=== PATIENT | male | born 1950 | race Caucasian/White ===

== ENCOUNTER 2016-11-01 15:24 | Inpatient (IN) | payer MEDICARE ==
[2016-11-01] MEDS ORDERED: ETOMIDATE 2 MG/ML 10 ML VIAL ONE (16:10)
[2016-11-01] MEDS ORDERED: LIDOCAINE 2% INJ 20 MG/ML (20 ML MDV) ONE (16:12)
[2016-11-01] MEDS ORDERED: LIDOCAINE 2% INJ 20 MG/ML SQ ONE (16:26)
[2016-11-01] MEDS ORDERED: SODIUM CHLORIDE 0.9% 1,000 ML IV ONE ×2 (16:26→16:33)
[2016-11-01] MEDS ORDERED: DOPamine DRIP 800 MG in DEXTROSE/WATER 1 500ML.BAG IV ONE (16:31)
[2016-11-01] MEDS ORDERED: NOREPINEPHRIN 16 MG-0.9%NS PMX 16 MG/250 ML ML IV ONE (16:41)
[2016-11-01] MEDS ORDERED: EPINEPHrine 1 MG/ML 1 ML AMP IV ONE (16:47)
[2016-11-01] MEDS ORDERED: EPINEPHrine 2 MG in DEXTROSE 5% IN WATER 250 ML IV SCH ×4 (17:00)
[2016-11-01] MEDS ORDERED: RX INFO: IV CONTRAST WAS GIVEN 1 EACH MISC MISCELLANE PRN (17:07)
[2016-11-01] MEDS ORDERED: MIDAZOLAM 2 MG/2 ML VIAL ONE ×2 (17:10→17:35)
[2016-11-01] MEDS: MIDAZOLAM 2 MG/2 ML VIAL IVP ONE ×3 (17:12→17:20)
[2016-11-01] MEDS ORDERED: SODIUM CHLORIDE 0.9% 1,000 ML IV SCH ×2 (17:15→19:00)
[2016-11-01] MEDS ORDERED: fentaNYL (PF) 50 MCG/ML 2 ML AMP ONE (17:20)
[2016-11-01] MEDS: fentaNYL (PF) 50 MCG/ML 2 ML AMP IV ONE ×2 (17:21→17:33)
[2016-11-01] MEDS ORDERED: MIDAZOLAM 2 MG/2 ML VIAL IVP ONE ×2 (17:36→17:38)
[2016-11-01 17:57] LABS: Glucose,Whole Blood 88 mg/dL (75-99)
[2016-11-01] MEDS ORDERED: IODIXANOL 320 MG/ML 100 ML INTRAARTER ONE (17:57)
[2016-11-01] MEDS ORDERED: DOPamine DRIP 800 MG in DEXTROSE/WATER 1 500ML.BAG IV SCH (18:00)
[2016-11-01] MEDS: NOREPINEPHRIN 16 MG-0.9%NS PMX 16 MG/250 ML ML IV SCH (18:00)
[2016-11-01] MEDS: PROPOFOL 500 MG in EMPTY BAG 1 BAG IV SCH (18:00)
--- NOTE | 2016-11-01 18:40 | XR ---
EXAMINATION TYPE: XR chest 1V portable DATE OF EXAM: 11/01/2016 COMPARISON: 01/04/2016 HISTORY: Balloon pump placement TECHNIQUE: Single frontal view of the chest is obtained. FINDINGS: There is pulmonary edema. Heart is enlarged. Endotracheal tube is in good position. There are chest leads. There are calcified subcarinal lymph nodes. IMPRESSION: Pulmonary edema consistent with congestive heart failure or RDS. Endotracheal tube is in good position. Pulmonary edema is new compared to old exam.
[2016-11-01] MEDS ORDERED: HEPARIN SODIUM,PORCINE 5,000 UNIT/ML 1 ML VIAL IV PRN (18:59)
[2016-11-01] MEDS ORDERED: HEPARIN SODIUM,PORCINE 10,000 UNIT/ML 1 ML VIAL IV ONE (18:59)
[2016-11-01] MEDS: PANTOPRAZOLE 40 MG/10 ML VIAL IVP SCH (19:07)
[2016-11-01 19:14] LABS: Amorphous Sediment,Urine Moderate /hpf; Appearance,Urine Cloudy (Clear); Bacteria,Urine Few /hpf; Bilirubin,Urine Negative (Negative); Glucose,Urine (UA) Negative (Negative); Ketones,Urine Negative (Negative); Leukocyte Esterase,Urine Large (Negative); Nitrite,Urine Negative (Negative); Particle Count 20042; Protein,Urine 3+ (Negative); Specific Gravity,Urine 1.011 (1.001-1.035); Squamous Epithelial Cell,Urine 2 /hpf (0-4); UA Billing (MACRO vs. MICRO) MICRO; Urobilinogen,Urine <2.0 mg/dL (<2.0); WBC,Urine >182 /hpf (0-5)
[2016-11-01 19:16] LABS: ABG Base Excess -3.4 mmol/L; ABG HCO3 21 mmol/L (21-25); ABG PCO2 41 mmHg (35-45); ABG PH 7.34 (7.35-7.45); ABG PO2 177 mmHg (83-108); ABG TCO2 23 mmol/L (19-24)
[2016-11-01 19:33] LABS: Anisocytosis Moderate; CH 29.4; CHCM 27.8; HCT 34.2 % (39.0-53.0); HDW 3.48; HGB 10.2 gm/dL (13.0-17.5); Hypochromasia Marked; MCH 31.5 pg (25.0-35.0); MCHC 29.8 g/dL (31.0-37.0); MCV 105.8 fL (80.0-100.0); Macrocytosis Marked; Mean Platelet Volume 9.2; Poikilocytosis Slight; RBC 3.24 m/uL (4.30-5.90); RDW 21.1 % (11.5-15.5); WBC 10.7 k/uL (3.8-10.6); WBC (Perox) 11.81
[2016-11-01 19:35] LABS: Calcium 8.8 mg/dL (8.4-10.2); Potassium 5.7 mmol/L (3.5-5.1); Total Bilirubin 1.4 mg/dL (0.2-1.3); Total Protein 6.2 g/dL (6.3-8.2)
[2016-11-01 19:37] LABS: INR 1.4 (<1.1); Prothrombin Time 13.9 sec (9.0-12.0)
[2016-11-01 19:53] LABS: Partial Thromboplastin Time 30.6 sec (22.0-30.0)
[2016-11-01 20:00] LABS: Glucose,Whole Blood 120 mg/dL (75-99)
[2016-11-01 20:07] LABS: Add Differential Manual Differential
[2016-11-01 20:10] LABS: Manual Review Performed; Nucleated Red Blood Cells 0 /100 WBC (0-0); Ovalocytes Present; Polychromasia Present; Total Cells Counted 100
[2016-11-01] MEDS ORDERED: INSULIN REGULAR 100 UNIT/ML VIAL IV ONE (20:22)
[2016-11-01] MEDS ORDERED: DEXTROSE 50%-WATER 50 ML SYRINGE IVP STA (20:23)
[2016-11-01] MEDS ORDERED: DEXTROSE 10 % IN WATER 250 ML IV STA (20:24)
[2016-11-01] MEDS: HEPARIN SODIUM,PORCINE/D5W PMX 25,000 UNIT in DEXTROSE/WATER 1 500ML.BAG IV SCH (20:32)
--- NOTE | 2016-11-01 21:08 | US ---
EXAMINATION TYPE: US venous doppler duplex LE BI DATE OF EXAM: 11/01/2016 8:55 PM COMPARISON: NONE CLINICAL HISTORY: Swelling. Extremely limited and difficult exam. Exam was done portable in the ICU. Patient is intubated with a balloon pump in the right groin with multiple bandages. Unable to move th e right leg per nurse. There is also a jordan catheter taped to the left leg. SIDE PERFORMED: Bilateral TECHNIQUE: The lower extremity deep venous system is examined utilizing real time linear array sonog lawson with graded compression, doppler sonography and color-flow sonography. VESSELS IMAGED: External Iliac Vein (EIV) Common Femoral Vein Deep Femoral Vein Greater Saphenous Vein * Femoral Vein Popliteal Vein Small Saphenous Vein * Proximal Calf Veins (* superficial vessels) Right Leg: Negative for DVT as visualized Left Leg: Negative for DVT as visualized IMPRESSION: Normal exam. No evidence of deep venous thrombosis.
[2016-11-01] MEDS: ATORVASTATIN 40 MG TAB PO SCH (21:35)
[2016-11-01] MEDS: CHLORHEXIDINE GLUCONATE 15 ML CUP MUCOUS MEM SCH (21:35)
[2016-11-01 22:30] LABS: Anisocytosis Moderate; Basophils % (A) 0 %; CH 30.1; CHCM 29.4; Eosinophils % (A) 0 %; HCT 31.9 % (39.0-53.0); HDW 3.48; HGB 9.8 gm/dL (13.0-17.5); Hypochromasia Marked; Luc # (Auto) 0.12; Luc % (Auto) 1; Lymphocytes # (A) 0.3 k/uL (1.0-4.8); Lymphocytes % (A) 3 %; MCH 31.7 pg (25.0-35.0); MCHC 30.9 g/dL (31.0-37.0); MCV 102.4 fL (80.0-100.0); Macrocytosis Marked; Mean Platelet Volume 9.7; Monocytes # (A) 0.4 k/uL (0-1.0); Monocytes % (A) 4 %; Neutrophils # (A) 9.2 k/uL (1.3-7.7); Neutrophils % (A) 91 %; Poikilocytosis Slight; RBC 3.11 m/uL (4.30-5.90); WBC 10.1 k/uL (3.8-10.6); WBC (Perox) 10.52
--- NOTE | 2016-11-01 22:39 | XR ---
EXAM: XR Abdomen 1 view CLINICAL HISTORY: Reason: Firm spot in Abdomen in IABP TECHNIQUE: Frontal view of the abdomen/pelvis-one view supine COMPARISON: No relevant prior studies available. FINDINGS: Intraperitoneal space: No free air. Gastrointestinal tract: Bowel gas pattern is nonspecific with mild distention of small bowel loops in the mid and lower abdomen. Bones/joints: Regional bony structures are unremarkable. Tubes, lines and devices: Nasogastric tube extends into the stomach with its tip in region of distal gastric antrum. Right femoral arterial and venous catheters extend to right mid pelvis in region of iliac vessels. Additional lead projecting midline lower pelvis suggests rectal bleed and is coiled upon itself with tip in the lower pelvis. IMPRESSION: Nonspecific bowel gas pattern. Multiple lines and tubes as described in body of report.
[2016-11-01 22:41] LABS: Calcium 7.5 mg/dL (8.4-10.2); Total Bilirubin 0.8 mg/dL (0.2-1.3); Total Protein 5.8 g/dL (6.3-8.2)
[2016-11-01 22:56] LABS: Potassium 5.6 mmol/L (3.5-5.1)
[2016-11-01 22:57] LABS: Magnesium 1.9 mg/dL (1.6-2.3)
[2016-11-01] MEDS ORDERED: DEXTROSE 5% IN WATER 1,000 ML with SODIUM BICARB (1 MEQ/ML) 150 ML IV ONE (22:57)
[2016-11-01] MEDS ORDERED: WATER FOR INJECTION, STERILE 1,000 ML with SODIUM ACETATE 150 MEQ IV SCH ×2 (23:15)
[2016-11-01] MEDS: SODIUM CHLORIDE 0.9% 99 ML with VASOPRESSIN 20 UNIT IV SCH ×2 (23:45)
[2016-11-01 23:54] LABS: ABG Base Excess -0.6 mmol/L; ABG HCO3 23 mmol/L (21-25); ABG PCO2 35 mmHg (35-45); ABG PH 7.43 (7.35-7.45); ABG PO2 277 mmHg (83-108); ABG TCO2 24 mmol/L (19-24)
[2016-11-01 23:55] LABS: INR 1.5 (<1.1)
[2016-11-01 23:56] LABS: Prothrombin Time 14.3 sec (9.0-12.0)
[2016-11-02 00:05] LABS: Partial Thromboplastin Time 31.7 sec (22.0-30.0)
[2016-11-02 01:30] LABS: Glucose,Whole Blood 192 mg/dL (75-99)
[2016-11-02] MEDS: PROPOFOL 500 MG in EMPTY BAG 1 BAG IV SCH ×4 (03:04→17:25)
[2016-11-02] MEDS: NOREPINEPHRIN 16 MG-0.9%NS PMX 16 MG/250 ML ML IV SCH ×3 (03:21→12:36)
[2016-11-02 03:24] LABS: INR 1.6 (<1.1); Partial Thromboplastin Time 60.3 sec (22.0-30.0); Prothrombin Time 15.5 sec (9.0-12.0)
[2016-11-02 03:27] LABS: Anisocytosis Moderate; Basophils # (A) 0.1 k/uL (0-0.2); Basophils % (A) 1 %; CH 29.5; CHCM 28.6; Eosinophils % (A) 0 %; HCT 34.8 % (39.0-53.0); HDW 3.46; HGB 10.4 gm/dL (13.0-17.5); Hypochromasia Marked; Luc # (Auto) 0.18; Luc % (Auto) 2; Lymphocytes # (A) 0.4 k/uL (1.0-4.8); Lymphocytes % (A) 3 %; MCV 103.3 fL (80.0-100.0); Macrocytosis Marked; Mean Platelet Volume 9.4; Monocytes # (A) 0.5 k/uL (0-1.0); Monocytes % (A) 4 %; Neutrophils # (A) 10.7 k/uL (1.3-7.7); Neutrophils % (A) 90 %; Poikilocytosis Slight; RBC 3.37 m/uL (4.30-5.90); WBC 11.8 k/uL (3.8-10.6); WBC (Perox) 12.34
[2016-11-02] MEDS ORDERED: DEXTROSE 50%-WATER 50 ML SYRINGE IVP STA (03:49)
[2016-11-02] MEDS ORDERED: CALCIUM GLUCONATE 1,000 MG in SODIUM CHLORIDE 0.9% 100 ML IVPB ONE (03:50)
[2016-11-02] MEDS ORDERED: INSULIN REGULAR 100 UNIT/ML VIAL IV ONE (03:50)
[2016-11-02 05:01] LABS: Anisocytosis Moderate; Basophils % (A) 0 %; CH 29.4; CHCM 28.5; Eosinophils % (A) 0 %; HCT 34.6 % (39.0-53.0); HDW 3.43; HGB 10.4 gm/dL (13.0-17.5); Hypochromasia Marked; Luc # (Auto) 0.25; Luc % (Auto) 2; Lymphocytes # (A) 0.4 k/uL (1.0-4.8); Lymphocytes % (A) 4 %; MCHC 30.1 g/dL (31.0-37.0); MCV 103.1 fL (80.0-100.0); Macrocytosis Marked; Mean Platelet Volume 9.5; Monocytes # (A) 0.6 k/uL (0-1.0); Monocytes % (A) 5 %; Neutrophils % (A) 89 %; Poikilocytosis Slight; RBC 3.36 m/uL (4.30-5.90); RDW 20.8 % (11.5-15.5); WBC 11.3 k/uL (3.8-10.6); WBC (Perox) 11.52
[2016-11-02 05:07] LABS: ABG Base Excess -1.9 mmol/L; ABG HCO3 23 mmol/L (21-25); ABG PCO2 40 mmHg (35-45); ABG PH 7.38 (7.35-7.45); ABG PO2 200 mmHg (83-108); ABG TCO2 24 mmol/L (19-24)
[2016-11-02 05:55] LABS: Calcium 8.7 mg/dL (8.4-10.2); Magnesium 2.3 mg/dL (1.6-2.3)
[2016-11-02 06:01] LABS: Phosphorous 9.5 mg/dL (2.5-4.5)
[2016-11-02 06:02] LABS: Potassium 6.6 mmol/L (3.5-5.1)
[2016-11-02 06:09] LABS: Glucose,Whole Blood 171 mg/dL (75-99)
[2016-11-02] MEDS: BUDESONIDE 0.5 MG/2 ML NEBU INHALATION SCH ×2 (07:17→19:00)
[2016-11-02] MEDS: IPRATROPIUM-ALBUTEROL 3 ML NEB INHALATION PRN ×4 (07:17→19:00)
--- NOTE | 2016-11-02 07:47 | XR ---
EXAMINATION TYPE: XR chest 1V DATE OF EXAM: 11/02/2016 COMPARISON: 11/01/2016 INDICATION: Balloon pump placement TECHNIQUE: Single frontal view of the chest is obtained. FINDINGS: The heart size is normal. The pulmonary vasculature is normal. There is mild infiltrate within the periphery of the left mid to lower lung field bilateral lower martine g field mild infiltrate is present. Small left pleural effusion is present. Minimal right pleural eff usion is present. An endotracheal tube remains in position with the tip above the kimberly. Nasogastric tube transverses the thorax tip in the left upper quadrant of the abdomen. Radiopaque marker is within the aortic arch level, stable from prior study compatible with the patient's balloon placement. Calcified mediastina l adenopathy is stable. IMPRESSION: 1. Small left and minimal right pleural effusion. 2. Mild bibasilar atelectasis. 3. Peripheral left midlung infiltrate or pleural fluid. 4. Lines and catheters discussed above.
[2016-11-02] MEDS: ASPIRIN 325 MG TAB PO SCH (08:34)
[2016-11-02] MEDS: PANTOPRAZOLE 40 MG/10 ML VIAL IVP SCH (08:35)
[2016-11-02] MEDS: CHLORHEXIDINE GLUCONATE 15 ML CUP MUCOUS MEM SCH ×2 (08:35→21:30)
[2016-11-02] MEDS: DOBUTamine DRIP 500 MG in DEXTROSE/WATER 1 250ML.BAG IV SCH ×2 (08:40→17:44)
--- NOTE | 2016-11-02 10:09 | P.NPCON ---
History of Present Illness - Reason for Consult end stage renal disease - History of Present Illness Reason for consultation: End-stage renal disease History of present illness: Patient is a 65-year-old male seen in renal consultation for end-stage renal disease. He is maintained on hemodialysis on a Sunday schedule. Patient presented with chest pain and underwent a cardiac catheterization on November 01. No interventions were done however he had a cardiac arrest. Patient received 1 dose of epinephrine and atropine and was revived. He is currently intubated and sedated in the intensive care unit. He is requiring levofed as well as vasopressin. He is also maintained on IV heparin and dobutamine drip. His potassium level has been elevated which was medically treated initially. However last night it was up to 6.7 and urgent hemodialysis was arranged. He completed dialysis this morning. Vital signs are stable but requiring multiple vasopressors. General: The patient appeared well nourished and normally developed. HEENT: Head exam is unremarkable. Neck is without jugular venous distension. LUNGS: Scattered rhonchi. Breath sounds decreased. HEART: Rate and Rhythm are regular. First and second heart sounds normal. No murmurs, rubs or gallops. ABDOMEN: Abdominal exam reveals normal bowel sounds. Non-tender and non- distended. EXTREMITITES: No clubbing, cyanosis, or edema. Past Medical History Past Medical History: Asthma, Cancer, Chest Pain / Angina, Heart Failure, Dialysis, Eye Disorder, Pneumonia, Renal Disease Additional Past Medical History / Comment(s): Renal failure with hemodialysis on //Sun, kidney transplant that failed, nephrolithiasis, renal hematoma, chronic anemia, nonhealing L patellar fracture, skin cancer chest and legs with removals, gout yrs ago, night vision problems. Heart Murmur. Heart Cath and HF diagnosis at [place] 1 month ago. Sepsis. Kidney Stones. History of Any Multi-Drug Resistant Organisms: None Reported Past Surgical History: Heart Catheterization, Orthopedic Surgery Additional Past Surgical History / Comment(s): KIDNEY TRANSPLANT. fistula/ shunt. basal cell carcinoma removed from chest and legs. cyst removed from left ear. tendon removed from BL wrist and placed in BL thumb-metal coils still present. lasik eye surgery, colonoscopy with benign polypectomy, bilateral cataract removal. L breast Biopsy. Past Anesthesia/Blood Transfusion Reactions: No Reported Reaction Additional Past Anesthesia/Blood Transfusion Reaction / Comment(s): Pt has received blood in past without reaction. Past Psychological History: Depression Additional Psychological History / Comment(s): Pt states he is staying at [facility] for rehab and was to be discharged today, now at discharge he states he will have to go back to [facility] to complete his discharge. Smoking Status: Never smoker Past Alcohol Use History: None Reported Past Drug Use History: None Reported - Past Family History Father Family Medical History: No Reported History Mother Family Medical History: No Reported History Medications and Allergies Home Medications Medication Instructions Recorded Confirmed Type Albuterol Inhaler [Ventolin Hfa 1 - 2 puff INHALATION RT-Q6H PRN 12/04/13 History Inhaler] Bumetanide [BUMEX] 1 mg PO DAILY 12/04/13 11/01/16 History Montelukast Sodium [Singulair] 10 mg PO DAILY 12/04/13 11/01/16 History Tamsulosin [Flomax] 0.4 mg PO DAILY 12/04/13 11/01/16 History Tranylcypromine Sulfate [Parnate] 100 mg PO DAILY 12/04/13 11/01/16 History chlordiazePOXIDE HCL 10 mg PO TID 12/04/13 11/01/16 History Allopurinol [Zyloprim] 100 mg PO DAILY 01/26/14 11/01/16 History Theophylline 12 Hour [Juan Manuel-Dur] 300 mg PO BID 01/04/16 11/01/16 History Acetaminophen Tab [Tylenol] 650 mg PO Q6H PRN 03/27/16 11/01/16 History Calcium Acetate [PhosLo] 667 mg PO AC-TID 03/27/16 11/01/16 History Cholecalciferol [Vitamin D3] 1,000 unit PO DAILY 03/27/16 11/01/16 History Cinacalcet [Sensipar] 30 mg PO DAILY 03/27/16 11/01/16 History Lactulose 20 gm PO DAILY PRN 03/27/16 11/01/16 History Magnesium Hydroxide [Milk of 2,400 mg PO DAILY PRN 03/27/16 11/01/16 History Magnesia] Polyethylene Glycol 3350 [Miralax] 17 gm PO DAILY PRN 03/27/16 11/01/16 History Sennosides [Senna] 8.6 mg PO DAILY 03/27/16 11/01/16 History Albuterol Nebulized [Ventolin 2.5 mg INHALATION RT-QID 11/01/16 11/01/16 History Nebulized] Famotidine 20 mg PO DAILY 11/01/16 11/01/16 History Midodrine [ProAmatine] 5 mg PO DIRECTED 11/01/16 11/01/16 History predniSONE 30 mg PO DAILY 11/01/16 11/01/16 History Allergies Allergy/AdvReac Type Severity Reaction Status Date / Time diphenhydramine HCl Allergy Rash/Hives Verified 11/01/16 19:14 [From Benadryl] meperidine HCl [From Demerol] Allergy Unknown Verified 11/01/16 19:14 vancomycin Allergy Itching Verified 11/01/16 19:14 Physical Exam Vitals: Vital Signs Temp Pulse Resp BP Pulse Ox 11/02/16 09:00 79 12 105/60 100 11/02/16 08:45 80 14 115/62 100 11/02/16 08:30 77 13 118/60 100 11/02/16 08:15 98.7 F 79 12 113/57 100 11/02/16 08:00 77 22 106/64 100 11/02/16 07:45 78 18 125/63 100 11/02/16 07:40 83 11/02/16 07:30 77 14 124/59 100 11/02/16 07:23 79 11/02/16 07:15 80 11 L 106/60 100 11/02/16 07:00 80 14 106/65 100 11/02/16 06:45 79 14 111/55 100 11/02/16 06:30 80 14 114/68 100 11/02/16 06:15 79 14 136/63 100 11/02/16 06:00 76 14 121/68 100 11/02/16 05:45 97.6 F 75 14 117/65 100 11/02/16 05:30 73 14 129/66 100 11/02/16 05:15 72 14 125/67 100 11/02/16 05:00 73 17 118/70 100 11/02/16 04:45 73 12 111/59 100 11/02/16 04:30 72 15 131/57 100 11/02/16 04:15 72 13 124/59 100 11/02/16 04:00 97.6 F 73 12 116/59 100 11/02/16 03:45 77 11 L 95/45 100 11/02/16 03:30 74 11 L 109/52 100 11/02/16 03:15 75 13 118/56 100 11/02/16 03:00 76 12 112/57 100 11/02/16 02:45 76 14 114/61 100 11/02/16 02:30 76 13 119/52 100 11/02/16 02:15 77 12 109/53 100 11/02/16 02:00 76 14 109/57 100 11/02/16 01:45 77 14 109/57 100 11/02/16 01:30 78 14 116/58 100 11/02/16 01:15 79 14 118/58 100 11/02/16 01:00 80 14 109/58 100 11/02/16 00:45 82 14 126/63 100 11/02/16 00:30 81 14 132/69 100 11/02/16 00:15 81 14 136/60 100 11/02/16 00:00 98.4 F 82 14 133/69 100 11/01/16 23:45 85 14 137/66 100 11/01/16 23:38 86 14 127/64 100 11/01/16 23:30 86 13 127/64 100 11/01/16 23:15 86 13 117/66 100 11/01/16 23:00 98.4 F 85 14 134/67 100 11/01/16 22:45 86 14 125/81 99 11/01/16 22:30 85 14 122/58 100 11/01/16 22:15 85 14 81/49 100 11/01/16 22:00 98.4 F 84 14 74/42 100 11/01/16 21:45 89 14 102/50 100 11/01/16 21:30 99 12 107/51 100 11/01/16 21:15 96 14 122/59 100 11/01/16 21:00 99 14 118/63 100 11/01/16 20:45 97 14 119/53 100 11/01/16 20:30 97 11 L 112/64 99 11/01/16 20:15 95 14 120/50 100 11/01/16 20:00 93.4 F L 96 14 120/50 100 11/01/16 19:45 92 14 120/49 100 11/01/16 19:30 91 14 100 11/01/16 19:15 90 14 100 11/01/16 19:00 94.0 F L 84 14 124/75 100 11/01/16 18:45 85 14 100 11/01/16 18:39 92.2 F L 86 14 139/74 100 Intake and Output 11/01/16 11/02/16 11/02/16 22:59 06:59 14:59 Intake Total 1729.375 670.626 682.149 Output Total 35 520 5 Balance 1694.375 150.626 677.149 Intake: IV 1623.53 460 130 Calcium Gluconate 1,000 100 mg In Sodium Chloride 0.9 % 100 ml @ 100 mls/hr IVPB ONCE ONE Rx#: [id number] D50 50 Sodium Chloride 0.9% 1, 120 270 80 000 ml @ 40 mls/hr IV . Q24H BRANDT Rx#:[id number] cefTRIAXone 1,000 mg In 90 Sodium Chloride 0.9% 50 ml @ 100 mls/hr IVPB HS BRANDT Rx#:[id number] Intake, IV Titration 105.845 210.626 552.149 Amount DOPamine DRIP 800 mg In 7.484 Dextrose/Water 1 500ml. bag @ 20 MCG/KG/MIN 56.13 mls/hr IV .Q8H55M BRANDT Rx #:[id number] Heparin Sodium,Porcine/ 321.484 D5w Pmx 25,000 unit In Dextrose/Water 1 500ml. bag @ 18 UNITS/KG/HR 26. 94 mls/hr IV .[id number] BRANDT Rx#:[id number] Norepinephrin 16 mg-0.9% 58.361 160.626 163.125 Ns Pmx 16 mg In 250 ml @ Titrate IV .Q0M BRANDT Rx#: [id number] Propofol 500 mg In Empty 50 49.54 Bag 1 bag @ Titrate IV . Q0M BRANDT Rx#:[id number] Sodium Chloride 0.9% 1, 40 000 ml @ 40 mls/hr IV . Q24H BRANDT Rx#:[id number] Sodium Chloride 0.9% 99 18 ml @ 0.03 UNITS/MIN 9 mls /hr IV .Q11H7M BRANDT with Vasopressin 20 unit Rx#: [id number] Output: Gastric Drainage 450 Urine 35 70 5 Other: Voiding Method Indwelling Catheter Indwelling Catheter Indwelling Catheter Weight 74.843 kg 77.5 kg 77.5 kg Patient Weight 11/03/16 06:59 Weight 77.5 kg Results - Lab Results Most recent lab results ABG pH 7.38 (7.35-7.45) 11/02/16 05:00 ABG pCO2 40 mmHg (35-45) 11/02/16 05:00 ABG pO2 200 mmHg (83-108) H 11/02/16 05:00 ABG HCO3 23 mmol/L (21-25) 11/02/16 05:00 ABG O2 Saturation 99.0 % (94-97) H 11/02/16 05:00 Calcium 8.7 mg/dL (8.4-10.2) 11/02/16 04:24 Phosphorus 9.5 mg/dL (2.5-4.5) H* 11/02/16 04:24 Magnesium 2.3 mg/dL (1.6-2.3) 11/02/16 04:24 11/02/16 04:24 11/02/16 04:24 Assessment and Plan Plan: Assessment: #1. End-stage renal disease maintained on hemodialysis on a Sunday schedule via left upper extremity AV fistula. #2. Hyperkalemia secondary to chronic kidney disease. #3. Status post cardiac arrest. #4. Chest pain status post cardiac catheterization in November 01. No interventions done. #5. Anemia of chronic kidney disease. Hemoglobin stable. #6. Hyperphosphatemia secondary to chronic kidney disease. Plan: Patient completed hemodialysis this morning. Recheck electrolytes at noon today. Wean vasopressors and FiO2 as tolerated. Expect further improvement with metabolic acidosis and hyperphosphatemia post dialysis. Cardiology following. Thank you for the consultation. I will continue to follow the patient with you during his hospital stay.
--- NOTE | 2016-11-02 10:28 | ECHOF ---
Referral Reason:LV function MEASUREMENTS -------- HEIGHT: 185.4 cm WEIGHT: 74.8 kg BP: 92/45 RVIDd: 5.3 cm (< 3.3) RAP: 5.00 mmHg RVSP: 37.94 mmHg FINDINGS -------- Undetermined rhythm. This was a technically adequate study. Limited Study Cardiac Arrest. Overall left ventricular systolic function is severely impaired with, an EF < 20%. The right ventricle is severely enlarged. The left atrium is moderately dilated. RA appears enlarged. There is a small, generalized pericardial effusion present. Large Pleural Effusion. CONCLUSIONS -------- 1. Undetermined rhythm. 2. Large Pleural Effusion. 3. This was a technically adequate study. 4. Limited Study 5. Cardiac Arrest. 6. Overall left ventricular systolic function is severely impaired with, an EF < 20%. 7. The right ventricle is severely enlarged. 8. The left atrium is moderately dilated. 9. RA appears enlarged. 10. There is a small, generalized pericardial effusion present. SUPERVISOR MATRIX: Gil Chavez RDCS
[2016-11-02] MEDS: SODIUM CHLORIDE 0.9% 99 ML with VASOPRESSIN 20 UNIT IV SCH ×4 (10:58→21:30)
--- NOTE | 2016-11-02 12:00 | P.PN ---
Subjective this patient's medical records reviewed and the hemodynamics over the last 24 hours reviewed. 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 The catheterization did not show any significant coronary artery disease. Go cardiogram done this morning revealed severely impaired left ventricular systolic function. Minimal pericardial effusion. Currently is on an norepinephrine as well as a vasopressin drip and on intra-aortic balloon pump support. 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 He do abdominal ultrasound. Objective - Vital Signs Vital signs: Vital Signs Temp 98.7 F 11/02/16 08:15 Pulse 75 11/02/16 11:17 Resp 12 11/02/16 11:00 BP 103/55 11/02/16 11:00 Pulse Ox 100 11/02/16 11:00 Intake & Output 11/01/16 11/02/16 11/02/16 18:59 06:59 18:59 Intake Total 1530.546 869.455 854.738 Output Total 20 535 5 Balance 1510.546 334.455 849.738 Weight 74.843 kg 77.5 kg 77.5 kg Intake: IV 1503.53 580 210 Calcium Gluconate 1,000 100 mg In Sodium Chloride 0.9 % 100 ml @ 100 mls/hr IVPB ONCE ONE Rx#: [id number] D50 50 Sodium Chloride 0.9% 1, 390 160 000 ml @ 40 mls/hr IV . Q24H [facility] Rx#:[id number] cefTRIAXone 1,000 mg In 90 Sodium Chloride 0.9% 50 ml @ 100 mls/hr IVPB HS [facility] Rx#:[id number] Intake, IV Titration 27.016 289.455 644.738 Amount DOBUTamine DRIP 500 mg In 22.4 Dextrose/Water 1 250ml. bag @ Titrate IV .Q0M [facility] Rx#:[id number] DOPamine DRIP 800 mg In 7.484 Dextrose/Water 1 500ml. bag @ 20 MCG/KG/MIN 56.13 mls/hr IV .Q8H55M [facility] Rx #:[id number] Heparin Sodium,Porcine/ 321.484 D5w Pmx 25,000 unit In Dextrose/Water 1 500ml. bag @ 18 UNITS/KG/HR 26. 94 mls/hr IV .A10B00P [facility] Rx#:[id number] Norepinephrin 16 mg-0.9% 19.532 199.455 215.314 Ns Pmx 16 mg In 250 ml @ Titrate IV .Q0M [facility] Rx#: [id number] Propofol 500 mg In Empty 50 49.54 Bag 1 bag @ Titrate IV . Q0M [facility] Rx#:[id number] Sodium Chloride 0.9% 1, 40 000 ml @ 40 mls/hr IV . Q24H [facility] Rx#:[id number] Sodium Chloride 0.9% 99 36 ml @ 0.03 UNITS/MIN 9 mls /hr IV .Q11H7M [facility] with Vasopressin 20 unit Rx#: [id number] Output: Gastric Drainage 450 Urine 20 85 5 Other: Voiding Method Indwelling Catheter Indwelling Catheter Indwelling Catheter - Exam vital signs reviewed. First and second heart sounds are normal. Short ejection systolic murmur noted. Lungs reveal scattered wheezes. Abdomen is soft a transplanted kidney is palpable. Both feet are warm and Doppler pulses are felt. - Labs CBC & Chem 7: 11/02/16 04:24 11/02/16 04:24 Labs: Abnormal Lab Results - Last 24 Hours (Table) 11/01/16 11/01/16 11/01/16 Range/Units 11:30 11:35 18:30 WBC (3.8-10.6) k/uL RBC (4.30-5.90) m/uL Hgb (13.0-17.5) gm/dL Hct (39.0-53.0) % MCV (80.0-100.0) fL MCHC (31.0-37.0) g/dL RDW (11.5-15.5) % Neutrophils # (1.3-7.7) k/uL Neutrophils # (Manual) (1.3-7.7) k/uL Lymphocytes # (1.0-4.8) k/uL Lymphocytes # (Manual) (1.0-4.8) k/uL PT 14.3 H (9.0-12.0) sec APTT 31.7 H (22.0-30.0) sec ABG pH (7.35-7.45) ABG pO2 (83-108) mmHg ABG O2 Saturation (94-97) % ABG Lactic Acid 1.8 H (0.5-1.6) mmol/L Sodium (137-145) mmol/L Potassium (3.5-5.1) mmol/L Chloride (98-107) mmol/L Carbon Dioxide (22-30) mmol/L BUN (9-20) mg/dL Creatinine (0.66-1.25) mg/dL Glucose (74-99) mg/dL POC Glucose (mg/dL) (75-99) mg/dL Calcium (8.4-10.2) mg/dL Phosphorus (2.5-4.5) mg/dL Total Bilirubin (0.2-1.3) mg/dL AST (17-59) U/L Alkaline Phosphatase (38-126) U/L Total Protein (6.3-8.2) g/dL Albumin (3.5-5.0) g/dL Urine Protein 3+ H (Negative) Urine Blood Trace H (Negative) Ur Leukocyte Esterase Large H (Negative) Urine WBC >182 H (0-5) /hpf Urine WBC Clumps Moderate H (None) /hpf Amorphous Sediment Moderate H (None) /hpf Urine Bacteria Few H (None) /hpf Hyaline Casts 9 H (0-2) /lpf 11/01/16 11/01/16 11/01/16 Range/Units 18:56 18:57 19:04 WBC 10.7 H (3.8-10.6) k/uL RBC 3.24 L (4.30-5.90) m/uL Hgb 10.2 L (13.0-17.5) gm/dL Hct 34.2 L (39.0-53.0) % MCV 105.8 H (80.0-100.0) fL MCHC 29.8 L (31.0-37.0) g/dL RDW 21.1 H (11.5-15.5) % Neutrophils # (1.3-7.7) k/uL Neutrophils # (Manual) 9.7 H (1.3-7.7) k/uL Lymphocytes # (1.0-4.8) k/uL Lymphocytes # (Manual) 0.4 L (1.0-4.8) k/uL PT 13.9 H (9.0-12.0) sec APTT 30.6 H (22.0-30.0) sec ABG pH 7.34 L (7.35-7.45) ABG pO2 177 H (83-108) mmHg ABG O2 Saturation 99.0 H (94-97) % ABG Lactic Acid (0.5-1.6) mmol/L Sodium (137-145) mmol/L Potassium (3.5-5.1) mmol/L Chloride (98-107) mmol/L Carbon Dioxide (22-30) mmol/L BUN (9-20) mg/dL Creatinine (0.66-1.25) mg/dL Glucose (74-99) mg/dL POC Glucose (mg/dL) (75-99) mg/dL Calcium (8.4-10.2) mg/dL Phosphorus (2.5-4.5) mg/dL Total Bilirubin (0.2-1.3) mg/dL AST (17-59) U/L Alkaline Phosphatase (38-126) U/L Total Protein (6.3-8.2) g/dL Albumin (3.5-5.0) g/dL Urine Protein (Negative) Urine Blood (Negative) Ur Leukocyte Esterase (Negative) Urine WBC (0-5) /hpf Urine WBC Clumps (None) /hpf Amorphous Sediment (None) /hpf Urine Bacteria (None) /hpf Hyaline Casts (0-2) /lpf 11/01/16 11/01/16 11/01/16 Range/Units 19:04 19:58 22:20 WBC (3.8-10.6) k/uL RBC 3.11 L (4.30-5.90) m/uL Hgb 9.8 L (13.0-17.5) gm/dL Hct 31.9 L (39.0-53.0) % MCV 102.4 H (80.0-100.0) fL MCHC 30.9 L (31.0-37.0) g/dL RDW 21.0 H (11.5-15.5) % Neutrophils # 9.2 H (1.3-7.7) k/uL Neutrophils # (Manual) (1.3-7.7) k/uL Lymphocytes # 0.3 L (1.0-4.8) k/uL Lymphocytes # (Manual) (1.0-4.8) k/uL PT (9.0-12.0) sec APTT (22.0-30.0) sec ABG pH (7.35-7.45) ABG pO2 (83-108) mmHg ABG O2 Saturation (94-97) % ABG Lactic Acid (0.5-1.6) mmol/L Sodium 135 L (137-145) mmol/L Potassium 5.7 H (3.5-5.1) mmol/L Chloride 97 L (98-107) mmol/L Carbon Dioxide 16 L (22-30) mmol/L BUN 62 H (9-20) mg/dL Creatinine 8.19 H* (0.66-1.25) mg/dL Glucose 125 H (74-99) mg/dL POC Glucose (mg/dL) 120 H (75-99) mg/dL Calcium (8.4-10.2) mg/dL Phosphorus (2.5-4.5) mg/dL Total Bilirubin 1.4 H (0.2-1.3) mg/dL AST 143 H (17-59) U/L Alkaline Phosphatase 181 H (38-126) U/L Total Protein 6.2 L (6.3-8.2) g/dL Albumin 3.1 L (3.5-5.0) g/dL Urine Protein (Negative) Urine Blood (Negative) Ur Leukocyte Esterase (Negative) Urine WBC (0-5) /hpf Urine WBC Clumps (None) /hpf Amorphous Sediment (None) /hpf Urine Bacteria (None) /hpf Hyaline Casts (0-2) /lpf 11/01/16 11/01/16 11/02/16 Range/Units 22:20 23:34 01:28 WBC (3.8-10.6) k/uL RBC (4.30-5.90) m/uL Hgb (13.0-17.5) gm/dL Hct (39.0-53.0) % MCV (80.0-100.0) fL MCHC (31.0-37.0) g/dL RDW (11.5-15.5) % Neutrophils # (1.3-7.7) k/uL Neutrophils # (Manual) (1.3-7.7) k/uL Lymphocytes # (1.0-4.8) k/uL Lymphocytes # (Manual) (1.0-4.8) k/uL PT (9.0-12.0) sec APTT (22.0-30.0) sec ABG pH (7.35-7.45) ABG pO2 277 H (83-108) mmHg ABG O2 Saturation 100.0 H (94-97) % ABG Lactic Acid (0.5-1.6) mmol/L Sodium 126 L (137-145) mmol/L Potassium 5.6 H (3.5-5.1) mmol/L Chloride 87 L (98-107) mmol/L Carbon Dioxide 19 L (22-30) mmol/L BUN 57 H (9-20) mg/dL Creatinine 7.30 H* (0.66-1.25) mg/dL Glucose 483 H* (74-99) mg/dL POC Glucose (mg/dL) 192 H (75-99) mg/dL Calcium 7.5 L (8.4-10.2) mg/dL Phosphorus 12.0 H* (2.5-4.5) mg/dL Total Bilirubin (0.2-1.3) mg/dL AST 133 H (17-59) U/L Alkaline Phosphatase 133 H (38-126) U/L Total Protein 5.8 L (6.3-8.2) g/dL Albumin 2.8 L (3.5-5.0) g/dL Urine Protein (Negative) Urine Blood (Negative) Ur Leukocyte Esterase (Negative) Urine WBC (0-5) /hpf Urine WBC Clumps (None) /hpf Amorphous Sediment (None) /hpf Urine Bacteria (None) /hpf Hyaline Casts (0-2) /lpf 11/02/16 11/02/16 11/02/16 Range/Units 02:28 02:28 02:28 WBC 11.8 H (3.8-10.6) k/uL RBC 3.37 L (4.30-5.90) m/uL Hgb 10.4 L (13.0-17.5) gm/dL Hct 34.8 L (39.0-53.0) % MCV 103.3 H (80.0-100.0) fL MCHC 30.0 L (31.0-37.0) g/dL RDW 21.0 H (11.5-15.5) % Neutrophils # 10.7 H (1.3-7.7) k/uL Neutrophils # (Manual) (1.3-7.7) k/uL Lymphocytes # 0.4 L (1.0-4.8) k/uL Lymphocytes # (Manual) (1.0-4.8) k/uL PT 15.5 H (9.0-12.0) sec APTT 60.3 H (22.0-30.0) sec ABG pH (7.35-7.45) ABG pO2 (83-108) mmHg ABG O2 Saturation (94-97) % ABG Lactic Acid (0.5-1.6) mmol/L Sodium (137-145) mmol/L Potassium 6.7 H* (3.5-5.1) mmol/L Chloride (98-107) mmol/L Carbon Dioxide (22-30) mmol/L BUN (9-20) mg/dL Creatinine (0.66-1.25) mg/dL Glucose (74-99) mg/dL POC Glucose (mg/dL) (75-99) mg/dL Calcium (8.4-10.2) mg/dL Phosphorus (2.5-4.5) mg/dL Total Bilirubin (0.2-1.3) mg/dL AST (17-59) U/L Alkaline Phosphatase (38-126) U/L Total Protein (6.3-8.2) g/dL Albumin (3.5-5.0) g/dL Urine Protein (Negative) Urine Blood (Negative) Ur Leukocyte Esterase (Negative) Urine WBC (0-5) /hpf Urine WBC Clumps (None) /hpf Amorphous Sediment (None) /hpf Urine Bacteria (None) /hpf Hyaline Casts (0-2) /lpf 11/02/16 11/02/16 11/02/16 Range/Units 04:24 04:24 04:24 WBC 11.3 H (3.8-10.6) k/uL RBC 3.36 L (4.30-5.90) m/uL Hgb 10.4 L (13.0-17.5) gm/dL Hct 34.6 L (39.0-53.0) % MCV 103.1 H (80.0-100.0) fL MCHC 30.1 L (31.0-37.0) g/dL RDW 20.8 H (11.5-15.5) % Neutrophils # 10.0 H (1.3-7.7) k/uL Neutrophils # (Manual) (1.3-7.7) k/uL Lymphocytes # 0.4 L (1.0-4.8) k/uL Lymphocytes # (Manual) (1.0-4.8) k/uL PT (9.0-12.0) sec APTT 60.5 H (22.0-30.0) sec ABG pH (7.35-7.45) ABG pO2 (83-108) mmHg ABG O2 Saturation (94-97) % ABG Lactic Acid (0.5-1.6) mmol/L Sodium 134 L (137-145) mmol/L Potassium 6.6 H* (3.5-5.1) mmol/L Chloride 96 L (98-107) mmol/L Carbon Dioxide 19 L (22-30) mmol/L BUN 67 H (9-20) mg/dL Creatinine 8.40 H* (0.66-1.25) mg/dL Glucose 143 H (74-99) mg/dL POC Glucose (mg/dL) (75-99) mg/dL Calcium (8.4-10.2) mg/dL Phosphorus 9.5 H* (2.5-4.5) mg/dL Total Bilirubin (0.2-1.3) mg/dL AST (17-59) U/L Alkaline Phosphatase (38-126) U/L Total Protein (6.3-8.2) g/dL Albumin (3.5-5.0) g/dL Urine Protein (Negative) Urine Blood (Negative) Ur Leukocyte Esterase (Negative) Urine WBC (0-5) /hpf Urine WBC Clumps (None) /hpf Amorphous Sediment (None) /hpf Urine Bacteria (None) /hpf Hyaline Casts (0-2) /lpf 11/02/16 11/02/16 Range/Units 05:00 06:07 WBC (3.8-10.6) k/uL RBC (4.30-5.90) m/uL Hgb (13.0-17.5) gm/dL Hct (39.0-53.0) % MCV (80.0-100.0) fL MCHC (31.0-37.0) g/dL RDW (11.5-15.5) % Neutrophils # (1.3-7.7) k/uL Neutrophils # (Manual) (1.3-7.7) k/uL Lymphocytes # (1.0-4.8) k/uL Lymphocytes # (Manual) (1.0-4.8) k/uL PT (9.0-12.0) sec APTT (22.0-30.0) sec ABG pH (7.35-7.45) ABG pO2 200 H (83-108) mmHg ABG O2 Saturation 99.0 H (94-97) % ABG Lactic Acid (0.5-1.6) mmol/L Sodium (137-145) mmol/L Potassium (3.5-5.1) mmol/L Chloride (98-107) mmol/L Carbon Dioxide (22-30) mmol/L BUN (9-20) mg/dL Creatinine (0.66-1.25) mg/dL Glucose (74-99) mg/dL POC Glucose (mg/dL) 171 H (75-99) mg/dL Calcium (8.4-10.2) mg/dL Phosphorus (2.5-4.5) mg/dL Total Bilirubin (0.2-1.3) mg/dL AST (17-59) U/L Alkaline Phosphatase (38-126) U/L Total Protein (6.3-8.2) g/dL Albumin (3.5-5.0) g/dL Urine Protein (Negative) Urine Blood (Negative) Ur Leukocyte Esterase (Negative) Urine WBC (0-5) /hpf Urine WBC Clumps (None) /hpf Amorphous Sediment (None) /hpf Urine Bacteria (None) /hpf Hyaline Casts (0-2) /lpf Microbiology - Last 24 Hours (Table) 11/01/16 18:30 Urine Culture - Preliminary Urine,Catheterized Assessment and Plan Plan: this patient has a severe nonischemic cardiomyopathy with a severely impaired left ventricular systolic function. We'll continue the supportive treatment. Since overall prognosis is poor.
[2016-11-02 12:10] LABS: Glucose,Whole Blood 107 mg/dL (75-99)
--- NOTE | 2016-11-02 12:49 | P.PN ---
Subjective Principal diagnosis: Cardiogenic shock Patient seen and examined in the ICU with nursing staff at bedside. The patient was transferred from [facility] to [facility] for heart catheterization. The patient was hypotensive and balloon pump as well as pressors were utilized during the heart catheterization. The patient was transferred to the intensive care unit. He is intubated. Overnight the patient was on 40 g of Levophed, dopamine, dobutamine. Vasopressin was also started. At this time the patient is on 22 g of Levophed, 5 of dobutamine, vasopressin. The patient did have emergency hemodialysis overnight and again this morning. He is on heparin drip for possible pulmonary embolism. His chest x-ray shows bilateral pleural effusions and pulmonary vascular congestion. The patient's daughter is at bedside and is updated to the plan of care and the patient's overall condition. She states in the past he has had multiple issues with sepsis and had to have a DENIZ to rule out septic emboli. The patient does have a history of renal transplantation and was immunosuppressed. Objective - Vital Signs Vital signs: Vital Signs Temp 98.7 F 11/02/16 08:15 Pulse 79 11/02/16 11:35 Resp 12 11/02/16 11:00 BP 103/55 11/02/16 11:00 Pulse Ox 100 11/02/16 11:00 Intake & Output 11/01/16 11/02/16 11/02/16 18:59 06:59 18:59 Intake Total 1530.546 869.455 854.738 Output Total 20 535 5 Balance 1510.546 334.455 849.738 Weight 74.843 kg 77.5 kg 77.5 kg Intake: IV 1503.53 580 210 Calcium Gluconate 1,000 100 mg In Sodium Chloride 0.9 % 100 ml @ 100 mls/hr IVPB ONCE ONE Rx#: [id number] D50 50 Sodium Chloride 0.9% 1, 390 160 000 ml @ 40 mls/hr IV . Q24H [facility] Rx#:[id number] cefTRIAXone 1,000 mg In 90 Sodium Chloride 0.9% 50 ml @ 100 mls/hr IVPB HS [facility]T Rx#:[id number] Intake, IV Titration 27.016 289.455 644.738 Amount DOBUTamine DRIP 500 mg In 22.4 Dextrose/Water 1 250ml. bag @ Titrate IV .Q0M [facility] Rx#:[id number] DOPamine DRIP 800 mg In 7.484 Dextrose/Water 1 500ml. bag @ 20 MCG/KG/MIN 56.13 mls/hr IV .Q8H55M [facility] Rx #:[id number] Heparin Sodium,Porcine/ 321.484 D5w Pmx 25,000 unit In Dextrose/Water 1 500ml. bag @ 18 UNITS/KG/HR 26. 94 mls/hr IV .[id number] [facility] Rx#:[id number] Norepinephrin 16 mg-0.9% 19.532 199.455 215.314 Ns Pmx 16 mg In 250 ml @ Titrate IV .Q0M [facility] Rx#: [id number] Propofol 500 mg In Empty 50 49.54 Bag 1 bag @ Titrate IV . Q0M [facility] Rx#:[id number] Sodium Chloride 0.9% 1, 40 000 ml @ 40 mls/hr IV . Q24H [facility] Rx#:[id number] Sodium Chloride 0.9% 99 36 ml @ 0.03 UNITS/MIN 9 mls /hr IV .Q11H7M [facility] with Vasopressin 20 unit Rx#: [id number] Output: Gastric Drainage 450 Urine 20 85 5 Other: Voiding Method Indwelling Catheter Indwelling Catheter Indwelling Catheter - Exam Gen.: Patient is sedated on mechanical ventilation, he is acutely ill Cardiovascular: Regular rate and rhythm, S1/S2, balloon pump in place Lungs: Coarse breath sounds bilaterally Abdomen: Soft nontender nondistended positive bowel sounds, right lower quadrant palpable mass possible hematoma versus postsurgical changes Extremities: 2+ edema - Labs CBC & Chem 7: 11/02/16 04:24 11/02/16 04:24 Labs: Abnormal Lab Results - Last 24 Hours (Table) 11/01/16 11/01/16 11/01/16 Range/Units 11:30 11:35 18:30 WBC (3.8-10.6) k/uL RBC (4.30-5.90) m/uL Hgb (13.0-17.5) gm/dL Hct (39.0-53.0) % MCV (80.0-100.0) fL MCHC (31.0-37.0) g/dL RDW (11.5-15.5) % Neutrophils # (1.3-7.7) k/uL Neutrophils # (Manual) (1.3-7.7) k/uL Lymphocytes # (1.0-4.8) k/uL Lymphocytes # (Manual) (1.0-4.8) k/uL PT 14.3 H (9.0-12.0) sec APTT 31.7 H (22.0-30.0) sec ABG pH (7.35-7.45) ABG pO2 (83-108) mmHg ABG O2 Saturation (94-97) % ABG Lactic Acid 1.8 H (0.5-1.6) mmol/L Sodium (137-145) mmol/L Potassium (3.5-5.1) mmol/L Chloride (98-107) mmol/L Carbon Dioxide (22-30) mmol/L BUN (9-20) mg/dL Creatinine (0.66-1.25) mg/dL Glucose (74-99) mg/dL POC Glucose (mg/dL) (75-99) mg/dL Calcium (8.4-10.2) mg/dL Phosphorus (2.5-4.5) mg/dL Total Bilirubin (0.2-1.3) mg/dL AST (17-59) U/L Alkaline Phosphatase (38-126) U/L Total Protein (6.3-8.2) g/dL Albumin (3.5-5.0) g/dL Urine Protein 3+ H (Negative) Urine Blood Trace H (Negative) Ur Leukocyte Esterase Large H (Negative) Urine WBC >182 H (0-5) /hpf Urine WBC Clumps Moderate H (None) /hpf Amorphous Sediment Moderate H (None) /hpf Urine Bacteria Few H (None) /hpf Hyaline Casts 9 H (0-2) /lpf 11/01/16 11/01/16 11/01/16 Range/Units 18:56 18:57 19:04 WBC 10.7 H (3.8-10.6) k/uL RBC 3.24 L (4.30-5.90) m/uL Hgb 10.2 L (13.0-17.5) gm/dL Hct 34.2 L (39.0-53.0) % MCV 105.8 H (80.0-100.0) fL MCHC 29.8 L (31.0-37.0) g/dL RDW 21.1 H (11.5-15.5) % Neutrophils # (1.3-7.7) k/uL Neutrophils # (Manual) 9.7 H (1.3-7.7) k/uL Lymphocytes # (1.0-4.8) k/uL Lymphocytes # (Manual) 0.4 L (1.0-4.8) k/uL PT 13.9 H (9.0-12.0) sec APTT 30.6 H (22.0-30.0) sec ABG pH 7.34 L (7.35-7.45) ABG pO2 177 H (83-108) mmHg ABG O2 Saturation 99.0 H (94-97) % ABG Lactic Acid (0.5-1.6) mmol/L Sodium (137-145) mmol/L Potassium (3.5-5.1) mmol/L Chloride (98-107) mmol/L Carbon Dioxide (22-30) mmol/L BUN (9-20) mg/dL Creatinine (0.66-1.25) mg/dL Glucose (74-99) mg/dL POC Glucose (mg/dL) (75-99) mg/dL Calcium (8.4-10.2) mg/dL Phosphorus (2.5-4.5) mg/dL Total Bilirubin (0.2-1.3) mg/dL AST (17-59) U/L Alkaline Phosphatase (38-126) U/L Total Protein (6.3-8.2) g/dL Albumin (3.5-5.0) g/dL Urine Protein (Negative) Urine Blood (Negative) Ur Leukocyte Esterase (Negative) Urine WBC (0-5) /hpf Urine WBC Clumps (None) /hpf Amorphous Sediment (None) /hpf Urine Bacteria (None) /hpf Hyaline Casts (0-2) /lpf 11/01/16 11/01/16 11/01/16 Range/Units 19:04 19:58 22:20 WBC (3.8-10.6) k/uL RBC 3.11 L (4.30-5.90) m/uL Hgb 9.8 L (13.0-17.5) gm/dL Hct 31.9 L (39.0-53.0) % MCV 102.4 H (80.0-100.0) fL MCHC 30.9 L (31.0-37.0) g/dL RDW 21.0 H (11.5-15.5) % Neutrophils # 9.2 H (1.3-7.7) k/uL Neutrophils # (Manual) (1.3-7.7) k/uL Lymphocytes # 0.3 L (1.0-4.8) k/uL Lymphocytes # (Manual) (1.0-4.8) k/uL PT (9.0-12.0) sec APTT (22.0-30.0) sec ABG pH (7.35-7.45) ABG pO2 (83-108) mmHg ABG O2 Saturation (94-97) % ABG Lactic Acid (0.5-1.6) mmol/L Sodium 135 L (137-145) mmol/L Potassium 5.7 H (3.5-5.1) mmol/L Chloride 97 L (98-107) mmol/L Carbon Dioxide 16 L (22-30) mmol/L BUN 62 H (9-20) mg/dL Creatinine 8.19 H* (0.66-1.25) mg/dL Glucose 125 H (74-99) mg/dL POC Glucose (mg/dL) 120 H (75-99) mg/dL Calcium (8.4-10.2) mg/dL Phosphorus (2.5-4.5) mg/dL Total Bilirubin 1.4 H (0.2-1.3) mg/dL AST 143 H (17-59) U/L Alkaline Phosphatase 181 H (38-126) U/L Total Protein 6.2 L (6.3-8.2) g/dL Albumin 3.1 L (3.5-5.0) g/dL Urine Protein (Negative) Urine Blood (Negative) Ur Leukocyte Esterase (Negative) Urine WBC (0-5) /hpf Urine WBC Clumps (None) /hpf Amorphous Sediment (None) /hpf Urine Bacteria (None) /hpf Hyaline Casts (0-2) /lpf 11/01/16 11/01/16 11/02/16 Range/Units 22:20 23:34 01:28 WBC (3.8-10.6) k/uL RBC (4.30-5.90) m/uL Hgb (13.0-17.5) gm/dL Hct (39.0-53.0) % MCV (80.0-100.0) fL MCHC (31.0-37.0) g/dL RDW (11.5-15.5) % Neutrophils # (1.3-7.7) k/uL Neutrophils # (Manual) (1.3-7.7) k/uL Lymphocytes # (1.0-4.8) k/uL Lymphocytes # (Manual) (1.0-4.8) k/uL PT (9.0-12.0) sec APTT (22.0-30.0) sec ABG pH (7.35-7.45) ABG pO2 277 H (83-108) mmHg ABG O2 Saturation 100.0 H (94-97) % ABG Lactic Acid (0.5-1.6) mmol/L Sodium 126 L (137-145) mmol/L Potassium 5.6 H (3.5-5.1) mmol/L Chloride 87 L (98-107) mmol/L Carbon Dioxide 19 L (22-30) mmol/L BUN 57 H (9-20) mg/dL Creatinine 7.30 H* (0.66-1.25) mg/dL Glucose 483 H* (74-99) mg/dL POC Glucose (mg/dL) 192 H (75-99) mg/dL Calcium 7.5 L (8.4-10.2) mg/dL Phosphorus 12.0 H* (2.5-4.5) mg/dL Total Bilirubin (0.2-1.3) mg/dL AST 133 H (17-59) U/L Alkaline Phosphatase 133 H (38-126) U/L Total Protein 5.8 L (6.3-8.2) g/dL Albumin 2.8 L (3.5-5.0) g/dL Urine Protein (Negative) Urine Blood (Negative) Ur Leukocyte Esterase (Negative) Urine WBC (0-5) /hpf Urine WBC Clumps (None) /hpf Amorphous Sediment (None) /hpf Urine Bacteria (None) /hpf Hyaline Casts (0-2) /lpf 11/02/16 11/02/16 11/02/16 Range/Units 02:28 02:28 02:28 WBC 11.8 H (3.8-10.6) k/uL RBC 3.37 L (4.30-5.90) m/uL Hgb 10.4 L (13.0-17.5) gm/dL Hct 34.8 L (39.0-53.0) % MCV 103.3 H (80.0-100.0) fL MCHC 30.0 L (31.0-37.0) g/dL RDW 21.0 H (11.5-15.5) % Neutrophils # 10.7 H (1.3-7.7) k/uL Neutrophils # (Manual) (1.3-7.7) k/uL Lymphocytes # 0.4 L (1.0-4.8) k/uL Lymphocytes # (Manual) (1.0-4.8) k/uL PT 15.5 H (9.0-12.0) sec APTT 60.3 H (22.0-30.0) sec ABG pH (7.35-7.45) ABG pO2 (83-108) mmHg ABG O2 Saturation (94-97) % ABG Lactic Acid (0.5-1.6) mmol/L Sodium (137-145) mmol/L Potassium 6.7 H* (3.5-5.1) mmol/L Chloride (98-107) mmol/L Carbon Dioxide (22-30) mmol/L BUN (9-20) mg/dL Creatinine (0.66-1.25) mg/dL Glucose (74-99) mg/dL POC Glucose (mg/dL) (75-99) mg/dL Calcium (8.4-10.2) mg/dL Phosphorus (2.5-4.5) mg/dL Total Bilirubin (0.2-1.3) mg/dL AST (17-59) U/L Alkaline Phosphatase (38-126) U/L Total Protein (6.3-8.2) g/dL Albumin (3.5-5.0) g/dL Urine Protein (Negative) Urine Blood (Negative) Ur Leukocyte Esterase (Negative) Urine WBC (0-5) /hpf Urine WBC Clumps (None) /hpf Amorphous Sediment (None) /hpf Urine Bacteria (None) /hpf Hyaline Casts (0-2) /lpf 11/02/16 11/02/16 11/02/16 Range/Units 04:24 04:24 04:24 WBC 11.3 H (3.8-10.6) k/uL RBC 3.36 L (4.30-5.90) m/uL Hgb 10.4 L (13.0-17.5) gm/dL Hct 34.6 L (39.0-53.0) % MCV 103.1 H (80.0-100.0) fL MCHC 30.1 L (31.0-37.0) g/dL RDW 20.8 H (11.5-15.5) % Neutrophils # 10.0 H (1.3-7.7) k/uL Neutrophils # (Manual) (1.3-7.7) k/uL Lymphocytes # 0.4 L (1.0-4.8) k/uL Lymphocytes # (Manual) (1.0-4.8) k/uL PT (9.0-12.0) sec APTT 60.5 H (22.0-30.0) sec ABG pH (7.35-7.45) ABG pO2 (83-108) mmHg ABG O2 Saturation (94-97) % ABG Lactic Acid (0.5-1.6) mmol/L Sodium 134 L (137-145) mmol/L Potassium 6.6 H* (3.5-5.1) mmol/L Chloride 96 L (98-107) mmol/L Carbon Dioxide 19 L (22-30) mmol/L BUN 67 H (9-20) mg/dL Creatinine 8.40 H* (0.66-1.25) mg/dL Glucose 143 H (74-99) mg/dL POC Glucose (mg/dL) (75-99) mg/dL Calcium (8.4-10.2) mg/dL Phosphorus 9.5 H* (2.5-4.5) mg/dL Total Bilirubin (0.2-1.3) mg/dL AST (17-59) U/L Alkaline Phosphatase (38-126) U/L Total Protein (6.3-8.2) g/dL Albumin (3.5-5.0) g/dL Urine Protein (Negative) Urine Blood (Negative) Ur Leukocyte Esterase (Negative) Urine WBC (0-5) /hpf Urine WBC Clumps (None) /hpf Amorphous Sediment (None) /hpf Urine Bacteria (None) /hpf Hyaline Casts (0-2) /lpf 11/02/16 11/02/16 11/02/16 Range/Units 05:00 06:07 12:08 WBC (3.8-10.6) k/uL RBC (4.30-5.90) m/uL Hgb (13.0-17.5) gm/dL Hct (39.0-53.0) % MCV (80.0-100.0) fL MCHC (31.0-37.0) g/dL RDW (11.5-15.5) % Neutrophils # (1.3-7.7) k/uL Neutrophils # (Manual) (1.3-7.7) k/uL Lymphocytes # (1.0-4.8) k/uL Lymphocytes # (Manual) (1.0-4.8) k/uL PT (9.0-12.0) sec APTT (22.0-30.0) sec ABG pH (7.35-7.45) ABG pO2 200 H (83-108) mmHg ABG O2 Saturation 99.0 H (94-97) % ABG Lactic Acid (0.5-1.6) mmol/L Sodium (137-145) mmol/L Potassium (3.5-5.1) mmol/L Chloride (98-107) mmol/L Carbon Dioxide (22-30) mmol/L BUN (9-20) mg/dL Creatinine (0.66-1.25) mg/dL Glucose (74-99) mg/dL POC Glucose (mg/dL) 171 H 107 H (75-99) mg/dL Calcium (8.4-10.2) mg/dL Phosphorus (2.5-4.5) mg/dL Total Bilirubin (0.2-1.3) mg/dL AST (17-59) U/L Alkaline Phosphatase (38-126) U/L Total Protein (6.3-8.2) g/dL Albumin (3.5-5.0) g/dL Urine Protein (Negative) Urine Blood (Negative) Ur Leukocyte Esterase (Negative) Urine WBC (0-5) /hpf Urine WBC Clumps (None) /hpf Amorphous Sediment (None) /hpf Urine Bacteria (None) /hpf Hyaline Casts (0-2) /lpf Microbiology - Last 24 Hours (Table) 11/01/16 18:30 Urine Culture - Preliminary Urine,Catheterized Assessment and Plan Plan: Acute hypoxic respiratory failure Cardiogenic shock Possible pulmonary embolism Bilateral pleural effusions and pulmonary vascular congestion Nonischemic cardiomyopathy with severely impaired LVEF, less than 20% End-stage renal disease on hemodialysis History of renal transplantation and immunosuppression Hyperkalemia and hyperphosphatemia Anemia of chronic disease, hemoglobin stable Hyponatremia Mild anion gap metabolic acidosis Continue full vent support, decrease PEEP to 8 Initiate tube feedings Attempt made to place arterial line unsuccessful Hemodialysis per nephrology - fluid removal if possible Wean pressors as able, if able wean Levophed off first Cultures pending Consult infectious disease Continue heparin drip for presumed PE Check ultrasound of the right lower quadrant for possible hematoma Monitor hemoglobin Repeat electrolytes GI and DVT prophylaxis Cardiology recommendations Pulmicort and duo nebs Propofol for sedation Blood sugar control DNR code status Daughter is at bedside and is updated to the plan of care and the overall condition of the patient. She is aware of his poor prognosis.
[2016-11-02] MEDS: INSULIN LISPRO (humaLOG) 300 UNIT/3 ML VIAL SQ SCH ×2 (13:04→17:25)
[2016-11-02] MEDS: HEPARIN SODIUM,PORCINE/D5W PMX 25,000 UNIT in DEXTROSE/WATER 1 500ML.BAG IV SCH ×3 (13:05→17:32)
[2016-11-02 13:47] LABS: Calcium 8.6 mg/dL (8.4-10.2)
[2016-11-02 14:02] LABS: Potassium 6.1 mmol/L (3.5-5.1)
--- NOTE | 2016-11-02 15:36 | US ---
EXAMINATION TYPE: US pelvic limited DATE OF EXAM: 11/02/2016 COMPARISON: NONE CLINICAL HISTORY: right lower pelvic mass. 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 Technologist scanned area outlined in pen that felt palpable at RLQ. There is a very small amount of free fluid adjacent to failed renal transplant. Posterior to renal transplant is another area of possible free fluid. Color flow sonography is performed. No hydronephrosis is evident. Medullary region may be somewhat ec hogenic. IMPRESSION: 1. Renal transplant kidney is at the level of the palpable abnormality. Small amount of free fluid is adjacent to the palpable abnormality.
--- NOTE | 2016-11-02 15:50 | US ---
EXAMINATION TYPE: US venous doppler duplex LE BI DATE OF EXAM: 11/02/2016 3:08 PM COMPARISON: NONE CLINICAL HISTORY: small clots in left fem vein. SIDE PERFORMED: TECHNIQUE: The lower extremity deep venous system is examined utilizing real time linear array sonog lawson with graded compression, doppler sonography and color-flow sonography. VESSELS IMAGED: External Iliac Vein (EIV) Common Femoral Vein Deep Femoral Vein Greater Saphenous Vein * Femoral Vein Popliteal Vein Small Saphenous Vein * Proximal Calf Veins (* superficial vessels) Right Leg: only able to to scan popliteal area due to intra aortic balloon pump bandaging that could not be removed per RN. Left Leg: Negative for DVT IMPRESSION: 1. Visualized lower extremities negative for deep venous thrombosis. 2. Right leg is very limited due to aortic balloon pump insertion and portions of the right lower ext remity venous system are not visualized.
[2016-11-02 17:24] LABS: Glucose,Whole Blood 103 mg/dL (75-99)
[2016-11-02 18:27] LABS: Calcium 8.8 mg/dL (8.4-10.2); Potassium 5.7 mmol/L (3.5-5.1)
[2016-11-02 19:11] LABS: Hemoglobin A1C 4.7 % (4.2-6.1)
[2016-11-02] MEDS: ATORVASTATIN 40 MG TAB PO SCH (21:30)
[2016-11-02 23:00] LABS: ABG Base Excess -0.5 mmol/L; ABG HCO3 22 mmol/L (21-25); ABG PCO2 30 mmHg (35-45); ABG PH 7.49 (7.35-7.45); ABG PO2 131 mmHg (83-108); ABG TCO2 23 mmol/L (19-24)
[2016-11-02 23:30] LABS: Calcium 8.9 mg/dL (8.4-10.2); Potassium 5.4 mmol/L (3.5-5.1)
[2016-11-03] MEDS: INSULIN LISPRO (humaLOG) 300 UNIT/3 ML VIAL SQ SCH ×4 (00:56→17:34)
[2016-11-03] MEDS: NOREPINEPHRIN 16 MG-0.9%NS PMX 16 MG/250 ML ML IV SCH (02:04)
[2016-11-03] MEDS: MORPHINE SULFATE 2 MG/ML SYRINGE IVP PRN ×3 (02:52→17:18)
[2016-11-03 05:13] LABS: Anisocytosis Moderate; Basophils % (A) 0 %; CH 29.6; CHCM 29.7; Eosinophils # (A) 0.2 k/uL (0-0.7); Eosinophils % (A) 2 %; HCT 29.5 % (39.0-53.0); HDW 3.47; HGB 9.1 gm/dL (13.0-17.5); Hypochromasia Marked; Luc % (Auto) 3; Lymphocytes # (A) 1.1 k/uL (1.0-4.8); Lymphocytes % (A) 11 %; MCH 30.6 pg (25.0-35.0); MCHC 30.7 g/dL (31.0-37.0); MCV 99.7 fL (80.0-100.0); Macrocytosis Moderate; Mean Platelet Volume 9.4; Monocytes # (A) 0.5 k/uL (0-1.0); Monocytes % (A) 5 %; Neutrophils # (A) 7.3 k/uL (1.3-7.7); Neutrophils % (A) 78 %; Poikilocytosis Slight; RBC 2.96 m/uL (4.30-5.90); RDW 20.9 % (11.5-15.5); WBC 9.3 k/uL (3.8-10.6); WBC (Perox) 9.51
[2016-11-03 05:18] LABS: INR 1.4 (<1.1); Partial Thromboplastin Time 45.1 sec (22.0-30.0); Prothrombin Time 13.4 sec (9.0-12.0)
[2016-11-03 06:09] LABS: Calcium 9.1 mg/dL (8.4-10.2); Magnesium 2.2 mg/dL (1.6-2.3); Potassium 4.9 mmol/L (3.5-5.1)
[2016-11-03] MEDS: SODIUM CHLORIDE 0.9% 99 ML with VASOPRESSIN 20 UNIT IV SCH ×2 (06:27)
--- NOTE | 2016-11-03 07:18 | XR ---
EXAMINATION TYPE: XR chest 1V DATE OF EXAM: 11/03/2016 COMPARISON: 11/02/2016 HISTORY: Shortness of breath FINDINGS: Noted is pulmonary venous congestion with scattered infiltrates. There is also cardiomegaly and small effusions. IABP is noted to overlie the region of the aortic knob. Endotracheal and NG tube have been removed. C alcified mediastinal lymph nodes identified. IMPRESSION: Findings compatible with congestive failure. Infiltrates of other etiology are not excluded. Clinical correlation and progress studies are recommended.
[2016-11-03] MEDS: IPRATROPIUM-ALBUTEROL 3 ML NEB INHALATION PRN (07:19)
[2016-11-03] MEDS: BUDESONIDE 0.5 MG/2 ML NEBU INHALATION SCH ×2 (07:19→20:05)
[2016-11-03] MEDS: CHLORHEXIDINE GLUCONATE 15 ML CUP MUCOUS MEM SCH (08:19)
[2016-11-03] MEDS: PANTOPRAZOLE 40 MG/10 ML VIAL IVP SCH (08:19)
--- NOTE | 2016-11-03 08:19 | P.PN ---
Subjective Patient is seen in follow-up for end-stage renal disease. He is maintained on hemodialysis on a Sunday schedule. Patient underwent a cardiac catheterization on November 01 which was benign however he did have a cardiopulmonary arrest. He was extubated last night. He is still maintained on levofed, vasopressin as well as dobutamine. He is quite confused at this time but awake. He still has a balloon pump in place. Vital signs are stable. General: The patient appeared well nourished and normally developed. HEENT: Head exam is unremarkable. Neck is without jugular venous distension. LUNGS: Scattered rhonchi. Breath sounds decreased. HEART: Rate and Rhythm are regular. First and second heart sounds normal. No murmurs, rubs or gallops. ABDOMEN: Abdominal exam reveals normal bowel sounds. Non-tender and non- distended. No evidence of peritonitis. EXTREMITITES: 2+ edema. Objective - Vital Signs Vital signs: Vital Signs Temp 97.8 F 11/03/16 08:00 Pulse 96 11/03/16 08:00 Resp 17 11/03/16 08:00 BP 113/59 11/02/16 14:45 Pulse Ox 89 L 11/03/16 08:00 Intake & Output 11/02/16 11/03/16 11/03/16 18:59 06:59 18:59 Intake Total 1811.354 886.076 60 Output Total 5 20 2 Balance 1806.354 866.076 58 Weight 77.5 kg 77.5 kg Intake: IV 530 270 60 D50 50 KVO 220 60 Sodium Chloride 0.9% 1, 480 000 ml @ 40 mls/hr IV . Q24H [facility] Rx#:[id number] cefTRIAXone 1,000 mg In 50 Sodium Chloride 0.9% 50 ml @ 100 mls/hr IVPB HS [facility]T Rx#:[id number] Intake, IV Titration 1281.354 536.076 Amount DOBUTamine DRIP 500 mg In 134.933 Dextrose/Water 1 250ml. bag @ Titrate IV .Q0M [facility] Rx#:[id number] Heparin Sodium,Porcine/ 565.740 323.28 D5w Pmx 25,000 unit In Dextrose/Water 1 500ml. bag @ 18 UNITS/KG/HR 26. 94 mls/hr IV .[id number] [facility] Rx#:[id number] Norepinephrin 16 mg-0.9% 343.817 171.638 Ns Pmx 16 mg In 250 ml @ Titrate IV .Q0M [facility] Rx#: [id number] Propofol 500 mg In Empty 128.864 41.158 Bag 1 bag @ Titrate IV . Q0M [facility] Rx#:[id number] Sodium Chloride 0.9% 99 108 ml @ 0.03 UNITS/MIN 9 mls /hr IV .Q11H7M [facility] with Vasopressin 20 unit Rx#: [id number] Tube Feeding 80 Output: Urine 5 20 2 Other: Voiding Method Indwelling Catheter Indwelling Catheter ABP, PAP, CO, CI - Last Documented Arterial Blood Pressure 108/49 - Labs CBC & Chem 7: 11/03/16 04:50 11/03/16 04:50 Labs: Abnormal Lab Results - Last 24 Hours (Table) 11/02/16 11/02/16 11/02/16 Range/Units 12:08 13:20 17:23 RBC (4.30-5.90) m/uL Hgb (13.0-17.5) gm/dL Hct (39.0-53.0) % MCHC (31.0-37.0) g/dL RDW (11.5-15.5) % PT (9.0-12.0) sec APTT (22.0-30.0) sec ABG pH (7.35-7.45) ABG pCO2 (35-45) mmHg ABG pO2 (83-108) mmHg ABG O2 Saturation (94-97) % Sodium 133 L (137-145) mmol/L Potassium 6.1 H (3.5-5.1) mmol/L Carbon Dioxide 20 L (22-30) mmol/L BUN 43 H (9-20) mg/dL Creatinine 5.83 H* (0.66-1.25) mg/dL Glucose 105 H (74-99) mg/dL POC Glucose (mg/dL) 107 H 103 H (75-99) mg/dL Phosphorus (2.5-4.5) mg/dL 11/02/16 11/02/16 11/02/16 Range/Units 17:28 22:40 22:57 RBC (4.30-5.90) m/uL Hgb (13.0-17.5) gm/dL Hct (39.0-53.0) % MCHC (31.0-37.0) g/dL RDW (11.5-15.5) % PT (9.0-12.0) sec APTT (22.0-30.0) sec ABG pH 7.49 H (7.35-7.45) ABG pCO2 30 L (35-45) mmHg ABG pO2 131 H (83-108) mmHg ABG O2 Saturation 99.0 H (94-97) % Sodium 132 L 134 L (137-145) mmol/L Potassium 5.7 H 5.4 H (3.5-5.1) mmol/L Carbon Dioxide (22-30) mmol/L BUN 45 H 38 H (9-20) mg/dL Creatinine 6.05 H* 5.10 H* (0.66-1.25) mg/dL Glucose 107 H 114 H (74-99) mg/dL POC Glucose (mg/dL) (75-99) mg/dL Phosphorus (2.5-4.5) mg/dL 11/03/16 11/03/16 11/03/16 Range/Units 04:50 04:50 04:50 RBC 2.96 L (4.30-5.90) m/uL Hgb 9.1 L (13.0-17.5) gm/dL Hct 29.5 L (39.0-53.0) % MCHC 30.7 L (31.0-37.0) g/dL RDW 20.9 H (11.5-15.5) % PT 13.4 H (9.0-12.0) sec APTT 45.1 H (22.0-30.0) sec ABG pH (7.35-7.45) ABG pCO2 (35-45) mmHg ABG pO2 (83-108) mmHg ABG O2 Saturation (94-97) % Sodium 135 L (137-145) mmol/L Potassium (3.5-5.1) mmol/L Carbon Dioxide (22-30) mmol/L BUN 40 H (9-20) mg/dL Creatinine 5.47 H* (0.66-1.25) mg/dL Glucose (74-99) mg/dL POC Glucose (mg/dL) (75-99) mg/dL Phosphorus 7.0 H (2.5-4.5) mg/dL Microbiology - Last 24 Hours (Table) 11/01/16 18:30 Urine Culture - Final Urine,Catheterized 11/02/16 15:34 Gram Stain - Preliminary Sputum Sputum Culture - Preliminary Assessment and Plan Plan: Assessment: #1. End-stage renal disease maintained on hemodialysis on a Sunday schedule via left upper extremity AV fistula. #2. Hyperkalemia secondary to chronic kidney disease. Improved. #3. Status post cardiac arrest. #4. Chest pain status post cardiac catheterization in November 01. No interventions done. #5. Anemia of chronic kidney disease. #6. Hyperphosphatemia secondary to chronic kidney disease. Plan: Patient underwent hemodialysis for a total of 6 hours yesterday. 1 L of ultrafiltration was done. Hemodialysis again today over 4 hours. Will try for 1-1/2 L ultrafiltration. Wean vasopressors as tolerated. Cardiology following.
[2016-11-03] MEDS: ASPIRIN 325 MG TAB PO SCH (08:26)
[2016-11-03 11:38] LABS: Glucose,Whole Blood 85 mg/dL (75-99)
--- NOTE | 2016-11-03 14:12 | P.PN ---
Subjective Principal diagnosis: Cardiogenic shock Patient seen and examined in the ICU with nursing staff and family at bedside. The patient was successfully extubated overnight. The patient is continued on Levophed 10 g, 5 of dobutamine, vasopressin. Plan for cardiology to remove balloon pump today. The family is at bedside and updated to the plan of care in the patient's overall poor prognosis. He is currently undergoing hemodialysis. Objective - Vital Signs Vital signs: Vital Signs Temp 97.8 F 11/03/16 08:00 Pulse 88 11/03/16 13:00 Resp 20 11/03/16 13:00 BP 113/59 11/02/16 14:45 Pulse Ox 96 11/03/16 13:00 Intake & Output 11/02/16 11/03/16 11/03/16 18:59 06:59 18:59 Intake Total 1811.354 886.076 611.929 Output Total 5 20 2 Balance 1806.354 866.076 609.929 Weight 77.5 kg 77.5 kg 77.5 kg Intake: IV 530 270 260 D50 50 KVO 220 260 Sodium Chloride 0.9% 1, 480 000 ml @ 40 mls/hr IV . Q24H [facility] Rx#:[id number] cefTRIAXone 1,000 mg In 50 Sodium Chloride 0.9% 50 ml @ 100 mls/hr IVPB HS [facility] Rx#:[id number] Intake, IV Titration 1281.354 536.076 251.929 Amount DOBUTamine DRIP 500 mg In 134.933 Dextrose/Water 1 250ml. bag @ Titrate IV .Q0M [facility] Rx#:[id number] Heparin Sodium,Porcine/ 565.740 323.28 118.722 D5w Pmx 25,000 unit In Dextrose/Water 1 500ml. bag @ 18 UNITS/KG/HR 26. 94 mls/hr IV .[id number] [facility] Rx#:[id number] Norepinephrin 16 mg-0.9% 343.817 171.638 133.207 Ns Pmx 16 mg In 250 ml @ Titrate IV .Q0M [facility] Rx#: [id number] Propofol 500 mg In Empty 128.864 41.158 Bag 1 bag @ Titrate IV . Q0M [facility] Rx#:[id number] Sodium Chloride 0.9% 99 108 ml @ 0.03 UNITS/MIN 9 mls /hr IV .Q11H7M [facility] with Vasopressin 20 unit Rx#: [id number] Oral 100 Tube Feeding 80 Output: Urine 5 20 2 Other: Voiding Method Indwelling Catheter Indwelling Catheter Indwelling Catheter ABP, PAP, CO, CI - Last Documented Arterial Blood Pressure 110/42 - Exam Gen.: Patient is alert but intermittently confused Cardiovascular: Regular rate and rhythm, S1/S2, balloon pump in place Lungs: Coarse breath sounds bilaterally Abdomen: Soft nontender nondistended positive bowel sounds, right lower quadrant palpable mass possible hematoma versus postsurgical changes Extremities: 2+ edema - Labs CBC & Chem 7: 11/03/16 04:50 11/03/16 04:50 Labs: Abnormal Lab Results - Last 24 Hours (Table) 11/02/16 11/02/16 11/02/16 Range/Units 17:23 17:28 22:40 RBC (4.30-5.90) m/uL Hgb (13.0-17.5) gm/dL Hct (39.0-53.0) % MCHC (31.0-37.0) g/dL RDW (11.5-15.5) % PT (9.0-12.0) sec APTT (22.0-30.0) sec ABG pH 7.49 H (7.35-7.45) ABG pCO2 30 L (35-45) mmHg ABG pO2 131 H (83-108) mmHg ABG O2 Saturation 99.0 H (94-97) % Sodium 132 L (137-145) mmol/L Potassium 5.7 H (3.5-5.1) mmol/L BUN 45 H (9-20) mg/dL Creatinine 6.05 H* (0.66-1.25) mg/dL Glucose 107 H (74-99) mg/dL POC Glucose (mg/dL) 103 H (75-99) mg/dL Phosphorus (2.5-4.5) mg/dL 11/02/16 11/03/16 11/03/16 Range/Units 22:57 04:50 04:50 RBC 2.96 L (4.30-5.90) m/uL Hgb 9.1 L (13.0-17.5) gm/dL Hct 29.5 L (39.0-53.0) % MCHC 30.7 L (31.0-37.0) g/dL RDW 20.9 H (11.5-15.5) % PT (9.0-12.0) sec APTT (22.0-30.0) sec ABG pH (7.35-7.45) ABG pCO2 (35-45) mmHg ABG pO2 (83-108) mmHg ABG O2 Saturation (94-97) % Sodium 134 L 135 L (137-145) mmol/L Potassium 5.4 H (3.5-5.1) mmol/L BUN 38 H 40 H (9-20) mg/dL Creatinine 5.10 H* 5.47 H* (0.66-1.25) mg/dL Glucose 114 H (74-99) mg/dL POC Glucose (mg/dL) (75-99) mg/dL Phosphorus 7.0 H (2.5-4.5) mg/dL 11/03/16 Range/Units 04:50 RBC (4.30-5.90) m/uL Hgb (13.0-17.5) gm/dL Hct (39.0-53.0) % MCHC (31.0-37.0) g/dL RDW (11.5-15.5) % PT 13.4 H (9.0-12.0) sec APTT 45.1 H (22.0-30.0) sec ABG pH (7.35-7.45) ABG pCO2 (35-45) mmHg ABG pO2 (83-108) mmHg ABG O2 Saturation (94-97) % Sodium (137-145) mmol/L Potassium (3.5-5.1) mmol/L BUN (9-20) mg/dL Creatinine (0.66-1.25) mg/dL Glucose (74-99) mg/dL POC Glucose (mg/dL) (75-99) mg/dL Phosphorus (2.5-4.5) mg/dL Microbiology - Last 24 Hours (Table) 11/01/16 18:30 Urine Culture - Final Urine,Catheterized 11/02/16 15:34 Gram Stain - Preliminary Sputum Sputum Culture - Preliminary Assessment and Plan Plan: Acute hypoxic respiratory failure, s/p mechanical ventilation Cardiogenic shock Possible pulmonary embolism Bilateral pleural effusions and pulmonary vascular congestion Nonischemic cardiomyopathy with severely impaired LVEF, less than 20% End-stage renal disease on hemodialysis History of renal transplantation and immunosuppression Hyperkalemia and hyperphosphatemia Anemia of chronic disease, hemoglobin stable Hyponatremia Mild anion gap metabolic acidosis Continue full vent support, decrease PEEP to 8 Hemodialysis per nephrology - ultafiltration if possible Wean pressors as able, if able wean Levophed off first Cultures pending ABX per infectious disease Continue heparin drip for presumed PE Check ultrasound of the right lower quadrant for possible hematoma Monitor hemoglobin Repeat electrolytes GI and DVT prophylaxis Cardiology recommendations Blood sugar control DNR code status Daughter is at bedside and is updated to the plan of care and the overall condition of the patient. She is aware of his poor prognosis.
--- NOTE | 2016-11-03 15:36 | P.CONS ---
History of Present Illness - Reason for Consult Consult date: 11/03/16 sepsis Requesting physician: Catherine Da Silva - Chief Complaint cough and episode of cardiac arrest - History of Present Illness Patient is a 65-year-old male initially presented to [facility] with chest pain the patient was transferred to [facility] for a cardiac cath the patient did underwent cardiac catheterization on November 01 however the patient did have a cardia arrest no intervention was done and the patient did receive a dose of epinephrine and atropine and the patient was required he did end up getting intubated subsequently admitted to the ICU and has been treated with Levophed and vasopressin in addition to heparin and dobutamine drip the patient did run a low-grade fever 100.2 yesterday and he has elevated white count of 11.8 chest x- ray showing features mostly of a fluid overload the patient was started on Rocephin he did have blood and sputum cultures obtained and ID was consulted for further recommendation regarding by therapy. The patient is afebrile this morning the patient denies significant chest pain he did have some cough but not bringing up any sputum no nausea no vomiting no significant abdominal pain and no diarrhea Review of Systems Review of system Constitutional: The patient with low grade fever no rigors or chills, the patient does complain of weakness. Eyes: No complaint ENT: No complaint Respiratory: Cough Cardiovascular: No complaint Gastrointestinal: No complaint Genitourinary: No complaint Musculoskeletal: No complaint Integumentary: No complaint Endocrine : No complaint Psycologial : No complaint Neurological: No complaint. Past Medical History Past Medical History: Asthma, Cancer, Chest Pain / Angina, Heart Failure, Dialysis, Eye Disorder, Pneumonia, Renal Disease Additional Past Medical History / Comment(s): Renal failure with hemodialysis on //Sun, kidney transplant that failed, nephrolithiasis, renal hematoma, chronic anemia, nonhealing L patellar fracture, skin cancer chest and legs with removals, gout yrs ago, night vision problems. Heart Murmur. Heart Cath and HF diagnosis at [place] 1 month ago. Sepsis. Kidney Stones. History of Any Multi-Drug Resistant Organisms: None Reported Past Surgical History: Heart Catheterization, Orthopedic Surgery Additional Past Surgical History / Comment(s): KIDNEY TRANSPLANT. fistula/ shunt. basal cell carcinoma removed from chest and legs. cyst removed from left ear. tendon removed from BL wrist and placed in BL thumb-metal coils still present. lasik eye surgery, colonoscopy with benign polypectomy, bilateral cataract removal. L breast Biopsy. Past Anesthesia/Blood Transfusion Reactions: No Reported Reaction Additional Past Anesthesia/Blood Transfusion Reaction / Comm: Pt has received blood in past without reaction. Past Psychological History: Depression Additional Psychological History / Comment(s): Pt states he is staying at [facility] for rehab and was to be discharged today, now at discharge he states he will have to go back to [facility] to complete his discharge. Smoking Status: Never smoker Past Alcohol Use History: None Reported Past Drug Use History: None Reported - Past Family History Father Family Medical History: No Reported History Mother Family Medical History: No Reported History Medications and Allergies Home Medications Medication Instructions Recorded Confirmed Type Albuterol Inhaler [Ventolin Hfa 1 - 2 puff INHALATION RT-Q6H PRN 12/04/13 History Inhaler] Bumetanide [BUMEX] 1 mg PO DAILY 12/04/13 11/01/16 History Montelukast Sodium [Singulair] 10 mg PO DAILY 12/04/13 11/01/16 History Tamsulosin [Flomax] 0.4 mg PO DAILY 12/04/13 11/01/16 History Tranylcypromine Sulfate [Parnate] 100 mg PO DAILY 12/04/13 11/01/16 History chlordiazePOXIDE HCL 10 mg PO TID 12/04/13 11/01/16 History Allopurinol [Zyloprim] 100 mg PO DAILY 01/26/14 11/01/16 History Theophylline 12 Hour [Juan Manuel-Dur] 300 mg PO BID 01/04/16 11/01/16 History Acetaminophen Tab [Tylenol] 650 mg PO Q6H PRN 03/27/16 11/01/16 History Calcium Acetate [PhosLo] 667 mg PO AC-TID 03/27/16 11/01/16 History Cholecalciferol [Vitamin D3] 1,000 unit PO DAILY 03/27/16 11/01/16 History Cinacalcet [Sensipar] 30 mg PO DAILY 03/27/16 11/01/16 History Lactulose 20 gm PO DAILY PRN 03/27/16 11/01/16 History Magnesium Hydroxide [Milk of 2,400 mg PO DAILY PRN 03/27/16 11/01/16 History Magnesia] Polyethylene Glycol 3350 [Miralax] 17 gm PO DAILY PRN 03/27/16 11/01/16 History Sennosides [Senna] 8.6 mg PO DAILY 03/27/16 11/01/16 History Albuterol Nebulized [Ventolin 2.5 mg INHALATION RT-QID 11/01/16 11/01/16 History Nebulized] Famotidine 20 mg PO DAILY 11/01/16 11/01/16 History Midodrine [ProAmatine] 5 mg PO DIRECTED 11/01/16 11/01/16 History predniSONE 30 mg PO DAILY 11/01/16 11/01/16 History Allergies Allergy/AdvReac Type Severity Reaction Status Date / Time diphenhydramine HCl Allergy Rash/Hives Verified 11/01/16 19:14 [From Benadryl] meperidine HCl [From Demerol] Allergy Unknown Verified 11/01/16 19:14 vancomycin Allergy Itching Verified 11/01/16 19:14 Physical Exam Vitals: Vital Signs Temp Pulse Resp Pulse Ox 11/03/16 15:00 90 15 94 L 11/03/16 14:00 85 19 96 11/03/16 13:00 88 20 96 11/03/16 12:00 97.1 F L 99 13 96 11/03/16 11:00 91 24 100 11/03/16 10:00 92 35 H 98 11/03/16 09:00 93 25 H 96 11/03/16 08:00 97.8 F 96 17 89 L 11/03/16 07:41 90 11/03/16 07:19 94 18 11/03/16 07:00 94 18 99 11/03/16 06:00 94 18 96 11/03/16 05:00 96 18 97 11/03/16 04:00 99.1 F 102 H 18 97 11/03/16 03:05 23 11/03/16 03:00 95 18 99 11/03/16 02:00 92 23 100 11/03/16 01:00 101 H 21 100 11/03/16 00:00 100.2 F H 94 17 97 11/02/16 23:00 88 19 100 11/02/16 22:00 85 17 100 11/02/16 21:00 82 18 100 11/02/16 20:00 99 F 86 23 100 11/02/16 19:20 79 11/02/16 19:03 94 11/02/16 19:01 81 12 11/02/16 19:00 79 12 100 11/02/16 18:45 82 13 11/02/16 18:30 79 13 11/02/16 18:15 98.1 F 80 13 11/02/16 18:00 79 15 11/02/16 17:45 79 14 11/02/16 17:30 80 15 11/02/16 17:15 80 13 11/02/16 17:00 77 27 H 11/02/16 16:45 78 25 H 11/02/16 16:30 98.1 F 79 11 L 11/02/16 16:15 78 16 100 11/02/16 16:00 79 30 H 11/02/16 15:45 79 12 11/02/16 15:30 78 17 11/02/16 15:29 77 Intake and Output 11/03/16 11/03/16 11/03/16 06:59 14:59 22:59 Intake Total 590.932 651.929 40 Output Total 10 2007 0 Balance 580.932 -1355.071 40 Intake: IV 160 300 40 KVO 160 300 40 Intake, IV Titration 410.932 251.929 Amount Heparin Sodium,Porcine/ 323.28 118.722 D5w Pmx 25,000 unit In Dextrose/Water 1 500ml. bag @ 18 UNITS/KG/HR 26. 94 mls/hr IV .[id number] [facility]T Rx#:[id number] Norepinephrin 16 mg-0.9% 87.652 133.207 Ns Pmx 16 mg In 250 ml @ Titrate IV .Q0M BRANDT Rx#: [id number] Oral 100 Tube Feeding 20 Output: Urine 10 7 0 Other 2000 Other: Voiding Method Indwelling Catheter Indwelling Catheter Weight 77.5 kg 77.5 kg Patient Weight 11/04/16 06:59 Weight 77.5 kg ABP, PAP, CO, CI - Last 8 Hours Arterial Blood Pressure 84/39 Arterial Blood Pressure 102/46 Arterial Blood Pressure 110/42 Arterial Blood Pressure 99/37 Arterial Blood Pressure 90/49 Arterial Blood Pressure 105/47 Arterial Blood Pressure 99/42 Arterial Blood Pressure 108/49 General: The patient is awake and alert, in no distress. Skin: no rashes or lesions are noted no masses palpable. Eye: Pupils are equal, round and reactive to light, there is normal conjunctiva bilaterally. Ears, nose, mouth and throat: There are moist mucous membranes and no oral lesions. Neck: The neck is supple, there is no thyromegaly. Cardiovascular: S1-S2 regular rate and rhythm. No murmur. Respiratory: Unlabored breathing clear to auscultation bilaterally Gastrointestinal: Soft, non-distended, non-tender abdomen without masses or organomegaly noted. Neurological: There are no obvious motor or sensory deficits. Coordination appears grossly intact. Speech is normal. Psychiatric: Patient is awake and alert and oriented 3, appropriate mood & affect Results CBC & Chem 7: 11/03/16 04:50 11/03/16 04:50 Labs: Abnormal Lab Results - Last 24 Hours (Table) 11/02/16 11/02/16 11/02/16 Range/Units 17:23 17:28 22:40 RBC (4.30-5.90) m/uL Hgb (13.0-17.5) gm/dL Hct (39.0-53.0) % MCHC (31.0-37.0) g/dL RDW (11.5-15.5) % PT (9.0-12.0) sec APTT (22.0-30.0) sec ABG pH 7.49 H (7.35-7.45) ABG pCO2 30 L (35-45) mmHg ABG pO2 131 H (83-108) mmHg ABG O2 Saturation 99.0 H (94-97) % Sodium 132 L (137-145) mmol/L Potassium 5.7 H (3.5-5.1) mmol/L BUN 45 H (9-20) mg/dL Creatinine 6.05 H* (0.66-1.25) mg/dL Glucose 107 H (74-99) mg/dL POC Glucose (mg/dL) 103 H (75-99) mg/dL Phosphorus (2.5-4.5) mg/dL 11/02/16 11/03/16 11/03/16 Range/Units 22:57 04:50 04:50 RBC 2.96 L (4.30-5.90) m/uL Hgb 9.1 L (13.0-17.5) gm/dL Hct 29.5 L (39.0-53.0) % MCHC 30.7 L (31.0-37.0) g/dL RDW 20.9 H (11.5-15.5) % PT (9.0-12.0) sec APTT (22.0-30.0) sec ABG pH (7.35-7.45) ABG pCO2 (35-45) mmHg ABG pO2 (83-108) mmHg ABG O2 Saturation (94-97) % Sodium 134 L 135 L (137-145) mmol/L Potassium 5.4 H (3.5-5.1) mmol/L BUN 38 H 40 H (9-20) mg/dL Creatinine 5.10 H* 5.47 H* (0.66-1.25) mg/dL Glucose 114 H (74-99) mg/dL POC Glucose (mg/dL) (75-99) mg/dL Phosphorus 7.0 H (2.5-4.5) mg/dL 11/03/16 Range/Units 04:50 RBC (4.30-5.90) m/uL Hgb (13.0-17.5) gm/dL Hct (39.0-53.0) % MCHC (31.0-37.0) g/dL RDW (11.5-15.5) % PT 13.4 H (9.0-12.0) sec APTT 45.1 H (22.0-30.0) sec ABG pH (7.35-7.45) ABG pCO2 (35-45) mmHg ABG pO2 (83-108) mmHg ABG O2 Saturation (94-97) % Sodium (137-145) mmol/L Potassium (3.5-5.1) mmol/L BUN (9-20) mg/dL Creatinine (0.66-1.25) mg/dL Glucose (74-99) mg/dL POC Glucose (mg/dL) (75-99) mg/dL Phosphorus (2.5-4.5) mg/dL Microbiology - Last 24 Hours (Table) 11/01/16 18:30 Urine Culture - Final Urine,Catheterized 11/02/16 15:34 Gram Stain - Preliminary Sputum Sputum Culture - Preliminary Assessment and Plan (1) SIRS (systemic inflammatory response syndrome) Status: Acute Plan: 1- patient with low-grade fever and elevated white count in a patient who did have a cardiac arrest status post resuscitation and intubation with a question of possible aspiration pneumonitis not entirely excluded, patient currently with no symptoms and no findings on clinical examination to suggest infection at any other part of the body 2-antibiotic will be adjusted to Zosyn while waiting for the cultures to finalize and discontinue Rocephin 3-we will follow-up in his clinical condition and cultures to further adjust medication if needed. thank you for this consultation will follow patient along with you
--- NOTE | 2016-11-03 15:49 | P.PN ---
Subjective Patient was comfortable this morning patient remained hemodynamically stable. Sent tolerated balloon pump at 1-2. They're planning to remove the intra- aortic balloon pump this afternoon however patient became very confused and he was trying to get out of the bed. His and needs to be sedated and after he is stable we will probably remove the intra-aortic balloon pump tomorrow Objective - Vital Signs Vital signs: Vital Signs Temp 97.1 F L 11/03/16 12:00 Pulse 90 11/03/16 15:00 Resp 15 11/03/16 15:00 BP 113/59 11/02/16 14:45 Pulse Ox 94 L 11/03/16 15:00 Intake & Output 11/02/16 11/03/16 11/03/16 18:59 06:59 18:59 Intake Total 1811.354 886.076 691.929 Output Total 09 23 2006 Balance 1806.354 866.076 -1315.071 Weight 77.5 kg 77.5 kg 77.5 kg Intake: IV 530 270 340 D50 50 KVO 220 340 Sodium Chloride 0.9% 1, 480 000 ml @ 40 mls/hr IV . Q24H [facility] Rx#:[id number] cefTRIAXone 1,000 mg In 50 Sodium Chloride 0.9% 50 ml @ 100 mls/hr IVPB HS [facility] Rx#:[id number] Intake, IV Titration 1281.354 536.076 251.929 Amount DOBUTamine DRIP 500 mg In 134.933 Dextrose/Water 1 250ml. bag @ Titrate IV .Q0M [facility] Rx#:[id number] Heparin Sodium,Porcine/ 565.740 323.28 118.722 D5w Pmx 25,000 unit In Dextrose/Water 1 500ml. bag @ 18 UNITS/KG/HR 26. 94 mls/hr IV .[id number] [facility] Rx#:[id number] Norepinephrin 16 mg-0.9% 343.817 171.638 133.207 Ns Pmx 16 mg In 250 ml @ Titrate IV .Q0M [facility] Rx#: [id number] Propofol 500 mg In Empty 128.864 41.158 Bag 1 bag @ Titrate IV . Q0M [facility] Rx#:[id number] Sodium Chloride 0.9% 99 108 ml @ 0.03 UNITS/MIN 9 mls /hr IV .[id number] [facility] with Vasopressin 20 unit Rx#: [id number] Oral 100 Tube Feeding 80 Output: Urine 5 20 7 Other 1999 Other: Voiding Method Indwelling Catheter Indwelling Catheter Indwelling Catheter ABP, PAP, CO, CI - Last Documented Arterial Blood Pressure 84/39 - Exam Vital signs reviewed. His and is not in any acute respiratory distress. Heart. First and second heart sounds are normal. Lungs reveal bilateral scattered wheezes Patient currently still on Levophed drip. - Labs CBC & Chem 7: 11/03/16 04:50 11/03/16 04:50 Labs: Abnormal Lab Results - Last 24 Hours (Table) 11/02/16 11/02/16 11/02/16 Range/Units 17:23 17:28 22:40 RBC (4.30-5.90) m/uL Hgb (13.0-17.5) gm/dL Hct (39.0-53.0) % MCHC (31.0-37.0) g/dL RDW (11.5-15.5) % PT (9.0-12.0) sec APTT (22.0-30.0) sec ABG pH 7.49 H (7.35-7.45) ABG pCO2 30 L (35-45) mmHg ABG pO2 131 H (83-108) mmHg ABG O2 Saturation 99.0 H (94-97) % Sodium 132 L (137-145) mmol/L Potassium 5.7 H (3.5-5.1) mmol/L BUN 45 H (9-20) mg/dL Creatinine 6.05 H* (0.66-1.25) mg/dL Glucose 107 H (74-99) mg/dL POC Glucose (mg/dL) 103 H (75-99) mg/dL Phosphorus (2.5-4.5) mg/dL 11/02/16 11/03/16 11/03/16 Range/Units 22:57 04:50 04:50 RBC 2.96 L (4.30-5.90) m/uL Hgb 9.1 L (13.0-17.5) gm/dL Hct 29.5 L (39.0-53.0) % MCHC 30.7 L (31.0-37.0) g/dL RDW 20.9 H (11.5-15.5) % PT (9.0-12.0) sec APTT (22.0-30.0) sec ABG pH (7.35-7.45) ABG pCO2 (35-45) mmHg ABG pO2 (83-108) mmHg ABG O2 Saturation (94-97) % Sodium 134 L 135 L (137-145) mmol/L Potassium 5.4 H (3.5-5.1) mmol/L BUN 38 H 40 H (9-20) mg/dL Creatinine 5.10 H* 5.47 H* (0.66-1.25) mg/dL Glucose 114 H (74-99) mg/dL POC Glucose (mg/dL) (75-99) mg/dL Phosphorus 7.0 H (2.5-4.5) mg/dL 11/03/16 Range/Units 04:50 RBC (4.30-5.90) m/uL Hgb (13.0-17.5) gm/dL Hct (39.0-53.0) % MCHC (31.0-37.0) g/dL RDW (11.5-15.5) % PT 13.4 H (9.0-12.0) sec APTT 45.1 H (22.0-30.0) sec ABG pH (7.35-7.45) ABG pCO2 (35-45) mmHg ABG pO2 (83-108) mmHg ABG O2 Saturation (94-97) % Sodium (137-145) mmol/L Potassium (3.5-5.1) mmol/L BUN (9-20) mg/dL Creatinine (0.66-1.25) mg/dL Glucose (74-99) mg/dL POC Glucose (mg/dL) (75-99) mg/dL Phosphorus (2.5-4.5) mg/dL Microbiology - Last 24 Hours (Table) 11/02/16 13:08 Blood Culture - Preliminary Blood No Growth after 24 hours 11/01/16 18:30 Urine Culture - Final Urine,Catheterized 11/02/16 15:34 Gram Stain - Preliminary Sputum Sputum Culture - Preliminary Assessment and Plan Plan: We will continue the Levophed drip at present. Probably remove intraoperative aortic balloon pump tomorrow. If he is a well sedated.
[2016-11-03] MEDS ORDERED: HALOPERIDOL LACTATE 5 MG/ML 1 ML VIAL IVP PRN (16:09)
[2016-11-03] MEDS: HALOPERIDOL LACTATE 5 MG/ML 1 ML VIAL IVP SCH (16:50)
[2016-11-03 17:34] LABS: Glucose,Whole Blood 105 mg/dL (75-99)
[2016-11-03] MEDS ORDERED: SODIUM CHLORIDE 0.9% 99 ML with VASOPRESSIN 20 UNIT IV SCH ×2 (19:00)
[2016-11-03] MEDS: PIPERACILLIN-TAZOBACTAM 3.375 GM in DEXTROSE/WATER 1 50ML.BAG IVPB SCH (21:23)
[2016-11-03] MEDS: ATORVASTATIN 40 MG TAB PO SCH (21:24)
[2016-11-04 00:09] LABS: Glucose,Whole Blood 92 mg/dL (75-99)
[2016-11-04] MEDS: INSULIN LISPRO (humaLOG) 300 UNIT/3 ML VIAL SQ SCH ×3 (00:19→12:52)
[2016-11-04] MEDS: HALOPERIDOL LACTATE 5 MG/ML 1 ML VIAL IVP SCH ×4 (00:21→23:47)
[2016-11-04 06:13] LABS: Glucose,Whole Blood 87 mg/dL (75-99)
[2016-11-04 06:34] LABS: Anisocytosis Moderate; Basophils % (A) 0 %; CH 30.3; CHCM 30.5; Eosinophils # (A) 0.2 k/uL (0-0.7); Eosinophils % (A) 4 %; HDW 3.52; HGB 9.1 gm/dL (13.0-17.5); Hypochromasia Marked; Luc # (Auto) 0.11; Luc % (Auto) 2; Lymphocytes # (A) 0.5 k/uL (1.0-4.8); Lymphocytes % (A) 8 %; MCH 31.2 pg (25.0-35.0); MCHC 31.3 g/dL (31.0-37.0); MCV 99.7 fL (80.0-100.0); Macrocytosis Moderate; Mean Platelet Volume 9.6; Monocytes # (A) 0.4 k/uL (0-1.0); Monocytes % (A) 6 %; Neutrophils # (A) 4.9 k/uL (1.3-7.7); Neutrophils % (A) 81 %; Poikilocytosis Slight; RDW 21.3 % (11.5-15.5); WBC 6.1 k/uL (3.8-10.6); WBC (Perox) 5.97
[2016-11-04 07:40] LABS: Calcium 8.9 mg/dL (8.4-10.2); Phosphorous 4.3 mg/dL (2.5-4.5); Potassium 3.9 mmol/L (3.5-5.1)
--- NOTE | 2016-11-04 08:02 | XR ---
EXAMINATION TYPE: XR chest 1V DATE OF EXAM: 11/04/2016 COMPARISON: 11/03/2016 INDICATION: Difficulty breathing, lines and catheters. TECHNIQUE: Single frontal view of the chest is obtained. FINDINGS: The heart size is enlarged. The pulmonary vasculature is slightly prominent. There is diffuse increased opacity over the lung goldman. There is silhouetting the bilateral diaphrag ms. Marker for a aortic balloon pump is in the aortic arch level. Calcified lymphadenopathies in the medi astinum. IMPRESSION: 1. Cardiomegaly. 2. Bilateral pleural effusions. 3. Balloon pump catheter remains in position.
--- NOTE | 2016-11-04 08:31 | P.PN ---
Subjective Patient is seen for follow-up for end-stage renal disease. He is status post cardiac arrest and cardiac catheterization where he was noted to have severe cardiomyopathy but clean coronaries. Patient is currently with an intra-aortic balloon pump. He had been on large doses of pressors which are all now discontinued. Plan is for removal of the intra-aortic balloon pump today. Patient was dialyzed early this morning and he has already had 3 L of ultrafiltration which he tolerated fairly well and has been able to come off of the levo fed. He is awake, eating his breakfast. He is able to converse fairly normally Josh at Objective - Vital Signs Vital signs: Vital Signs Temp 97.7 F 11/04/16 04:00 Pulse 81 11/04/16 07:00 Resp 19 11/04/16 07:00 BP 113/59 11/02/16 14:45 Pulse Ox 96 11/04/16 06:00 Intake & Output 11/03/16 11/04/16 11/04/16 18:59 06:59 18:59 Intake Total 1118.335 302.998 Output Total 20115 Balance -893.665 -2722.002 Weight 77.5 kg 77 kg Intake: IV 450 245.0 KVO 450 195 Piperacillin-Tazobactam 3 50.0 .375 gm In Dextrose/Water 1 50ml.bag @ 12.5 mls/hr IVPB Q12HR [facility] Rx#: [id number] Intake, IV Titration 318.335 57.998 Amount Heparin Sodium,Porcine/ 118.722 57.998 D5w Pmx 25,000 unit In Dextrose/Water 1 500ml. bag @ 18 UNITS/KG/HR 26. 94 mls/hr IV .[id number] [facility] Rx#:[id number] Norepinephrin 16 mg-0.9% 199.613 Ns Pmx 16 mg In 250 ml @ Titrate IV .Q0M [facility] Rx#: [id number] Oral 350 Output: Urine 12 25 Other 2000 3000 Other: Voiding Method Indwelling Catheter Indwelling Catheter ABP, PAP, CO, CI - Last Documented Arterial Blood Pressure 89/43 - Exam On examination patient is comfortable sitting up in bed he is not in any acute distress. He is awake alert and oriented 3. Blood pressure is 89/43 heart rate 81/m patient is afebrile Examination of the heart S1 and S2 Exertion lungs decreased breath sounds bases no crackles are heard Abdomen is soft nontender obese. The renal allograft is nontender Examination lower extremities shows edema 1+ bilaterally with chronic skin changes. BRIM MOLDER exam is grossly intact patient is moving all 4 extremities. - Labs CBC & Chem 7: 11/04/16 06:18 11/04/16 06:18 Labs: Abnormal Lab Results - Last 24 Hours (Table) 11/03/16 11/03/16 11/04/16 Range/Units 17:33 22:07 04:10 RBC (4.30-5.90) m/uL Hgb (13.0-17.5) gm/dL Hct (39.0-53.0) % RDW (11.5-15.5) % Lymphocytes # (1.0-4.8) k/uL APTT 44.5 H 69.9 H (22.0-30.0) sec Sodium (137-145) mmol/L BUN (9-20) mg/dL Creatinine (0.66-1.25) mg/dL POC Glucose (mg/dL) 105 H (75-99) mg/dL 11/04/16 11/04/16 Range/Units 06:18 06:18 RBC 2.90 L (4.30-5.90) m/uL Hgb 9.1 L (13.0-17.5) gm/dL Hct 29.0 L (39.0-53.0) % RDW 21.3 H (11.5-15.5) % Lymphocytes # 0.5 L (1.0-4.8) k/uL APTT (22.0-30.0) sec Sodium 136 L (137-145) mmol/L BUN 21 H (9-20) mg/dL Creatinine 3.20 H (0.66-1.25) mg/dL POC Glucose (mg/dL) (75-99) mg/dL Microbiology - Last 24 Hours (Table) 11/02/16 13:40 Blood Culture - Preliminary Blood No Growth after 24 hours 11/02/16 13:08 Blood Culture - Preliminary Blood No Growth after 24 hours Assessment and Plan Plan: Assessment 1. End-stage renal disease on hemodialysis on a Sunday schedule. He had his dialysis today with 3 L of ultrafiltration which patient tolerated fairly well 2. Status post cardiac arrest, status post extubation currently doing fairly well 3. Severe cardiomyopathy with EF of 10-15% with clean coronaries. 4. History of adrenal insufficiency and patient had been on prednisone as outpatient. I will resume steroids we will give him a dose of hydrocortisone today. 5. 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 6. History of multiple skin cancer status post surgery. 7. Volume overload slowly improving. Plan IV hydrocortisone 1 then start by mouth prednisone. We will reevaluate tomorrow for hemodialysis and ultrafiltration depending upon his volume status. The intra-aortic balloon pump will be discontinued today.
[2016-11-04] MEDS ORDERED: HYDROCORTISONE SUCCINATE 100 MG/2 ML VIAL IV STA (08:35)
[2016-11-04] MEDS: ASPIRIN 325 MG TAB PO SCH (08:36)
[2016-11-04] MEDS: PANTOPRAZOLE 40 MG TABLET PO SCH (08:36)
[2016-11-04] MEDS: PIPERACILLIN-TAZOBACTAM 3.375 GM in DEXTROSE/WATER 1 50ML.BAG IVPB SCH ×2 (08:37→21:06)
[2016-11-04] MEDS: [UNRECOGNIZED DRUG - OTHER] PO SCH (08:47)
[2016-11-04] MEDS: BUDESONIDE 0.5 MG/2 ML NEBU INHALATION SCH ×2 (09:05→19:59)
--- NOTE | 2016-11-04 09:14 | HP ---
CHIEF COMPLAINT: Chest pain and cardiac arrest. HISTORY OF PRESENT ILLNESS: This 65 year old gentleman with past medical history of chronic renal failure, history of hemodialysis, asthma, history of kidney transplant that failed on the right side, history of nephrolithiasis, history of renal hematoma, history of depression being followed by Dr. Lopez in the outpatient setting apparently had chest pain while undergoing hemodialysis. The patient was taken to [facility] and subsequently troponins were found to be elevated. The patient was transferred to [facility] for cardiac catheterization. The patient had a cardiac arrest, possible electrical activity even before the cardiac catheterization. The patient mechanically ventilated. Cardiac catheterization did not show any significant lesions as per the staff nurse report, the official report is pending at this time. The patient currently in the ICU. The patient being monitored. The patient on pressor support by Dopamantine and Dobutamine as well as aortic counter pulsation. The patient mechanically ventilated. Vent settings are noted. The patient unable to give coherent history. Most of the history taken from my discussion with staff and review of the chart at this time. The patient is being followed by Dr. Lopez in the outpatient setting. PAST MEDICAL HISTORY: History of asthma, chronic renal failure on hemodialysis , history of kidney transplant and fistula, history of depression. MEDICATIONS: Prior to admission: 2. Parnate 20 mg po five times daily. 4. Flomax 0.4 daily. 5. Bactrim DS one po b.i.d. 6. Senna 8.6 daily. 8. Fleet daily prn. 9. Singular 10 mg daily. 10. Milk of Magnesia 2.4 daily prn. 11. Lactulose 20 gm po b.i.d. 12. [place] 7.5 q4h prn 14. Sensipar 30 mg po daily. 15. Vitamin D3 1000 daily. 16. PhosLo 667 po t.i.d. 17. Bumex 1 mg po daily. 18. Dulcolax 10 mg daily prn. 19. Zyloprim 100 mg po daily. 20. Ventolin HFA one to two puffs q6h prn 21. Tylenol 650 q6h prn ALLERGIES: BENADRYL, DEMEROL, VANCOMYCIN. Family history, social history and review of systems could not be taken. The patient is mechanically ventilated and sedated. No history of smoking. No history of alcohol. PHYSICAL EXAMINATION: Pulse 90, blood pressure 100/80. Respirations 20, mechanical ventilation settings are noted. HEENT: Conjunctivae normal .Oral mucosa moist. NECK: Jugular venous distention at the root of the neck. CARDIOVASCULAR: S1, S2 muffled. Ejection systolic murmur. No S3, no S4. RESPIRATORY: Breath sounds diminished at the bases. A few scattered rhonchi and crackles. ABDOMEN: Mild diffuse distention present. Right kidney transplant felt rather firm in consistency. No other mass palpable. No guarding. No rigidity. LEGS: No edema. No swelling. NERVOUS SYSTEM: The patient is mechanically sedated. LYMPHATICS: No lymph nodes palpable in the neck, axillae or groin. SKIN: No ulcer, rash or bleeding. LABS: At this time, currently glucose 88. ASSESSMENT: 1. Coronary artery disease with chest pain and acute non-ST segment myocardial infarction with cardiac arrest and pulseless electrical activity. 2. Acute respiratory failure, hypoxic respiratory failure on mechanical ventilation. 3. Hypotension with cardiogenic shock. 4. Chronic renal failure, Stage IV on hemodialysis. 5. History of pneumonia. 6. History of kidney transplant on the right with failed kidney transplant. 7. History of nephrolithiasis. 8. History of renal hematoma. 9. History of nonhealing left patellar fracture. 10. History of fistula. 11. History of basal cell carcinoma. 12. History of depression, not otherwise specified. 13. History of thrombocytopenia, chronic. 14. Secondary hyperparathyroidism history. RECOMMENDATIONS: In this 65 year old gentleman who presented with multiple complex medical issues, we will monitor the patient closely, continue the current medications, continue symptomatic treatment. We will closely monitor the patient in the ICU. otherwise, nephrology consultation. Pressor support. Mechanical ventilation. Resume the home medications. DVT prophylaxis. Guarded prognosis because of multiple complex medical issues. Further recommendations to follow. Follow closely with cardiology. See orders for details. MTDD
[2016-11-04] MEDS: predniSONE 20 MG TAB PO SCH (09:19)
--- NOTE | 2016-11-04 10:16 | P.PN ---
Subjective Principal diagnosis: Cardiomyopathy, end-stage renal disease and history of cardiac arrest This patient was admitted with cardiac arrest. Had a cardiac catheterization and was found to have normal coronary arteries. Patient had intact balloon pump and was found to have severe cardiomyopathy. Patient has been on 2-1 to3- 1 balloon support until today. Balloon pump is taken out today. He is maintaining blood pressures of 90s. He is also on renal dialysis. He looks very frail and weak. Denies any chest pain. Complains of chronic shortness of breath but better since admission here. Patient appears to be slightly disoriented Objective - Vital Signs Vital signs: Vital Signs Temp 97.7 F 11/04/16 04:00 Pulse 81 11/04/16 07:00 Resp 19 11/04/16 07:00 BP 113/59 11/02/16 14:45 Pulse Ox 96 11/04/16 06:00 Intake & Output 11/03/16 11/04/16 11/04/16 18:59 06:59 18:59 Intake Total 1118.335 302.998 Output Total 20115 Balance -893.665 -2722.002 Weight 77.5 kg 77 kg Intake: IV 450 245.0 KVO 450 195 Piperacillin-Tazobactam 3 50.0 .375 gm In Dextrose/Water 1 50ml.bag @ 12.5 mls/hr IVPB Q12HR [facility] Rx#: [id number] Intake, IV Titration 318.335 57.998 Amount Heparin Sodium,Porcine/ 118.722 57.998 D5w Pmx 25,000 unit In Dextrose/Water 1 500ml. bag @ 18 UNITS/KG/HR 26. 94 mls/hr IV .[id number] [facility] Rx#:[id number] Norepinephrin 16 mg-0.9% 199.613 Ns Pmx 16 mg In 250 ml @ Titrate IV .Q0M [facility] Rx#: [id number] Oral 350 Output: Urine 12 25 Other 2000 3000 Other: Voiding Method Indwelling Catheter Indwelling Catheter ABP, PAP, CO, CI - Last Documented Arterial Blood Pressure 89/43 - Exam GENERAL EXAM: Patient is alert and mild confused. N CHEST: No chest wall deformity. LUNGS: Equal air entry with no crackles or wheeze. HEART: S1 and S2 normal with no audible mumurs or gallops. Regular rhythm, femorals equal on both sides.. ABDOMEN: No hepatosplenomegaly, normal bowel sounds, no guarding or rigidity. SKIN: No rashes CENTRAL NERVOUS SYSTEM: No focal deficits. EXTREMITIES: No cyanosis, clubbing or edema. - Labs CBC & Chem 7: 11/04/16 06:18 11/04/16 06:18 Labs: Abnormal Lab Results - Last 24 Hours (Table) 11/03/16 11/03/16 11/04/16 Range/Units 17:33 22:07 04:10 RBC (4.30-5.90) m/uL Hgb (13.0-17.5) gm/dL Hct (39.0-53.0) % RDW (11.5-15.5) % Lymphocytes # (1.0-4.8) k/uL APTT 44.5 H 69.9 H (22.0-30.0) sec Sodium (137-145) mmol/L BUN (9-20) mg/dL Creatinine (0.66-1.25) mg/dL POC Glucose (mg/dL) 105 H (75-99) mg/dL 11/04/16 11/04/16 Range/Units 06:18 06:18 RBC 2.90 L (4.30-5.90) m/uL Hgb 9.1 L (13.0-17.5) gm/dL Hct 29.0 L (39.0-53.0) % RDW 21.3 H (11.5-15.5) % Lymphocytes # 0.5 L (1.0-4.8) k/uL APTT (22.0-30.0) sec Sodium 136 L (137-145) mmol/L BUN 21 H (9-20) mg/dL Creatinine 3.20 H (0.66-1.25) mg/dL POC Glucose (mg/dL) (75-99) mg/dL Microbiology - Last 24 Hours (Table) 11/02/16 15:34 Gram Stain - Final Sputum Sputum Culture - Final 11/02/16 13:40 Blood Culture - Preliminary Blood No Growth after 24 hours 11/02/16 13:08 Blood Culture - Preliminary Blood No Growth after 24 hours Assessment and Plan (1) Cardiomyopathy Status: Acute (2) SIRS (systemic inflammatory response syndrome) Status: Acute (3) Chronic renal failure syndrome Status: Acute Plan: Continue the dobutamine support. He is also being followed by nephrology. He is off Levophed. Further recommendations depend upon clinical course. Prognosis is guarded
--- NOTE | 2016-11-04 10:35 | P.PN ---
Progress Note - Text Removal of intra-aortic balloon pump: Procedure in detail: The right groin was examined. There is no evidence of hematoma. The intra-aortic balloon pump was turned off. The pre-existing sheath and balloon were removed en pushpa and the artery was allowed to bleed both antegrade and retrograde for several beats. Direct manual pressure was held over the site for 30 minutes. There is no residual bleeding or hematoma noted. The right groin itself is soft. The right lower extremities are warm to touch and well perfused. There is no immediate complications. He remained hemodynamically stable and has a palpable dorsalis pedis and posterior tibial pulses.
[2016-11-04 12:51] LABS: Glucose,Whole Blood 98 mg/dL (75-99)
--- NOTE | 2016-11-04 13:02 | CC ---
DATE OF SERVICE: 11/01/2016 PERFORMING PHYSICIAN: Neal Kendrick M.D., kohinoor operator. PROCEDURE PERFORMED: 1. Selective right and left coronary angiogram. 2. Successful placement of intra-aortic balloon pump. INDICATION: This is a pleasant 65-year-old gentleman who was transferred from the dialysis center to [facility] Emergency Room because he was having chest discomfort during dialysis. The workup was consistent with acute non-ST elevation myocardial infarction. The EKG showed sinus rhythm with nonspecific changes throughout the chest leads. The cardiac enzymes came in to be abnormal and consistent with acute MO. In view of that a heart catheterization was recommended to be performed. The patient developed acute respiratory failure later on during the day and he was transferred to undergo an emergent heart catheterization at [facility]. APPROACH: Right common femoral artery. COMPLICATION: None. LEVEL OF SEDATION: Moderate. PROCEDURE DESCRIPTION: After obtaining an informed consent the patient was brought to the cardiac cytology laboratory manager. The right common femoral artery was cannulated using micropuncture technique. The micropuncture wire passed easily. Then I placed 6 Chinese sheath in the right common femoral artery. After that I did selective right and left coronary angiogram using GR4 and GR4.5 catheters. During the procedure the patient went into cardiac arrest and I did stat CPR on him and the patient came back to after the CPR. After that I did the deploy. I did place an intra-aortic balloon pump. The procedure was completed without any complication. RESULTS OF THE CORONARY ANGIOGRAM: 1. The right coronary artery is a large caliber vessel and it is a dominant vessel. The RCA is angiographically normal, bifurcates into the ( ) and LV branches. Both are angiographically normal. 2. The left main is angiographically normal. Bifurcates into the left circumflex and left anterior descending artery. 3. The left circumflex is a large caliber vessel, it is a nondominant vessel. The proximal left circumflex appears to have mild disease only. The mid left circumflex and distal left circumflex are angiographically diandra. 4. The left anterior descending artery. The proximal LAD is angiographically normal. It gives rise into the first diagonal branch which seems to be angiographically normal. The mid LAD and distal LAD are angiographically normal. Placement of the aortic balloon pump. I did exchange my 6 Chinese sheath into the balloon pump sheath over the balloon pump wire. After that I did place the balloon pump under fluoroscopic guidance. The balloon pump was turned to be 1 to 1. Heparin for anticoagulation was initiated after that. CONCLUSION: 1. Acute non-ST elevation myocardial infarction complicated by cardiogenic shock. 2. Mild nonobstructive coronary artery disease. 3. Successful placement of intra-aortic balloon pump. MTDD
[2016-11-04] MEDS: ATORVASTATIN 40 MG TAB PO SCH (21:06)
[2016-11-05 07:19] LABS: Anisocytosis Moderate; Basophils % (A) 0 %; CH 29.8; CHCM 30.1; Eosinophils % (A) 0 %; HCT 32.9 % (39.0-53.0); HDW 3.62; HGB 10.1 gm/dL (13.0-17.5); Hypochromasia Marked; Luc # (Auto) 0.14; Luc % (Auto) 2; Lymphocytes # (A) 0.5 k/uL (1.0-4.8); Lymphocytes % (A) 6 %; MCH 30.4 pg (25.0-35.0); MCHC 30.7 g/dL (31.0-37.0); MCV 99.1 fL (80.0-100.0); Macrocytosis Moderate; Mean Platelet Volume 9.5; Monocytes # (A) 0.4 k/uL (0-1.0); Monocytes % (A) 5 %; Neutrophils # (A) 7.1 k/uL (1.3-7.7); Neutrophils % (A) 87 %; Poikilocytosis Slight; RBC 3.33 m/uL (4.30-5.90); RDW 21.1 % (11.5-15.5); WBC 8.2 k/uL (3.8-10.6); WBC (Perox) 8.24
[2016-11-05 07:22] LABS: Calcium 9.2 mg/dL (8.4-10.2); Magnesium 2.1 mg/dL (1.6-2.3); Phosphorous 6.4 mg/dL (2.5-4.5); Potassium 4.6 mmol/L (3.5-5.1)
--- NOTE | 2016-11-05 07:57 | XR ---
EXAMINATION TYPE: XR chest 1V DATE OF EXAM: 11/05/2016 COMPARISON: 11/04/2016 INDICATION: Previous abnormal chest TECHNIQUE: Single frontal view of the chest is obtained. FINDINGS: The heart size is enlarged. The pulmonary vasculature is slightly prominent. Mild subsegmental atelectasis at the right base. There is a left lower lobe infiltrate with silhouett ing the left diaphragm. Correlate for pulmonary edema atelectasis and pneumonia. Follow-up is recommended IMPRESSION: 1. Left lower lobe infiltrate and minimal right lower lobe infiltrate. Findings are improving. Contin ued follow-up is recommended.
[2016-11-05] MEDS: IPRATROPIUM-ALBUTEROL 3 ML NEB INHALATION PRN ×4 (08:13→23:30)
[2016-11-05] MEDS: BUDESONIDE 0.5 MG/2 ML NEBU INHALATION SCH ×2 (08:13→20:26)
[2016-11-05] MEDS: predniSONE 20 MG TAB PO SCH (08:17)
[2016-11-05] MEDS: ASPIRIN 325 MG TAB PO SCH (08:17)
[2016-11-05] MEDS: PANTOPRAZOLE 40 MG TABLET PO SCH (08:17)
[2016-11-05] MEDS: HALOPERIDOL LACTATE 5 MG/ML 1 ML VIAL IVP SCH ×3 (08:17→23:16)
--- NOTE | 2016-11-05 08:17 | PN ---
DATE OF SERVICE: 11/02/2016 This 65-year-old gentleman admitted after cardiorespiratory arrest being closely monitored at this time. The patient did have a cardiac catheterization after the cardiopulmonary arrest and did not show acute abnormality. The patient is still on pressor support. ( ) The patient is on mechanical ventilation. Vent setting are noted. The ejection fraction was found to be 20%. PAST MEDICAL HISTORY: Reviewed. REVIEW OF SYSTEMS: Could not be obtained. The patient is mechanically ventilated and sedation. The current medications include: 1. DuoNeb q.i.d. and p.r.n. 2. Aspirin 325 mg. 3. Lipitor 40 mg q.h.s. 4. Pulmicort 0.5 b.i.d. 5. Rocephin 1 gram daily. 6. Peridex. 7. Dobutamine drip. 8. Levophed drip, norepi. 9. Protonix. 10. Propofol. PHYSICAL EXAM: The pulse is 79, blood pressure ntd, respirations 15, temperature 98.1, pulse ox 100% on mechanical ventilation. Vent settings are noted. PEEP of 10. HEENT: Conjunctivae normal. Oral mucosa moist. CARDIOVASCULAR: S1 and S2, muffled. RESPIRATORY: Breath sounds diminished at the bases. A few scattered rhonchi and crackles. Respiratory wheezing also present. ABDOMEN: Soft, nontender. No mass palpable. LEGS: No edema, no swelling. NERVOUS SYSTEM: Patient is mechanically ventilated and sedated. The labs are at this time shows ABGs noted. Sodium 133, potassium 6.1. Creatinine is ntd. ASSESSMENT: 1. Cardiorespiratory arrest, possibly coronary artery disease, status post acute hypoxic respiratory failure on mechanical ventilation. 2. Cardiogenic shock, possibly secondary to cardiomyopathy. Ejection fraction 20 % with chronic systolic dysfunction, congestive heart failure on intraaortic balloon pump. 3. Chronic renal failure, stage V on hemodialysis. 4. Hyponatremia. 5. Hyperkalemia. 6. Multiple complex medical issues as mentioned earlier. RECOMMENDATIONS: This 65-year-old gentleman presented with multiple complex medical issues. Will monitor the patient closely. Monitor in the ICU. Continue the pressor support. Discussed with Pulmonary. Prognosis guarded. Cardiology input appreciated and further recommendations to follow. Discussed with staff. See orders for further details. MTDD
[2016-11-05] MEDS: [UNRECOGNIZED DRUG - OTHER] PO SCH (08:18)
[2016-11-05] MEDS: PIPERACILLIN-TAZOBACTAM 3.375 GM in DEXTROSE/WATER 1 50ML.BAG IVPB SCH ×2 (08:19→20:15)
--- NOTE | 2016-11-05 08:25 | P.PN ---
Subjective Patient is seen for follow-up for end-stage renal disease. He is status post cardiac arrest and cardiac catheterization where he was noted to have severe cardiomyopathy but clean coronaries. Patient is currently with an intra-aortic balloon pump. He had been on large doses of pressors which are all now discontinued. Intra-aortic balloon pump was discontinued yesterday Patient was dialyzed yesterday and had 3 L of ultrafiltration which he tolerated fairly well and has been able to come off of the levo fed. He is awake, eating his breakfast. He is able to converse fairly normally. The a line will be discontinued today. Objective - Vital Signs Vital signs: Vital Signs Temp 97.1 F L 11/05/16 04:00 Pulse 74 11/05/16 08:14 Resp 14 11/05/16 07:00 BP 135/60 11/05/16 07:00 Pulse Ox 97 11/05/16 07:00 Intake & Output 11/04/16 11/05/16 11/05/16 18:59 06:59 18:59 Intake Total 150 50 Output Total 10 5 Balance 140 45 Weight 77.8 kg Intake: IV 150 50 KVO 150 0 Piperacillin-Tazobactam 3 50 .375 gm In Dextrose/Water 1 50ml.bag @ 12.5 mls/hr IVPB Q12HR [facility] Rx#: [id number] Output: Urine 10 5 Other: Voiding Method Indwelling Catheter Indwelling Catheter ABP, PAP, CO, CI - Last Documented Arterial Blood Pressure 89/46 - Exam On examination patient is comfortable sitting up in bed he is not in any acute distress. He is awake alert and oriented 3. Blood pressure is 135/60 heart rate 74/m patient is afebrile. Examination of the heart S1 and S2 Exertion lungs decreased breath sounds bases no crackles are heard Abdomen is soft nontender obese. The renal allograft is nontender Examination lower extremities shows edema 1+ bilaterally with chronic skin changes. 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 - Labs CBC & Chem 7: 11/05/16 06:40 11/05/16 06:40 Labs: Abnormal Lab Results - Last 24 Hours (Table) 11/05/16 11/05/16 Range/Units 06:40 06:40 RBC 3.33 L (4.30-5.90) m/uL Hgb 10.1 L (13.0-17.5) gm/dL Hct 32.9 L (39.0-53.0) % MCHC 30.7 L (31.0-37.0) g/dL RDW 21.1 H (11.5-15.5) % Lymphocytes # 0.5 L (1.0-4.8) k/uL Sodium 135 L (137-145) mmol/L Carbon Dioxide 21 L (22-30) mmol/L BUN 30 H (9-20) mg/dL Creatinine 4.64 H (0.66-1.25) mg/dL Glucose 110 H (74-99) mg/dL Phosphorus 6.4 H (2.5-4.5) mg/dL Microbiology - Last 24 Hours (Table) 11/02/16 13:40 Blood Culture - Preliminary Blood No Growth after 48 hours 11/02/16 13:08 Blood Culture - Preliminary Blood No Growth after 48 hours 11/02/16 15:34 Gram Stain - Final Sputum Sputum Culture - Final Assessment and Plan Plan: Assessment 1. End-stage renal disease on hemodialysis on a Sunday schedule. He had his dialysis yesterday with 3 L of ultrafiltration which patient tolerated fairly well 2. Status post cardiac arrest, status post extubation currently doing fairly well 3. Severe cardiomyopathy with EF of 10-15% with clean coronaries. 4. History of adrenal insufficiency and patient had been on prednisone as outpatient. I will resume steroids we will give him a dose of hydrocortisone today. 5. 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 6. History of multiple skin cancer status post surgery. 7. Volume overload slowly improving. 8. Bilateral pleural effusions. Plan Hemodialysis in a.m. with ultrafiltration of about 3 L as tolerated. However, is his the volume status worsens today we will plan on a short treatment today.
[2016-11-05] MEDS: CALCIUM ACETATE 667 MG CAP PO SCH ×2 (12:27→17:42)
--- NOTE | 2016-11-05 17:06 | P.PN ---
Subjective Principal diagnosis: Cardiomyopathy, end-stage renal disease and history of cardiac arrest This patient was admitted with cardiac arrest. Had a cardiac catheterization and was found to have normal coronary arteries. Patient had intact balloon pump and was found to have severe cardiomyopathy. Patient has been on 2-1 to3- 1 balloon support until today. Balloon pump is taken out today. He is maintaining blood pressures of 90s. He is also on renal dialysis. He looks very frail and weak. Denies any chest pain. Complains of chronic shortness of breath but better since admission here. Patient appears to be slightly disoriented. This patient is reevaluated on November 05. Patient seemed to be more alert and able to walk with assistance. He seemed to be less short of breath and more oriented. Lungs show diminished breath sounds. Overall his clinical status showed improvement symptomatically encouraging. Patient may be moved to telemetry unit Objective - Vital Signs Vital signs: Vital Signs Temp 96.8 F L 11/05/16 15:59 Pulse 76 11/05/16 15:59 Resp 20 11/05/16 15:59 BP 102/55 11/05/16 15:59 Pulse Ox 99 11/05/16 15:59 Intake & Output 11/04/16 11/05/16 11/05/16 18:59 06:59 18:59 Intake Total 150 50 Output Total 10 5 Balance 140 45 Weight 77.8 kg Intake: IV 150 50 KVO 150 0 Piperacillin-Tazobactam 3 50 .375 gm In Dextrose/Water 1 50ml.bag @ 12.5 mls/hr IVPB Q12HR [facility] Rx#: [id number] Output: Urine 10 5 Other: Voiding Method Indwelling Catheter Indwelling Catheter Urinal # Bowel Movements 0 ABP, PAP, CO, CI - Last Documented Arterial Blood Pressure 89/46 - Exam GENERAL EXAM: Patient is alert and seemed to be more oriented CHEST: No chest wall deformity. LUNGS: Equal air entry with no crackles or wheeze. HEART: S1 and S2 normal with no audible mumurs or gallops. Regular rhythm, femorals equal on both sides.. ABDOMEN: No hepatosplenomegaly, normal bowel sounds, no guarding or rigidity. SKIN: No rashes CENTRAL NERVOUS SYSTEM: No focal deficits. EXTREMITIES: No cyanosis, clubbing or edema. - Labs CBC & Chem 7: 11/05/16 06:40 11/05/16 06:40 Labs: Abnormal Lab Results - Last 24 Hours (Table) 11/05/16 11/05/16 Range/Units 06:40 06:40 RBC 3.33 L (4.30-5.90) m/uL Hgb 10.1 L (13.0-17.5) gm/dL Hct 32.9 L (39.0-53.0) % MCHC 30.7 L (31.0-37.0) g/dL RDW 21.1 H (11.5-15.5) % Lymphocytes # 0.5 L (1.0-4.8) k/uL Sodium 135 L (137-145) mmol/L Carbon Dioxide 21 L (22-30) mmol/L BUN 30 H (9-20) mg/dL Creatinine 4.64 H (0.66-1.25) mg/dL Glucose 110 H (74-99) mg/dL Phosphorus 6.4 H (2.5-4.5) mg/dL Microbiology - Last 24 Hours (Table) 11/02/16 13:40 Blood Culture - Preliminary Blood No Growth after 72 hours 11/02/16 13:08 Blood Culture - Preliminary Blood No Growth after 72 hours Assessment and Plan (1) Cardiomyopathy Status: Acute (2) SIRS (systemic inflammatory response syndrome) Status: Acute (3) Chronic renal failure syndrome Status: Acute Plan: Patient has shown some progress compared to yesterday. He is able to ambulate with assistance. His blood pressure is maintained. He may get an additional dialysis today. Probably transferred to telemetry unit
--- NOTE | 2016-11-05 18:16 | P.PN ---
Subjective Principal diagnosis: cardiomyopathy , chest pain pt has been extubated and ws dialysed today and has dyspnea.Balloon pump removed O?e vitals sta ble afebrile Alert and oriented Chest decreased bs with crackles cvs s1,s2 no s3 no s4 and no murmur abd soft edema labs and meds reviewed IMP cardiomyopathy CRF on dilaysi Possible PE Metabolic encephalopathy Continue current meds which were reviewed and will follow closely Objective - Vital Signs Vital signs: Vital Signs Temp 97.4 F L 11/04/16 12:00 Pulse 82 11/04/16 17:00 Resp 22 11/04/16 17:00 BP 118/71 11/04/16 14:00 Pulse Ox 98 11/04/16 16:00 Intake & Output 11/03/16 11/04/16 11/04/16 18:59 06:59 18:59 Intake Total 1118.335 302.998 150 Output Total 2011 3025 10 Balance -893.665 -2722.002 140 Weight 77.5 kg 77 kg Intake: IV 450 245.0 150 KVO 450 195 150 Piperacillin-Tazobactam 3 50.0 .375 gm In Dextrose/Water 1 50ml.bag @ 12.5 mls/hr IVPB Q12HR [facility] Rx#: [id number] Intake, IV Titration 318.335 57.998 Amount Heparin Sodium,Porcine/ 118.722 57.998 D5w Pmx 25,000 unit In Dextrose/Water 1 500ml. bag @ 18 UNITS/KG/HR 26. 94 mls/hr IV .[id number] [facility] Rx#:[id number] Norepinephrin 16 mg-0.9% 199.613 Ns Pmx 16 mg In 250 ml @ Titrate IV .Q0M [facility] Rx#: [id number] Oral 350 Output: Urine 12 25 10 Other 2000 3000 Other: Voiding Method Indwelling Catheter Indwelling Catheter Indwelling Catheter ABP, PAP, CO, CI - Last Documented Arterial Blood Pressure 99/55 - Labs CBC & Chem 7: 11/04/16 06:18 11/04/16 06:18 Labs: Abnormal Lab Results - Last 24 Hours (Table) 11/03/16 11/03/16 11/04/16 Range/Units 17:33 22:07 04:10 RBC (4.30-5.90) m/uL Hgb (13.0-17.5) gm/dL Hct (39.0-53.0) % RDW (11.5-15.5) % Lymphocytes # (1.0-4.8) k/uL APTT 44.5 H 69.9 H (22.0-30.0) sec Sodium (137-145) mmol/L BUN (9-20) mg/dL Creatinine (0.66-1.25) mg/dL POC Glucose (mg/dL) 105 H (75-99) mg/dL 11/04/16 11/04/16 Range/Units 06:18 06:18 RBC 2.90 L (4.30-5.90) m/uL Hgb 9.1 L (13.0-17.5) gm/dL Hct 29.0 L (39.0-53.0) % RDW 21.3 H (11.5-15.5) % Lymphocytes # 0.5 L (1.0-4.8) k/uL APTT (22.0-30.0) sec Sodium 136 L (137-145) mmol/L BUN 21 H (9-20) mg/dL Creatinine 3.20 H (0.66-1.25) mg/dL POC Glucose (mg/dL) (75-99) mg/dL Microbiology - Last 24 Hours (Table) 11/02/16 13:40 Blood Culture - Preliminary Blood No Growth after 48 hours 11/02/16 13:08 Blood Culture - Preliminary Blood No Growth after 48 hours 11/02/16 15:34 Gram Stain - Final Sputum Sputum Culture - Final
--- NOTE | 2016-11-05 18:18 | P.PN ---
Subjective Principal diagnosis: cardiomyopathy , chest pain pt has been tranferred out of icu and Balloon pump removed O?e vitals sta ble afebrile Alert and oriented Chest decreased bs with crackles cvs s1,s2 no s3 no s4 and no murmur abd soft edema labs and meds reviewed IMP cardiomyopathy CRF on dilaysi Possible PE Metabolic encephalopathy Continue current meds which were reviewed and will follow closely Have pt eval by pm and r and decide on placement Objective - Vital Signs Vital signs: Vital Signs Temp 96.8 F L 11/05/16 15:59 Pulse 78 11/05/16 17:38 Resp 20 11/05/16 15:59 BP 102/55 11/05/16 15:59 Pulse Ox 99 11/05/16 15:59 Intake & Output 11/04/16 11/05/16 11/05/16 18:59 06:59 18:59 Intake Total 150 50 200 Output Total 10 5 Balance 140 45 200 Weight 77.8 kg Intake: IV 150 50 KVO 150 0 Piperacillin-Tazobactam 3 50 .375 gm In Dextrose/Water 1 50ml.bag @ 12.5 mls/hr IVPB Q12HR [facility] Rx#: [id number] Oral 200 Output: Urine 10 5 Other: Voiding Method Indwelling Catheter Indwelling Catheter Urinal # Bowel Movements 0 ABP, PAP, CO, CI - Last Documented Arterial Blood Pressure 89/46 - Labs CBC & Chem 7: 11/05/16 06:40 11/05/16 06:40 Labs: Abnormal Lab Results - Last 24 Hours (Table) 11/05/16 11/05/16 Range/Units 06:40 06:40 RBC 3.33 L (4.30-5.90) m/uL Hgb 10.1 L (13.0-17.5) gm/dL Hct 32.9 L (39.0-53.0) % MCHC 30.7 L (31.0-37.0) g/dL RDW 21.1 H (11.5-15.5) % Lymphocytes # 0.5 L (1.0-4.8) k/uL Sodium 135 L (137-145) mmol/L Carbon Dioxide 21 L (22-30) mmol/L BUN 30 H (9-20) mg/dL Creatinine 4.64 H (0.66-1.25) mg/dL Glucose 110 H (74-99) mg/dL Phosphorus 6.4 H (2.5-4.5) mg/dL Microbiology - Last 24 Hours (Table) 11/02/16 13:40 Blood Culture - Preliminary Blood No Growth after 72 hours 11/02/16 13:08 Blood Culture - Preliminary Blood No Growth after 72 hours
[2016-11-05] MEDS: ATORVASTATIN 40 MG TAB PO SCH (20:15)
[2016-11-06] MEDS: IPRATROPIUM-ALBUTEROL 3 ML NEB INHALATION PRN ×4 (05:58→19:59)
[2016-11-06 06:24] LABS: Calcium 9.6 mg/dL (8.4-10.2); Magnesium 2.3 mg/dL (1.6-2.3); Phosphorous 7.4 mg/dL (2.5-4.5); Potassium 5.4 mmol/L (3.5-5.1)
[2016-11-06 06:27] LABS: Anisocytosis Moderate; CH 29.7; HCT 34.1 % (39.0-53.0); HDW 3.47; HGB 10.2 gm/dL (13.0-17.5); Hypochromasia Marked; MCH 30.6 pg (25.0-35.0); MCHC 29.9 g/dL (31.0-37.0); MCV 102.5 fL (80.0-100.0); Macrocytosis Marked; Mean Platelet Volume 9.2; Poikilocytosis Slight; RBC 3.33 m/uL (4.30-5.90); RDW 21.6 % (11.5-15.5); WBC (Perox) 11.08
[2016-11-06] MEDS: CALCIUM ACETATE 667 MG CAP PO SCH ×3 (06:44→17:19)
[2016-11-06 07:01] LABS: Add Differential Manual Differential
[2016-11-06 07:04] LABS: Nucleated Red Blood Cells 3 /100 WBC (0-0); Total Cells Counted 200
[2016-11-06 07:05] LABS: Manual Review Performed; WBC 10.3 k/uL (3.8-10.6)
[2016-11-06 07:06] LABS: Ovalocytes Present; Polychromasia Present
[2016-11-06] MEDS: BUDESONIDE 0.5 MG/2 ML NEBU INHALATION SCH ×2 (08:12→19:59)
[2016-11-06] MEDS: HALOPERIDOL LACTATE 5 MG/ML 1 ML VIAL IVP SCH (08:20)
[2016-11-06] MEDS: [UNRECOGNIZED DRUG - OTHER] PO SCH (08:21)
[2016-11-06] MEDS: ASPIRIN 325 MG TAB PO SCH (08:22)
[2016-11-06] MEDS: PANTOPRAZOLE 40 MG TABLET PO SCH (08:23)
[2016-11-06] MEDS: predniSONE 20 MG TAB PO SCH (08:23)
[2016-11-06] MEDS: PIPERACILLIN-TAZOBACTAM 3.375 GM in DEXTROSE/WATER 1 50ML.BAG IVPB SCH ×2 (08:24→20:39)
--- NOTE | 2016-11-06 08:39 | P.PN ---
Subjective Patient is seen in follow-up for end-stage renal disease. He is maintained on hemodialysis on a Sunday schedule. Patient underwent a cardiac catheterization on November 01 which was benign however he did have a cardiopulmonary arrest. He required multiple vasopressors which are now all discontinued. He is quite confused at this time but awake. He is noted to have severe systolic CHF with ejection fraction of less than 20%. He is also maintained on steroids for adrenal insufficiency. Vital signs are stable. General: The patient appeared well nourished and normally developed. HEENT: Head exam is unremarkable. Neck is without jugular venous distension. LUNGS: Scattered rhonchi. Breath sounds decreased. HEART: Rate and Rhythm are regular. First and second heart sounds normal. No murmurs, rubs or gallops. ABDOMEN: Abdominal exam reveals normal bowel sounds. Non-tender and non- distended. No evidence of peritonitis. EXTREMITITES: 1+ edema. Objective - Vital Signs Vital signs: Vital Signs Temp 96.6 F L 11/06/16 08:00 Pulse 80 11/06/16 08:27 Resp 16 11/06/16 08:00 BP 91/55 11/06/16 08:00 Pulse Ox 96 11/06/16 08:00 Intake & Output 11/05/16 11/06/16 11/06/16 18:59 06:59 18:59 Intake Total 200 420 330 Balance 200 420 330 Weight 72 kg Intake: IV 210 50 KVO 160 Piperacillin-Tazobactam 3 50 50 .375 gm In Dextrose/Water 1 50ml.bag @ 12.5 mls/hr IVPB Q12HR [facility] Rx#: [id number] Oral 200 210 280 Other: Voiding Method Urinal Urinal Urinal # Bowel Movements 0 ABP, PAP, CO, CI - Last Documented Arterial Blood Pressure 89/46 - Labs CBC & Chem 7: 11/06/16 05:45 11/06/16 05:45 Labs: Abnormal Lab Results - Last 24 Hours (Table) 11/06/16 11/06/16 Range/Units 05:45 05:45 RBC 3.33 L (4.30-5.90) m/uL Hgb 10.2 L (13.0-17.5) gm/dL Hct 34.1 L (39.0-53.0) % MCV 102.5 H (80.0-100.0) fL MCHC 29.9 L (31.0-37.0) g/dL RDW 21.6 H (11.5-15.5) % Neutrophils # (Manual) 8.7 H (1.3-7.7) k/uL Lymphocytes # (Manual) 0.7 L (1.0-4.8) k/uL Nucleated RBCs 3 H (0-0) /100 WBC Sodium 136 L (137-145) mmol/L Potassium 5.4 H (3.5-5.1) mmol/L Carbon Dioxide 18 L (22-30) mmol/L BUN 42 H (9-20) mg/dL Creatinine 5.48 H* (0.66-1.25) mg/dL Glucose 111 H (74-99) mg/dL Phosphorus 7.4 H (2.5-4.5) mg/dL Microbiology - Last 24 Hours (Table) 11/02/16 13:40 Blood Culture - Preliminary Blood No Growth after 72 hours 11/02/16 13:08 Blood Culture - Preliminary Blood No Growth after 72 hours Assessment and Plan Plan: Assessment: #1. End-stage renal disease maintained on hemodialysis on a Sunday schedule via left upper extremity AV fistula. #2. Hyperkalemia secondary to chronic kidney disease. #3. Status post cardiac arrest. #4. Chest pain status post cardiac catheterization in November 01. No interventions done. #5. Anemia of chronic kidney disease. Hemoglobin at goal. #6. Hyperphosphatemia secondary to chronic kidney disease. Plan: Hemodialysis today with goal 3 L ultrafiltration. Another treatment tomorrow per his outpatient schedule. Maintain PhosLo with meals. Maintain prednisone 20 mg daily for now. Will taper dose once blood pressure more stable.
--- NOTE | 2016-11-06 11:44 | P.PN ---
Subjective Principal diagnosis: cardiomyopathy , chest pain pt has been tranferred out of icu and Balloon pump removed.Increased dyspnea with wheezing and is undergoing dialysis O?e vitals sta ble afebrile Alert and oriented Chest decreased bs with crackles cvs s1,s2 no s3 no s4 and no murmur abd soft edema labs and meds reviewed IMP cardiomyopathy CRF on dilaysi Possible PE Metabolic encephalopathy Continue current meds which were reviewed and will follow closely Have pt eval by pm and r and decide on placement Add 3 doses of solumedrol and leukotirene receptor antagonist to optimise airway inflammation Objective - Vital Signs Vital signs: Vital Signs Temp 96.6 F L 11/06/16 08:00 Pulse 83 11/06/16 11:16 Resp 16 11/06/16 11:16 BP 99/46 11/06/16 11:16 Pulse Ox 96 11/06/16 08:00 Intake & Output 11/05/16 11/06/16 11/06/16 18:59 06:59 18:59 Intake Total 200 420 330 Balance 200 420 330 Weight 72 kg 72 kg Intake: IV 210 50 KVO 160 Piperacillin-Tazobactam 3 50 50 .375 gm In Dextrose/Water 1 50ml.bag @ 12.5 mls/hr IVPB Q12HR [facility] Rx#: [id number] Oral 200 210 280 Other: Voiding Method Urinal Urinal Urinal # Bowel Movements 0 ABP, PAP, CO, CI - Last Documented Arterial Blood Pressure 89/46 - Labs CBC & Chem 7: 11/06/16 05:45 11/06/16 05:45 Labs: Abnormal Lab Results - Last 24 Hours (Table) 11/06/16 11/06/16 Range/Units 05:45 05:45 RBC 3.33 L (4.30-5.90) m/uL Hgb 10.2 L (13.0-17.5) gm/dL Hct 34.1 L (39.0-53.0) % MCV 102.5 H (80.0-100.0) fL MCHC 29.9 L (31.0-37.0) g/dL RDW 21.6 H (11.5-15.5) % Neutrophils # (Manual) 8.7 H (1.3-7.7) k/uL Lymphocytes # (Manual) 0.7 L (1.0-4.8) k/uL Nucleated RBCs 3 H (0-0) /100 WBC Sodium 136 L (137-145) mmol/L Potassium 5.4 H (3.5-5.1) mmol/L Carbon Dioxide 18 L (22-30) mmol/L BUN 42 H (9-20) mg/dL Creatinine 5.48 H* (0.66-1.25) mg/dL Glucose 111 H (74-99) mg/dL Phosphorus 7.4 H (2.5-4.5) mg/dL Microbiology - Last 24 Hours (Table) 11/02/16 13:40 Blood Culture - Preliminary Blood No Growth after 72 hours 11/02/16 13:08 Blood Culture - Preliminary Blood No Growth after 72 hours
--- NOTE | 2016-11-06 11:46 | P.CONS ---
History of Present Illness - Chief Complaint Percy debility - History of Present Illness I had the op to see patient for inpatient rehab consultation with regard to medical debility. He was admitted [facility] November 01 with cardiac arrest. Seen by Dr. Pearce for end-stage renal failure. Seen by Dr. Beckman for SIRS. Seen by Dr. Da Silva for cardiogenic shock and ICU care. Symmetric cardiology performed balloon pump in. Chest x-rays followed for left lower lobe and right middle lobe infiltrates. PT and OT prescribed. Previous functional history as elicited from patient: 65-year-old right-handed white male who is lives and 2 floor home with daughter. Retired. Describes independent with own cooking, laundry, driving, standing shower. Uses walker for gait with patellar fracture last February. Denies tobacco or alcohol. Regular doctors Dr. Lopez. Family history father of [place]. Review of Systems Review of systems: ENT: Denies sneezes or discharge. Eyes: Denies discharge or photophobia. Cardiac: Denies chest pain or palpitation. Pulmonary: At least moderate shortness of breath. Gastrointestinal: Denies nausea, emesis, constipation, diarrhea. Genitourinary: Denies discharge or frequency. Musculoskeletal: Denies muscle or bone aches. Neurologic: Generalized weakness. Endocrine: Denies shakes or sweats. Oncology: Denies cancers. Dermatologic: Denies rash, itching, pruritus. ALLERGY/immunology: Denies sneezes, rashes. Past Medical History Past Medical History: Asthma, Cancer, Chest Pain / Angina, Heart Failure, Dialysis, Eye Disorder, Pneumonia, Renal Disease Additional Past Medical History / Comment(s): Renal failure with hemodialysis on //Sun, kidney transplant that failed, nephrolithiasis, renal hematoma, chronic anemia, nonhealing L patellar fracture, skin cancer chest and legs with removals, gout yrs ago, night vision problems. Heart Murmur. Heart Cath and HF diagnosis at [place] 1 month ago. Sepsis. Kidney Stones. History of Any Multi-Drug Resistant Organisms: None Reported Past Surgical History: Heart Catheterization, Orthopedic Surgery Additional Past Surgical History / Comment(s): KIDNEY TRANSPLANT. fistula/ shunt. basal cell carcinoma removed from chest and legs. cyst removed from left ear. tendon removed from wrist and placed in BL thumb-metal coils still present. lasik eye surgery, colonoscopy with benign polypectomy, bilateral cataract removal. L breast Biopsy. Past Anesthesia/Blood Transfusion Reactions: No Reported Reaction Additional Past Anesthesia/Blood Transfusion Reaction / Comm: Pt has received blood in past without reaction. Past Psychological History: Depression Additional Psychological History / Comment(s): Pt states he is staying at [facility] for rehab and was to be discharged today, now at discharge he states he will have to go back to [facility] to complete his discharge. Smoking Status: Never smoker Past Alcohol Use History: None Reported Past Drug Use History: None Reported - Past Family History Father Family Medical History: No Reported History Mother Family Medical History: No Reported History Medications and Allergies Home Medications Medication Instructions Recorded Confirmed Type Albuterol Inhaler [Ventolin Hfa 1 - 2 puff INHALATION RT-Q6H PRN 12/04/13 History Inhaler] Bumetanide [BUMEX] 1 mg PO DAILY 12/04/13 11/01/16 History Montelukast Sodium [Singulair] 10 mg PO DAILY 12/04/13 11/01/16 History Tamsulosin [Flomax] 0.4 mg PO DAILY 12/04/13 11/01/16 History Tranylcypromine Sulfate [Parnate] 100 mg PO DAILY 12/04/13 11/01/16 History chlordiazePOXIDE HCL 10 mg PO TID 12/04/13 11/01/16 History Allopurinol [Zyloprim] 100 mg PO DAILY 01/26/14 11/01/16 History Theophylline 12 Hour [Juan Manuel-Dur] 300 mg PO BID 01/04/16 11/01/16 History Acetaminophen Tab [Tylenol] 650 mg PO Q6H PRN 03/27/16 11/01/16 History Calcium Acetate [PhosLo] 667 mg PO AC-TID 03/27/16 11/01/16 History Cholecalciferol [Vitamin D3] 1,000 unit PO DAILY 03/27/16 11/01/16 History Cinacalcet [Sensipar] 30 mg PO DAILY 03/27/16 11/01/16 History Lactulose 20 gm PO DAILY PRN 03/27/16 11/01/16 History Magnesium Hydroxide [Milk of 2,400 mg PO DAILY PRN 03/27/16 11/01/16 History Magnesia] Polyethylene Glycol 3350 [Miralax] 17 gm PO DAILY PRN 03/27/16 11/01/16 History Sennosides [Senna] 8.6 mg PO DAILY 03/27/16 11/01/16 History Albuterol Nebulized [Ventolin 2.5 mg INHALATION RT-QID 11/01/16 11/01/16 History Nebulized] Famotidine 20 mg PO DAILY 11/01/16 11/01/16 History Midodrine [ProAmatine] 5 mg PO DIRECTED 11/01/16 11/01/16 History predniSONE 30 mg PO DAILY 11/01/16 11/01/16 History Tranylcypromine Sulfate [Parnate] 10 tab PO DAILY 11/04/16 11/04/16 History Allergies Allergy/AdvReac Type Severity Reaction Status Date / Time diphenhydramine HCl Allergy Rash/Hives Verified 11/01/16 19:14 [From Benadryl] meperidine HCl [From Demerol] Allergy Unknown Verified 11/01/16 19:14 vancomycin Allergy Itching Verified 11/01/16 19:14 Physical Exam Vitals: Vital Signs Temp Pulse Pulse Resp BP BP Pulse Ox 11/06/16 11:16 83 16 99/46 11/06/16 11:15 88 16 11/06/16 08:27 80 11/06/16 08:12 78 11/06/16 08:00 96.6 F L 88 16 91/55 96 11/06/16 06:00 84 11/06/16 05:49 88 11/06/16 04:00 88 20 90/57 99 11/06/16 00:00 96.8 F L 87 20 95/54 100 11/05/16 23:32 80 11/05/16 23:22 80 11/05/16 20:39 82 11/05/16 20:26 80 11/05/16 20:00 96.8 F L 82 20 90/59 97 11/05/16 18:00 94.9 F L 51 L 18 133/64 96 11/05/16 17:38 78 11/05/16 17:27 78 11/05/16 15:59 96.8 F L 76 20 102/55 99 11/05/16 14:00 78 22 11/05/16 13:00 98.2 F 69 20 140/89 98 07/02/17 12:00 77 26 H 140/89 11/05/16 11:42 20 Intake and Output 11/05/16 11/06/16 11/06/16 22:59 06:59 14:59 Intake Total 200 420 330 Balance 200 420 330 Intake: IV 210 50 KVO 160 Piperacillin-Tazobactam 3 50 50 .375 gm In Dextrose/Water 1 50ml.bag @ 12.5 mls/hr IVPB Q12HR COUNT INCLUDES [facility] Rx#: [id number] Oral 200 210 280 Other: Voiding Method Urinal Urinal Urinal # Bowel Movements 0 Weight 72 kg 72 kg Patient Weight 11/07/16 06:59 Weight 72 kg Skin: Good color, texture, turgor, intact. General: Medium build and fatigued appearance. Head: Normocephalic, atraumatic. Eyes: Symmetric. Pupils equal round. Ears: Symmetric. Hearing within normal limits. Mouth: Clear. Neck: Supple. Carotid without bruit. Cardiac: Regular rate and rhythm. Lungs: Clear anteriorly and posteriorly. Abdomen: Soft active nontender. Extremities: Normal tone. Neurological: Mental status: Alert, cooperative, pleasant. Cranial nerves: Symmetric facial tone and trapezius. Motor: Able to elevate limbs off of bed minimally. Sensation: Intact throughout. DTRs: Symmetric and equal throughout. Mobility: Receiving dialysis and unable to sit or stand currently. Results CBC & Chem 7: 11/06/16 05:45 11/06/16 05:45 Labs: Abnormal Lab Results - Last 24 Hours (Table) 11/06/16 11/06/16 Range/Units 05:45 05:45 RBC 3.33 L (4.30-5.90) m/uL Hgb 10.2 L (13.0-17.5) gm/dL Hct 34.1 L (39.0-53.0) % MCV 102.5 H (80.0-100.0) fL MCHC 29.9 L (31.0-37.0) g/dL RDW 21.6 H (11.5-15.5) % Neutrophils # (Manual) 8.7 H (1.3-7.7) k/uL Lymphocytes # (Manual) 0.7 L (1.0-4.8) k/uL Nucleated RBCs 3 H (0-0) /100 WBC Sodium 136 L (137-145) mmol/L Potassium 5.4 H (3.5-5.1) mmol/L Carbon Dioxide 18 L (22-30) mmol/L BUN 42 H (9-20) mg/dL Creatinine 5.48 H* (0.66-1.25) mg/dL Glucose 111 H (74-99) mg/dL Phosphorus 7.4 H (2.5-4.5) mg/dL Microbiology - Last 24 Hours (Table) 11/02/16 13:40 Blood Culture - Preliminary Blood No Growth after 72 hours 11/02/16 13:08 Blood Culture - Preliminary Blood No Growth after 72 hours Chest x-ray: report reviewed (Followed for left lower lobe and right middle lobe infiltrates, resolving.) Assessment and Plan (1) SIRS (systemic inflammatory response syndrome) Status: Acute Plan: Impression: 1. Medical debility. 2. SIRS. 3. Cardiomyopathy. 4. End-stage renal failure requiring hemodialysis. 5. Cardiogenic shock. 6. Asthma. 7. History of cancer. Comments and plan: At this time PT and OT are ordered. Patient has been having difficulty participating in all due to multiple medical problems and intervention. Follow with yourself. Rehab prognosis currently guarded due to this.
--- NOTE | 2016-11-06 13:20 | P.PN ---
Subjective Principal diagnosis: this patient remains stable no respiratory distress is noted. Patient's blood pressure remains stable he is intermittently agitated family is requesting a psychiatric consult Objective - Vital Signs Vital signs: Vital Signs Temp 96.6 F L 11/06/16 08:00 Pulse 83 11/06/16 11:16 Resp 16 11/06/16 11:16 BP 99/46 11/06/16 11:16 Pulse Ox 96 11/06/16 08:00 Intake & Output 11/05/16 11/06/16 11/06/16 18:59 06:59 18:59 Intake Total 200 420 330 Balance 200 420 330 Weight 72 kg 72 kg Intake: IV 210 50 KVO 160 Piperacillin-Tazobactam 3 50 50 .375 gm In Dextrose/Water 1 50ml.bag @ 12.5 mls/hr IVPB Q12HR [facility] Rx#: [id number] Oral 200 210 280 Other: Voiding Method Urinal Urinal Urinal # Bowel Movements 0 ABP, PAP, CO, CI - Last Documented Arterial Blood Pressure 89/46 - Exam vital signs are noted First and second heart sounds are normal Lungs reveal scattered wheezes. - Labs CBC & Chem 7: 11/06/16 05:45 11/06/16 05:45 Labs: Abnormal Lab Results - Last 24 Hours (Table) 11/06/16 11/06/16 Range/Units 05:45 05:45 RBC 3.33 L (4.30-5.90) m/uL Hgb 10.2 L (13.0-17.5) gm/dL Hct 34.1 L (39.0-53.0) % MCV 102.5 H (80.0-100.0) fL MCHC 29.9 L (31.0-37.0) g/dL RDW 21.6 H (11.5-15.5) % Neutrophils # (Manual) 8.7 H (1.3-7.7) k/uL Lymphocytes # (Manual) 0.7 L (1.0-4.8) k/uL Nucleated RBCs 3 H (0-0) /100 WBC Sodium 136 L (137-145) mmol/L Potassium 5.4 H (3.5-5.1) mmol/L Carbon Dioxide 18 L (22-30) mmol/L BUN 42 H (9-20) mg/dL Creatinine 5.48 H* (0.66-1.25) mg/dL Glucose 111 H (74-99) mg/dL Phosphorus 7.4 H (2.5-4.5) mg/dL Microbiology - Last 24 Hours (Table) 11/02/16 13:40 Blood Culture - Preliminary Blood No Growth after 72 hours 11/02/16 13:08 Blood Culture - Preliminary Blood No Growth after 72 hours
[2016-11-06] MEDS: methylPREDNISolone SOD SUCCI 125 MG/2 ML VIAL IV SCH ×2 (13:23→17:19)
--- NOTE | 2016-11-06 15:04 | P.PN ---
Subjective Principal diagnosis: Possible aspiration pneumonitis The patient is afebrile he has been moved out of the ICU the patient has been breathing comfortably apparently did have a fall in the room today patient denies significant chest pain occasional cough no nausea vomiting no abdominal pain and no diarrhea Objective - Vital Signs Vital signs: Vital Signs Temp 96.8 F L 11/05/16 20:00 Pulse 82 11/05/16 20:39 Resp 22 11/05/16 20:00 BP 90/59 11/05/16 20:00 Pulse Ox 97 11/05/16 20:00 Intake & Output 11/05/16 11/05/16 11/06/16 06:59 18:59 06:59 Intake Total 50 200 Output Total 5 Balance 45 200 Weight 77.8 kg Intake: IV 50 KVO 0 Piperacillin-Tazobactam 3 50 .375 gm In Dextrose/Water 1 50ml.bag @ 12.5 mls/hr IVPB Q12HR [facility] Rx#: [id number] Oral 200 Output: Urine 5 Other: Voiding Method Indwelling Catheter Urinal Urinal # Bowel Movements 0 ABP, PAP, CO, CI - Last Documented Arterial Blood Pressure 89/46 - Exam Elderly male lying in bed in no distress Respiratory system: Unlabored breathing clear to auscultation anteriorly Heart: S1,S2 regular Abdomen: soft, no tenderness - Labs CBC & Chem 7: 11/06/16 05:45 11/06/16 05:45 Labs: Abnormal Lab Results - Last 24 Hours (Table) 11/05/16 11/05/16 Range/Units 06:40 06:40 RBC 3.33 L (4.30-5.90) m/uL Hgb 10.1 L (13.0-17.5) gm/dL Hct 32.9 L (39.0-53.0) % MCHC 30.7 L (31.0-37.0) g/dL RDW 21.1 H (11.5-15.5) % Lymphocytes # 0.5 L (1.0-4.8) k/uL Sodium 135 L (137-145) mmol/L Carbon Dioxide 21 L (22-30) mmol/L BUN 30 H (9-20) mg/dL Creatinine 4.64 H (0.66-1.25) mg/dL Glucose 110 H (74-99) mg/dL Phosphorus 6.4 H (2.5-4.5) mg/dL Microbiology - Last 24 Hours (Table) 11/02/16 13:40 Blood Culture - Preliminary Blood No Growth after 72 hours 11/02/16 13:08 Blood Culture - Preliminary Blood No Growth after 72 hours Assessment and Plan (1) SIRS (systemic inflammatory response syndrome) Status: Acute Plan: 1- patient with low-grade fever and elevated white count in a patient who did have a cardiac arrest status post resuscitation and intubation with a question of possible aspiration pneumonitis , patient's symptoms and clinical improvement he is afebrile white count has normalized currently on Zosyn that' ll be continued while waiting for the sputum culture to finalize
--- NOTE | 2016-11-06 15:17 | P.PN ---
Subjective Principal diagnosis: Possible aspiration pneumonitis The patient is afebrile he has been breathing comfortably, patient denies significant chest pain occasional cough no nausea vomiting no abdominal pain and no diarrhea Objective - Vital Signs Vital signs: Vital Signs Temp 96.6 F L 11/06/16 08:00 Pulse 83 11/06/16 11:16 Resp 16 11/06/16 11:16 BP 99/46 11/06/16 11:16 Pulse Ox 96 11/06/16 08:00 Intake & Output 11/05/16 11/06/16 11/06/16 18:59 06:59 18:59 Intake Total 200 420 330 Balance 200 420 330 Weight 72 kg 72 kg Intake: IV 210 50 KVO 160 Piperacillin-Tazobactam 3 50 50 .375 gm In Dextrose/Water 1 50ml.bag @ 12.5 mls/hr IVPB Q12HR [facility] Rx#: [id number] Oral 200 210 280 Other: Voiding Method Urinal Urinal Urinal # Bowel Movements 0 ABP, PAP, CO, CI - Last Documented Arterial Blood Pressure 89/46 - Exam Elderly male lying in bed in no distress Respiratory system: Unlabored breathing clear to auscultation anteriorly Heart: S1,S2 regular Abdomen: soft, no tenderness - Labs CBC & Chem 7: 11/06/16 05:45 11/06/16 05:45 Labs: Abnormal Lab Results - Last 24 Hours (Table) 11/06/16 11/06/16 Range/Units 05:45 05:45 RBC 3.33 L (4.30-5.90) m/uL Hgb 10.2 L (13.0-17.5) gm/dL Hct 34.1 L (39.0-53.0) % MCV 102.5 H (80.0-100.0) fL MCHC 29.9 L (31.0-37.0) g/dL RDW 21.6 H (11.5-15.5) % Neutrophils # (Manual) 8.7 H (1.3-7.7) k/uL Lymphocytes # (Manual) 0.7 L (1.0-4.8) k/uL Nucleated RBCs 3 H (0-0) /100 WBC Sodium 136 L (137-145) mmol/L Potassium 5.4 H (3.5-5.1) mmol/L Carbon Dioxide 18 L (22-30) mmol/L BUN 42 H (9-20) mg/dL Creatinine 5.48 H* (0.66-1.25) mg/dL Glucose 111 H (74-99) mg/dL Phosphorus 7.4 H (2.5-4.5) mg/dL Microbiology - Last 24 Hours (Table) 11/02/16 13:40 Blood Culture - Preliminary Blood No Growth after 72 hours 11/02/16 13:08 Blood Culture - Preliminary Blood No Growth after 72 hours Assessment and Plan (1) SIRS (systemic inflammatory response syndrome) Status: Acute Plan: 1- patient with low-grade fever and elevated white count in a patient who did have a cardiac arrest status post resuscitation and intubation with a question of possible aspiration pneumonitis , patient's symptoms and clinical improvement he is afebrile white count has normalized , sputum has been a usual respiratory roel and the culture has been negative to go ahead and discontinue Zosyn and will give him a short course of oral Augmentin Daughter was present at the beside her questions and concerns were answered Time with Patient: Less than 30
[2016-11-06] MEDS: ATORVASTATIN 40 MG TAB PO SCH (20:39)
[2016-11-06] MEDS: MONTELUKAST 10 MG TAB PO SCH (20:39)
[2016-11-07] MEDS: methylPREDNISolone SOD SUCCI 125 MG/2 ML VIAL IV SCH (00:04)
[2016-11-07] MEDS: CALCIUM ACETATE 667 MG CAP PO SCH ×3 (06:37→17:56)
[2016-11-07 06:39] LABS: Calcium 9.6 mg/dL (8.4-10.2); Potassium 5.8 mmol/L (3.5-5.1)
[2016-11-07 07:18] LABS: Anisocytosis Moderate; CH 29.9; CHCM 29.1; HCT 31.7 % (39.0-53.0); HDW 3.46; HGB 9.7 gm/dL (13.0-17.5); Hypochromasia Marked; MCH 31.3 pg (25.0-35.0); MCHC 30.5 g/dL (31.0-37.0); MCV 102.7 fL (80.0-100.0); Macrocytosis Marked; Mean Platelet Volume 9.1; Poikilocytosis Slight; RBC 3.09 m/uL (4.30-5.90); RDW 22.2 % (11.5-15.5); WBC (Perox) 6.15
[2016-11-07] MEDS: BUDESONIDE 0.5 MG/2 ML NEBU INHALATION SCH ×2 (08:06→19:16)
[2016-11-07] MEDS: ASPIRIN 81 MG CHEW PO SCH (08:10)
[2016-11-07] MEDS: [UNRECOGNIZED DRUG - OTHER] PO SCH (08:10)
[2016-11-07] MEDS: PANTOPRAZOLE 40 MG TABLET PO SCH (08:11)
[2016-11-07] MEDS: predniSONE 20 MG TAB PO SCH (08:11)
[2016-11-07] MEDS: SODIUM BICARBONATE TAB 650 MG TAB PO SCH ×2 (08:13→20:33)
[2016-11-07] MEDS: PIPERACILLIN-TAZOBACTAM 3.375 GM in DEXTROSE/WATER 1 50ML.BAG IVPB SCH (08:14)
--- NOTE | 2016-11-07 08:15 | P.PN ---
Subjective Patient is seen in follow-up for end-stage renal disease. He is maintained on hemodialysis on a Sunday schedule. Patient underwent a cardiac catheterization on November 01 which was benign however he did have a cardiopulmonary arrest. He required multiple vasopressors which are now all discontinued. He is quite confused at this time but awake. Appears quite lethargic. He is noted to have severe systolic CHF with ejection fraction of less than 20%. He is also maintained on steroids for adrenal insufficiency. Vital signs are stable. General: The patient appeared well nourished and normally developed. HEENT: Head exam is unremarkable. Neck is without jugular venous distension. LUNGS: Scattered rhonchi. Breath sounds decreased. HEART: Rate and Rhythm are regular. First and second heart sounds normal. No murmurs, rubs or gallops. ABDOMEN: Abdominal exam reveals normal bowel sounds. Non-tender and non- distended. No evidence of peritonitis. EXTREMITITES: 1+ edema. Objective - Vital Signs Vital signs: Vital Signs Temp 96.3 F L 11/07/16 07:31 Pulse 82 11/07/16 07:32 Resp 16 11/07/16 07:32 BP 101/53 11/07/16 07:31 Pulse Ox 96 11/07/16 07:31 Intake & Output 11/06/16 11/07/16 11/07/16 18:59 06:59 18:59 Intake Total 490 210 Balance 490 210 Weight 72 kg 80 kg Intake: IV 130 210 KVO 80 160 Piperacillin-Tazobactam 3 50 50 .375 gm In Dextrose/Water 1 50ml.bag @ 12.5 mls/hr IVPB Q12HR [facility] Rx#: [id number] Oral 360 Other: Voiding Method Urinal Urinal Urinal ABP, PAP, CO, CI - Last Documented Arterial Blood Pressure 89/46 - Labs CBC & Chem 7: 11/07/16 06:13 11/07/16 06:13 Labs: Abnormal Lab Results - Last 24 Hours (Table) 11/07/16 11/07/16 Range/Units 06:13 06:13 RBC 3.09 L (4.30-5.90) m/uL Hgb 9.7 L (13.0-17.5) gm/dL Hct 31.7 L (39.0-53.0) % MCV 102.7 H (80.0-100.0) fL MCHC 30.5 L (31.0-37.0) g/dL RDW 22.2 H (11.5-15.5) % Potassium 5.8 H (3.5-5.1) mmol/L Carbon Dioxide 20 L (22-30) mmol/L BUN 43 H (9-20) mg/dL Creatinine 4.90 H (0.66-1.25) mg/dL Glucose 126 H (74-99) mg/dL Microbiology - Last 24 Hours (Table) 11/02/16 13:40 Blood Culture - Preliminary Blood No Growth after 96 hours 11/02/16 13:08 Blood Culture - Preliminary Blood No Growth after 96 hours Assessment and Plan Plan: Assessment: #1. End-stage renal disease maintained on hemodialysis on a Sunday schedule via left upper extremity AV fistula. #2. Hyperkalemia secondary to chronic kidney disease. #3. Status post cardiac arrest. #4. Chest pain status post cardiac catheterization in November 01. No interventions done. #5. Anemia of chronic kidney disease. #6. Hyperphosphatemia secondary to chronic kidney disease. #7. Chronic kidney disease mineral bone disease. Plan: Hemodialysis today with goal 3 L ultrafiltration. Maintain PhosLo with meals. Maintain prednisone 20 mg daily for now. Will taper dose once blood pressure more stable. Add oral sodium bicarbonate 650 mg twice daily. Start Aranesp.
[2016-11-07 10:32] LABS: Add Differential Manual Differential
[2016-11-07 10:36] LABS: Nucleated Red Blood Cells 6 /100 WBC (0-0); Total Cells Counted 200
[2016-11-07 10:37] LABS: Ovalocytes Present; Polychromasia Present
--- NOTE | 2016-11-07 12:43 | P.PN ---
Subjective Principal diagnosis: cardiomyopathy , chest pain pt has been tranferred out of icu and Balloon pump removed.Increased dyspnea with wheezing and is undergoing dialysis O?e vitals sta ble afebrile Alert and oriented Chest decreased bs with crackles cvs s1,s2 no s3 no s4 and no murmur abd soft edema labs and meds reviewed IMP cardiomyopathy CRF on dilaysi Possible PE Metabolic encephalopathy Continue current meds which were reviewed and will follow closely Have pt eval by pm and r and decide on placement Add 3 doses of solumedrol and leukotirene receptor antagonist to optimise airway inflammation Objective - Vital Signs Vital signs: Vital Signs Temp 96.6 F L 11/07/16 11:23 Pulse 82 11/07/16 11:24 Resp 16 11/07/16 11:24 BP 98/56 11/07/16 11:23 Pulse Ox 96 11/07/16 11:23 Intake & Output 11/06/16 11/07/16 11/07/16 18:59 06:59 18:59 Intake Total 490 210 Output Total 0 Balance 490 210 0 Weight 72 kg 80 kg Intake: IV 130 210 KVO 80 160 Piperacillin-Tazobactam 3 50 50 .375 gm In Dextrose/Water 1 50ml.bag @ 12.5 mls/hr IVPB Q12HR [facility] Rx#: [id number] Oral 360 Output: Urine 0 Other: Voiding Method Urinal Urinal Urinal ABP, PAP, CO, CI - Last Documented Arterial Blood Pressure 89/46 - Respiratory Respiratory: bilateral: diminished, dullness, prolonged expiration - Cardiovascular Heart sounds: normal: S1, S2 - Labs CBC & Chem 7: 11/07/16 06:13 11/07/16 06:13 Labs: Abnormal Lab Results - Last 24 Hours (Table) 11/07/16 11/07/16 Range/Units 06:13 06:13 RBC 3.09 L (4.30-5.90) m/uL Hgb 9.7 L (13.0-17.5) gm/dL Hct 31.7 L (39.0-53.0) % MCV 102.7 H (80.0-100.0) fL MCHC 30.5 L (31.0-37.0) g/dL RDW 22.2 H (11.5-15.5) % Lymphocytes # (Manual) 0.2 L (1.0-4.8) k/uL Nucleated RBCs 6 H (0-0) /100 WBC Potassium 5.8 H (3.5-5.1) mmol/L Carbon Dioxide 20 L (22-30) mmol/L BUN 43 H (9-20) mg/dL Creatinine 4.90 H (0.66-1.25) mg/dL Glucose 126 H (74-99) mg/dL Microbiology - Last 24 Hours (Table) 11/02/16 13:40 Blood Culture - Preliminary Blood No Growth after 96 hours 11/02/16 13:08 Blood Culture - Preliminary Blood No Growth after 96 hours Assessment and Plan (1) Bronchospasm Status: Acute (2) Cardiomyopathy Status: Acute (3) SIRS (systemic inflammatory response syndrome) Status: Acute (4) Anemia Status: Acute (5) Chest pain Status: Acute (6) Chronic renal failure syndrome Status: Acute Plan: continue same meds and if he worsens may benefit from a higher dose of prednisone.Will follow with you
--- NOTE | 2016-11-07 13:14 | P.CN ---
Psychiatric Consult - . Consult date: 11/07/16 Consult:: 11/07/16 12:58 DATE OF SERVICE: 10/08/2016 IDENTIFYING DATA: This patient is a 65-year-old male admitted to the medical floor, consult requested by family for patients agitation. HISTORY OF PRESENT ILLNESS: The patient with multiple medical conditions, cardiopulmonary arrest, CHF with ejection fraction<20%, maintained on steroids for adrenal insufficency, dyspnea, anemia. Appears quite lethargic. He is noted to have severe CHF with ejection fraction of less than 20%. He is also maintained on steroids for adrenal insufficiency, end-stage renal failure, bronchospasm, anemia. Reason for consult appears to be that family is concerned because of anxiety that patient was reportedly having. One family member stated that he had 40 or so panic attacks while in the ICU. They wanted to have psychiatric evaluation to see if there was any new medication or different class of medication to help with anxiety. At the initial time of evaluation patient was having dialysis so did not complete evaluation. But spoke with sister and ?daughter. Returned later and patient was attempting to have lunch, but was struggling feeding himself. Patient did not report any symptoms when asked, instead told me that he "had come here for lunch and then he got trapped". Then offered me food from his tray. Patient could not state where he was, stated that today's date was January but could not give any further information. He knows that he is in [facility]. Spoke to nursing staff who state that he has been confused for most of the time that he has been on this floor. When when family members were present he did give some history that he has been on Parnate since 1980 and that it works very well. Review of record shows that he is also on Librium 10 mg 3 times a day. PAST PSYCHIATRIC HISTORY: Could not get any information other than the fact that he has been on Parnate since 1980. PAST MEDICAL HISTORY: Per record. ALLERGIES: see record. CHEMICAL DEPENDENCY HISTORY: Denies, unknown. FAMILY PSYCHIATRIC HISTORY: Unknown. FAMILY CHEMICAL DEPENDENCY HISTORY: Unknown. LEGAL HISTORY: Unknown. SOCIAL HISTORY: Unknown MENTAL STATUS EXAM: Patient lethargic, oriented to person and place, poor eye contact, fair groomed in hospital attire. Speech extremely low volume, at times in audible, decreased rate and production. Circumstantial and at times tangential thought process. No evidence to suggest auditory or visual hallucinations. ? paranoid ideation of being trapped, no delusions or IOR. Patient unable to recall 3/3 at 0 min, unable to register or recall Mood neutral, affect [constricted, congruent with mood. Denies suicidal ideation, denies homicidal ideation. Insight none; Judgment impaired IMPRESSIONS: 65-year-old male admitted for cardiogenic shock, cardiomyopathy astham, bronchospasm, and end-stage renal disease. Review of record shows patient has been confused for most of his admission, due to the multiple medical conditions, metabolic abnormalities. He may have had several anxiety attacks due to SOB, and respiratory condition, but no evidence today, no complaint. He is on Librium 10 mg 3 times a day which can reduce respiration making SOB worse. Increasing dose of librium will only make cognition/awarenes worse. He is on Parnate and by history both he and his sister today reported very positive response to that. At this time he is delirious due to multiple medical problems. Delirium due to metabolic abnormalities, end-stage renal disease respiratory disease, cardiomyopathy. PLAN: Treat medical causes of delirium, respiratory distress as you are. Would not recommend increasing Librium at this time. No other anti-anxiety medication(SSRI) can be added due to RUBY Rey. No further recommendations, please reconsult if needed.
[2016-11-07] MEDS: DARBEPOETIN ALFA 40 MCG/0.4 ML SYRINGE SQ SCH (16:00)
--- NOTE | 2016-11-07 16:41 | P.PN ---
Subjective Principal diagnosis: Possible aspiration pneumonitis The patient is afebrile he has been breathing comfortably, patient denies significant chest pain , shortness of breath or any cough , the patient denies any nausea vomiting no abdominal pain and no diarrhea Objective - Vital Signs Vital signs: Vital Signs Temp 96.1 F L 11/07/16 15:24 Pulse 88 11/07/16 15:25 Resp 16 11/07/16 15:25 BP 107/59 11/07/16 15:24 Pulse Ox 96 11/07/16 15:24 Intake & Output 11/06/16 11/07/16 11/07/16 18:59 06:59 18:59 Intake Total 490 210 100 Output Total 0 Balance 490 210 100 Weight 72 kg 80 kg Intake: IV 130 210 KVO 80 160 Piperacillin-Tazobactam 3 50 50 .375 gm In Dextrose/Water 1 50ml.bag @ 12.5 mls/hr IVPB Q12HR [facility] Rx#: [id number] Oral 360 100 Output: Urine 0 Other: Voiding Method Urinal Urinal Urinal ABP, PAP, CO, CI - Last Documented Arterial Blood Pressure 89/46 - Exam Elderly male lying in bed in no distress Respiratory system: Unlabored breathing clear to auscultation anteriorly Heart: S1,S2 regular Abdomen: soft, no tenderness - Labs CBC & Chem 7: 11/07/16 06:13 11/07/16 06:13 Labs: Abnormal Lab Results - Last 24 Hours (Table) 11/07/16 11/07/16 Range/Units 06:13 06:13 RBC 3.09 L (4.30-5.90) m/uL Hgb 9.7 L (13.0-17.5) gm/dL Hct 31.7 L (39.0-53.0) % MCV 102.7 H (80.0-100.0) fL MCHC 30.5 L (31.0-37.0) g/dL RDW 22.2 H (11.5-15.5) % Lymphocytes # (Manual) 0.2 L (1.0-4.8) k/uL Nucleated RBCs 6 H (0-0) /100 WBC Potassium 5.8 H (3.5-5.1) mmol/L Carbon Dioxide 20 L (22-30) mmol/L BUN 43 H (9-20) mg/dL Creatinine 4.90 H (0.66-1.25) mg/dL Glucose 126 H (74-99) mg/dL Microbiology - Last 24 Hours (Table) 11/02/16 13:40 Blood Culture - Preliminary Blood No Growth after 120 hours 11/02/16 13:08 Blood Culture - Preliminary Blood No Growth after 120 hours Assessment and Plan (1) SIRS (systemic inflammatory response syndrome) Status: Acute Plan: 1- patient with low-grade fever and elevated white count in a patient who did have a cardiac arrest status post resuscitation and intubation with a question of possible aspiration pneumonitis , patient antibiotic has been adjusted to Augmentin that will be continued for a short course
--- NOTE | 2016-11-07 17:58 | P.PN ---
Subjective Principal diagnosis: Cardiomyopathy, end-stage renal disease and history of cardiac arrest This patient was admitted with cardiac arrest. Had a cardiac catheterization and was found to have normal coronary arteries. Patient had intact balloon pump and was found to have severe cardiomyopathy. Patient has been on 2-1 to3- 1 balloon support until today. Balloon pump is taken out today. He is maintaining blood pressures of 90s. He is also on renal dialysis. He looks very frail and weak. Denies any chest pain. Complains of chronic shortness of breath but better since admission here. Patient appears to be slightly disoriented. This patient is reevaluated on November 05. Patient seemed to be more alert and able to walk with assistance. He seemed to be less short of breath and more oriented. Lungs show diminished breath sounds. Overall his clinical status showed improvement symptomatically encouraging. Patient may be moved to telemetry unit. This patient is reevaluated on November 07 patient remains confused being evaluated by psychiatric. Doesn't appear to be in acute distress. His vital signs are stable Objective - Vital Signs Vital signs: Vital Signs Temp 96.1 F L 11/07/16 15:24 Pulse 88 11/07/16 15:25 Resp 16 11/07/16 15:25 BP 107/59 11/07/16 15:24 Pulse Ox 96 11/07/16 15:24 Intake & Output 11/06/16 11/07/16 11/07/16 18:59 06:59 18:59 Intake Total 490 210 100 Output Total 0 Balance 490 210 100 Weight 72 kg 80 kg Intake: IV 130 210 KVO 80 160 Piperacillin-Tazobactam 3 50 50 .375 gm In Dextrose/Water 1 50ml.bag @ 12.5 mls/hr IVPB Q12HR [facility] Rx#: [id number] Oral 360 100 Output: Urine 0 Other: Voiding Method Urinal Urinal Urinal ABP, PAP, CO, CI - Last Documented Arterial Blood Pressure 89/46 - Exam GENERAL EXAM: Patient is alert and seems to be lethargic and confused CHEST: No chest wall deformity. LUNGS: Equal air entry with no crackles or wheeze. HEART: S1 and S2 normal with no audible mumurs or gallops. Regular rhythm, femorals equal on both sides.. ABDOMEN: No hepatosplenomegaly, normal bowel sounds, no guarding or rigidity. SKIN: No rashes CENTRAL NERVOUS SYSTEM: No focal deficits. EXTREMITIES: No cyanosis, clubbing or edema. - Labs CBC & Chem 7: 11/07/16 06:13 11/07/16 06:13 Labs: Abnormal Lab Results - Last 24 Hours (Table) 11/07/16 11/07/16 Range/Units 06:13 06:13 RBC 3.09 L (4.30-5.90) m/uL Hgb 9.7 L (13.0-17.5) gm/dL Hct 31.7 L (39.0-53.0) % MCV 102.7 H (80.0-100.0) fL MCHC 30.5 L (31.0-37.0) g/dL RDW 22.2 H (11.5-15.5) % Lymphocytes # (Manual) 0.2 L (1.0-4.8) k/uL Nucleated RBCs 6 H (0-0) /100 WBC Potassium 5.8 H (3.5-5.1) mmol/L Carbon Dioxide 20 L (22-30) mmol/L BUN 43 H (9-20) mg/dL Creatinine 4.90 H (0.66-1.25) mg/dL Glucose 126 H (74-99) mg/dL Microbiology - Last 24 Hours (Table) 11/02/16 13:40 Blood Culture - Preliminary Blood No Growth after 120 hours 11/02/16 13:08 Blood Culture - Preliminary Blood No Growth after 120 hours Assessment and Plan (1) Cardiomyopathy Status: Acute (2) SIRS (systemic inflammatory response syndrome) Status: Acute (3) Chronic renal failure syndrome Status: Acute Plan: Continue current supportive therapy and dialysis is tolerated. Prognosis is guarded.
--- NOTE | 2016-11-07 18:47 | P.PN ---
Progress Note - Text Presenting complaint: Tired Interval history: This patient with end-stage kidney disease on hemodialysis presented with acute non-ST elevation microinfarction. Had a cardiac catheterization that showed minimal disease. She was in cardiogenic shock and had been balloon pump and pressor support. Patient been weak and tired. Also seen by psychiatry and thinks that patient is acute delirium patient also some simple questions. According to the nurse patient not eating much. November 07/2017: Today the patient's diet lethargic. Did eat some pancakes brought from [employer] when the . Other tired and lethargic otherwise. Denies any pain. Laying in bed. Review of systems attempted difficult to obtained Current medications are reviewed and include DuoNeb, Augmentin, Lipitor, PhosLo , Librium, tonics, prednisone Physical exam: VITAL SIGNS: [96.1, 88, 16, 107/59, 96% room air] GENERAL APPEARANCE: Laying in bed, lethargic morning about, arousable to some simple questions. EYES: Pupils equal. Conjunctiva normal. NECK: JVD not raised. Mass not palpable. RESPIRATORY: Respiratory effort normal. Lungs decreased breath sounds CARDIOVASCULAR: First and second sounds normal. Edema present lower extremity and the arms. ABDOMEN: Soft. Liver and spleen not palpable. No tenderness. No mass palpable. 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 Spoke to the nurse at length encourage oral intake on feeding to be supervised with aspiration precautions
[2016-11-07] MEDS: AMOXIC-POT CLAV 500-125 MG 1 EACH TAB PO SCH (20:33)
[2016-11-07] MEDS: ATORVASTATIN 40 MG TAB PO SCH (20:33)
[2016-11-07] MEDS: MONTELUKAST 10 MG TAB PO SCH (20:33)
[2016-11-08] MEDS: CALCIUM ACETATE 667 MG CAP PO SCH ×3 (06:44→16:44)
[2016-11-08] MEDS: BUDESONIDE 0.5 MG/2 ML NEBU INHALATION SCH ×2 (08:11→20:36)
[2016-11-08] MEDS: [UNRECOGNIZED DRUG - OTHER] PO SCH (08:59)
[2016-11-08] MEDS: predniSONE 20 MG TAB PO SCH (09:00)
[2016-11-08] MEDS: PANTOPRAZOLE 40 MG TABLET PO SCH (09:00)
[2016-11-08] MEDS: SODIUM BICARBONATE TAB 650 MG TAB PO SCH ×2 (09:00→21:44)
[2016-11-08] MEDS: ASPIRIN 81 MG CHEW PO SCH (09:01)
[2016-11-08] MEDS: AMOXIC-POT CLAV 500-125 MG 1 EACH TAB PO SCH ×2 (09:01→21:45)
--- NOTE | 2016-11-08 10:02 | CDI ---
In responding to this query, please exercise your independent professional judgment. The [facility] Coding Staff and Clinical Documentation Specialists appreciate your assistance in clarifying documentation, maintaining compliance with coding guidelines, accurately documenting patients condition and capturing severity of illness. The fact that a question is asked does not imply that any particular answer is desired or expected. Communication forms are a method of clarifying documentation and are not made part of the Legal Health Record. Thank you in advance for your clarification. Last Revision, July 2015 Iam Lopez [address] [facility] [place] [address] Documentation Clarification Form Date: 11/08/2016 9:37:00 AM From: Britt Vargas RN, CCDS Admit Date: 11/01/2016 3:31:00 PM Patient Name: Marcelo Hooper Visit Number: [id number] Dr. Michael Davis Asthma is documented in the 11/07 Attending Progress note and requires clarification of specificity (both persistent and Intermittent cannot be coded and require clarification). Patient history/risk factors: ESRD, Cardiac arrest, NSTEMI, Cardiogenic Shock, asthma, failed kidney transplant Clinical Indicators: 11/07 Attending Progress Note: "persistent intermittent asthma." 11/07 Pulmonary (S.Satya Boggs) Progress Note: "Bronchospasm." 11/05 CXR: Left lower lobe infiltrate and minimal right lower lobe infiltrate. Vital Signs on admission: Temp 92.2, HR 86, RR 14, B/P 139/74, spo2 of 100% on 100% MV Treatment: Pt was intubated upon arrival, extubated per family request, weaned from 4L nasal cannula, to 2L to room air Medication: Pulmicort .5mg INH BID, Prednisone 20 mg PO QD, Duoneb Q 4 hrs PRN, Singulair 10mg PO Q HS Consults: Nephro, Pulmonary, Cardiology In your professional opinion, can you please further specify the following, if known? With Acute Exacerbation Status asthmaticus Acute lower respiratory infection COPD (specify with or without exacerbation) Chronic obstructive bronchitis Other, please specify Unable to determine Severity Mild intermittent Mild persistent Moderate persistent Severe persistent Other, please specify ____ Unable to determine Form or Type Cough variant Childhood Exercise induced bronchospasm Extrinsic allergic Idiosyncratic Intrinsic nonallergic Late-onset Mixed Other, please specify Unable to determine Please document in your progress notes and discharge summary in order to capture severity of illness and risk of mortality. Include clinical findings that support your diagnosis. FYI: Press F11 to launch patient chart. Place X here if this finding has no clinical significance, is not applicable or if you are not able to provide any additional documentation. MTDD
--- NOTE | 2016-11-08 10:27 | P.PN ---
Subjective Patient is seen in follow-up for end-stage renal disease. He is maintained on hemodialysis on a Sunday schedule. Patient underwent a cardiac catheterization on November 01 which was benign however he did have a cardiopulmonary arrest. He required multiple vasopressors which are now all discontinued. He is quite confused at this time but awake. Appears quite lethargic. He is noted to have severe systolic CHF with ejection fraction of less than 20%. He is also maintained on steroids for adrenal insufficiency. No major events overnight. Vital signs are stable. General: The patient appeared well nourished and normally developed. HEENT: Head exam is unremarkable. Neck is without jugular venous distension. LUNGS: Scattered rhonchi. Breath sounds decreased. HEART: Rate and Rhythm are regular. First and second heart sounds normal. No murmurs, rubs or gallops. ABDOMEN: Abdominal exam reveals normal bowel sounds. Non-tender and non- distended. No evidence of peritonitis. EXTREMITITES: 1+ edema. Objective - Vital Signs Vital signs: Vital Signs Temp 97.1 F L 11/08/16 04:39 Pulse 93 11/08/16 08:00 Resp 18 11/08/16 08:00 BP 92/59 11/08/16 08:00 Pulse Ox 92 L 11/08/16 08:00 Intake & Output 11/07/16 11/08/16 11/08/16 18:59 06:59 18:59 Intake Total 180 20 Output Total 0 Balance 180 20 Weight 54.4 kg Intake: IV 20 0.9% NS FLUSH 20 Oral 180 Output: Urine 0 Other: Voiding Method Urinal Urinal Urinal ABP, PAP, CO, CI - Last Documented Arterial Blood Pressure 89/46 - Labs CBC & Chem 7: 11/07/16 06:13 11/07/16 06:13 Labs: Abnormal Lab Results - Last 24 Hours (Table) 11/07/16 Range/Units 06:13 Lymphocytes # (Manual) 0.2 L (1.0-4.8) k/uL Nucleated RBCs 6 H (0-0) /100 WBC Microbiology - Last 24 Hours (Table) 11/02/16 13:40 Blood Culture - Preliminary Blood No Growth after 120 hours 11/02/16 13:08 Blood Culture - Preliminary Blood No Growth after 120 hours Assessment and Plan Plan: Assessment: #1. End-stage renal disease maintained on hemodialysis on a Sunday schedule via left upper extremity AV fistula. #2. Hyperkalemia secondary to chronic kidney disease. #3. Status post cardiac arrest. #4. Chest pain status post cardiac catheterization in November 01. No interventions done. #5. Anemia of chronic kidney disease. #6. Hyperphosphatemia secondary to chronic kidney disease. #7. Chronic kidney disease mineral bone disease. Plan: Hemodialysis tomorrow with goal 3 L ultrafiltration. Maintain PhosLo with meals. Maintain prednisone 20 mg daily for now. Will taper dose once blood pressure more stable. Maintain oral sodium bicarbonate 650 mg twice daily. Maintain Aranesp.
--- NOTE | 2016-11-08 10:28 | CDI ---
In responding to this query, please exercise your independent professional judgment. The [facility] Coding Staff and Clinical Documentation Specialists appreciate your assistance in clarifying documentation, maintaining compliance with coding guidelines, accurately documenting patients condition and capturing severity of illness. The fact that a question is asked does not imply that any particular answer is desired or expected. Communication forms are a method of clarifying documentation and are not made part of the Legal Health Record. Thank you in advance for your clarification. Last Revision, August [address] [facility] [place] [address] Documentation Clarification Form Date: 11/08/2016 10:03:00 AM From: Britt Vargas RN, CCDS Admit Date: 11/01/2016 3:31:00 PM Patient Name: Marcelo Hooper Visit Number: [id number] Dr. Michael Davis SIRS is documented by Pulmonary and ID History/Risk Factors: NSTEMI, Cardiac arrest, IABP, Asthma, ESRD, failed kidney transplant Clinical Indicators: Documented Infection: Aspiration Pneumonia s/p cardiac arrest with intubation and mechanical ventilation WBC: 10.7/10.1/11.8/11.3/9.3/6.1 Left Shift: 9.7/9.2/10.7/10/7.3/4.9 Arterial Lactic acid: 1.8 Jean cultures: negative Vitals signs on admission: Temp 92.2, HR 86, RR 14, B/P 139/74, Spo2 100% on 100 % MV Treatment: ID Consult: "SIRS with low grade fever and white count...with question of possible aspiration pneumonia." Antibiotics: Zosyn 3.375 mg IVPB Q 12 hrs IV Bolus: 1.5L In your professional opinion, please clarify if these findings signify one of the following conditions, whether the condition is POA, and cause, if known: Sepsis, ruled out SIRS, without underlying infectious process Sepsis Severe Sepsis Septic Shock Unable to determine Other, please specify Present on Admission: Yes No * Identify the (suspected) organism * Link or clarify if there is associated (due to/with): - Organ failure - Shock SIRS Criteria: 2 or more of the following may indicate SIRS Temperature < 96.8F (36C) or > 101.0F (38C) Heart Rate > 90 bpm Respiratory Rate > 20 breaths/min or PaCO2 < 32 mmHg White Blood Cell Count > 12,000 or < 4,000 cells/mm3 or > 10% bands Lactate >2.0 mmol/L (>4.0 is equivalent to septic shock) Please document in your progress notes and discharge summary in order to capture severity of illness and risk of mortality. Include clinical findings that support your diagnosis. FYI: Press F11 to launch patient chart. Place X here if this finding has no clinical significance, is not applicable or if you are not able to provide any additional documentation. MTDD
--- NOTE | 2016-11-08 14:30 | P.PN ---
Subjective Principal diagnosis: Cardiogenic shock Patient seen today he is resting comfortably he denies any specific problems at this time lung sounds remain coarse. Patient's a 65-year-old male who initially had been at [facility] with chest pain during his dialysis treatments. He developed problems with weakness and shortness of breath including cough. He had persistent problems with chest pain and agitation and restlessness and subsequently was transferred to [facility] for emergent heart catheterization. Patient did require brief episode of balloon pump and intubation. He's been successfully weaned from both and is on selective care. Objective - Vital Signs Vital signs: Vital Signs Temp 97.5 F L 11/08/16 12:00 Pulse 99 11/08/16 12:00 Resp 18 11/08/16 08:00 BP 105/65 11/08/16 12:00 Pulse Ox 93 L 11/08/16 12:00 Intake & Output 11/07/16 11/08/16 11/08/16 18:59 06:59 18:59 Intake Total 180 20 240 Output Total 0 Balance 180 20 240 Weight 54.4 kg Intake: IV 20 0.9% NS FLUSH 20 Oral 180 240 Output: Urine 0 Other: Voiding Method Urinal Urinal Urinal ABP, PAP, CO, CI - Last Documented Arterial Blood Pressure 89/46 - Constitutional General appearance: Present: cooperative, thin - EENT Eyes: Present: PERRLA Ears: bilateral: normal - Neck Neck: Present: normal ROM Thyroid: bilateral: normal size - Respiratory Respiratory: bilateral: diminished, other (Coarse) - Cardiovascular Rhythm: regular Heart sounds: normal: S1, S2 - Gastrointestinal General gastrointestinal: Present: normal bowel sounds, soft - Integumentary Integumentary: Present: normal - Musculoskeletal Musculoskeletal: Present: generalized weakness - Psychiatric Psychiatric Comment(s): Alert and oriented - Labs CBC & Chem 7: 11/07/16 06:13 11/07/16 06:13 Labs: Microbiology - Last 24 Hours (Table) 11/02/16 13:40 Blood Culture - Preliminary Blood No Growth after 120 hours 11/02/16 13:08 Blood Culture - Preliminary Blood No Growth after 120 hours Assessment and Plan Plan: Assessment: Acute hypoxic respiratory failure, s/p mechanical ventilation successfully extubated Cardiogenic shock Possible pulmonary embolism ruled out Bilateral pleural effusions and pulmonary vascular congestion Nonischemic cardiomyopathy with severely impaired LVEF, less than 20% End-stage renal disease on hemodialysis History of renal transplantation and immunosuppression Hyperkalemia and hyperphosphatemia Anemia of chronic disease, hemoglobin stable Hyponatremia Mild anion gap metabolic acidosis Metabolic encephalopathy Chest pain on admission SIRS improved Bronchospasms Plan: Continue medications as ordered and reviewed. Continue with tapering steroids. Continue with pulmonary hygiene. Continue with GI and DVT prophylaxis. Increase activity as tolerated. Continue with oxygen to keep sats 90% or better. Patient will need rehab. Follow labs. We'll continue to follow patient closely with you and make further changes as necessary.
--- NOTE | 2016-11-08 15:36 | P.PN ---
<ZhannaBrionna A - Last Filed: 11/08/16 15:30> Progress Note - Text Presenting complaint: Tired Interval history: This patient with end-stage kidney disease on hemodialysis presented with acute non-ST elevation microinfarction. Had a cardiac catheterization that showed minimal disease. She was in cardiogenic shock and had been balloon pump and pressor support. Patient been weak and tired. Also seen by psychiatry and thinks that patient is acute delirium patient also answers some simple questions. According to the nurse patient not eating much. 11/08/2016: Patient's lethargic but able to answer some simple straightforward questions. Lying in bed November 07/2017: Today the patient's diet lethargic. Other tired and lethargic otherwise. Denies any pain. Laying in bed. Review of systems attempted difficult to obtain Current medications are reviewed and include DuoNeb, Augmentin, Lipitor, PhosLo , Librium, tonics, prednisone Physical exam: VITAL SIGNS: [Temperature 97.1, pulse 74, respiratory rate 16, blood pressure 91 /59, oxygen saturation 96% on room air. GENERAL APPEARANCE: Laying in bed, lethargic moving about, arousable to some simple questions. EYES: Pupils equal. Conjunctiva normal. NECK: JVD not raised. Mass not palpable. RESPIRATORY: Respiratory effort normal. Lungs decreased breath sounds CARDIOVASCULAR: First and second sounds normal. Edema present lower extremity and the arms. ABDOMEN: Soft. Liver and spleen not palpable. No tenderness. No mass palpable. 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 Spoke to the nurse at length encourage oral intake on feeding to be supervised with aspiration precautions <Michael Davis - Last Filed: 11/08/16 16:43> Progress Note - Text Attending note: Date of service: 11/08/2016 This patient is seen at examined by me today. Reviewed the note of ms. Spencemarielle. Discussed. Patient remains to be weak tired lethargic in bed. Eating small amounts. Also simple questions. On examination lungs decreased breath sounds cardio vascular first seconds are normal Assessment multiple medical problems including delirium slow to respond. Continue current medication treatment plan. Did speak again to the nurse to try to get patient to have finger foods and assisted feeding
[2016-11-08] MEDS: MONTELUKAST 10 MG TAB PO SCH (21:44)
[2016-11-08] MEDS: ATORVASTATIN 40 MG TAB PO SCH (21:45)
--- NOTE | 2016-11-08 22:03 | P.PN ---
Subjective Principal diagnosis: Possible aspiration pneumonitis The patient is afebrile he has been breathing comfortably, patient denies significant chest pain , shortness of breath or any cough , no choking on food and the patient denies any nausea vomiting no abdominal pain and no diarrhea Objective - Vital Signs Vital signs: Vital Signs Temp 97.1 F L 11/08/16 04:39 Pulse 93 11/08/16 08:00 Resp 18 11/08/16 08:00 BP 92/59 11/08/16 08:00 Pulse Ox 92 L 11/08/16 08:00 Intake & Output 11/07/16 11/08/16 11/08/16 18:59 06:59 18:59 Intake Total 180 20 Output Total 0 Balance 180 20 Weight 54.4 kg Intake: IV 20 0.9% NS FLUSH 20 Oral 180 Output: Urine 0 Other: Voiding Method Urinal Urinal Urinal ABP, PAP, CO, CI - Last Documented Arterial Blood Pressure 89/46 - Exam Elderly male lying in bed in no distress Respiratory system: Unlabored breathing clear to auscultation anteriorly Heart: S1,S2 regular Abdomen: soft, no tenderness - Labs CBC & Chem 7: 11/07/16 06:13 11/07/16 06:13 Labs: Microbiology - Last 24 Hours (Table) 11/02/16 13:40 Blood Culture - Preliminary Blood No Growth after 120 hours 11/02/16 13:08 Blood Culture - Preliminary Blood No Growth after 120 hours Assessment and Plan (1) SIRS (systemic inflammatory response syndrome) Status: Acute Plan: 1- patient with low-grade fever and elevated white count in a patient who did have a cardiac arrest status post resuscitation and intubation with a question of possible aspiration pneumonitis ,pt blood and sputum cultures has been negative and currently on Augmentin that will be continued for a short course
[2016-11-09 06:31] LABS: Anisocytosis Moderate; CH 30.6; CHCM 29.8; HCT 34.5 % (39.0-53.0); HDW 3.44; HGB 10.4 gm/dL (13.0-17.5); Hypochromasia Marked; MCH 31.1 pg (25.0-35.0); MCHC 30.2 g/dL (31.0-37.0); Macrocytosis Marked; Mean Platelet Volume 9.3; Poikilocytosis Slight; RBC 3.35 m/uL (4.30-5.90); RDW 23.6 % (11.5-15.5); WBC (Perox) 10.44
[2016-11-09] MEDS: CALCIUM ACETATE 667 MG CAP PO SCH ×3 (06:31→16:50)
[2016-11-09 06:44] LABS: Potassium 5.3 mmol/L (3.5-5.1)
[2016-11-09 07:07] LABS: Add Differential Manual Differential
[2016-11-09 07:13] LABS: Manual Review Performed; Nucleated Red Blood Cells 5 /100 WBC (0-0); Total Cells Counted 100; WBC 10.5 k/uL (3.8-10.6)
[2016-11-09] MEDS: AMOXIC-POT CLAV 500-125 MG 1 EACH TAB PO SCH ×2 (08:08→20:40)
[2016-11-09] MEDS: ASPIRIN 81 MG CHEW PO SCH (08:09)
[2016-11-09] MEDS: predniSONE 20 MG TAB PO SCH (08:09)
[2016-11-09] MEDS: PANTOPRAZOLE 40 MG TABLET PO SCH (08:09)
[2016-11-09] MEDS: SODIUM BICARBONATE TAB 650 MG TAB PO SCH ×2 (08:09→20:40)
[2016-11-09] MEDS: [UNRECOGNIZED DRUG - OTHER] PO SCH (08:10)
--- NOTE | 2016-11-09 08:40 | P.PN ---
Subjective Patient is seen in follow-up for end-stage renal disease. He is maintained on hemodialysis on a Sunday schedule. Patient underwent a cardiac catheterization on November 01 which was benign however he did have a cardiopulmonary arrest. He required multiple vasopressors which are now all discontinued. He is quite confused at this time but awake. Appears quite lethargic. He is noted to have severe systolic CHF with ejection fraction of less than 20%. He is also maintained on steroids for adrenal insufficiency. No major events overnight. Oral intake is improving. Vital signs are stable. General: The patient appeared well nourished and normally developed. HEENT: Head exam is unremarkable. Neck is without jugular venous distension. LUNGS: Scattered rhonchi. Breath sounds decreased. HEART: Rate and Rhythm are regular. First and second heart sounds normal. No murmurs, rubs or gallops. ABDOMEN: Abdominal exam reveals normal bowel sounds. Non-tender and non- distended. No evidence of peritonitis. EXTREMITITES: Trace edema. Objective - Vital Signs Vital signs: Vital Signs Temp 97.5 F L 11/08/16 20:00 Pulse 107 H 11/09/16 04:00 Resp 18 11/09/16 04:00 BP 93/54 11/09/16 04:00 Pulse Ox 91 L 11/09/16 04:00 Intake & Output 11/08/16 11/09/16 11/09/16 18:59 06:59 18:59 Intake Total 340 20 118 Output Total 1 Balance 340 19 118 Weight 52 kg Intake: IV 20 0.9% NS FLUSH 20 Oral 340 118 Output: Stool 1 Other: Voiding Method Urinal Urinal # Voids 1 2 # Bowel Movements 1 1 ABP, PAP, CO, CI - Last Documented Arterial Blood Pressure 89/46 - Labs CBC & Chem 7: 11/09/16 05:46 11/09/16 05:46 Labs: Abnormal Lab Results - Last 24 Hours (Table) 11/09/16 11/09/16 Range/Units 05:46 05:46 RBC 3.35 L (4.30-5.90) m/uL Hgb 10.4 L (13.0-17.5) gm/dL Hct 34.5 L (39.0-53.0) % MCV 103.0 H (80.0-100.0) fL MCHC 30.2 L (31.0-37.0) g/dL RDW 23.6 H (11.5-15.5) % Neutrophils # (Manual) 8.1 H (1.3-7.7) k/uL Monocytes # (Manual) 1.2 H (0-1.0) k/uL Nucleated RBCs 5 H (0-0) /100 WBC Potassium 5.3 H (3.5-5.1) mmol/L BUN 63 H (9-20) mg/dL Creatinine 5.70 H* (0.66-1.25) mg/dL Microbiology - Last 24 Hours (Table) 11/02/16 13:40 Blood Culture - Final Blood No Growth after 144 hours 11/02/16 13:08 Blood Culture - Final Blood No Growth after 144 hours Assessment and Plan Plan: Assessment: #1. End-stage renal disease maintained on hemodialysis on a Sunday schedule via left upper extremity AV fistula. #2. Hyperkalemia secondary to chronic kidney disease. Improved. #3. Status post cardiac arrest. #4. Chest pain status post cardiac catheterization in November 01. No interventions done. #5. Anemia of chronic kidney disease. #6. Hyperphosphatemia secondary to chronic kidney disease. #7. Chronic kidney disease mineral bone disease. Plan: Hemodialysis today with goal to liters ultrafiltration. Maintain PhosLo with meals. Decrease prednisone to 10 mg daily. Maintain oral sodium bicarbonate 650 mg twice daily. Maintain Aranesp. Encouraged oral intake.
[2016-11-09] MEDS: BUDESONIDE 0.5 MG/2 ML NEBU INHALATION SCH ×2 (09:15→20:00)
[2016-11-09] MEDS: IPRATROPIUM-ALBUTEROL 3 ML NEB INHALATION PRN (09:15)
--- NOTE | 2016-11-09 13:27 | PN ---
DATE OF SERVICE: 11/09/2016 He has been hemodynamically stable. He is less short of breath. He is to undergo dialysis today. His blood pressure is 94/67. Respiratory rate is 16. Pulse rate is 64. Temperature 96.3. O2 sat on room air is 98%. HEENT reveals prominence of jugular veins. Chest reveals decreased breath sounds at the bases. Cardiovascular system reveals an S1, S2. Abdomen is soft. There is 1+ to 2+ pedal edema. IMPRESSION AT THIS TIME: 1. Severe nonischemic cardiomyopathy. 2. Acute respiratory failure. 3. Bronchospasm secondary to asthma or chronic obstructive pulmonary disease with acute exacerbation. 4. Aspiration type pneumonia. 5. Chronic renal failure on dialysis. At this point in time, continue dialysis. Optimize the inflammatory status of his airways. Wean prednisone slowly. Continue Augmentin. Agree with discharge planning possibly to a rehab unit. He was counseled regarding his condition. LAURENT
[2016-11-09] MEDS: predniSONE 10 MG TAB PO SCH (16:48)
--- NOTE | 2016-11-09 17:01 | P.PN ---
<Brionna Chao - Last Filed: 11/09/16 20:26> Progress Note - Text Presenting complaint: Tired Interval history: This patient with end-stage kidney disease on hemodialysis presented with acute non-ST elevation microinfarction. Had a cardiac catheterization that showed minimal disease. She was in cardiogenic shock and had been balloon pump and pressor support. Patient has been weak and tired Also seen by psychiatry and thinks that patient is acute delirium patient also answers some simple questions. November 07/2017: Today the patient's diet lethargic. Other tired and lethargic otherwise. Denies any pain. Laying in bed. 11/08/2016: Patient's lethargic but able to answer some simple straightforward questions. Lying in bed 11/09/2016: Patient sitting up looking more awake, preparing for hemodialysis treatment. Talking on the phone, appears relaxed. Review of systems attempted difficult to obtain Current medications are reviewed and include DuoNeb, Augmentin, Lipitor, PhosLo , Librium, Aranesp, prednisone PHYSICAL EXAM: VITAL SIGNS: [Temperature 96.3, pulse 64, respiratory rate 20, blood pressure 94 /67, oxygen saturation 98% on room air. GENERAL APPEARANCE: Sitting up in bed talking on the phone, able to answer some simple questions. EYES: Pupils equal. Conjunctiva normal. NECK: JVD not raised. Mass not palpable. RESPIRATORY: Respiratory effort normal. Lungs decreased breath sounds CARDIOVASCULAR: First and second sounds normal. Edema present lower extremity and the arms. ABDOMEN: Soft. Liver and spleen not palpable. No tenderness. No mass palpable. PSYCHIATRY: Mood and affect brighter than in previous days. Answer simple straightforward questions INVESTIGATIONS: Hemodialysis: 2 L of fluid removed Hemoglobin 10.4, platelets 317, sodium 140, potassium 5.3, BUN 63, creatinine 5.70 ASSESSMENT: -Acute non-ST elevation microinfarction leading to cardiogenic shock patient had been on the balloon pump present on admission -Persistent intermittent asthma, improving -End-stage kidney disease on hemodialysis Sunday with left arm AV fistula -Failed kidney transplant -Baseline gait dysfunction uses a walker -Chronic kidney disease causing mineral bone disease -Aspiration pneumonitis due to altered mental status -Acute delirium multifactorial -Hyperkalemia secondary to renal failure Plan: Continue current medication treatment plan overall prognosis is guarded. Spoke to the nurse at length regarding encouragment of oral intake with recommendations for finger foods for the patient feeding should be supervised and with aspiration precautions. PATTERN [employer]SEMBLER statement: Patient was seen and examined by nurse practitioner Brionna Chao and all elements of the case discussed with attending Dr. Davis. <Michael Davis - Last Filed: 11/09/16 22:37> Progress Note - Text Attending note. Date of service-11/09/2016 This patient was seen and examined by me today. I reviewed the note of my nurse practitioner, Ms. Chao. Discussed with her, additional findings as below Patient status post acute [place] followed by cardiac cath . Looking a bit more awake today 8 a little bit more. Cardiovascular dialyzed today. 2 L were removed. On examination: Lungs decreased breath sounds cardiac*first seconds are normal Psych patient is a bit more awake today, communicating better Assessment and plan: Aspiration pneumonitis clinically. Medical debility. Patient will probably need inpatient rehab. Encouraged increase oral intake
[2016-11-09] MEDS: MONTELUKAST 10 MG TAB PO SCH (20:42)
[2016-11-09] MEDS: ATORVASTATIN 40 MG TAB PO SCH (20:42)
[2016-11-10 06:12] LABS: Anisocytosis Marked; Basophils % (A) 0 %; CH 30.9; CHCM 29.8; Eosinophils # (A) 0.3 k/uL (0-0.7); Eosinophils % (A) 2 %; HCT 35.5 % (39.0-53.0); HDW 3.57; HGB 10.8 gm/dL (13.0-17.5); Hypochromasia Marked; Luc # (Auto) 0.18; Luc % (Auto) 2; Lymphocytes # (A) 1.3 k/uL (1.0-4.8); Lymphocytes % (A) 11 %; MCH 31.6 pg (25.0-35.0); MCHC 30.3 g/dL (31.0-37.0); MCV 104.2 fL (80.0-100.0); Macrocytosis Marked; Mean Platelet Volume 8.9; Monocytes % (A) 9 %; Neutrophils # (A) 8.3 k/uL (1.3-7.7); Neutrophils % (A) 76 %; Poikilocytosis Slight; RBC 3.41 m/uL (4.30-5.90); RDW 24.1 % (11.5-15.5); WBC (Perox) 11.17
[2016-11-10 06:23] LABS: Manual Review Performed; Polychromasia Present
[2016-11-10 06:25] LABS: Large Platelets Present; Spherocytes Present
[2016-11-10] MEDS: CALCIUM ACETATE 667 MG CAP PO SCH ×3 (06:56→17:09)
[2016-11-10] MEDS: ASPIRIN 81 MG CHEW PO SCH (08:17)
[2016-11-10] MEDS: SODIUM BICARBONATE TAB 650 MG TAB PO SCH ×2 (08:17→21:09)
[2016-11-10] MEDS: AMOXIC-POT CLAV 500-125 MG 1 EACH TAB PO SCH ×2 (08:17→21:08)
[2016-11-10] MEDS: predniSONE 10 MG TAB PO SCH (08:18)
[2016-11-10] MEDS: [UNRECOGNIZED DRUG - OTHER] PO SCH (08:18)
[2016-11-10] MEDS: PANTOPRAZOLE 40 MG TABLET PO SCH (08:18)
[2016-11-10] MEDS: BUDESONIDE 0.5 MG/2 ML NEBU INHALATION SCH ×2 (08:39→20:20)
--- NOTE | 2016-11-10 09:32 | P.PN ---
Subjective Patient is seen in follow-up for end-stage renal disease. He is maintained on hemodialysis on a Sunday schedule. Patient underwent a cardiac catheterization on November 01 which was benign however he did have a cardiopulmonary arrest. He required multiple vasopressors which are now all discontinued. He is quite confused at this time but awake. Appears quite lethargic. He is noted to have severe systolic CHF with ejection fraction of less than 20%. He is also maintained on steroids for adrenal insufficiency. No major events overnight. Oral intake is improving. Underwent hemodialysis yesterday with 2 L ultrafiltration. Vital signs are stable. General: The patient appeared well nourished and normally developed. HEENT: Head exam is unremarkable. Neck is without jugular venous distension. LUNGS: Scattered rhonchi. Breath sounds decreased. HEART: Rate and Rhythm are regular. First and second heart sounds normal. No murmurs, rubs or gallops. ABDOMEN: Abdominal exam reveals normal bowel sounds. Non-tender and non- distended. No evidence of peritonitis. EXTREMITITES: Trace edema. Objective - Vital Signs Vital signs: Vital Signs Temp 97.2 F L 11/09/16 20:00 Pulse 90 11/10/16 08:00 Resp 20 11/10/16 08:00 BP 100/56 11/10/16 08:00 Pulse Ox 97 11/10/16 08:00 Intake & Output 11/09/16 11/10/16 11/10/16 18:59 06:59 18:59 Intake Total 364 20 Balance 364 20 Weight 48.5 kg Intake: IV 10 20 0.9% NS FLUSH 10 20 Oral 354 Other: Voiding Method Urinal # Voids 1 # Bowel Movements 1 ABP, PAP, CO, CI - Last Documented Arterial Blood Pressure 89/46 - Labs CBC & Chem 7: 11/10/16 05:33 11/09/16 05:46 Labs: Abnormal Lab Results - Last 24 Hours (Table) 11/10/16 Range/Units 05:33 WBC 11.0 H (3.8-10.6) k/uL RBC 3.41 L (4.30-5.90) m/uL Hgb 10.8 L (13.0-17.5) gm/dL Hct 35.5 L (39.0-53.0) % MCV 104.2 H (80.0-100.0) fL MCHC 30.3 L (31.0-37.0) g/dL RDW 24.1 H (11.5-15.5) % Neutrophils # 8.3 H (1.3-7.7) k/uL Assessment and Plan Plan: Assessment: #1. End-stage renal disease maintained on hemodialysis on a Sunday schedule via left upper extremity AV fistula. #2. Hyperkalemia secondary to chronic kidney disease. Improved. #3. Status post cardiac arrest. #4. Chest pain status post cardiac catheterization in November 01. No interventions done. #5. Anemia of chronic kidney disease. #6. Hyperphosphatemia secondary to chronic kidney disease. #7. Chronic kidney disease mineral bone disease. Plan: Hemodialysis tomorrow goal 2 liters ultrafiltration. Maintain PhosLo with meals. Maintain prednisone 10 mg daily. Maintain oral sodium bicarbonate 650 mg twice daily. Maintain Aranesp. Encouraged oral intake. Potential inpatient rehab.
--- NOTE | 2016-11-10 16:31 | P.PN ---
<Brionna hCao - Last Filed: 11/10/16 16:32> Progress Note - Text Date of service: 11/10/2016 Presenting complaint: Tired Interval history: This patient with end-stage kidney disease on hemodialysis presented with acute non-ST elevation microinfarction. Had a cardiac catheterization that showed minimal disease. She was in cardiogenic shock and had been balloon pump and pressor support. Patient has been weak and tired Also seen by psychiatry and thinks that patient is acute delirium patient also answers some simple questions. November 07/2017: Today the patient's diet lethargic. Other tired and lethargic otherwise. Denies any pain. Laying in bed. 11/08/2016: Patient's lethargic but able to answer some simple straightforward questions. Lying in bed 11/09/2016: Patient sitting up looking more awake, preparing for hemodialysis treatment. Talking on the phone, appears relaxed. 11/10/2016: Patient sitting up in the bed, appears more perky, states he ate 100 % of his breakfast, able to answer simple straightforward questions, states his appetite is good, had a BM this morning. Review of systems attempted difficult to obtain Current medications are reviewed and include DuoNeb, Augmentin, Lipitor, PhosLo , Librium, Aranesp, prednisone PHYSICAL EXAM: VITAL SIGNS: [Temperature 96.7, pulse 82 respirations 20 blood pressure 88/51, oxygen saturation 99% on 3 L. GENERAL APPEARANCE: Sitting up in bed , able to answer some simple questions. EYES: Pupils equal. Conjunctiva normal. NECK: JVD not raised. Mass not palpable. RESPIRATORY: Respiratory effort normal. Lungs decreased breath sounds CARDIOVASCULAR: First and second sounds normal. Mild Edema present lower extremity and the arms. ABDOMEN: Soft. Liver and spleen not palpable. No tenderness. No mass palpable. PSYCHIATRY: Mood and affect brighter than in previous days. Answer simple straightforward questions INVESTIGATIONS: Hemoglobin 10.8, ASSESSMENT: -Acute non-ST elevation microinfarction leading to cardiogenic shock patient had been on the balloon pump present on admission -Persistent intermittent asthma, improving -End-stage kidney disease on hemodialysis Sunday with left arm AV fistula -Failed kidney transplant -Baseline gait dysfunction uses a walker -Chronic kidney disease causing mineral bone disease -Aspiration pneumonitis due to altered mental status -Acute delirium multifactorial -Hyperkalemia secondary to renal failure Plan: Continue current medication treatment plan overall prognosis is guarded. Discharge planning for subacute rehab specifically [facility], insurance authorization received. [employer] statement: Patient was seen and examined by nurse practitioner Brionna Chao and all elements of the case discussed with attending Dr. Davis. <Michael Davis - Last Filed: 11/10/16 19:21> Progress Note - Text Attending note. Date of service-11/10/2016 This patient was seen and examined by me today. I reviewed the note of my nurse practitioner, Ms. Chao. Discussed with her, additional findings as below Patient admitted with acute MD and was in cardiogenic shock. Continue use a good bit better. Eating a bit more with more awake. Had a bowel movement On examination Blood pressure running low in the 80s Investigations Hemoglobin 10.8 Assessment and plan Medical debility and acute delirium other major issues now. Patient clinically is getting far more of a communicating eating active better physical therapy is working with the patient. Continue with hemodialysis
[2016-11-10] MEDS: MONTELUKAST 10 MG TAB PO SCH (21:08)
[2016-11-10] MEDS: ATORVASTATIN 40 MG TAB PO SCH (21:08)
[2016-11-11 06:02] LABS: Anisocytosis Marked; Basophils % (A) 0 %; CH 30.4; CHCM 29.6; Eosinophils # (A) 0.4 k/uL (0-0.7); Eosinophils % (A) 5 %; HCT 34.8 % (39.0-53.0); HDW 3.78; HGB 10.4 gm/dL (13.0-17.5); Hypochromasia Marked; Luc # (Auto) 0.16; Luc % (Auto) 2; Lymphocytes # (A) 0.8 k/uL (1.0-4.8); Lymphocytes % (A) 9 %; MCH 30.9 pg (25.0-35.0); MCHC 29.9 g/dL (31.0-37.0); MCV 103.6 fL (80.0-100.0); Macrocytosis Marked; Mean Platelet Volume 8.6; Monocytes # (A) 0.6 k/uL (0-1.0); Monocytes % (A) 7 %; Neutrophils # (A) 6.6 k/uL (1.3-7.7); Neutrophils % (A) 77 %; Poikilocytosis Slight; RBC 3.36 m/uL (4.30-5.90); RDW 24.4 % (11.5-15.5); WBC 8.6 k/uL (3.8-10.6); WBC (Perox) 8.56
[2016-11-11] MEDS: CALCIUM ACETATE 667 MG CAP PO SCH ×3 (06:34→17:12)
[2016-11-11 06:55] LABS: Manual Review Performed
[2016-11-11] MEDS: BUDESONIDE 0.5 MG/2 ML NEBU INHALATION SCH ×2 (08:00→19:30)
--- NOTE | 2016-11-11 08:52 | P.PN ---
Subjective This is a 65-year-old patient with ESRD on dialysis Sunday. He had a cardiac arrest after cardiac catheterization which was supposedly normal. He had chest pain for a few weeks in the retrosternal area which is sharp. Today 11/11/2016 he was seen during dialysis. He is been stable with blood pressure around 100 on dialysis. Unchanged. He continues to have chest pain. Has a good appetite and wants to eat. He is awake alert oriented he is on room air. He is answering all questions. Is moving all his extremities therefore has nearly completely recovered from his cardiac arrest. Supposedly prior to this she was able to walk with a walker. No nausea vomiting. No fever chills. No cough. No abdominal pain. Objective - Vital Signs Vital signs: Vital Signs Temp 96.9 F L 11/11/16 04:00 Pulse 85 11/11/16 04:00 Resp 18 11/11/16 04:00 BP 99/59 11/11/16 04:00 Pulse Ox 95 11/11/16 04:00 Intake & Output 11/10/16 11/11/16 11/11/16 18:59 06:59 18:59 Intake Total 240 Balance 240 Weight 77 kg Intake: Oral 240 Other: Voiding Method Urinal # Voids 1 0 # Bowel Movements 1 ABP, PAP, CO, CI - Last Documented Arterial Blood Pressure 89/46 Exam she is awake alert oriented. Is able to move all his extremities. He is profoundly weak though. HEENT exam no JVP seems neck is supple no facial asymmetry Lungs are clear to auscultation but diminished air entry especially on left. Minimal dullness on the left. A chest x-ray on 11/05/2016 showed left lower lobe infiltrate and right minimal infiltrate graft heart sounds are unremarkable for any murmur rub gallop Abdomen is soft nontender. Extremity exam was minimal edema with some chronic thickening of his skin suggestive of chronic stasis. Neurologically awake alert oriented 3 able to morning his extremities but profoundly weak. No asterixis noted - Labs CBC & Chem 7: 11/11/16 05:30 11/09/16 05:46 Labs: Abnormal Lab Results - Last 24 Hours (Table) 11/11/16 Range/Units 05:30 RBC 3.36 L (4.30-5.90) m/uL Hgb 10.4 L (13.0-17.5) gm/dL Hct 34.8 L (39.0-53.0) % MCV 103.6 H (80.0-100.0) fL MCHC 29.9 L (31.0-37.0) g/dL RDW 24.4 H (11.5-15.5) % Lymphocytes # 0.8 L (1.0-4.8) k/uL Assessment and Plan Plan: Impression. 1. ESRD on dialysis Sunday. 2. Severe chest pain for months and had cardiac catheterization without any significant coronary artery disease but had a cardiac arrest. Was on pressors and ventilator support and has been extubated and is now on room air and stable awake and alert. 3. Anemia of chronic illness and ESRD, hemoglobin at target 10.4. 4. Hyperphosphatemia from ESRD. 5. Chronic chest pain cause not very clear. 6. Possible left-sided pleural effusion Plan-no changes in medication. Will obtain a chest x-ray to evaluate his fluid status units low blood pressure I don't want to increase his ultrafiltration excessively without documentation of pulmonary edema by chest x-ray
[2016-11-11] MEDS: AMOXIC-POT CLAV 500-125 MG 1 EACH TAB PO SCH ×2 (09:08→21:07)
[2016-11-11] MEDS: predniSONE 10 MG TAB PO SCH (09:09)
[2016-11-11] MEDS: ASPIRIN 81 MG CHEW PO SCH (09:09)
[2016-11-11] MEDS: PANTOPRAZOLE 40 MG TABLET PO SCH (09:09)
[2016-11-11] MEDS: SODIUM BICARBONATE TAB 650 MG TAB PO SCH ×2 (09:10→21:07)
[2016-11-11] MEDS: [UNRECOGNIZED DRUG - OTHER] PO SCH (09:12)
--- NOTE | 2016-11-11 14:20 | P.PN ---
<Brionna Chao Bienvenido - Last Filed: 11/11/16 14:11> Progress Note - Text Date of service: 11/11/2016 Presenting complaint: Tired Interval history: This patient with end-stage kidney disease on hemodialysis presented with acute non-ST elevation microinfarction. Had a cardiac catheterization that showed minimal disease. She was in cardiogenic shock and had been balloon pump and pressor support. Patient has been weak and tired Also seen by psychiatry and thinks that patient is acute delirium patient also answers some simple questions. November 07/2017: Today the patient's diet lethargic. Other tired and lethargic otherwise. Denies any pain. Laying in bed. 11/08/2016: Patient's lethargic but able to answer some simple straightforward questions. Lying in bed 11/09/2016: Patient sitting up looking more awake, preparing for hemodialysis treatment. Talking on the phone, appears relaxed. 11/10/2016: Patient sitting up in the bed, appears more perky, states he ate 100 % of his breakfast, able to answer simple straightforward questions, states his appetite is good, had a BM this morning. 11/11/2016: Patient sitting up in the bed, able to answer straightforward simple questions. Patient's a max assist to get patient from bed to chair. Tolerating his diet, does require some assistance, foods are primarily finger foods. Last BM yesterday. Review of systems attempted difficult to obtain Current medications are reviewed and include DuoNeb, Augmentin, Lipitor, PhosLo , Librium, Aranesp, prednisone PHYSICAL EXAM: VITAL SIGNS: [Temperature 97.9, pulse 75, respiratory rate 18, blood pressure 108/56, oxygen saturation 98% on 3 L. GENERAL APPEARANCE: Sitting up in bed , appears comfortable. EYES: Pupils equal. Conjunctiva normal. NECK: JVD not raised. Mass not palpable. RESPIRATORY: Respiratory effort normal. Lungs decreased breath sounds CARDIOVASCULAR: First and second sounds normal. Mild Edema present lower extremity and the arms. ABDOMEN: Soft. Liver and spleen not palpable. No tenderness. No mass palpable. PSYCHIATRY: Mood and affect calm and cooperative. Answer simple straightforward questions INVESTIGATIONS: Hemoglobin 10.4 ASSESSMENT: -Acute non-ST elevation microinfarction leading to cardiogenic shock patient had been on the balloon pump present on admission -Persistent intermittent asthma, improving -End-stage kidney disease on hemodialysis Sunday with left arm AV fistula -Failed kidney transplant -Baseline gait dysfunction uses a walker -Chronic kidney disease causing mineral bone disease -Aspiration pneumonitis due to altered mental status -Acute delirium multifactorial -Hyperkalemia secondary to renal failure Plan: Continue current medication treatment plan overall prognosis is guarded. Discharge planning for subacute rehab specifically [facility], insurance authorization received. BEATER BOSS statement: Patient was seen and examined by nurse practitioner Brionna Chao and all elements of the case discussed with attending Dr. Davis. <Michael Davis - Last Filed: 11/11/16 18:38> Progress Note - Text Attending note. Date of service-11/12/2016 This patient was seen and examined by me today. I reviewed the note of my nurse practitioner, Ms. Chao. Discussed with her, additional findings as below Patient sitting up in bed did eat his full breakfast today. Diet but awake answering questions On examination: Lungs decreased breath sounds, edema present, answering simple questions Investigations: Hemoglobin 10.4 Assessment and plan: Acute non-ST elevation microinfarction, status post cardiac shot next a End-stage kidney disease on hemodialysis Medical debility patient is a full assist. Continue current treatment plan
--- NOTE | 2016-11-11 14:41 | PN ---
DATE OF SERVICE: 11/10/2016 The patient is a 65-year-old male who was seen sitting up in bed, actually trying to get out of bed to try to get in a position where he is not in as much pain. Does complain of rib type pain to the mid area of his chest and feels that it is very difficult to get it under control. The patient is hemodynamically stable, afebrile, in no acute distress. ON PHYSICAL EXAM: VITAL SIGNS: Temp is 96.7, heart rate is 82, respiratory rate is 20, blood pressure is 95/62, O2 sat 97% on 4 L O2 via nasal cannula. HEENT: Head is normocephalic, atraumatic. Neck is supple. Trachea is midline. Lungs with a few scattered crackles, decreased at the bases bilaterally. HEART: S1 and S2 are heard, not tachycardia. ABDOMEN: Soft. Bowel sounds are positive. Extremities with 2+ edema and mild erythema from chronic venous insufficiency. NEUROLOGIC: Patient is awake and alert. LABS: White count is 11.0, hemoglobin 10.8, hematocrit 35.5 with 304,000 platelets. IMAGING: No new imaging to review. IMPRESSION: 1. Severe nonischemic cardiomyopathy. 2. Acute respiratory failure. 3. Bronchospasm secondary to asthma or chronic obstructive pulmonary disease with acute exacerbation. 4. Aspiration type pneumonia. 5. Chronic renal failure on dialysis. PLAN; Continue current medications which have been reviewed. Continue dialysis per nephro. Continue bronchodilators and aerosol steroids. Continue to wean oral prednisone slowly to optimize decreasing the inflammatory status of his airways. Continue the antibiotics. Patient is stable from a pulmonary perspective to transfer to rehab. [facility]
--- NOTE | 2016-11-11 17:10 | XR ---
EXAMINATION TYPE: XR chest 2V DATE OF EXAM: 11/11/2016 COMPARISON: 11/05/2016 HISTORY: 65-year-old male CHF TECHNIQUE: Frontal and lateral views FINDINGS: Continued cardiomegaly and calcified lymph nodes at the right hilum. Diffuse interstitial prominence and right apical pleural-parenchymal scarring. Continued moderate left and small right pleural effusi ons with adjacent opacities. No significant change from prior. IMPRESSION: Relatively stable exam with findings suggesting CHF with pulmonary vascular congestion. Moderate left and small right pleural effusions with adjacent atelectasis and/or consolidation.
[2016-11-11] MEDS: MONTELUKAST 10 MG TAB PO SCH (21:07)
[2016-11-11] MEDS: ATORVASTATIN 40 MG TAB PO SCH (21:07)
[2016-11-12] MEDS: CALCIUM ACETATE 667 MG CAP PO SCH ×3 (06:53→17:27)
--- NOTE | 2016-11-12 08:44 | P.PN ---
Subjective This is a 65-year-old patient with ESRD on dialysis Sunday. He had a cardiac arrest after cardiac catheterization, dated 11/01/2016. He was on pressors and on ventilator as well as on intra-aortic balloon pump. Cardiac catheterization was supposedly normal. He had had chest pain for a few weeks in the retrosternal area which is sharp. The chest pain continues. Yesterday he was dialyzed and 2 L were ultrafiltered. His blood. Remains in the 100 range. This morning he is feeling again the same chest pain. He remained short of breath. He was able to walk to the bathroom and back. No fever chills nausea vomiting diarrhea. He is awake alert oriented he is on room air. He is answering all questions. Is moving all his extremities therefore has nearly completely recovered from his cardiac arrest. Supposedly prior to this she was able to walk with a walker. No nausea vomiting. No fever chills. No cough. No abdominal pain. Objective - Vital Signs Vital signs: Vital Signs Temp 96.2 F L 11/12/16 04:00 Pulse 90 11/12/16 04:00 Resp 18 11/12/16 04:00 BP 91/54 11/12/16 04:00 Pulse Ox 97 11/12/16 07:43 Intake & Output 11/11/16 11/12/16 11/12/16 18:59 06:59 18:59 Output Total 3 64 Balance -3 -64 Weight 72.6 kg Output: Urine 60 Stool 3 4 Other: Voiding Method Urinal Urinal # Voids 1 # Bowel Movements 1 ABP, PAP, CO, CI - Last Documented Arterial Blood Pressure 89/46 On examination is awake alert and oriented except he thought he was in [place]. He was able to answer other questions accurately though. HEENT exam no JVP neck is supple no facial asymmetry Lungs are significant for an occasional coarse crackle at bases with dullness to percussion and somewhat less than optimal air entry bilaterally. Heart sounds are unremarkable for any murmur rub gallop Abdomen soft nontender no masses felt. Nontender in the epigastrium no organomegaly felt. Extremity exam was minimal edema. Neurologically awake alert oriented no asterixis moves all his extremities. - Labs CBC & Chem 7: 11/11/16 05:30 11/09/16 05:46 Assessment and Plan Plan: Impression. 1. ESRD on dialysis Sunday. 2. Severe chest pain for months and had cardiac catheterization dated 2016 without any significant coronary artery disease but had a cardiac arrest. Was on pressors and ventilator support and has been extubated and is now on room air and stable awake and alert. 3. Anemia of chronic illness and ESRD, hemoglobin at target 10.4. 4. Hyperphosphatemia from ESRD. 5. Chronic chest pain cause not very clear. 6. Possible left-sided pleural effusion Plan- Will obtain a chest x-ray to see if he needs to be vigorously ultrafiltrate. I have set him up for her ultrafiltration tomorrow 3 L over 3 hours. no changes in medication.
[2016-11-12] MEDS: predniSONE 10 MG TAB PO SCH (09:02)
[2016-11-12] MEDS: SODIUM BICARBONATE TAB 650 MG TAB PO SCH ×2 (09:02→21:25)
[2016-11-12] MEDS: AMOXIC-POT CLAV 500-125 MG 1 EACH TAB PO SCH ×2 (09:02→21:25)
[2016-11-12] MEDS: PANTOPRAZOLE 40 MG TABLET PO SCH (09:02)
[2016-11-12] MEDS: [UNRECOGNIZED DRUG - OTHER] PO SCH (09:03)
[2016-11-12] MEDS: ASPIRIN 81 MG CHEW PO SCH (09:03)
[2016-11-12] MEDS: MORPHINE SULFATE 2 MG/ML SYRINGE IVP PRN (09:10)
--- NOTE | 2016-11-12 10:08 | XR ---
EXAMINATION TYPE: XR chest 2V DATE OF EXAM: 11/12/2016 COMPARISON: 11/11/2016 HISTORY: 65-year-old male with chest pain, follow-up CHF TECHNIQUE: Frontal and lateral views FINDINGS: Heart margins remain obscured by adjacent pleural parenchymal disease. [id number] bilateral pl eural effusions persist, increased on the right now. Pleural parenchymal scarring and calcifications at the right greater than left apices. Diffuse interstitial prominence again noted. Calcified right h ilar and mediastinal lymph nodes. IMPRESSION: [id number] pleural effusions with adjacent atelectasis and/or consolidation, now increasing on the right. Possible CHF as the etiology.
--- NOTE | 2016-11-12 16:00 | P.PN ---
<Brionna Chao Bienvenido - Last Filed: 11/12/16 17:35> Progress Note - Text Date of service: 11/12/2016 Presenting complaint: Tired Interval history: This patient with end-stage kidney disease on hemodialysis presented with acute non-ST elevation microinfarction. Had a cardiac catheterization that showed minimal disease. She was in cardiogenic shock and had been balloon pump and pressor support. Patient has been weak and tired Also seen by psychiatry and thinks that patient is acute delirium patient also answers some simple questions. November 07/2017: Today the patient's diet lethargic. Other tired and lethargic otherwise. Denies any pain. Laying in bed. 11/08/2016: Patient's lethargic but able to answer some simple straightforward questions. Lying in bed 11/09/2016: Patient sitting up looking more awake, preparing for hemodialysis treatment. Talking on the phone, appears relaxed. 11/10/2016: Patient sitting up in the bed, appears more perky, states he ate 100 % of his breakfast, able to answer simple straightforward questions, states his appetite is good, had a BM this morning. 11/11/2016: Patient sitting up in the bed, able to answer straightforward simple questions. Patient's a max assist to get patient from bed to chair. Tolerating his diet, does require some assistance, foods are primarily finger foods. Last BM yesterday. 11/12/2016: Sitting up at the bedside, nursing just returned from walking patient in the hallway, patient only required standby assist, ate 100% of his breakfast, last BM was on 11/11/2016, more alert and more interactive. Uses a walker and assistance States he would like go to rehab soon. Hemodialysis schedule is Sunday, with plans for next hemodialysis tomorrow or nephrology. Review of systems done for constitutional cardiovascular, GI, pulmonary with relevant findings as above. Current medications are reviewed and include DuoNeb, Augmentin, Lipitor, PhosLo , Librium, Aranesp, prednisone PHYSICAL EXAM: VITAL SIGNS: [Temperature 97.9, pulse 75, respiratory rate 18, blood pressure 108/56, oxygen saturation 98% on 3 L. GENERAL APPEARANCE: Sitting up at the bedside , appears comfortable. EYES: Pupils equal. Conjunctiva normal. NECK: JVD not raised. Mass not palpable. RESPIRATORY: Respiratory effort normal. Lungs decreased breath sounds CARDIOVASCULAR: First and second sounds normal. Mild Edema present lower extremity and the arms. ABDOMEN: Soft. Liver and spleen not palpable. No tenderness. No mass palpable. PSYCHIATRY: Mood and affect calm and cooperative. Answer simple straightforward questions INVESTIGATIONS: LABS: None new CHEST x-ray: Small to moderate pleural effusions, atelectasis and/or consolidation, increasing on the right. 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 Discharge planning for subacute rehab specifically [facility], insurance authorization received, on Sunday. FURNACE PUNCHER statement: Patient was seen and examined by nurse practitioner Brionna Chao and all elements of the case discussed with attending Dr. Davis. <Michael Davis - Last Filed: 11/12/16 18:36> Progress Note - Text Attending note. Date of service-11/12/2016 This patient was seen and examined by me today. I reviewed the note of my nurse practitioner, Ms. Chao. Discussed with her, additional findings as below. Patient is status post acute [place] cardiogenic shock on hemodialysis. Continues to improve. did walk with assistance On examination: Lungs decreased breath sounds, edema present Investigations: Labs noted Assessment and plan: Delirium greatly improved. Doing better. Looking at patient could've the rehab
[2016-11-12] MEDS: ATORVASTATIN 40 MG TAB PO SCH (21:25)
[2016-11-12] MEDS: MONTELUKAST 10 MG TAB PO SCH (21:25)
[2016-11-13] MEDS: CALCIUM ACETATE 667 MG CAP PO SCH ×3 (06:43→17:52)
--- NOTE | 2016-11-13 07:49 | PN ---
DATE OF SERVICE: 11/11/2016 He has remained hemodynamically stable. He underwent apparently dialysis today and is actually more awake and alert and had his breakfast. On physical examination, his blood pressure 108/56, respiratory rate 16, pulse rate 75, temperature 97.9, O2 sat on 3 L by nasal cannula is 98%. HEENT is unremarkable except for mild prominence of his jugular veins. Chest reveals decreased breath sounds, prolonged expiration with no clear wheeze. Cardiovascular system revealed an S1 and S2, no S3, no S4. No murmurs. Abdomen is soft. There is trace pedal edema. Lab and x-ray data and medications were reviewed. IMPRESSION AT THIS TIME: 1. Severe nonischemic cardiomyopathy. 2. Acute respiratory failure. 3. Status post cardiac arrest. 4. Bronchospasm secondary to asthma or chronic obstructive pulmonary disease. 5. Aspiration pneumonia. 6. Chronic renal failure on dialysis. Continue dialysis, Augmentin. Continue prednisone at 10 mg. Increase his activity level. Agree with possible discharge planning. [facility]
[2016-11-13] MEDS: predniSONE 10 MG TAB PO SCH (07:51)
[2016-11-13] MEDS: ASPIRIN 81 MG CHEW PO SCH (07:51)
[2016-11-13] MEDS: SODIUM BICARBONATE TAB 650 MG TAB PO SCH ×2 (07:51→21:03)
[2016-11-13] MEDS: PANTOPRAZOLE 40 MG TABLET PO SCH (07:51)
[2016-11-13] MEDS: [UNRECOGNIZED DRUG - OTHER] PO SCH (07:51)
[2016-11-13] MEDS: AMOXIC-POT CLAV 500-125 MG 1 EACH TAB PO SCH (12:47)
[2016-11-13 14:05] VITALS: BMI 21.5
--- NOTE | 2016-11-13 15:33 | XR ---
EXAMINATION TYPE: XR lumbosacral spine min 4V DATE OF EXAM: 11/13/2016 COMPARISON: NONE HISTORY: 65-year-old male with low back pain after fall today TECHNIQUE: 5 views FINDINGS: Levoconvex curvature with 5 lumbar type vertebral bodies. No pars interarticularis defect. Vertebral body heights are preserved and alignment is maintained. There is mild multilevel degenerative disc he ight loss. Facet arthropathy mid to lower lumbar spine. There are some vague calcifications in the left paramedian mid to upper abdomen. IMPRESSION: 1. Levoconvex curvature could be secondary to scoliosis or pain/spasm. 2. Mild multilevel degenerative disc disease. Additional facet arthropathy mid to lower lumbar spine. 3. No vertebral compression collapse or malalignment. 4. Some vague calcifications in the left paramedian upper to mid abdomen. Etiology uncertain. Query a ny history of chronic pancreatitis. Further outpatient imaging evaluation as indicated.
--- NOTE | 2016-11-13 16:27 | P.PN ---
<Brionna Chao Bienvenido - Last Filed: 11/13/16 17:49> Progress Note - Text Date of service: 11/13/2016 Presenting complaint: Tired Interval history: This patient with end-stage kidney disease on hemodialysis presented with acute non-ST elevation microinfarction. Had a cardiac catheterization that showed minimal disease. She was in cardiogenic shock and had been balloon pump and pressor support. Patient has been weak and tired Also seen by psychiatry and thinks that patient has acute delirium patient. November 07/2017: Today the patient's diet lethargic. Other tired and lethargic otherwise. Denies any pain. Laying in bed. 11/08/2016: Patient's lethargic but able to answer some simple straightforward questions. Lying in bed 11/09/2016: Patient sitting up looking more awake, preparing for hemodialysis treatment. Talking on the phone, appears relaxed. 11/10/2016: Patient sitting up in the bed, appears more perky, states he ate 100 % of his breakfast, able to answer simple straightforward questions, states his appetite is good, had a BM this morning. 11/11/2016: Patient sitting up in the bed, able to answer straightforward simple questions. Patient's a max assist to get patient from bed to chair. Tolerating his diet, does require some assistance, foods are primarily finger foods. Last BM yesterday. 11/12/2016: Sitting up at the bedside, nursing just returned from walking patient in the hallway, patient only required standby assist, ate 100% of his breakfast, last BM was on 11/11/2016, more alert and more interactive. Uses a walker and assistance States he would like go to rehab soon. Hemodialysis schedule is Sunday, with plans for next hemodialysis tomorrow or nephrology. 11/13/2016: Lying in the bed, ate 100 % of his breakfast, seems it had bit more lethargic today, per nephrology patient is due for a round of hemodialysis. Follow some simple commands, answer simple questions. Review of systems done for constitutional cardiovascular, GI, pulmonary with relevant findings as above. Current medications are reviewed and include DuoNeb, Augmentin, Lipitor, PhosLo , Librium, Aranesp, prednisone PHYSICAL EXAM: VITAL SIGNS: [Temperature 97.4, pulse 101 respirations 18, blood pressure 104/59 , oxygen saturation 95% on room air. GENERAL APPEARANCE: Lying in bed, sleepy appearing, yet arousable EYES: Pupils equal. Conjunctiva normal. NECK: JVD not raised. Mass not palpable. RESPIRATORY: Respiratory effort normal. Lungs decreased breath sounds CARDIOVASCULAR: First and second sounds normal. Mild Edema present lower extremity and the arms. ABDOMEN: Soft. Liver and spleen not palpable. No tenderness. No mass palpable. PSYCHIATRY: Mood and affect calm and cooperative. 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 FILM NUMBERER statement: Patient was seen and examined by nurse practitioner Brionna Chao and all elements of the case discussed with attending Dr. Davis. <Michael Davis - Last Filed: 11/13/16 17:59> Progress Note - Text Attending note. Date of service-11/13/2016 This patient was seen and examined by me today. I reviewed the note of my nurse practitioner, Ms. Chao. Discussed with her, additional findings as below. Patient is a bit more tired today. The tolerating his diet. Answering questions. Pending transfer to rehab On examination: Lungs decreased breath sounds and some wheezing, edema present, patient is also questions though tired Investigations: No blood work from today Assessment and plan: Multiple medical problems including acute non-Q wave ND, end-stage kidney disease on hemodialysis. Patient awaiting discharge to rehab
--- NOTE | 2016-11-13 18:41 | PN ---
DATE OF SERVICE: 11/12/2016 This patient has been hemodynamically stable. He continues to have shortness of breath. On physical examination, his blood pressure is 95/52, respiratory rate is 16, temperature 98, oxygen saturation on room air 98%. HEENT reveals jugular venous distention. Chest reveals decreased breath sounds at the bases. Cardiovascular system is in S1, S2. Abdomen is soft. There is 1+ pedal edema. IMPRESSION AT THIS TIME: 1. Non-ischemic cardiomyopathy. 2. Status post cardiac arrest. 3. Chronic renal failure, on dialysis. 4. Medical debility. Increase his activity level. Optimize his fluid status. He is not to be considered for CPR. Consider discharge planning to a rehab unit. Depending on how he does, we shall make further changes to his care. LAURENT
[2016-11-13] MEDS: ATORVASTATIN 40 MG TAB PO SCH (21:03)
[2016-11-13] MEDS: MONTELUKAST 10 MG TAB PO SCH (21:03)
[2016-11-14] MEDS: MORPHINE SULFATE 2 MG/ML SYRINGE IVP PRN (00:38)
[2016-11-14] MEDS: CALCIUM ACETATE 667 MG CAP PO SCH ×3 (06:20→17:02)
[2016-11-14 06:52] LABS: Anisocytosis Moderate; Basophils # (A) 0.1 k/uL (0-0.2); Basophils % (A) 0 %; CH 31.3; CHCM 30.6; Calcium 9.4 mg/dL (8.4-10.2); Eosinophils # (A) 0.4 k/uL (0-0.7); Eosinophils % (A) 3 %; HCT 33.8 % (39.0-53.0); HDW 3.85; HGB 10.5 gm/dL (13.0-17.5); Hypochromasia Marked; Luc # (Auto) 0.29; Luc % (Auto) 2; Lymphocytes # (A) 1.3 k/uL (1.0-4.8); Lymphocytes % (A) 10 %; MCH 32.1 pg (25.0-35.0); MCHC 31.1 g/dL (31.0-37.0); MCV 103.3 fL (80.0-100.0); Macrocytosis Marked; Mean Platelet Volume 9.5; Monocytes # (A) 1.5 k/uL (0-1.0); Monocytes % (A) 11 %; Neutrophils # (A) 9.7 k/uL (1.3-7.7); Neutrophils % (A) 74 %; Poikilocytosis Slight; Potassium 5.2 mmol/L (3.5-5.1); RBC 3.27 m/uL (4.30-5.90); RDW 23.9 % (11.5-15.5); WBC 13.2 k/uL (3.8-10.6); WBC (Perox) 13.26
[2016-11-14 07:42] LABS: Ovalocytes Present
[2016-11-14] MEDS: [UNRECOGNIZED DRUG - OTHER] PO SCH (08:29)
[2016-11-14] MEDS: SODIUM BICARBONATE TAB 650 MG TAB PO SCH (08:30)
[2016-11-14] MEDS: predniSONE 10 MG TAB PO SCH (08:30)
[2016-11-14] MEDS: PANTOPRAZOLE 40 MG TABLET PO SCH (08:30)
[2016-11-14] MEDS: ASPIRIN 81 MG CHEW PO SCH (08:31)
[2016-11-14 08:36] VITALS: RESP 18
[2016-11-14 11:12] VITALS: TEMP 96.6
[2016-11-14] MEDS: DARBEPOETIN ALFA 40 MCG/0.4 ML SYRINGE SQ SCH (11:36)
--- NOTE | 2016-11-14 11:44 | PN ---
The patient is a 65-year-old male who is seen sitting up at the bedside, is awake and alert, waiting to go down for an x-ray. The patient is afebrile. Blood pressure is quite elevated, will request nursing to recheck it. The patient denies any pain, denies any shortness of breath, is in no acute distress , ON PHYSICAL EXAM: VITAL SIGNS: Temp is 97.4, heart rate 101, respiratory rate 16, blood pressure 184/113, O2 sats 94% on room air. HEENT: Head is normocephalic, atraumatic. Neck is supple. LUNGS: With decreased breath sounds to the bilateral bases. HEART: S1, S1 are heard. Not tachycardia. ABDOMEN: Soft. Bowel sounds are heard. EXTREMITIES: With 2+ edema of the right lower extremity and 1+ edema to the left lower extremity with discoloration from chronic venous insufficiency. No new labs to review. No new imaging to review. IMPRESSION: 1. Severe nonischemic cardiomyopathy. 2. Acute respiratory failure. 3. Status post cardiac arrest. 4. Bronchospasm secondary to asthma or chronic obstructive pulmonary disease. 5. Aspiration pneumonia. 6. Chronic renal failure requiring hemodialysis. PLAN: Continue current medications, which have been reviewed. Continue dialysis per Nephrology. Continue antibiotics. Continue to increase activity as tolerated and agree with discharge to rehab when cleared by patient's primary care. Will sign off at this time and be available p.r.n. [facility]
[2016-11-14 15:20] VITALS: BP 90/50; PULSE 80
--- NOTE | 2016-11-14 16:39 | P.DS ---
<Brionna Chao - Last Filed: 11/14/16 15:54> Providers Date of admission: 11/01/16 15:31 Expected date of discharge: 11/14/16 Attending physician: Michael Davis Consults: 11/01/16 17:09 Consult Physician Routine Consulting Provider: Catherine Da Silva Consult Reason/Comments: acute respiratory failure Do you want consulting provider notified?: Yes 11/01/16 18:36 Consult Physician Stat Consulting Provider: Kirill Pearce Consult Reason/Comments: Known, dialysis patient Do you want consulting provider notified?: Yes 11/02/16 11:10 Consult Physician Stat Consulting Provider: Mitali Santamaria Consult Reason/Comments: cardiogenic shock Do you want consulting provider notified?: Already Contacted 11/02/16 13:00 Consult Anesthesia Stat Consulting Provider: Anesthesia,Services Consult Reason/Comments: placement of an arterial line 11/02/16 14:18 Consult Physician Routine Consulting Provider: Ranjit Beckman Consult Reason/Comments: sepsis Do you want consulting provider notified?: Yes 11/05/16 15:49 Consult Physician Routine Consulting Provider: Marcelino Sanchez Consult Reason/Comments: rehab Do you want consulting provider notified?: Yes 11/05/16 18:18 Consult Physician Routine Consulting Provider: Marcelino Sanchez Consult Reason/Comments: medical debility Do you want consulting provider notified?: Yes 11/06/16 13:38 Consult Physician Routine Consulting Provider: Laurel Biggs Consult Reason/Comments: Medication management Do you want consulting provider notified?: Already Contacted Primary care physician: Stated None Hospital Course: FINAL DIAGNOSES: -Acute non-ST elevation myocardial infarction leading to cardiogenic shock patient had been on the balloon pump present on admission -Persistent intermittent asthma -End-stage kidney disease on hemodialysis Sunday with left arm AV fistula -Failed kidney transplant -Baseline gait dysfunction uses a walker -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 Patient was transferred to [facility] for catheterization , patient had cardiac arrest prior to catheterization, patient was critically ill mechanically ventilated. Cardiac catheterization completed did not show any significant lesions. During ICU stay patient required pressor support and balloon pump insertion. Ultimately patient was weaned from pressor support and balloon pump and subsequently extubated. Has some confusion, lethargy, anxiety during ICU stay, psychiatry consulted. Treatment of the causes of delirium secondary to multiple medical problems, renal disease associated encephalopathy no additional medications recommended. Some difficulty with swallowing, evaluated by speech, potential for aspiration, recommendations one-to-one feeding and finger foods. Overall medical condition improved, became more alert , more interactive, requires moderate assistance with daily activities, standby assist with ambulation and walker utilization. Attempted to walk to the bathroom unassisted, fell beside bed. Imaging revealed no acute processes. Patient evaluated by PT and Dr. Sanchez for rehab placement. Patient is a good candidate for rehab and therefore will be transferred to [facility]. PHYSICAL EXAM: Vital signs: Temperature 96.6, pulse 88, respiratory rate 18, blood pressure 95/ 59, oxygen saturation 97% on room air. CARDIOVASCULAR: First and second sounds noted trace edema. RESPIRATORY: Respiratory effort normal, lung sounds diminished bilaterally GI: Abdomen soft nontender liver and spleen not palpable MUSKULOSKELETAL: Has some difficulty holding his head up, left arm AV fistula positive for thrill and bruit NEUROLOGIC: Able to answer simple straightforward questions however is slow to respond at times. Patient was seen and examined by nurse practitioner Brionna Chao in all elements of the case discussed with attending Dr. Davis DISOPSITION: [facility] Pertinent Studies: Cardiac catheterization: All coronary vessels angiographically normal Venous Doppler: Negative for DVT Pelvic ultrasound: No hydronephrosis. Procedures: 11/01/2016: Cardiac catheterization Patient Condition at Discharge: Good Plan - Discharge Summary New Discharge Prescriptions: New Aspirin 81 mg PO DAILY Atorvastatin [Lipitor] 40 mg PO HS tab Darbepoetin Michael [Aranesp] 40 mcg SQ Q7D syr predniSONE 10 mg PO DAILY #5 tab Sodium Bicarbonate Tab 650 mg PO BID tab Continue Tranylcypromine Sulfate [Parnate] 100 mg PO DAILY Montelukast Sodium [Singulair] 10 mg PO DAILY Allopurinol [Zyloprim] 100 mg PO DAILY Calcium Acetate [PhosLo] 667 mg PO AC-TID Cinacalcet [Sensipar] 30 mg PO DAILY Magnesium Hydroxide [Milk of Magnesia] 2,400 mg PO DAILY PRN PRN Reason: Constipation Acetaminophen Tab [Tylenol] 650 mg PO Q6H PRN PRN Reason: Fever And/ Or Pain Lactulose 20 gm PO DAILY PRN PRN Reason: Constipation Sennosides [Senna] 8.6 mg PO DAILY Polyethylene Glycol 3350 [Miralax] 17 gm PO DAILY PRN PRN Reason: Constipation Cholecalciferol [Vitamin D3] 1,000 unit PO DAILY Albuterol Nebulized [Ventolin Nebulized] 2.5 mg INHALATION RT-QID PRN PRN Reason: Shortness Of Breath Famotidine 20 mg PO DAILY Discontinued Albuterol Inhaler [Ventolin Hfa Inhaler] 1 - 2 puff INHALATION RT-Q6H PRN PRN Reason: Dyspnea predniSONE 30 mg PO DAILY No Action Theophylline 24 Hour [Juan Manuel-24] 300 mg PO BID Na Phos,M-B/Na Phos,Di-Ba [Fleet Adult] 133 ml RECTAL ONCE PRN PRN Reason: Constipation Bisacodyl [Dulcolax] 10 mg RECTAL DAILY PRN PRN Reason: Constipation chlordiazePOXIDE HCL 10 mg PO TID PRN PRN Reason: Anxiety Midodrine [ProAmatine] 5 mg PO AC-TID tab Tamsulosin [Flomax] 0.4 mg PO HS #0 Discharge Medication List Montelukast Sodium [Singulair] 10 mg PO DAILY 12/04/13 [History] Tranylcypromine Sulfate [Parnate] 100 mg PO DAILY 12/04/13 [History] Allopurinol [Zyloprim] 100 mg PO DAILY 01/26/14 [History] Acetaminophen Tab [Tylenol] 650 mg PO Q6H PRN 03/27/16 [History] Calcium Acetate [PhosLo] 667 mg PO AC-TID 03/27/16 [History] Cholecalciferol [Vitamin D3] 1,000 unit PO DAILY 03/27/16 [History] Cinacalcet [Sensipar] 30 mg PO DAILY 03/27/16 [History] Lactulose 20 gm PO DAILY PRN 03/27/16 [History] Magnesium Hydroxide [Milk of Magnesia] 2,400 mg PO DAILY PRN 03/27/16 [History] Polyethylene Glycol 3350 [Miralax] 17 gm PO DAILY PRN 03/27/16 [History] Sennosides [Senna] 8.6 mg PO DAILY 03/27/16 [History] Albuterol Nebulized [Ventolin Nebulized] 2.5 mg INHALATION RT-QID PRN 11/01/16 [ History] Famotidine 20 mg PO DAILY 11/01/16 [History] Aspirin 81 mg PO DAILY 11/14/16 [Rx] Atorvastatin [Lipitor] 40 mg PO HS tab 11/14/16 [Rx] Bisacodyl [Dulcolax] 10 mg RECTAL DAILY PRN 11/14/16 [History] Darbepoetin Michael [Aranesp] 40 mcg SQ Q7D syr 11/14/16 [Rx] Na Phos,M-B/Na Phos,Di-Ba [Fleet Adult] 133 ml RECTAL ONCE PRN 11/14/16 [History ] Sodium Bicarbonate Tab 650 mg PO BID tab 11/14/16 [Rx] Theophylline 24 Hour [Juan Manuel-24] 300 mg PO BID 11/14/16 [History] chlordiazePOXIDE HCL 10 mg PO TID PRN 11/14/16 [History] predniSONE 10 mg PO DAILY #5 tab 11/14/16 [Rx] Midodrine [ProAmatine] 5 mg PO AC-TID tab 11/15/16 [Rx] Tamsulosin [Flomax] 0.4 mg PO HS #0 11/15/16 [Rx] Follow up Appointment(s)/Referral(s): Devin Lopez DO [STAFF PHYSICIAN] - 11/15/16 Kirill Pearce DO [STAFF PHYSICIAN] - 1 Week Mitali Santamaria MD [STAFF PHYSICIAN] - 1 Week Ambulatory/Diagnostic Orders: Basic Metabolic Panel [LAB.AMB] Location: Determined By Patient Complete Blood Count w/diff [LAB.AMB] Location: Determined By Patient Activity/Diet/Wound Care/Special Instructions: HD T, Sa Andree, DIET: Renal with 1:1 feeding assistance and finger foods Discharge Disposition: TRANSFER TO SNF/ECF <Michael Davis - Last Filed: 11/15/16 17:28> Hospital Course: Attending note. Date of service-11/14/2016 This patient was seen and examined by me . I reviewed the note of my nurse practitioner, Ms. Chao. Discussed with her, additional findings as below. this patient was admitted with acute non-Q wave myocardial infarction, had a cardiac cath that showed minimal coronary artery disease. The doing better. feels weak and tired. Tolerating his diet. Communicating. On examination: lungs-decreased breath sound, some edema is present, able to communicate. Investigations: blood work noted Assessment and plan: acute non-Q-wave microinfarction followed cardiogenic shock. Disposition to [facility] Discharge planning more than 35 minutes
[2016-11-14] MEDS ORDERED: ACETAMINOPHEN TAB 325 MG TAB PO STA (16:58)
--- NOTE | 2016-11-15 11:49 | PN ---
Patient is seen on dialysis. He is tolerating his treatment fairly well. Systolic blood pressure is about 89 to 90 mmHg. We have had about 1.2 L off. Patient denies any chest pains or shortness of breath. On examination, this morning blood pressure was 90/50, heart rate 80 per minute. He is afebrile. Examination of the heart, S1 and S2. Examination of the lungs, bilateral breath sounds are heard. Abdomen is soft, nontender, distended. Examination of the lower extremities shows edema 1+ bilaterally. Neuro exam is grossly intact. Patient is moving all 4 extremities. Labs show hemoglobin 10.5, sodium 143, potassium 5.2. Creatinine 7.1. ASSESSMENT: 1. End-stage renal disease on hemodialysis on a Sunday, , Sunday schedule. 2. Chronic kidney disease bone mineral disorder, maintained on PhosLo. 3. Severe cardiomyopathy with ejection fraction of about 10% being followed by Cardiology. 4. Status post cardiac arrest. 5. Hypotension, mainly associated with severe cardiomyopathy. Will start patient on midodrine as outpatient, if he remains hypotensive. PLAN: Patient is stable for discharge. Follow up as outpatient on dialysis. [facility] HOSPITALStephenie
--- NOTE | 2016-11-15 16:35 | PN ---
DATE OF SERVICE: 11/06/2016 This 65-year-old gentleman admitted with cardiorespiratory arrest, also had possible acute myocardial infarction. The patient has been closely monitored at this time. The patient has been closely monitored. PAST MEDICAL HISTORY: Reviewed. PHYSICAL EXAM: The patient is alert and oriented x3. The pulse is 80, blood pressure 90/52, respirations 16, temperature 96.5, pulse ox 905 on room air. HEENT: Conjunctivae normal. NECK: No jugular venous distention. CARDIOVASCULAR: S1, S2. RESPIRATORY: Breath sounds diminished on the bases. A few scattered rhonchi, no crackles. ABDOMEN: Soft, nontender. LEGS: No edema. NERVOUS SYSTEM: No focal deficits. LABS: WBC 9.3, hemoglobin 10.2. ASSESSMENT: 1. Cardiopulmonary arrest, possibly coronary artery disease, acute non-ST elevation myocardial infarction, status post acute hypoxic respiratory failure on mechanical ventilation. 2. Cardiogenic shock. 3. Chronic renal failure stage IV. 4. Hyponatremia. 5. Hypokalemia. 6. Multiple medical issues. RECOMMENDATIONS AND DISCUSSION: I recommend to continue the current medications , continue monitoring and continue symptomatic treatment. Otherwise closely monitor. Guarded prognosis. Further recommendations to follow. Closely follow with cardiology and pulmonology. LAURENT
--- NOTE | 2016-11-15 16:36 | PN ---
DATE OF SERVICE: 11/04/2016 This 65-year-old gentleman, admitted with cardiac arrest, also had cardiac catheterization. Patient had features of acute yny-UB-ocujfxi-elevation myocardial infarction. The patient had an ejection fraction of 20%. Patient was mechanically ventilated. Patient has been extubated and is being closely monitored. He was on aortic balloon pump. Pump ( ) also. Past medical history reviewed. Review of systems could not be taken; the patient is drowsy at this time. Current medications are reviewed. PHYSICAL EXAM: Pulse is 82. Blood pressure is 106/61, respiration 24, temperature 97.3, pulse ox 97% on room air. HEENT: Conjunctivae normal. NECK: No jugular venous distention. CARDIOVASCULAR: S1, S2 muffled. RESPIRATORY: Breath sounds diminished at the bases. Scattered rhonchi and crackles. ABDOMEN: Soft. Non-tender. No mass palpable. LEGS: No edema. No swelling. NERVOUS SYSTEM: Higher functions as mentioned earlier. Moves all 4 limbs. No focal deficit. LYMPHATICS: No lymph node palpable in neck, axillae or groin. SKIN: No ulcer, rash, bleeding. Labs at this time show WBC 6.8, hemoglobin 9.1; sodium 136. ASSESSMENT: 1. Acute cardiopulmonary arrest with possible coronary artery disease and acute wjw-FI-sfrciip-elevation myocardial infarction, status post acute hypoxic respiratory failure on mechanical ventilation. 2. ( ) secondary to cardiomyopathy; ejection fraction 20% with chronic systolic dysfunction. 3. Chronic renal failure, stage V, on hemodialysis. 4. Hyponatremia. 5. Hyperkalemia. 6. Multiple complex medical issues. RECOMMENDATIONS AND DISCUSSION: I recommend to continue current medications, continue symptomatic treatment, continue with beta blockers, bronchodilators. Continue the rest of the medications. Monitor closely. Hemodialysis. Prognosis guarded because of the multiple complex medical issues. Further recommendations to follow. MTDD
--- NOTE | 2016-11-15 17:16 | PN ---
DATE OF SERVICE: 11/05/2016 This 65 year old gentleman who was admitted with cardiorespiratory arrest as well as cardiogenic shock is being closely monitored in the ICU. Past medical history reviewed. REVIEW OF SYSTEMS: CARDIOVASCULAR: As mentioned earlier. RESPIRATORY: As mentioned earlier. GI: No nausea or vomiting. : No dysuria. Nervous system: No numbness or weakness. Current medications reviewed. Physical exam: Pulse 82. Blood pressure 92/54. Respiratory rate 20. Temperature 97.8, pulse ox 97% on room air. HEENT: Conjunctivae normal. Oral mucosa moist. NECK: No jugular venous distention. No carotid bruit. No lymph node enlargement. No thyroid enlargement. CARDIOVASCULAR: S1, S2 muffled. No S3, no S4. RESPIRATORY: Breath sounds diminished at the bases. Bilateral scattered rhonchi and crackles. Expiratory wheezing also present. ABDOMEN: Soft, nontender. LEGS: No edema. No edema. No swelling. NERVOUS SYSTEM: Diffusely weak. Labs: At this time shows WBC 8.8, hemoglobin 10.1. Sodium 135. Creatinine 4.64. ASSESSMENT: 1. Cardiopulmonary arrest as well as status post coronary artery disease, possible acute non-ST elevation myocardial, status post acute hypoxic respiratory failure on mechanical ventilation. 2. Cardiogenic shock, possibly secondary to cardiomyopathy, ejection fraction 20%. 3. Chronic systolic dysfunction, congestive heart failure with intraaortic balloon pump. 4. Chronic renal failure, Stage IV, on hemodialysis. 5. Hyponatremia. 6. Hyperkalemia. 7. Multiple complex medical issues. 8. Renal failure. RECOMMENDATIONS AND DISCUSSION: We will continue the current medications. Continue symptomatic treatment. The patient has undergone hemodialysis. The patient extubated. Closely follow with pulmonary as well as cardiology. Guarded prognosis because of multiple complex medical issues. Further recommendations to follow. MTDD
--- NOTE | 2016-11-15 17:42 | PN ---
DATE OF SERVICE: 11/03/2016 This 65-year-old gentleman who was admitted with acute cardiorespiratory arrest is on mechanical ventilation. Patient had aortic ( ) also. Patient is on pressor support. Patient also had renal failure and is on dialysis. Past medical history reviewed. Review of systems could not be taken. Medications are reviewed. PHYSICAL EXAMINATION: Pulse is 87, blood pressure 96/43, respiration 22, temperature 97.7, pulse ox 99% on 2 L. HEENT: Conjunctivae normal. Oral mucosa moist. NECK: No jugular venous distention. No carotid bruit. No lymph node enlargement. CARDIOVASCULAR: S1, S2 muffled. RESPIRATORY: Breath sounds diminished at the bases. Bilateral scattered rhonchi and crackles. ABDOMEN: Soft, non-tender. No mass palpable. LEGS: No edema. No swelling. NERVOUS SYSTEM: Higher functions as mentioned earlier. Moves all 4 limbs. No focal deficit. LYMPHATICS: No lymph node palpable in neck, axillae or groin. SKIN: No ulcer, rash, bleeding. LABS AT THIS TIME: WBC 9.3, hemoglobin 9.1. Creatinine is 5.47. ASSESSMENT: 1. Acute cardiopulmonary arrest secondary to acute ity-DS-kygxceb-elevation myocardial infarction, status post cardiac catheterization with acute hypoxic respiratory failure, status post mechanical ventilation. 2. ( ), possible acute cardiomyopathy, ejection fraction 20%, with chronic systolic dysfunction. 3. Status post intra-aortic balloon pump. 4. Chronic renal failure, stage V. 5. Hyponatremia. 6. Hyperkalemia. 7. Multiple medical problems. RECOMMENDATIONS AND DISCUSSION: I recommend to continue current medications, continue symptomatic treatment. The patient is extubated at this time. Prognosis guarded because of multiple complex medical problems. Further recommendations to follow. See orders for further details. Closely follow with Pulmonary and Nephrology as well as Cardiology. LAURENT
--- NOTE | 2016-11-20 11:27 | DS ---
ADDENDUM DATE OF ADMISSION: 11/01/2016 DATE OF DISCHARGE: 11/14/2016 FINAL DIAGNOSES: 1. Persistent intermittent asthma with acute exacerbation. 2. Systemic inflammatory response syndrome, present on admission. LAURENT
--- NOTE | 2016-11-20 20:29 | P.PN ---
Subjective Principal diagnosis: Possible aspiration pneumonitis The patient is afebrile he has been breathing comfortably, patient denies significant chest pain , shortness of breath mild cough but no sputum , no choking on food and the patient denies any nausea vomiting no abdominal pain and no diarrhea Objective - Vital Signs Vital signs: Vital Signs Temp 96.3 F L 11/09/16 08:00 Pulse 64 11/09/16 08:00 Resp 16 11/09/16 08:00 BP 94/67 11/09/16 08:00 Pulse Ox 98 11/09/16 08:00 Intake & Output 11/08/16 11/09/16 11/09/16 18:59 06:59 18:59 Intake Total 340 20 118 Output Total 1 Balance 340 19 118 Weight 52 kg Intake: IV 20 0.9% NS FLUSH 20 Oral 340 118 Output: Stool 1 Other: Voiding Method Urinal Urinal Urinal # Voids 1 2 # Bowel Movements 1 1 ABP, PAP, CO, CI - Last Documented Arterial Blood Pressure 89/46 - Exam Elderly male lying in bed in no distress Respiratory system: Unlabored breathing clear to auscultation anteriorly Heart: S1,S2 regular Abdomen: soft, no tenderness - Labs CBC & Chem 7: 11/14/16 05:50 11/14/16 05:50 Labs: Abnormal Lab Results - Last 24 Hours (Table) 11/09/16 11/09/16 Range/Units 05:46 05:46 RBC 3.35 L (4.30-5.90) m/uL Hgb 10.4 L (13.0-17.5) gm/dL Hct 34.5 L (39.0-53.0) % MCV 103.0 H (80.0-100.0) fL MCHC 30.2 L (31.0-37.0) g/dL RDW 23.6 H (11.5-15.5) % Neutrophils # (Manual) 8.1 H (1.3-7.7) k/uL Monocytes # (Manual) 1.2 H (0-1.0) k/uL Nucleated RBCs 5 H (0-0) /100 WBC Potassium 5.3 H (3.5-5.1) mmol/L BUN 63 H (9-20) mg/dL Creatinine 5.70 H* (0.66-1.25) mg/dL Microbiology - Last 24 Hours (Table) 11/02/16 13:40 Blood Culture - Final Blood No Growth after 144 hours 11/02/16 13:08 Blood Culture - Final Blood No Growth after 144 hours Assessment and Plan (1) SIRS (systemic inflammatory response syndrome) Status: Acute Plan: 1- patient with low-grade fever and elevated white count in a patient who did have a cardiac arrest status post resuscitation and intubation with a question of possible aspiration pneumonitis ,pt blood and sputum cultures remains to be negative and pt on Augmentin that will be continued for a short course Time with Patient: Less than 30
--- NOTE | 2016-11-20 20:29 | P.PN ---
Subjective Principal diagnosis: Possible aspiration pneumonitis The patient is afebrile he has been breathing comfortably, patient denies significant chest pain , shortness of breath or any cough , no choking on food and the patient denies any nausea vomiting no abdominal pain and no diarrhea Objective - Vital Signs Vital signs: Vital Signs Temp 96.3 F L 11/09/16 08:00 Pulse 84 11/09/16 09:27 Resp 16 11/09/16 08:00 BP 94/67 11/09/16 08:00 Pulse Ox 97 11/09/16 09:15 Intake & Output 11/08/16 11/09/16 11/09/16 18:59 06:59 18:59 Intake Total 340 20 118 Output Total 1 Balance 340 19 118 Weight 52 kg Intake: IV 20 0.9% NS FLUSH 20 Oral 340 118 Output: Stool 1 Other: Voiding Method Urinal Urinal Urinal # Voids 1 2 # Bowel Movements 1 1 ABP, PAP, CO, CI - Last Documented Arterial Blood Pressure 89/46 - Exam Elderly male lying in bed in no distress Respiratory system: Unlabored breathing clear to auscultation anteriorly Heart: S1,S2 regular Abdomen: soft, no tenderness - Labs CBC & Chem 7: 11/09/16 05:46 11/09/16 05:46 Labs: Abnormal Lab Results - Last 24 Hours (Table) 11/09/16 11/09/16 Range/Units 05:46 05:46 RBC 3.35 L (4.30-5.90) m/uL Hgb 10.4 L (13.0-17.5) gm/dL Hct 34.5 L (39.0-53.0) % MCV 103.0 H (80.0-100.0) fL MCHC 30.2 L (31.0-37.0) g/dL RDW 23.6 H (11.5-15.5) % Neutrophils # (Manual) 8.1 H (1.3-7.7) k/uL Monocytes # (Manual) 1.2 H (0-1.0) k/uL Nucleated RBCs 5 H (0-0) /100 WBC Potassium 5.3 H (3.5-5.1) mmol/L BUN 63 H (9-20) mg/dL Creatinine 5.70 H* (0.66-1.25) mg/dL Microbiology - Last 24 Hours (Table) 11/02/16 13:40 Blood Culture - Final Blood No Growth after 144 hours 11/02/16 13:08 Blood Culture - Final Blood No Growth after 144 hours Assessment and Plan (1) SIRS (systemic inflammatory response syndrome) Status: Acute Plan: 1- patient with low-grade fever and elevated white count in a patient who did have a cardiac arrest status post resuscitation and intubation with a question of possible aspiration pneumonitis ,pt blood and sputum cultures has been negative and currently on Augmentin that will be continued for a short course
--- NOTE | 2016-11-20 20:31 | P.PN ---
Subjective Principal diagnosis: Possible aspiration pneumonitis The patient is afebrile he has been breathing comfortably, patient chest pain has resolved, denies shortness of breath or any cough and the patient denies any nausea vomiting no abdominal pain and no diarrhea Objective - Vital Signs Vital signs: Vital Signs Temp 97.1 F L 11/13/16 04:00 Pulse 89 11/13/16 04:00 Resp 18 11/13/16 04:00 BP 107/66 11/13/16 04:00 Pulse Ox 99 11/13/16 04:00 Intake & Output 11/12/16 11/13/16 11/13/16 18:59 06:59 18:59 Intake Total 597 Output Total 2 151 Balance 595 -151 Weight 74 kg Intake: Oral 597 Output: Urine 0 150 Stool 2 Urine/Stool Mix 1 Other: Voiding Method Urinal Urinal # Voids 0 1 # Bowel Movements 1 ABP, PAP, CO, CI - Last Documented Arterial Blood Pressure 89/46 - Exam Elderly male lying in bed in no distress Respiratory system: Unlabored breathing clear to auscultation anteriorly Heart: S1,S2 regular Abdomen: soft, no tenderness - Labs CBC & Chem 7: 11/14/16 05:50 11/14/16 05:50 Assessment and Plan (1) SIRS (systemic inflammatory response syndrome) Status: Acute Plan: 1- patient with low-grade fever and elevated white count in a patient who did have a cardiac arrest status post resuscitation and intubation with a question of possible aspiration pneumonitis ,pt blood and sputum cultures has been negative for any resistant pathogen , pt will be continued on Augmentin for 5- 7 days Time with Patient: Less than 30
--- NOTE | 2016-11-20 20:32 | P.PN ---
Subjective Principal diagnosis: Possible aspiration pneumonitis The patient is afebrile he has been breathing comfortably, patient denies any chest pain shortness of breath or any cough and the patient denies any nausea vomiting no abdominal pain and no diarrhea Objective - Vital Signs Vital signs: Vital Signs Temp 96.6 F L 11/14/16 11:11 Pulse 80 11/14/16 15:20 Resp 18 11/14/16 15:20 BP 90/50 11/14/16 15:19 Pulse Ox 98 11/14/16 15:19 Intake & Output 11/13/16 11/14/16 11/14/16 18:59 06:59 18:59 Intake Total 720 120 430 Output Total 50 250 4 Balance 670 -130 426 Weight 74 kg 74 kg Intake: IV 10 0.9% NS FLUSH 10 Oral 720 120 420 Output: Urine 50 250 Stool 4 Other: Voiding Method Urinal Urinal Urinal # Voids 1 1 # Bowel Movements 1 ABP, PAP, CO, CI - Last Documented Arterial Blood Pressure 89/46 - Exam Elderly male lying in bed in no distress Respiratory system: Unlabored breathing clear to auscultation anteriorly Heart: S1,S2 regular Abdomen: soft, no tenderness - Labs CBC & Chem 7: 11/14/16 05:50 11/14/16 05:50 Labs: Abnormal Lab Results - Last 24 Hours (Table) 11/14/16 11/14/16 Range/Units 05:50 05:50 WBC 13.2 H (3.8-10.6) k/uL RBC 3.27 L (4.30-5.90) m/uL Hgb 10.5 L (13.0-17.5) gm/dL Hct 33.8 L (39.0-53.0) % MCV 103.3 H (80.0-100.0) fL RDW 23.9 H (11.5-15.5) % Neutrophils # 9.7 H (1.3-7.7) k/uL Monocytes # 1.5 H (0-1.0) k/uL Potassium 5.2 H (3.5-5.1) mmol/L BUN 94 H* (9-20) mg/dL Creatinine 7.13 H* (0.66-1.25) mg/dL Glucose 73 L (74-99) mg/dL Assessment and Plan (1) SIRS (systemic inflammatory response syndrome) Status: Acute Plan: 1- patient with low-grade fever and elevated white count in a patient who did have a cardiac arrest status post resuscitation and intubation with a question of possible aspiration pneumonitis ,pt blood and sputum cultures has been ususal respitory roel , pt will be continued on Augmentin for another 7 days Time with Patient: Less than 30
== END 2016-11-14 17:40 | DRG 270 ==
LOC: 6ICU 15:31 → 6SEL 11-05 15:16
PROVIDERS: ADMIT Hospitalist; ATTEND Hospitalist
PROC: 5A02210 Assistance with Cardiac Output using Balloon Pump, Continuous (ICD-10-PCS; 2016-11-01 16:09)
PROC: B2111ZZ Fluoroscopy of Multiple Coronary Arteries using Low Osmolar Contrast (ICD-10-PCS; 2016-11-01 16:09)
PROC: 5A12012 Performance of Cardiac Output, Single, Manual (ICD-10-PCS; 2016-11-01 16:09)
PROC: 5A1945Z Respiratory Ventilation, 24-96 Consecutive Hours (ICD-10-PCS; 2016-11-01 16:09)
PROC: 0BH18EZ Insertion of Endotracheal Airway into Trachea, Via Natural or Artificial Opening Endoscopic (ICD-10-PCS; 2016-11-01 16:09)
PROC: 5A1D60Z (ICD-10-PCS; principal; 2016-11-02)
DX: I21.4 Non-ST elevation (NSTEMI) myocardial infarction (principal); G93.41 Metabolic encephalopathy; J96.01 Acute respiratory failure with hypoxia; R57.0 Cardiogenic shock; I46.9 Cardiac arrest, cause unspecified; J69.0 Pneumonitis due to inhalation of food and vomit; E87.2 Acidosis; I42.9 Cardiomyopathy, unspecified; N18.6 End stage renal disease; I50.22 Chronic systolic (congestive) heart failure; I13.2 Hypertensive heart and chronic kidney disease with heart failure and with stage 5 chronic kidney disease, or end stage renal disease; E27.40 Unspecified adrenocortical insufficiency; E87.1 Hypo-osmolality and hyponatremia; J44.1 Chronic obstructive pulmonary disease with (acute) exacerbation; N25.81 Secondary hyperparathyroidism of renal origin; T86.12 Kidney transplant failure; J45.21 Mild intermittent asthma with (acute) exacerbation; R65.10 Systemic inflammatory response syndrome (SIRS) of non-infectious origin without acute organ dysfunction; D63.1 Anemia in chronic kidney disease; E83.39 Other disorders of phosphorus metabolism; E87.5 Hyperkalemia; F41.9 Anxiety disorder, unspecified; I25.10 Atherosclerotic heart disease of native coronary artery without angina pectoris; Z99.2 Dependence on renal dialysis; M10.9 Gout, unspecified; Y83.0 Surgical operation with transplant of whole organ as the cause of abnormal reaction of the patient, or of later complication, without mention of misadventure at the time of the procedure; Z79.52 Long term (current) use of systemic steroids; Z79.899 Other long term (current) drug therapy; Z82.49 Family history of ischemic heart disease and other diseases of the circulatory system; Z85.828 Personal history of other malignant neoplasm of skin; Z87.01 Personal history of pneumonia (recurrent); Z87.442 Personal history of urinary calculi; Z79.82 Long term (current) use of aspirin; E87.6 Hypokalemia
CPT/HCPCS: 31500; 33967; 36600; 36620; 71010; 71020; 72110; 74000; 76857; 80048; 80053; 81001; 82805; 83036; 83605; 83735; 84100; 84132; 85025; 85610; 85730; 87040; 87070; 87086; 87205; 90935; 92950; 93308; 93454; 93970; 94002; 94003; 94640; 94760

== ENCOUNTER 2016-11-14 22:20 | Inpatient (IN) | payer MEDICARE ==
[2016-11-14 23:23] LABS: Anisocytosis Moderate; Basophils % (A) 0 %; CH 30.8; CHCM 30.6; Eosinophils # (A) 0.1 k/uL (0-0.7); Eosinophils % (A) 1 %; HCT 28.3 % (39.0-53.0); HDW 4.14; Hypochromasia Marked; Luc # (Auto) 0.19; Luc % (Auto) 2; Lymphocytes # (A) 0.5 k/uL (1.0-4.8); Lymphocytes % (A) 5 %; MCHC 31.5 g/dL (31.0-37.0); MCV 101.6 fL (80.0-100.0); Macrocytosis Marked; Mean Platelet Volume 8.8; Monocytes # (A) 0.8 k/uL (0-1.0); Monocytes % (A) 8 %; Neutrophils % (A) 84 %; Poikilocytosis Moderate; RBC 2.79 m/uL (4.30-5.90); RDW 23.3 % (11.5-15.5); WBC 10.7 k/uL (3.8-10.6); WBC (Perox) 10.63
[2016-11-14 23:27] LABS: INR 1.2 (<1.1); Partial Thromboplastin Time 24.5 sec (22.0-30.0); Prothrombin Time 11.7 sec (9.0-12.0)
--- NOTE | 2016-11-14 23:27 | XR ---
EXAM: XR Chest, 2 Views CLINICAL HISTORY: Reason: Fever TECHNIQUE: Frontal and lateral views of the chest. COMPARISON: Frontal and lateral views of the chest dated 11/12/2016 FINDINGS: Lungs: Bilateral apical pleural parenchymal calcifications again seen. Bibasilar atelectasis and/or consolidation. Diffuse interstitial prominence again noted, unchanged. Pleural space: Moderate bilateral pleural effusions persist, suspected interval worsening on the left. No pneumothorax. Heart: Heart margins obscured by adjacent pleural parenchymal disease. Bones/joints: Degenerative changes seen.. Lymph nodes: Calcified right hilar and mediastinal lymph nodes are present. IMPRESSION: Moderate bilateral pleural effusions with adjacent atelectasis and/or consolidation, likely increasing on the left. CHF is again suspected as etiology.
[2016-11-14 23:28] LABS: Calcium 8.6 mg/dL (8.4-10.2); Potassium 4.5 mmol/L (3.5-5.1); Total Bilirubin 0.7 mg/dL (0.2-1.3)
[2016-11-14 23:31] LABS: Ammonia <9 umol/L (<30)
[2016-11-14 23:32] LABS: HGB 8.9 gm/dL (13.0-17.5)
[2016-11-14 23:49] LABS: Polychromasia Present; Troponin I 0.052 ng/mL (0.000-0.034)
[2016-11-14] MEDS: SODIUM CHLORIDE 0.9% 250 ML IV SCH (23:51)
[2016-11-14 23:53] LABS: Manual Review Performed
[2016-11-15] MEDS ORDERED: MIDODRINE 5 MG TAB PO STA (00:11)
[2016-11-15] MEDS ORDERED: NALOXONE 0.4 MG/ML 1 ML VIAL IV PRN (00:39)
[2016-11-15] MEDS ORDERED: ONDANSETRON 4 MG/2 ML VIAL IVP PRN (00:39)
[2016-11-15] MEDS: SODIUM CHLORIDE 0.9% 250 ML IV SCH ×13 (00:43→07:20)
[2016-11-15] MEDS ORDERED: ALBUTEROL NEBULIZED 2.5 MG/3 ML INHALATION PRN (00:44)
--- NOTE | 2016-11-15 00:58 | ED ---
General Adult HPI - General Chief complaint: Chest Pain Stated complaint: Chest Pain Time Seen by Provider: 11/14/16 22:40 Source: patient, EMS, RN notes reviewed, old records reviewed Mode of arrival: EMS Limitations: no limitations - History of Present Illness Initial comments: 65 male presented from the snf with chief complaint of chest pain. Patient was found by EMS to be hypotensive with a blood pressure of 60 systolic. Patient did receive hemodialysis today. He is unsure if he received full treatment. Patient described the chest pain is dull and currently resolved. He also reports some difficulty in breathing. Patient has significant past medical history including recent cardiac arrest, heart catheterization, and patient was in ICU. Patient was discharged earlier today in stable condition. Patient denies fever or chills. Denies nausea vomiting or diarrhea. - Related Data Home Medications Medication Instructions Recorded Confirmed Bumetanide [BUMEX] 1 mg PO DAILY 12/04/13 11/14/16 Montelukast Sodium [Singulair] 10 mg PO DAILY 12/04/13 11/14/16 Tamsulosin [Flomax] 0.4 mg PO DAILY 12/04/13 11/14/16 Tranylcypromine Sulfate [Parnate] 100 mg PO DAILY 12/04/13 11/14/16 Allopurinol [Zyloprim] 100 mg PO DAILY 01/26/14 11/14/16 Acetaminophen Tab [Tylenol] 650 mg PO Q6H PRN 03/27/16 11/14/16 Calcium Acetate [PhosLo] 667 mg PO AC-TID 03/27/16 11/14/16 Cholecalciferol [Vitamin D3] 1,000 unit PO DAILY 03/27/16 11/14/16 Cinacalcet [Sensipar] 30 mg PO DAILY 03/27/16 11/14/16 Lactulose 20 gm PO DAILY PRN 03/27/16 11/14/16 Magnesium Hydroxide [Milk of 2,400 mg PO DAILY PRN 03/27/16 11/14/16 Magnesia] Polyethylene Glycol 3350 [Miralax] 17 gm PO DAILY PRN 03/27/16 11/14/16 Sennosides [Senna] 8.6 mg PO DAILY 03/27/16 11/14/16 Albuterol Nebulized [Ventolin 2.5 mg INHALATION RT-QID PRN 11/01/16 11/14/16 Nebulized] Famotidine 20 mg PO DAILY 11/01/16 11/14/16 Midodrine [ProAmatine] 5 mg PO TUTHSA 11/01/16 11/14/16 Bisacodyl [Dulcolax] 10 mg RECTAL DAILY PRN 11/14/16 11/14/16 Na Phos,M-B/Na Phos,Di-Ba [Fleet 133 ml RECTAL ONCE PRN 11/14/16 11/14/16 Adult] Theophylline 24 Hour [Juan Manuel-24] 300 mg PO BID 11/14/16 11/14/16 chlordiazePOXIDE HCL 10 mg PO TID PRN 11/14/16 11/14/16 Previous Rx's Medication Instructions Recorded Aspirin 81 mg PO DAILY 11/14/16 Atorvastatin [Lipitor] 40 mg PO HS tab 11/14/16 Darbepoetin Michael [Aranesp] 40 mcg SQ Q7D syr 11/14/16 Sodium Bicarbonate Tab 650 mg PO BID tab 11/14/16 predniSONE 10 mg PO DAILY #5 tab 11/14/16 Allergies Allergy/AdvReac Type Severity Reaction Status Date / Time diphenhydramine HCl Allergy Rash/Hives Verified 11/14/16 22:29 [From Benadryl] meperidine HCl [From Demerol] Allergy Unknown Verified 11/14/16 22:29 vancomycin Allergy Itching Verified 11/14/16 22:29 Review of Systems ROS Statement: Those systems with pertinent positive or pertinent negative responses have been documented in the HPI. ROS Other: All systems not noted in ROS Statement are negative. Past Medical History Past Medical History: Asthma, Cancer, Chest Pain / Angina, Heart Failure, Dialysis, Eye Disorder, Pneumonia, Renal Disease Additional Past Medical History / Comment(s): Renal failure with hemodialysis on //Sun, kidney transplant that failed, nephrolithiasis, renal hematoma, chronic anemia, nonhealing L patellar fracture, skin cancer chest and legs with removals, gout yrs ago, night vision problems. Heart Murmur. Heart Cath and HF diagnosis at [place] 1 month ago. Sepsis. Kidney Stones. History of Any Multi-Drug Resistant Organisms: None Reported Past Surgical History: Heart Catheterization, Orthopedic Surgery Additional Past Surgical History / Comment(s): KIDNEY TRANSPLANT. fistula/ shunt. basal cell carcinoma removed from chest and legs. cyst removed from left ear. tendon removed from BL wrist and placed in BL thumb-metal coils still present. lasik eye surgery, colonoscopy with benign polypectomy, bilateral cataract removal. L breast Biopsy. Past Anesthesia/Blood Transfusion Reactions: No Reported Reaction Additional Past Anesthesia/Blood Transfusion Reaction / Comment(s): Pt has received blood in past without reaction. Past Psychological History: Depression Smoking Status: Never smoker Past Alcohol Use History: None Reported Past Drug Use History: None Reported - Past Family History Father Family Medical History: No Reported History Mother Family Medical History: No Reported History General Exam Limitations: no limitations General appearance: alert, in no apparent distress Head exam: Present: atraumatic, normocephalic Eye exam: Present: normal appearance, PERRL ENT exam: Present: mucous membranes moist Neck exam: Present: normal inspection, full ROM Respiratory exam: Present: rales, decreased breath sounds Cardiovascular Exam: Present: regular rate, normal rhythm GI/Abdominal exam: Present: soft. Absent: distended, tenderness Extremities exam: Present: pedal edema Neurological exam: Present: alert. Absent: motor sensory deficit Psychiatric exam: Present: normal affect, normal mood Skin exam: Present: warm, dry. Absent: cyanosis, diaphoretic Course Vital Signs 11/14/16 11/14/16 11/14/16 22:21 22:37 23:28 Temperature 96.4 F L Pulse Rate 72 73 72 Respiratory 20 20 18 Rate Blood Pressure 80/50 93/51 97/52 O2 Sat by Pulse 95 100 100 Oximetry 11/14/16 11/14/16 11/15/16 23:29 23:54 00:38 Temperature 96.8 F L Pulse Rate 70 68 74 Respiratory 18 18 Rate Blood Pressure 85/47 82/50 85/50 O2 Sat by Pulse 100 100 Oximetry - Reevaluation(s) Reevaluation #1: 11/15/16 00:51 While in the emergency department patient is resting comfortably, blood pressure fluctuates between mid 80s to mid 90s systolic. Patient is mentating normally with this blood pressure. EKG Findings - EKG Comments: EKG Findings:: EKG shows sinus rhythm with ventricular 75, CA interval is 120, QRS duration 84, QTC is 435, there is no ST segment elevation. Medical Decision Making - Medical Decision Making 65 yo male with history of end-stage renal disease and cardiomyopathy presenting with chest pain and hypotension. Patient's chest pain is resolved at the time of evaluation. He is complaining of some dyspnea. Patient's blood pressure currently EMS was in the 60s systolic. Patient does appear fluid overloaded on examination and fluid bolus is given and 250 mL twice. Patient is given a dose of his MidODRINE. Blood pressure from previous admission was reviewed and the patient does tend to run low. Significant fluid bolus will be held at this time secondary to fluid overload. Chest x-ray shows bilateral pleural effusions and pulmonary vascular congestion. Laboratory studies reveal hemoglobin 8.9, potassium is normal, CK- MB and troponin are elevated, although in the setting of end-stage renal disease these enzymes will need to be trended. Patient will be admitted for further blood pressure monitoring, evaluation chest pain, cardiology consult as well as nephrology consult. - Lab Data Result diagrams: 11/14/16 22:38 11/14/16 22:38 Lab Results 11/14/16 11/14/16 11/14/16 Range/Units 22:38 22:38 22:38 WBC 10.7 H (3.8-10.6) k/uL RBC 2.79 L (4.30-5.90) m/uL Hgb 8.9 L D (13.0-17.5) gm/dL Hct 28.3 L (39.0-53.0) % MCV 101.6 H (80.0-100.0) fL MCH 32.0 (25.0-35.0) pg MCHC 31.5 (31.0-37.0) g/dL RDW 23.3 H (11.5-15.5) % Plt Count 153 (150-450) k/uL Neutrophils % 84 % Lymphocytes % 5 % Monocytes % 8 % Eosinophils % 1 % Basophils % 0 % Neutrophils # 9.0 H (1.3-7.7) k/uL Lymphocytes # 0.5 L (1.0-4.8) k/uL Monocytes # 0.8 (0-1.0) k/uL Eosinophils # 0.1 (0-0.7) k/uL Basophils # 0.0 (0-0.2) k/uL Manual Slide Review Performed Polychromasia Present Hypochromasia Marked Poikilocytosis Moderate Anisocytosis Moderate Macrocytosis Marked PT (9.0-12.0) sec INR (<1.1) APTT (22.0-30.0) sec Sodium 139 (137-145) mmol/L Potassium 4.5 (3.5-5.1) mmol/L Chloride 101 (98-107) mmol/L Carbon Dioxide 25 (22-30) mmol/L Anion Gap 13 mmol/L BUN 61 H (9-20) mg/dL Creatinine 4.80 H (0.66-1.25) mg/dL Est GFR (MDRD) Af Amer 15 (>60 ml/min/1.73 sqM) Est GFR (MDRD) Non-Af 12 (>60 ml/min/1.73 sqM) Glucose 95 (74-99) mg/dL Plasma Lactic Acid Bulmaro (0.7-2.0) mmol/L Calcium 8.6 (8.4-10.2) mg/dL Total Bilirubin 0.7 (0.2-1.3) mg/dL AST 46 (17-59) U/L ALT 77 H (21-72) U/L Alkaline Phosphatase 170 H (38-126) U/L Ammonia (<30) umol/L Total Creatine Kinase 24 L (55-170) U/L CK-MB (CK-2) 3.0 H* (0.0-2.4) ng/mL CK-MB (CK-2) Rel Index 12.5 Troponin I 0.052 H* (0.000-0.034) ng/mL Total Protein 5.0 L (6.3-8.2) g/dL Albumin 2.6 L (3.5-5.0) g/dL 11/14/16 11/14/16 Range/Units 22:38 22:38 WBC (3.8-10.6) k/uL RBC (4.30-5.90) m/uL Hgb (13.0-17.5) gm/dL Hct (39.0-53.0) % MCV (80.0-100.0) fL MCH (25.0-35.0) pg MCHC (31.0-37.0) g/dL RDW (11.5-15.5) % Plt Count (150-450) k/uL Neutrophils % % Lymphocytes % % Monocytes % % Eosinophils % % Basophils % % Neutrophils # (1.3-7.7) k/uL Lymphocytes # (1.0-4.8) k/uL Monocytes # (0-1.0) k/uL Eosinophils # (0-0.7) k/uL Basophils # (0-0.2) k/uL Manual Slide Review Polychromasia Hypochromasia Poikilocytosis Anisocytosis Macrocytosis PT 11.7 (9.0-12.0) sec INR 1.2 (<1.1) APTT 24.5 (22.0-30.0) sec Sodium (137-145) mmol/L Potassium (3.5-5.1) mmol/L Chloride (98-107) mmol/L Carbon Dioxide (22-30) mmol/L Anion Gap mmol/L BUN (9-20) mg/dL Creatinine (0.66-1.25) mg/dL Est GFR (MDRD) Af Amer (>60 ml/min/1.73 sqM) Est GFR (MDRD) Non-Af (>60 ml/min/1.73 sqM) Glucose (74-99) mg/dL Plasma Lactic Acid Bulmaro 1.2 (0.7-2.0) mmol/L Calcium (8.4-10.2) mg/dL Total Bilirubin (0.2-1.3) mg/dL AST (17-59) U/L ALT (21-72) U/L Alkaline Phosphatase (38-126) U/L Ammonia <9 (<30) umol/L Total Creatine Kinase (55-170) U/L CK-MB (CK-2) (0.0-2.4) ng/mL CK-MB (CK-2) Rel Index Troponin I (0.000-0.034) ng/mL Total Protein (6.3-8.2) g/dL Albumin (3.5-5.0) g/dL Disposition Clinical Impression: Chronic renal failure syndrome, Hypotension Disposition: ADMITTED IP TO THIS [facility] Condition: Stable Referrals: Devin Lopez DO [Primary Care Provider] - 1-2 days Decision to Admit Reason: Admit from EC Decision Date: 11/15/16 Decision Time: 00:57
[2016-11-15 03:00] VITALS: BMI 21.7
[2016-11-15 05:45] LABS: Creatine Kinase MB 3.1 ng/mL (0.0-2.4); Troponin I 0.052 ng/mL (0.000-0.034)
--- NOTE | 2016-11-15 08:19 | P.CRDCN ---
History of Present Illness Consult date: 11/15/16 Requesting physician: Michael Davis Reason for Consult (text): This is a 65-year-old gentleman with known history of recent cardiac arrest, non-STEMI complicated by cardiogenic shock, status post balloon pump, who underwent cardiac catheterization in October, he was found at that time to have mild nonobstructive coronary artery disease. Patient also has history of end-stage renal disease on dialysis. Echocardiogram with Doppler study performed last month revealed an ejection fraction of less than 20%. Patient was just recently discharged from the hospital yesterday to extended care facility. He was again readmitted to the hospital on this admission because of hypotension, and complaints of mild chest discomfort. Upon review of patient's vital signs even on this recent admission, he is noted to have a systolic around 90 at times down into the 80s. When the patient is dialyzed his blood pressure does go down into the 70s and 80s. Apparently the patient had just received dialysis prior to the episode of hypotension for which he was admitted. At pressure this morning 95/50 with a heart rate in the 70s. EKG shows a normal sinus rhythm with nonspecific ST-T wave changes. Chest x-ray reveals moderate bilateral pleural effusions with adjacent atelectasis and/or consolidation, likely increasing on the left. Suspicion also of congestive cardiac failure. WBC 10.7, hemoglobin 8.9, platelet count 153, potassium 4.5, AST 46, ALT 77, alk phos 170, troponin 0.0522. Patient's abnormal troponins appear to be secondary to abnormal renal function, patient always has troponins in the normal range. BUN 61, creatinine 4.8. He did undergo dialysis yesterday. At the time of my examination this morning, patient is quite sleepy , denies any chest pain at present, fairly good appetite. A sitter is at the bedside because of episodes of anxiety and confusion. Past Medical History Past Medical History: Asthma, Cancer, Chest Pain / Angina, Heart Failure, Dialysis, Eye Disorder, Pneumonia, Renal Disease Additional Past Medical History / Comment(s): Renal failure with hemodialysis on //Sun, kidney transplant that failed, nephrolithiasis, renal hematoma, chronic anemia, nonhealing L patellar fracture, skin cancer chest and legs with removals, gout yrs ago, night vision problems. Heart Murmur. Heart Cath and HF diagnosis at [facility] 1 month ago. Sepsis. Kidney Stones. History of Any Multi-Drug Resistant Organisms: None Reported Past Surgical History: Heart Catheterization, Orthopedic Surgery Additional Past Surgical History / Comment(s): KIDNEY TRANSPLANT. fistula/ shunt. basal cell carcinoma removed from chest and legs. cyst removed from left ear. tendon removed from BL wrist and placed in BL thumb-metal coils still present. lasik eye surgery, colonoscopy with benign polypectomy, bilateral cataract removal. L breast Biopsy. Past Anesthesia/Blood Transfusion Reactions: No Reported Reaction Additional Past Anesthesia/Blood Transfusion Reaction / Comment(s): Pt has received blood in past without reaction. Past Psychological History: Depression Additional Psychological History / Comment(s): Pt states he is staying at [facility] for rehab and was to be discharged today, now at discharge he states he will have to go back to [facility] to complete his discharge. Smoking Status: Never smoker Past Alcohol Use History: None Reported Past Drug Use History: None Reported - Past Family History Father Family Medical History: No Reported History Mother Family Medical History: No Reported History Medications and Allergies Home Medications Medication Instructions Recorded Confirmed Type Bumetanide [BUMEX] 1 mg PO DAILY 12/04/13 11/14/16 History Montelukast Sodium [Singulair] 10 mg PO DAILY 12/04/13 11/14/16 History Tamsulosin [Flomax] 0.4 mg PO DAILY 12/04/13 11/14/16 History Tranylcypromine Sulfate [Parnate] 100 mg PO DAILY 12/04/13 11/14/16 History Allopurinol [Zyloprim] 100 mg PO DAILY 01/26/14 11/14/16 History Acetaminophen Tab [Tylenol] 650 mg PO Q6H PRN 03/27/16 11/14/16 History Calcium Acetate [PhosLo] 667 mg PO AC-TID 03/27/16 11/14/16 History Cholecalciferol [Vitamin D3] 1,000 unit PO DAILY 03/27/16 11/14/16 History Cinacalcet [Sensipar] 30 mg PO DAILY 03/27/16 11/14/16 History Lactulose 20 gm PO DAILY PRN 03/27/16 11/14/16 History Magnesium Hydroxide [Milk of 2,400 mg PO DAILY PRN 03/27/16 11/14/16 History Magnesia] Polyethylene Glycol 3350 [Miralax] 17 gm PO DAILY PRN 03/27/16 11/14/16 History Sennosides [Senna] 8.6 mg PO DAILY 03/27/16 11/14/16 History Albuterol Nebulized [Ventolin 2.5 mg INHALATION RT-QID PRN 11/01/16 11/14/16 History Nebulized] Famotidine 20 mg PO DAILY 11/01/16 11/14/16 History Midodrine [ProAmatine] 5 mg PO TUTHSA 11/01/16 11/14/16 History Bisacodyl [Dulcolax] 10 mg RECTAL DAILY PRN 11/14/16 11/14/16 History Na Phos,M-B/Na Phos,Di-Ba [Fleet 133 ml RECTAL ONCE PRN 11/14/16 11/14/16 History Adult] Theophylline 24 Hour [Juan Manuel-24] 300 mg PO BID 11/14/16 11/14/16 History chlordiazePOXIDE HCL 10 mg PO TID PRN 11/14/16 11/14/16 History Allergies Allergy/AdvReac Type Severity Reaction Status Date / Time diphenhydramine HCl Allergy Rash/Hives Verified 11/14/16 22:29 [From Benadryl] meperidine HCl [From Demerol] Allergy Unknown Verified 11/14/16 22:29 vancomycin Allergy Itching Verified 11/14/16 22:29 Physical Exam Vitals: Vital Signs Temp Pulse Pulse Resp BP BP Pulse Ox 11/15/16 07:54 97.2 F L 73 20 95/55 95 11/15/16 07:30 71 20 11/15/16 04:00 96.9 F L 71 20 84/53 93 L 11/15/16 03:23 71 18 11/15/16 02:09 97.0 F L 71 18 86/50 94 L 11/15/16 01:33 80 18 87/54 99 11/15/16 01:09 74 18 86/52 100 11/15/16 00:44 114 H 20 82/54 99 11/15/16 00:38 74 18 85/50 100 11/14/16 23:54 96.8 F L 68 18 82/50 100 11/14/16 23:29 70 85/47 11/14/16 23:28 72 18 97/52 100 11/14/16 22:37 73 20 93/51 100 11/14/16 22:21 96.4 F L 72 20 80/50 95 Intake and Output 11/14/16 11/15/16 11/15/16 22:59 06:59 14:59 Intake Total 520 Balance 520 Intake: IV 520 .9 20 ec bolus 500 Other: Weight 74.843 kg 85 kg PHYSICAL EXAMINATION: HEENT: Head is atraumatic, normocephalic. Pupils equal, round. Neck is supple. There is no elevated jugular venous pressure. HEART EXAMINATION: Heart S1 and S2 short systolic murmur is heard. CHEST EXAMINATION: Lungs reveal scattered coarse rhonchi and wheezing throughout. ABDOMEN: Soft, nontender. Bowel sounds are heard. No organomegaly noted. EXTREMITIES: 2+ peripheral pulses with 1+ evidence of peripheral edema and no calf tenderness noted. NEUROLOGIC patient is awake, alert and oriented -2.] . Results 11/14/16 22:38 11/14/16 22:38 Cardiac Enzymes 11/14/16 11/14/16 11/15/16 Range/Units 22:38 22:38 04:30 AST 46 (17-59) U/L CK-MB (CK-2) 3.0 H* 3.1 H* (0.0-2.4) ng/mL Troponin I 0.052 H* 0.052 H* (0.000-0.034) ng/mL Coagulation 11/14/16 Range/Units 22:38 PT 11.7 (9.0-12.0) sec APTT 24.5 (22.0-30.0) sec CBC 11/14/16 Range/Units 22:38 WBC 10.7 H (3.8-10.6) k/uL RBC 2.79 L (4.30-5.90) m/uL Hgb 8.9 L D (13.0-17.5) gm/dL Hct 28.3 L (39.0-53.0) % Plt Count 153 (150-450) k/uL Comprehensive Metabolic Panel 11/14/16 Range/Units 22:38 Sodium 139 (137-145) mmol/L Potassium 4.5 (3.5-5.1) mmol/L Chloride 101 (98-107) mmol/L Carbon Dioxide 25 (22-30) mmol/L BUN 61 H (9-20) mg/dL Creatinine 4.80 H (0.66-1.25) mg/dL Glucose 95 (74-99) mg/dL Calcium 8.6 (8.4-10.2) mg/dL AST 46 (17-59) U/L ALT 77 H (21-72) U/L Alkaline Phosphatase 170 H (38-126) U/L Total Protein 5.0 L (6.3-8.2) g/dL Albumin 2.6 L (3.5-5.0) g/dL Current Medications Generic Name Dose Route Start Last Admin Trade Name Freq PRN Reason Stop Dose Admin Albuterol Sulfate 2.5 mg 11/15/16 00:44 Ventolin Nebulized INHALATION RT-QID PRN Shortness Of Breath Aspirin 81 mg 11/15/16 09:00 11/15/16 07:59 Aspirin PO 81 mg DAILY BRANDT Administration Atorvastatin Calcium 40 mg 11/15/16 21:00 Lipitor PO HS BRANDT Cinacalcet 30 mg 11/15/16 09:00 11/15/16 07:58 Sensipar PO 30 mg DAILY BRANDT Administration Midodrine 5 mg 11/16/16 09:00 Proamatine PO TUTHSA BRANDT Naloxone HCl 0.2 mg 11/15/16 00:39 Narcan IV Q2M PRN Opioid Reversal Ondansetron HCl 4 mg 11/15/16 00:39 Zofran IVP Q8HR PRN Nausea And Vomiting Pantoprazole Sodium 40 mg 11/15/16 09:00 11/15/16 07:58 Protonix IV 40 mg DAILY BRANDT Administration Sodium Bicarbonate 650 mg 11/15/16 09:00 11/15/16 07:58 Sodium Bicarbonate Tab PO 650 mg BID BRANDT Administration Theophylline 300 mg 11/15/16 09:00 11/15/16 07:58 Juan Manuel-24 PO 300 mg BID BRANDT Administration Intake and Output 11/14/16 11/15/16 11/15/16 22:59 06:59 14:59 Intake Total 520 Balance 520 Intake: IV 520 .9 20 ec bolus 500 Other: Weight 74.843 kg 85 kg 11/14/16 22:38 11/14/16 22:38 EKG Interpretations (text) EKG shows normal sinus rhythm with nonspecific ST-T wave changes Assessment and Plan Plan: Assessment and plan #1 hypotension, most pronounced during dialysis. Patient has known hypotension with a blood pressure which normally runs around 90 systolic. #2 atypical chest pain, troponins 0.052, 0.052, likely secondary to abnormal renal function. EKG does not show any acute changes, normal sinus rhythm. Patient did undergo cardiac catheterization during this recent admission at which time he presented with cardiac arrest, he was found to have nonobstructive coronary artery disease #3 nonischemic cardiomyopathy #4 end-stage renal disease on hemodialysis #5 asthma Plan Patient did have an echocardiogram study performed last month which revealed an ejection fraction of less than 20%. His blood pressure this morning is 95/60. Chest x-ray suggests possible mild congestive cardiac failure as well as possible pneumonia. We will obtain a BNP level. Continue other medications. Further recommendations to follow. DNP note has been reviewed, I agree with a documented findings and plan of care. Patient was seen and examined.
[2016-11-15] MEDS ORDERED: ACETAMINOPHEN TAB 325 MG TAB PO PRN (08:35)
[2016-11-15] MEDS ORDERED: BISACODYL 10 MG SUPP RECTAL PRN (08:35)
[2016-11-15] MEDS ORDERED: MAGNESIUM HYDROXIDE 2,400 MG/10 ML CUP PO PRN (08:35)
[2016-11-15] MEDS ORDERED: ALLOPURINOL 100 MG TAB PO SCH (09:00)
[2016-11-15] MEDS ORDERED: CINACALCET 30 MG TAB PO SCH (09:00)
[2016-11-15] MEDS ORDERED: TAMSULOSIN 0.4 MG CAP.ER.24H PO SCH ×2 (09:00→20:00)
[2016-11-15] MEDS ORDERED: CHOLECALCIFEROL 1,000 UNIT TAB PO SCH (09:00)
[2016-11-15] MEDS ORDERED: PANTOPRAZOLE 40 MG/10 ML VIAL IV SCH (09:00)
[2016-11-15] MEDS ORDERED: ASPIRIN 81 MG CHEW PO SCH (09:00)
[2016-11-15] MEDS ORDERED: BUMETANIDE 1 MG TAB PO SCH (09:00)
[2016-11-15] MEDS ORDERED: SODIUM BICARBONATE TAB 650 MG TAB PO SCH (09:00)
[2016-11-15] MEDS ORDERED: ENOXAPARIN 40 MG/0.4 ML SYRINGE SQ SCH (09:00)
[2016-11-15] MEDS ORDERED: FAMOTIDINE 20 MG TAB PO SCH (09:00)
[2016-11-15] MEDS ORDERED: THEOPHYLLINE 24 HOUR 300 MG CAP.ER.24H PO SCH (09:00)
[2016-11-15] MEDS ORDERED: predniSONE 10 MG TAB PO SCH (09:00)
[2016-11-15] MEDS ORDERED: [UNRECOGNIZED DRUG - OTHER] PO SCH (09:00)
[2016-11-15] MEDS: CALCIUM ACETATE 667 MG CAP PO SCH ×2 (11:18→17:10)
[2016-11-15] MEDS: MIDODRINE 5 MG TAB PO SCH ×2 (11:18→17:11)
[2016-11-15 11:44] LABS: Creatine Kinase <20 U/L (55-170)
[2016-11-15 12:01] LABS: Troponin I 0.051 ng/mL (0.000-0.034)
--- NOTE | 2016-11-15 14:01 | CONS ---
REASON FOR CONSULT: End-stage renal disease. HISTORY OF PRESENT ILLNESS: The patient is a 65-year-old male who was just discharged yesterday from the hospital after admission which included a cardiac arrest and vent-dependent respiratory failure. Patient was extubated. He was doing much better and was discharged after dialysis yesterday. His blood pressure had been about 90 mmHg systolic. There was one reading of 84 mmHg systolic during his treatment but patient felt fine and review of his vital signs shows that his blood pressure had been running in the high 80s to 90s during his last admission. He apparently went to half-way and was sent back because of chest pain. His pressure was low when he came in. He had been about 86/50 and there was one reading of 77/49. Patient's chest pain has resolved. His enzymes are not high. He is maintained on midodrine. There is no fever or chills, no abdominal pain. PAST MEDICAL HISTORY: End-stage renal disease on recent admission with development of cardiac arrest, severe cardiomyopathy, EF of 10%, CKD bone mineral disorder, history of skin cancer, history of kidney transplant, chronic hypotension, anemia or chronic disease. PAST SURGICAL HISTORY: Surgery for kidney transplant, AV fistula, surgery for removal of basal cell cancer from the legs and from the chest, tendon surgery, cataract surgery, colonoscopy, cholecystectomy, cardiac catheterization. SOCIAL HISTORY: Negative for smoking, drug abuse or alcohol abuse. History is positive for depression. Medications at home prior to admission included Bumex, Singulair, Flomax, Parnate, Zyloprim, Tylenol, PhosLo, vitamin D3, Sensipar, MiraLAX, Senna, midodrine, Pepcid, theophylline. Patient has been on Lipitor, Aranesp, sodium bicarb. Allergies include BENADRYL, VANCOMYCIN, DEMEROL. REVIEW OF SYSTEMS: As per HPI. Other systems negative. On examination, patient is comfortable, he is sitting up on a bedside commode. He is not in any acute distress. Blood pressure is 83/52, heart rate 67 per minute. Patient is afebrile. Examination of the heart S1, S2. Examination of the lungs, bilateral breath sounds are heard. Abdomen is soft, nontender. Examination of the lower extremities shows edema 2+ bilaterally. [employer] exam is grossly intact. Labs show sodium 139, potassium 4.5, hemoglobin 8.9 g/dL. CKMB was 3, troponin was 0.052. ASSESSMENT: 1. Endstage renal disease on hemodialysis on a Sunday, , Sunday schedule via AV fistula. Will plan for hemodialysis tomorrow. 2. Hypotension in a patient with severe cardiomyopathy and ejection fraction of 10%. Will continue to maintain patient on midodrine. I will increase it to t.i.d. 3. Anemia of chronic disease. 4. Status post cardiac arrest recently. 5. Status post vent-dependent respiratory failure. 6. Chronic kidney disease bone mineral disorder. Plan is hemodialysis in a.m. Increase midodrine. Continue to encourage increase oral intake and maintain physical therapy. Thank you for this consultation. Will continue to follow the patient during his hospitalization. LAURENT
--- NOTE | 2016-11-15 15:17 | P.HPIM ---
History of Present Illness H&P Date: 11/15/16 Chief Complaint: Low blood pressure This is a pleasant 65-year-old patient who was discharged yesterday to the [facility], and return having followed her blood pressure was running low. Patient was in the hospital recently having been admitted following following an acute OK, cardiac catheterization was unremarkable, patient was in the ICU and required balloon pump support. Patient was rather delirious and then came around rather nicely following that. Because patient is weak and tired required inpatient rehab. Patient is on hemodialysis. Patient had been tolerating his diet. Patient denies any chest pain palpitation. Does feel tired. Note that patient' s blood pressure doesn't go low running low normally anywhere from the 90s to early teens Other chronic stable medical conditions include, asthma, end-stage kidney disease, having failed kidney transplant, mineral bone disease. Review of Systems GEN.: Tired EYES: None HEENT: None NECK: None RESPIRATORY: Some shortness of breath CARDIOVASCULAR: None GASTROINTESTINAL: None GENITOURINARY: None MUSCULOSKELETAL: Delayed generalized weakness LYMPHATICS: None HEMATOLOGICAL: None PSYCHIATRY: None NEUROLOGICAL: None Past Medical History Past Medical History: Asthma, Cancer, Chest Pain / Angina, Heart Failure, Dialysis, Eye Disorder, Pneumonia, Renal Disease Additional Past Medical History / Comment(s): Renal failure with hemodialysis on //Sun, kidney transplant that failed, nephrolithiasis, renal hematoma, chronic anemia, nonhealing L patellar fracture, skin cancer chest and legs with removals, gout yrs ago, night vision problems. Heart Murmur. Heart Cath and HF diagnosis at [facility] 1 month ago. Sepsis. Kidney Stones. History of Any Multi-Drug Resistant Organisms: None Reported Past Surgical History: Heart Catheterization, Orthopedic Surgery Additional Past Surgical History / Comment(s): KIDNEY TRANSPLANT. fistula/ shunt. basal cell carcinoma removed from chest and legs. cyst removed from left ear. tendon removed from BL wrist and placed in BL thumb-metal coils still present. lasik eye surgery, colonoscopy with benign polypectomy, bilateral cataract removal. L breast Biopsy. Past Anesthesia/Blood Transfusion Reactions: No Reported Reaction Additional Past Anesthesia/Blood Transfusion Reaction / Comment(s): Pt has received blood in past without reaction. Past Psychological History: Depression Additional Psychological History / Comment(s): Pt states he is staying at [facility] for rehab and was to be discharged today, now at discharge he states he will have to go back to [facility] to complete his discharge. Smoking Status: Never smoker Past Alcohol Use History: None Reported Past Drug Use History: None Reported - Past Family History Father Family Medical History: No Reported History Mother Family Medical History: No Reported History Additional Family Medical History / Comment(s): Reviewed, noncontributory to presentation Medications and Allergies Home Medications Medication Instructions Recorded Confirmed Type Bumetanide [BUMEX] 1 mg PO DAILY 12/04/13 11/14/16 History Montelukast Sodium [Singulair] 10 mg PO DAILY 12/04/13 11/14/16 History Tamsulosin [Flomax] 0.4 mg PO DAILY 12/04/13 11/14/16 History Tranylcypromine Sulfate [Parnate] 100 mg PO DAILY 12/04/13 11/14/16 History Allopurinol [Zyloprim] 100 mg PO DAILY 01/26/14 11/14/16 History Acetaminophen Tab [Tylenol] 650 mg PO Q6H PRN 03/27/16 11/14/16 History Calcium Acetate [PhosLo] 667 mg PO AC-TID 03/27/16 11/14/16 History Cholecalciferol [Vitamin D3] 1,000 unit PO DAILY 03/27/16 11/14/16 History Cinacalcet [Sensipar] 30 mg PO DAILY 03/27/16 11/14/16 History Lactulose 20 gm PO DAILY PRN 03/27/16 11/14/16 History Magnesium Hydroxide [Milk of 2,400 mg PO DAILY PRN 03/27/16 11/14/16 History Magnesia] Polyethylene Glycol 3350 [Miralax] 17 gm PO DAILY PRN 03/27/16 11/14/16 History Sennosides [Senna] 8.6 mg PO DAILY 03/27/16 11/14/16 History Albuterol Nebulized [Ventolin 2.5 mg INHALATION RT-QID PRN 11/01/16 11/14/16 History Nebulized] Famotidine 20 mg PO DAILY 11/01/16 11/14/16 History Midodrine [ProAmatine] 5 mg PO TUTHSA 11/01/16 11/14/16 History Bisacodyl [Dulcolax] 10 mg RECTAL DAILY PRN 11/14/16 11/14/16 History Na Phos,M-B/Na Phos,Di-Ba [Fleet 133 ml RECTAL ONCE PRN 11/14/16 11/14/16 History Adult] Theophylline 24 Hour [Juan Manuel-24] 300 mg PO BID 11/14/16 11/14/16 History chlordiazePOXIDE HCL 10 mg PO TID PRN 11/14/16 11/14/16 History Allergies Allergy/AdvReac Type Severity Reaction Status Date / Time diphenhydramine HCl Allergy Rash/Hives Verified 11/14/16 22:29 [From Benadryl] meperidine HCl [From Demerol] Allergy Unknown Verified 11/14/16 22:29 vancomycin Allergy Itching Verified 11/14/16 22:29 Physical Exam VITAL SIGNS: Upon presentation, 96.4, 72, 20, 80/50, 95% on 2 L GENERAL: Average built, sitting up, tired-appearing, sleepy. EYES: Pupils equal. Conjunctiva palel. HEENT: External appearance of nose and ears normal, oral cavity grossly normal. NECK: JVD not raised; masses not palpable. HEART: First and second heart sounds are normal; some edema. LUNGS: Respiratory rate normal; decreased breath sounds. ABDOMEN: Soft, nontender, liver spleen not palpable, no masses palpable. LYMPHATICS: No lymph nodes palpable in the axilla and neck. PSYCH: Alert and oriented x3; mood and affect somewhat lowl. NEUROLOGICAL: Cranial nerves grossly intact; no facial asymmetry, power and sensation grossly intact. 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 End-stage kidney disease -Protein calorie malnutrition, moderate along with reduced muscle mass, hypoalbuminemia
--- NOTE | 2016-11-15 15:33 | P.DS ---
Providers Date of admission: 11/15/16 00:39 Expected date of discharge: 11/15/16 Attending physician: Michael Davis Consults: 11/15/16 00:40 Consult Physician Urgent Consulting Provider: Jeovanny Boggs Consult Reason/Comments: Nonischemic cardiomyopathy Do you want consulting provider notified?: Yes, Notify in am 11/15/16 00:41 Consult Physician Urgent Consulting Provider: Meka Monk Consult Reason/Comments: End-stage renal disease Do you want consulting provider notified?: Yes Primary care physician: [facility] Course: This is a pleasant 65-year-old patient who was discharged yesterday to the [facility], and return having followed her blood pressure was running low. Patient was in the hospital recently having been admitted following following an acute PR, cardiac catheterization was unremarkable, patient was in the ICU and required balloon pump support. Patient was rather delirious and then came around rather nicely following that. Because patient is weak and tired required inpatient rehab. Patient is on hemodialysis. Patient had been tolerating his diet. Patient denies any chest pain palpitation. Does feel tired. Note that patient' s blood pressure doesn't go low running low normally anywhere from the 90s to early teens We will add scheduled midodrine, Move the Flomax to evening dose, and discontinue the Bumex. On examination: Lungs decreased breath sounds, some edema present, psych-tired appearing but answering questions appropriately. 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 End-stage kidney disease -Protein calorie malnutrition, moderate along with reduced muscle mass, hypoalbuminemia -Chronic congestive heart failure from systolic dysfunction EF 20%, from underlying nonobstructive coronary artery disease -Chronic bilateral pleural effusion from chronic congestive heart failure Patient Condition at Discharge: Stable Plan - Discharge Summary New Discharge Prescriptions: New Midodrine [ProAmatine] 5 mg PO AC-TID tab Continue Tranylcypromine Sulfate [Parnate] 100 mg PO DAILY Montelukast Sodium [Singulair] 10 mg PO DAILY Allopurinol [Zyloprim] 100 mg PO DAILY Calcium Acetate [PhosLo] 667 mg PO AC-TID Cinacalcet [Sensipar] 30 mg PO DAILY Magnesium Hydroxide [Milk of Magnesia] 2,400 mg PO DAILY PRN PRN Reason: Constipation Acetaminophen Tab [Tylenol] 650 mg PO Q6H PRN PRN Reason: Fever And/ Or Pain Lactulose 20 gm PO DAILY PRN PRN Reason: Constipation Sennosides [Senna] 8.6 mg PO DAILY Polyethylene Glycol 3350 [Miralax] 17 gm PO DAILY PRN PRN Reason: Constipation Cholecalciferol [Vitamin D3] 1,000 unit PO DAILY Albuterol Nebulized [Ventolin Nebulized] 2.5 mg INHALATION RT-QID PRN PRN Reason: Shortness Of Breath Famotidine 20 mg PO DAILY Aspirin 81 mg PO DAILY Atorvastatin [Lipitor] 40 mg PO HS tab Darbepoetin Michael [Aranesp] 40 mcg SQ Q7D syr predniSONE 10 mg PO DAILY #5 tab Sodium Bicarbonate Tab 650 mg PO BID tab Theophylline 24 Hour [Juan Manuel-24] 300 mg PO BID Na Phos,M-B/Na Phos,Di-Ba [Fleet Adult] 133 ml RECTAL ONCE PRN PRN Reason: Constipation Bisacodyl [Dulcolax] 10 mg RECTAL DAILY PRN PRN Reason: Constipation chlordiazePOXIDE HCL 10 mg PO TID PRN PRN Reason: Anxiety Changed Tamsulosin [Flomax] 0.4 mg PO HS #0 Discontinued Bumetanide [BUMEX] 1 mg PO DAILY Midodrine [ProAmatine] 5 mg PO TUTHSA Discharge Medication List Montelukast Sodium [Singulair] 10 mg PO DAILY 12/04/13 [History] Tranylcypromine Sulfate [Parnate] 100 mg PO DAILY 12/04/13 [History] Allopurinol [Zyloprim] 100 mg PO DAILY 01/26/14 [History] Acetaminophen Tab [Tylenol] 650 mg PO Q6H PRN 03/27/16 [History] Calcium Acetate [PhosLo] 667 mg PO AC-TID 03/27/16 [History] Cholecalciferol [Vitamin D3] 1,000 unit PO DAILY 03/27/16 [History] Cinacalcet [Sensipar] 30 mg PO DAILY 03/27/16 [History] Lactulose 20 gm PO DAILY PRN 03/27/16 [History] Magnesium Hydroxide [Milk of Magnesia] 2,400 mg PO DAILY PRN 03/27/16 [History] Polyethylene Glycol 3350 [Miralax] 17 gm PO DAILY PRN 03/27/16 [History] Sennosides [Senna] 8.6 mg PO DAILY 03/27/16 [History] Albuterol Nebulized [Ventolin Nebulized] 2.5 mg INHALATION RT-QID PRN 11/01/16 [ History] Famotidine 20 mg PO DAILY 11/01/16 [History] Aspirin 81 mg PO DAILY 11/14/16 [Rx] Atorvastatin [Lipitor] 40 mg PO HS tab 11/14/16 [Rx] Bisacodyl [Dulcolax] 10 mg RECTAL DAILY PRN 11/14/16 [History] Darbepoetin Michael [Aranesp] 40 mcg SQ Q7D syr 11/14/16 [Rx] Na Phos,M-B/Na Phos,Di-Ba [Fleet Adult] 133 ml RECTAL ONCE PRN 11/14/16 [History ] Sodium Bicarbonate Tab 650 mg PO BID tab 11/14/16 [Rx] Theophylline 24 Hour [Juan Manuel-24] 300 mg PO BID 11/14/16 [History] chlordiazePOXIDE HCL 10 mg PO TID PRN 11/14/16 [History] predniSONE 10 mg PO DAILY #5 tab 11/14/16 [Rx] Midodrine [ProAmatine] 5 mg PO AC-TID tab 11/15/16 [Rx] Tamsulosin [Flomax] 0.4 mg PO HS #0 11/15/16 [Rx] Follow up Appointment(s)/Referral(s): Halle Perea, [NON-STAFF] - As Needed Devin Lopez DO [Primary Care Provider] - 11/16/16
[2016-11-15 15:53] VITALS: BP 90/54; PULSE 88; RESP 16; TEMP 96.8
[2016-11-15] MEDS ORDERED: MONTELUKAST 10 MG TAB PO SCH (21:00)
[2016-11-15] MEDS ORDERED: ATORVASTATIN 40 MG TAB PO SCH (21:00)
[2016-11-16] MEDS ORDERED: MIDODRINE 5 MG TAB PO SCH (09:00)
[2016-11-21] MEDS ORDERED: DARBEPOETIN ALFA 40 MCG/0.4 ML SYRINGE SQ SCH (09:00)
== END 2016-11-15 17:38 | DRG 314 ==
LOC: EC 22:20 → 6SEL 11-15 00:39
PROVIDERS: ADMIT Hospitalist; ATTEND Hospitalist
DX: I95.9 Hypotension, unspecified (principal); N18.6 End stage renal disease; I13.2 Hypertensive heart and chronic kidney disease with heart failure and with stage 5 chronic kidney disease, or end stage renal disease; T86.12 Kidney transplant failure; E44.0 Moderate protein-calorie malnutrition; I42.9 Cardiomyopathy, unspecified; I50.22 Chronic systolic (congestive) heart failure; E83.9 Disorder of mineral metabolism, unspecified; D63.8 Anemia in other chronic diseases classified elsewhere; F32.9 Major depressive disorder, single episode, unspecified; F41.9 Anxiety disorder, unspecified; I25.10 Atherosclerotic heart disease of native coronary artery without angina pectoris; I25.2 Old myocardial infarction; J45.20 Mild intermittent asthma, uncomplicated; M10.9 Gout, unspecified; R01.1 Cardiac murmur, unspecified; R26.9 Unspecified abnormalities of gait and mobility; R07.89 Other chest pain; R41.0 Disorientation, unspecified; Z86.74 Personal history of sudden cardiac arrest; Z79.82 Long term (current) use of aspirin; Z79.899 Other long term (current) drug therapy; Z79.52 Long term (current) use of systemic steroids; Z85.828 Personal history of other malignant neoplasm of skin; Z99.2 Dependence on renal dialysis; Z88.5 Allergy status to narcotic agent; Z88.1 Allergy status to other antibiotic agents; Z88.8 Allergy status to other drugs, medicaments and biological substances
CPT/HCPCS: 36415; 71020; 80053; 82140; 82550; 82553; 83605; 84484; 85025; 85610; 85730; 87040; 93005; 99285

== ENCOUNTER 2016-11-22 10:32 | Inpatient (IN) | payer MEDICARE ==
[2016-11-22] MEDS ORDERED: ALBUTEROL NEBULIZED 2.5 MG/3 ML INHALATION STA (11:02)
[2016-11-22] MEDS ORDERED: SODIUM CHLORIDE 0.9% 500 ML IV STA (11:02)
[2016-11-22] MEDS ORDERED: LEVOFLOXACIN 750MG-D5W PMX 750 MG in DEXTROSE/WATER 1 150ML.BAG IVPB STA (11:02)
[2016-11-22] MEDS ORDERED: SODIUM CHLORIDE 0.9% 1,000 ML IV STA ×4 (11:02→13:06)
[2016-11-22] MEDS ORDERED: IPRATROPIUM 0.5 MG/2.5 ML NEBU INHALATION STA (11:02)
[2016-11-22] MEDS ORDERED: ACETAMINOPHEN TAB 500 MG TAB PO STA (11:03)
[2016-11-22] MEDS ORDERED: IBUPROFEN 800 MG TAB PO STA (11:03)
[2016-11-22 11:21] LABS: Anisocytosis Moderate; Basophils # (A) 0.1 k/uL (0-0.2); Basophils % (A) 1 %; CH 30.1; Eosinophils # (A) 0.3 k/uL (0-0.7); Eosinophils % (A) 3 %; HCT 25.6 % (39.0-53.0); HDW 4.24; HGB 7.9 gm/dL (13.0-17.5); Hypochromasia Marked; Luc # (Auto) 0.38; Luc % (Auto) 4; Lymphocytes # (A) 0.9 k/uL (1.0-4.8); Lymphocytes % (A) 9 %; MCH 31.1 pg (25.0-35.0); MCHC 30.8 g/dL (31.0-37.0); Macrocytosis Moderate; Monocytes # (A) 1.1 k/uL (0-1.0); Monocytes % (A) 11 %; Neutrophils # (A) 7.6 k/uL (1.3-7.7); Neutrophils % (A) 74 %; Poikilocytosis Moderate; RBC 2.54 m/uL (4.30-5.90); RDW 21.3 % (11.5-15.5); WBC 10.3 k/uL (3.8-10.6); WBC (Perox) 10.63
[2016-11-22 11:29] LABS: Calcium 8.5 mg/dL (8.4-10.2); Potassium 4.2 mmol/L (3.5-5.1); Total Bilirubin 1.1 mg/dL (0.2-1.3); Total Protein 5.4 g/dL (6.3-8.2)
[2016-11-22 11:44] LABS: Partial Thromboplastin Time 25.3 sec (22.0-30.0); Prothrombin Time 10.6 sec (9.0-12.0)
--- NOTE | 2016-11-22 11:47 | ED ---
General Adult HPI - General Chief complaint: Shortness of Breath Stated complaint: KRISTA/Pneumonia Time Seen by Provider: 11/22/16 10:34 Source: patient, RN notes reviewed, old records reviewed Mode of arrival: wheelchair Limitations: no limitations - History of Present Illness Initial comments: This is a 65-year-old male to the ER for evaluation of shortness of breath, cough and congestion, positive fever. Patient poor historian secondary to clinical condition. Patient will complain of shortness of breath the patient has same symptoms as he has had prior. History is obtained from EMS and patient 's chart - Related Data Home Medications Medication Instructions Recorded Confirmed Montelukast Sodium [Singulair] 10 mg PO DAILY@0800 12/04/13 11/22/16 Tranylcypromine Sulfate [Parnate] 100 mg PO DAILY@0812/04/13 11/22/16 Allopurinol [Zyloprim] 100 mg PO DAILY@0800 01/26/14 11/22/16 Acetaminophen Tab [Tylenol] 650 mg PO Q6H PRN 03/27/16 11/22/16 Calcium Acetate [PhosLo] 667 mg PO AC-TID 03/27/16 11/22/16 Cholecalciferol [Vitamin D3] 1,000 unit PO DAILY@1700 03/27/16 11/22/16 Cinacalcet [Sensipar] 30 mg PO DAILY@0800 03/27/16 11/22/16 Lactulose 20 gm PO DAILY PRN 03/27/16 11/22/16 Magnesium Hydroxide [Milk of 2,400 mg PO DAILY PRN 03/27/16 11/22/16 Magnesia] Polyethylene Glycol 3350 [Miralax] 17 gm PO DAILY PRN 03/27/16 11/22/16 Sennosides [Senna] 8.6 mg PO DAILY@0800 03/27/16 11/22/16 Albuterol Nebulized [Ventolin 2.5 mg INHALATION RT-QID PRN 11/01/16 11/22/16 Nebulized] Famotidine 20 mg PO DAILY@0800 11/01/16 11/22/16 Bisacodyl [Dulcolax] 10 mg RECTAL DAILY PRN 11/14/16 11/22/16 Na Phos,M-B/Na Phos,Di-Ba [Fleet 133 ml RECTAL ONCE PRN 11/14/16 11/22/16 Adult] Theophylline 24 Hour [Juan Manuel-24] 300 mg PO BID@0800,1700 11/14/16 11/22/16 chlordiazePOXIDE HCL 10 mg PO TID PRN 11/14/16 11/22/16 Darbepoetin Michael [Aranesp] 40 mcg SQ TH 11/22/16 11/22/16 Nephro 8oz Supplement 1 can PO BID@0800,1700 11/22/16 11/22/16 Sodium Bicarbonate Tab 650 mg PO BID@0800,1700 11/22/16 11/22/16 Tamsulosin [Flomax] 0.4 mg PO DAILY@0800 11/22/16 11/22/16 cefTRIAXone [Rocephin] 1,000 mg IM ONCE 11/22/16 11/22/16 traMADol HCL [Ultram] 50 - 100 mg PO Q6H PRN 11/22/16 11/22/16 Previous Rx's Medication Instructions Recorded Aspirin 81 mg PO DAILY 11/14/16 Atorvastatin [Lipitor] 40 mg PO HS tab 11/14/16 Midodrine [ProAmatine] 5 mg PO AC-TID tab 11/15/16 Allergies Allergy/AdvReac Type Severity Reaction Status Date / Time diphenhydramine HCl Allergy Rash/Hives Verified 11/22/16 11:12 [From Benadryl] meperidine HCl [From Demerol] Allergy Unknown Verified 11/22/16 11:12 vancomycin Allergy Itching Verified 11/22/16 11:12 Review of Systems ROS Statement: Those systems with pertinent positive or pertinent negative responses have been documented in the HPI. ROS Other: All systems not noted in ROS Statement are negative. Past Medical History Past Medical History: Asthma, Cancer, Chest Pain / Angina, Heart Failure, Dialysis, Eye Disorder, Pneumonia, Renal Disease Additional Past Medical History / Comment(s): Renal failure with hemodialysis on //Sun, kidney transplant that failed, nephrolithiasis, renal hematoma, chronic anemia, nonhealing L patellar fracture, skin cancer chest and legs with removals, gout yrs ago, night vision problems. Heart Murmur. Heart Cath and HF diagnosis at [place] 1 month ago. Sepsis. Kidney Stones. History of Any Multi-Drug Resistant Organisms: None Reported Past Surgical History: Heart Catheterization, Orthopedic Surgery Additional Past Surgical History / Comment(s): KIDNEY TRANSPLANT. fistula/ shunt. basal cell carcinoma removed from chest and legs. cyst removed from left ear. tendon removed from BL wrist and placed in BL thumb-metal coils still present. lasik eye surgery, colonoscopy with benign polypectomy, bilateral cataract removal. L breast Biopsy. Past Anesthesia/Blood Transfusion Reactions: No Reported Reaction Additional Past Anesthesia/Blood Transfusion Reaction / Comment(s): Pt has received blood in past without reaction. Past Psychological History: Depression Smoking Status: Never smoker Past Alcohol Use History: None Reported Past Drug Use History: None Reported - Past Family History Father Family Medical History: No Reported History Mother Family Medical History: No Reported History Additional Family Medical History / Comment(s): Reviewed, noncontributory to presentation General Exam Limitations: no limitations General appearance: alert, anxious, lethargic, in distress Head exam: Present: atraumatic, normocephalic, normal inspection Eye exam: Present: normal appearance, PERRL, EOMI. Absent: scleral icterus, conjunctival injection, periorbital swelling ENT exam: Present: mucous membranes dry Neck exam: Present: normal inspection. Absent: tenderness, meningismus, lymphadenopathy Respiratory exam: Present: normal lung sounds bilaterally, wheezes, accessory muscle use, decreased breath sounds, prolonged expiratory. Absent: respiratory distress, rales, rhonchi, stridor Cardiovascular Exam: Present: normal rhythm, tachycardia, normal heart sounds. Absent: systolic murmur, diastolic murmur, rubs, gallop, clicks GI/Abdominal exam: Present: soft, normal bowel sounds. Absent: distended, tenderness, guarding, rebound, rigid Extremities exam: Present: normal inspection, full ROM, normal capillary refill. Absent: tenderness, pedal edema, joint swelling, calf tenderness Back exam: Present: normal inspection Neurological exam: Present: alert, oriented X3, CN II-XII intact Psychiatric exam: Present: normal affect, normal mood Skin exam: Present: warm, dry, intact, normal color. Absent: rash Course Vital Signs 11/22/16 11/22/16 11/22/16 10:37 10:41 11:15 Temperature 100.8 F H Pulse Rate 117 H 117 H Respiratory 26 H 26 H 26 H Rate Blood Pressure 100/58 O2 Sat by Pulse 100 Oximetry 11/22/16 11/22/16 11/22/16 11:32 12:05 12:27 Temperature 99.0 F Pulse Rate 115 H 111 H 111 H Respiratory 17 Rate Blood Pressure 81/55 O2 Sat by Pulse 99 Oximetry 11/22/16 12:50 Temperature Pulse Rate 111 H Respiratory 18 Rate Blood Pressure 92/55 O2 Sat by Pulse 98 Oximetry - Reevaluation(s) Reevaluation #1: 11/22/16 13:14 Patient responding to convenient to talk in voice. Patient is alert. Blood pressures responded to fluid replacement although patient is showing signs of severe sepsis EKG Findings - EKG Comments: EKG Findings:: EKG shows sinus tachycardia rate of 117, pO2 138, QRS 78, QTC 443 Medical Decision Making - Medical Decision Making 65 male the ER for evaluation of shortness of breath, patient does have CHF with likely superimposed infection, patient has fever and septic picture. Patient be admitted for diffuse broad-spectrum IV antibiotics significant fluid resuscitation and ICU monitoring of hemodynamic status - Lab Data Result diagrams: 11/22/16 11:00 11/22/16 11:00 Lab Results 11/22/16 11/22/16 11/22/16 Range/Units 11:00 11:00 11:00 WBC 10.3 (3.8-10.6) k/uL RBC 2.54 L (4.30-5.90) m/uL Hgb 7.9 L (13.0-17.5) gm/dL Hct 25.6 L (39.0-53.0) % MCV 101.0 H (80.0-100.0) fL MCH 31.1 (25.0-35.0) pg MCHC 30.8 L (31.0-37.0) g/dL RDW 21.3 H (11.5-15.5) % Plt Count 281 (150-450) k/uL Neutrophils % 74 % Lymphocytes % 9 % Monocytes % 11 % Eosinophils % 3 % Basophils % 1 % Neutrophils # 7.6 (1.3-7.7) k/uL Lymphocytes # 0.9 L (1.0-4.8) k/uL Monocytes # 1.1 H (0-1.0) k/uL Eosinophils # 0.3 (0-0.7) k/uL Basophils # 0.1 (0-0.2) k/uL Hypochromasia Marked Poikilocytosis Moderate Anisocytosis Moderate Macrocytosis Moderate PT (9.0-12.0) sec INR (<1.2) APTT (22.0-30.0) sec Sodium 137 (137-145) mmol/L Potassium 4.2 (3.5-5.1) mmol/L Chloride 96 L (98-107) mmol/L Carbon Dioxide 32 H (22-30) mmol/L Anion Gap 9 mmol/L BUN 40 H (9-20) mg/dL Creatinine 4.49 H (0.66-1.25) mg/dL Est GFR (MDRD) Af Amer 16 (>60 ml/min/1.73 sqM) Est GFR (MDRD) Non-Af 13 (>60 ml/min/1.73 sqM) Glucose 94 (74-99) mg/dL Plasma Lactic Acid Bulmaro (0.7-2.0) mmol/L Calcium 8.5 (8.4-10.2) mg/dL Magnesium 2.0 (1.6-2.3) mg/dL Total Bilirubin 1.1 (0.2-1.3) mg/dL AST 46 (17-59) U/L ALT 44 (21-72) U/L Alkaline Phosphatase 122 (38-126) U/L Total Creatine Kinase 91 (55-170) U/L CK-MB (CK-2) 2.1 (0.0-2.4) ng/mL CK-MB (CK-2) Rel Index 2.3 Troponin I 0.065 H* (0.000-0.034) ng/mL NT-Pro-B Natriuret Pep pg/mL Total Protein 5.4 L (6.3-8.2) g/dL Albumin 2.8 L (3.5-5.0) g/dL 11/22/16 11/22/16 11/22/16 Range/Units 11:00 11:00 11:00 WBC (3.8-10.6) k/uL RBC (4.30-5.90) m/uL Hgb (13.0-17.5) gm/dL Hct (39.0-53.0) % MCV (80.0-100.0) fL MCH (25.0-35.0) pg MCHC (31.0-37.0) g/dL RDW (11.5-15.5) % Plt Count (150-450) k/uL Neutrophils % % Lymphocytes % % Monocytes % % Eosinophils % % Basophils % % Neutrophils # (1.3-7.7) k/uL Lymphocytes # (1.0-4.8) k/uL Monocytes # (0-1.0) k/uL Eosinophils # (0-0.7) k/uL Basophils # (0-0.2) k/uL Hypochromasia Poikilocytosis Anisocytosis Macrocytosis PT 10.6 (9.0-12.0) sec INR 1.0 (<1.2) APTT 25.3 (22.0-30.0) sec Sodium (137-145) mmol/L Potassium (3.5-5.1) mmol/L Chloride (98-107) mmol/L Carbon Dioxide (22-30) mmol/L Anion Gap mmol/L BUN (9-20) mg/dL Creatinine (0.66-1.25) mg/dL Est GFR (MDRD) Af Amer (>60 ml/min/1.73 sqM) Est GFR (MDRD) Non-Af (>60 ml/min/1.73 sqM) Glucose (74-99) mg/dL Plasma Lactic Acid Bulmaro 1.4 (0.7-2.0) mmol/L Calcium (8.4-10.2) mg/dL Magnesium (1.6-2.3) mg/dL Total Bilirubin (0.2-1.3) mg/dL AST (17-59) U/L ALT (21-72) U/L Alkaline Phosphatase (38-126) U/L Total Creatine Kinase (55-170) U/L CK-MB (CK-2) (0.0-2.4) ng/mL CK-MB (CK-2) Rel Index Troponin I (0.000-0.034) ng/mL NT-Pro-B Natriuret Pep [id number] pg/mL Total Protein (6.3-8.2) g/dL Albumin (3.5-5.0) g/dL - Radiology Data Radiology results: report reviewed (CXR shows diffuse pulmonary edema), image reviewed Critical Care Time Critical Care Time: Yes Total Critical Care Time: 31 Disposition Clinical Impression: SIRS (systemic inflammatory response syndrome), Hypotension, Chronic renal failure syndrome, Asthma with exacerbation, Community acquired pneumonia, Congestive heart failure, Acute pulmonary edema Disposition: ADMITTED IP TO THIS HOSP Condition: Serious Referrals: Devin Lopez DO [Primary Care Provider] - 1-2 days
[2016-11-22 11:50] LABS: Creatine Kinase MB 2.1 ng/mL (0.0-2.4)
[2016-11-22 11:53] LABS: Troponin I 0.065 ng/mL (0.000-0.034)
--- NOTE | 2016-11-22 12:25 | XR ---
EXAMINATION TYPE: XR chest 2V DATE OF EXAM: 11/22/2016 HISTORY: difficulty breathing. REFERENCE: Previous study dated 11/14/2016. FINDINGS: The heart is enlarged. There are bilateral pleural effusions. There is bibasilar airspace d isease either representing atelectasis or pneumonia. There is a stable granuloma in the right upper l obe. There is evidence of calcified right hilar lymph nodes. There is vascular congestion. There is s ubtle interstitial change.. IMPRESSION: 1. FINDINGS MOST CONSISTENT WITH MILD HEART FAILURE. 2. BILATERAL EFFUSIONS. 3. CARDIOMEGALY. 4. EVIDENCE OF OLD GRANULOMATOUS DISEASE.
[2016-11-22] MEDS ORDERED: PIPERACILLIN-TAZOBACTAM 3.375 GM in DEXTROSE/WATER 1 50ML.BAG IVPB STA (13:02)
[2016-11-22] MEDS ORDERED: methylPREDNISolone SOD SUCCI 125 MG/2 ML VIAL IV STA (13:10)
[2016-11-22 13:59] LABS: Glucose,Whole Blood 88 mg/dL (75-99)
[2016-11-22 15:35] LABS: Appearance,Urine Clear (Clear); Bilirubin,Urine Negative (Negative); Glucose,Urine (UA) Negative (Negative); Ketones,Urine Negative (Negative); Leukocyte Esterase,Urine Negative (Negative); Nitrite,Urine Negative (Negative); PH, Urine 8.5 (5.0-8.0); Particle Count 1570; Protein,Urine 3+ (Negative); RBC,Urine <1 /hpf (0-5); Specific Gravity,Urine 1.007 (1.001-1.035); UA Billing (MACRO vs. MICRO) MICRO; Urobilinogen,Urine <2.0 mg/dL (<2.0); WBC,Urine 6 /hpf (0-5)
[2016-11-22] MEDS: SODIUM CHLORIDE 0.9% 1,000 ML IV SCH ×2 (15:43→22:25)
[2016-11-22] MEDS: IPRATROPIUM-ALBUTEROL 3 ML NEB INHALATION SCH ×3 (15:56→23:42)
--- NOTE | 2016-11-22 15:59 | P.CON ---
Consult Note - . Consult date: 11/22/16 Assessment/Plan:: Patient Name: Marcelo Hooper Date of : 1950 Patient Status: Inpatient Attending Provider: Yen Garcia Date: 11/22/16 11:46 General Adult HPI - General Chief complaint: Shortness of Breath sepsis/service, critical care management Stated complaint: KRISTA/Pneumonia Time Seen by Provider: 11/22/16 3pm Source: patient, RN notes reviewed, old records reviewed, emergency department data reviewed, patient overall a poor historian most her data is adopted from chart - History of Present Illness Initial comments: This is a 65-year-old male to the ER for evaluation of shortness of breath, cough and congestion, positive fever. Patient poor historian secondary to clinical condition. Patient will complain of shortness of breath the patient has same symptoms as he has had prior. History is obtained from EMS and patient 's chart. Patient is not really aware of the situation and worsening that brought him into the emergency department. He is a resident of extended care facility he has been found to be more short of breath and running low-grade temperature he missed hemodialysis yesterday as well. He denies any night sweats or fevers chills does have intermittent cough denies any problem with passing urine off not that patient has a nonoliguric renal failure, he has been hospitalized recently with the heart failure which is acute on chronic systolic heart failure requiring intra-aortic balloon pump and prolonged hospital stay. - Related Data Home Medications Medication Instructions Recorded Confirmed Montelukast Sodium [Singulair] 10 mg PO DAILY@0800 12/04/13 11/22/16 Tranylcypromine Sulfate [Parnate] 100 mg PO DAILY@0812/04/13 11/22/16 Allopurinol [Zyloprim] 100 mg PO DAILY@0800 01/26/14 11/22/16 Acetaminophen Tab [Tylenol] 650 mg PO Q6H PRN 03/27/16 11/22/16 Calcium Acetate [PhosLo] 667 mg PO AC-TID 03/27/16 11/22/16 Cholecalciferol [Vitamin D3] 1,000 unit PO DAILY@1700 03/27/16 11/22/16 Cinacalcet [Sensipar] 30 mg PO DAILY@0800 03/27/16 11/22/16 Lactulose 20 gm PO DAILY PRN 03/27/16 11/22/16 Magnesium Hydroxide [Milk of 2,400 mg PO DAILY PRN 03/27/16 11/22/16 Magnesia] Polyethylene Glycol 3350 [Miralax] 17 gm PO DAILY PRN 03/27/16 11/22/16 Sennosides [Senna] 8.6 mg PO DAILY@0800 03/27/16 11/22/16 Albuterol Nebulized [Ventolin 2.5 mg INHALATION RT-QID PRN 11/01/16 11/22/16 Nebulized] Famotidine 20 mg PO DAILY@0800 11/01/16 11/22/16 Bisacodyl [Dulcolax] 10 mg RECTAL DAILY PRN 11/14/16 11/22/16 Na Phos,M-B/Na Phos,Di-Ba [Fleet 133 ml RECTAL ONCE PRN 11/14/16 11/22/16 Adult] Theophylline 24 Hour [Juan Manuel-24] 300 mg PO BID@0800,1700 11/14/16 11/22/16 chlordiazePOXIDE HCL 10 mg PO TID PRN 11/14/16 11/22/16 Darbepoetin Michael [Aranesp] 40 mcg SQ TH 11/22/16 11/22/16 Nephro 8oz Supplement 1 can PO BID@0800,1700 11/22/16 11/22/16 Sodium Bicarbonate Tab 650 mg PO BID@0800,1700 11/22/16 11/22/16 Tamsulosin [Flomax] 0.4 mg PO DAILY@0800 11/22/16 11/22/16 cefTRIAXone [Rocephin] 1,000 mg IM ONCE 11/22/16 11/22/16 traMADol HCL [Ultram] 50 - 100 mg PO Q6H PRN 11/22/16 11/22/16 Previous Rx's Medication Instructions Recorded Aspirin 81 mg PO DAILY 11/14/16 Atorvastatin [Lipitor] 40 mg PO HS tab 11/14/16 Midodrine [ProAmatine] 5 mg PO AC-TID tab 11/15/16 Allergies Allergy/AdvReac Type Severity Reaction Status Date / Time diphenhydramine HCl Allergy Rash/Hives Verified 11/22/16 11:12 [From Benadryl] meperidine HCl [From Demerol] Allergy Unknown Verified 11/22/16 11:12 vancomycin Allergy Itching Verified 11/22/16 11:12 Review of Systems ROS Statement: Those systems with pertinent positive or pertinent negative responses have been documented in the HPI. ROS Other: All systems not noted in ROS Statement are negative. Past Medical History Past Medical History: Asthma, Cancer, Chest Pain / Angina, Heart Failure, Dialysis, Eye Disorder, Pneumonia, Renal Disease Additional Past Medical History / Comment(s): Renal failure with hemodialysis on //Sun, kidney transplant that failed, nephrolithiasis, renal hematoma, chronic anemia, nonhealing L patellar fracture, skin cancer chest and legs with removals, gout yrs ago, night vision problems. Heart Murmur. Heart Cath and HF diagnosis at [place] 1 month ago. Sepsis. Kidney Stones. History of Any Multi-Drug Resistant Organisms: None Reported Past Surgical History: Heart Catheterization, Orthopedic Surgery Additional Past Surgical History / Comment(s): KIDNEY TRANSPLANT. fistula/ shunt. basal cell carcinoma removed from chest and legs. cyst removed from left ear. tendon removed from BL wrist and placed in BL thumb-metal coils still present. lasik eye surgery, colonoscopy with benign polypectomy, bilateral cataract removal. L breast Biopsy. Past Anesthesia/Blood Transfusion Reactions: No Reported Reaction Additional Past Anesthesia/Blood Transfusion Reaction / Comment(s): Pt has received blood in past without reaction. Past Psychological History: Depression Smoking Status: Never smoker Past Alcohol Use History: None Reported Past Drug Use History: None Reported - Past Family History Father Family Medical History: No Reported History Mother Family Medical History: No Reported History Additional Family Medical History / Comment(s): Reviewed, noncontributory to presentation General Exam Limitations: no limitations General appearance: alert, anxious, lethargic, in distress Head exam: Present: atraumatic, normocephalic, normal inspection Eye exam: Present: normal appearance, PERRL, EOMI. Absent: scleral icterus, conjunctival injection, periorbital swelling ENT exam: Present: mucous membranes dry Neck exam: Present: normal inspection. Absent: tenderness, meningismus, lymphadenopathy, neck veins are distended and prominent Respiratory exam: Present: normal lung sounds bilaterally, dullness to percussion decreased air entry at the bases present, mild expiratory wheeze with accessory muscle use, decreased breath sounds at bases, prolonged expiratory. Absent: respiratory distress, rales, rhonchi, stridor Cardiovascular Exam: Present: normal rhythm, tachycardia, normal heart sounds. Absent: systolic murmur, diastolic murmur, rubs, gallop, clicks GI/Abdominal exam: Present: soft, normal bowel sounds. Absent: distended, tenderness, guarding, rebound, rigid Extremities exam: Present: normal inspection, full ROM, normal capillary refill. Chronic pedal edema along with chronic skin changes noted +1 Absent: tenderness, joint swelling, calf tenderness Back exam: Present: normal inspection Neurological exam: Present: alert, oriented X3, CN II-XII intact Psychiatric exam: Present: normal affect, normal mood Skin exam: Present: warm, dry, intact, normal color. Absent: rash Course Vital Signs 11/22/16 11/22/16 11/22/16 10:37 10:41 11:15 Temperature 100.8 F H Pulse Rate 117 H 117 H Respiratory 26 H 26 H 26 H Rate Blood Pressure 100/58 O2 Sat by Pulse 100 Oximetry 11/22/16 11/22/16 11/22/16 11:32 12:05 12:27 Temperature 99.0 F Pulse Rate 115 H 111 H 111 H Respiratory 17 Rate Blood Pressure 81/55 O2 Sat by Pulse 99 Oximetry 11/22/16 12:50 Temperature Pulse Rate 111 H Respiratory 18 Rate Blood Pressure 92/55 O2 Sat by Pulse 98 Oximetry EKG Findings - EKG Comments: EKG Findings:: EKG shows sinus tachycardia rate of 117, pO2 138, QRS 78, QTC 443 Medical Decision Making - Medical Decision Making 65 -year-old male with acute on chronic systolic heart failure likely superimposed infection, patient has fever and septic picture. Patient has been admitted for evaluation and therapy with diffuse broad-spectrum IV antibiotics significant fluid resuscitation and ICU monitoring of hemodynamic status - Lab Data Result diagrams: 11/22/16 11:00 11/22/16 11:00 Lab Results 11/22/16 11/22/16 11/22/16 Range/Units 11:00 11:00 11:00 WBC 10.3 (3.8-10.6) k/uL RBC 2.54 L (4.30-5.90) m/uL Hgb 7.9 L (13.0-17.5) gm/dL Hct 25.6 L (39.0-53.0) % MCV 101.0 H (80.0-100.0) fL MCH 31.1 (25.0-35.0) pg MCHC 30.8 L (31.0-37.0) g/dL RDW 21.3 H (11.5-15.5) % Plt Count 281 (150-450) k/uL Neutrophils % 74 % Lymphocytes % 9 % Monocytes % 11 % Eosinophils % 3 % Basophils % 1 % Neutrophils # 7.6 (1.3-7.7) k/uL Lymphocytes # 0.9 L (1.0-4.8) k/uL Monocytes # 1.1 H (0-1.0) k/uL Eosinophils # 0.3 (0-0.7) k/uL Basophils # 0.1 (0-0.2) k/uL Hypochromasia Marked Poikilocytosis Moderate Anisocytosis Moderate Macrocytosis Moderate PT (9.0-12.0) sec INR (<1.2) APTT (22.0-30.0) sec Sodium 137 (137-145) mmol/L Potassium 4.2 (3.5-5.1) mmol/L Chloride 96 L (98-107) mmol/L Carbon Dioxide 32 H (22-30) mmol/L Anion Gap 9 mmol/L BUN 40 H (9-20) mg/dL Creatinine 4.49 H (0.66-1.25) mg/dL Est GFR (MDRD) Af Amer 16 (>60 ml/min/1.73 sqM) Est GFR (MDRD) Non-Af 13 (>60 ml/min/1.73 sqM) Glucose 94 (74-99) mg/dL Plasma Lactic Acid Bulmaro (0.7-2.0) mmol/L Calcium 8.5 (8.4-10.2) mg/dL Magnesium 2.0 (1.6-2.3) mg/dL Total Bilirubin 1.1 (0.2-1.3) mg/dL AST 46 (17-59) U/L ALT 44 (21-72) U/L Alkaline Phosphatase 122 (38-126) U/L Total Creatine Kinase 91 (55-170) U/L CK-MB (CK-2) 2.1 (0.0-2.4) ng/mL CK-MB (CK-2) Rel Index 2.3 Troponin I 0.065 H* (0.000-0.034) ng/mL NT-Pro-B Natriuret Pep pg/mL Total Protein 5.4 L (6.3-8.2) g/dL Albumin 2.8 L (3.5-5.0) g/dL 11/22/16 11/22/16 11/22/16 Range/Units 11:00 11:00 11:00 WBC (3.8-10.6) k/uL RBC (4.30-5.90) m/uL Hgb (13.0-17.5) gm/dL Hct (39.0-53.0) % MCV (80.0-100.0) fL MCH (25.0-35.0) pg MCHC (31.0-37.0) g/dL RDW (11.5-15.5) % Plt Count (150-450) k/uL Neutrophils % % Lymphocytes % % Monocytes % % Eosinophils % % Basophils % % Neutrophils # (1.3-7.7) k/uL Lymphocytes # (1.0-4.8) k/uL Monocytes # (0-1.0) k/uL Eosinophils # (0-0.7) k/uL Basophils # (0-0.2) k/uL Hypochromasia Poikilocytosis Anisocytosis Macrocytosis PT 10.6 (9.0-12.0) sec INR 1.0 (<1.2) APTT 25.3 (22.0-30.0) sec Sodium (137-145) mmol/L Potassium (3.5-5.1) mmol/L Chloride (98-107) mmol/L Carbon Dioxide (22-30) mmol/L Anion Gap mmol/L BUN (9-20) mg/dL Creatinine (0.66-1.25) mg/dL Est GFR (MDRD) Af Amer (>60 ml/min/1.73 sqM) Est GFR (MDRD) Non-Af (>60 ml/min/1.73 sqM) Glucose (74-99) mg/dL Plasma Lactic Acid Bulmaro 1.4 (0.7-2.0) mmol/L Calcium (8.4-10.2) mg/dL Magnesium (1.6-2.3) mg/dL Total Bilirubin (0.2-1.3) mg/dL AST (17-59) U/L ALT (21-72) U/L Alkaline Phosphatase (38-126) U/L Total Creatine Kinase (55-170) U/L CK-MB (CK-2) (0.0-2.4) ng/mL CK-MB (CK-2) Rel Index Troponin I (0.000-0.034) ng/mL NT-Pro-B Natriuret Pep [id number] pg/mL Total Protein (6.3-8.2) g/dL Albumin (3.5-5.0) g/dL - Radiology Data Radiology results: report reviewed (CXR shows diffuse pulmonary edema), image reviewed, cardiomegaly is present along with bilateral moderate pleural effusion AND PNEUMONIA CANNOT BE EXCLUDED Critical Care Time Critical Care Time: Yes 60 minutes Disposition Clinical Impression: #1 SIRS (systemic inflammatory response syndrome), #2 Hypotension, Chronic renal failure syndrome, Asthma with exacerbation, Community acquired pneumonia, Congestive heart failure, Acute pulmonary edema #3 mixed bacterial gram-negative pneumonia #4 Chronic renal failure #5 bilateral pleural effusion #6 Acute PR with mildly elevated troponin cannot be excluded #7 anemia of chronic disease #8 cardiomyopathy with chronic systolic heart failure with baseline ejection fraction of 15%, with acute decompensation Plan #1 we'll gently rehydrate the patient and monitor clinical course closely renal service has been consulted for hemodialysis #2 without pain ultrasound of the chest to look at the maximum amount of pleural effusion may need to tap #3 patient has been started on broad-spectrum antibiotics along with 10 cultures have been done #4 repeat chest x-ray and labs tomorrow
[2016-11-22] MEDS ORDERED: BISACODYL 10 MG SUPP RECTAL PRN (18:29)
--- NOTE | 2016-11-22 18:37 | P.HPIM ---
History of Present Illness H&P Date: 11/22/16 Chief Complaint: Shots of breath Mr. Hooper is a 65-year-old male with a known history of ESRD on hemodialysis TTS , failed kidney transplant, nonobstructive coronary artery disease, nonischemic cardiomyopathy ejection fraction 20% and chronic bilateral pleural effusion was brought to the hospital from extended care facility with complaints of short of breath. Patient denied any, soft fever or chills. Patient does have gait dysfunction at baseline and uses a walker. Patient was recently discharged from the hospital on 11/15/2016. Patient does have chronic hypotension with SBP around 80 mm Hg. Patient is on metered groin. Bumex was discontinued during last admission. Currently patient denied any complains of chest pain. Patient does make some urine. Chest x-ray in the ER showed findings most consistent with mild heart failure. And bilateral effusions. There is bibasilar airspace disease either representing atelectasis of pneumonia. Patient was hypotensive and was started on antibiotics zosyn and levofloxacin. Patient is lying in the bed awake oriented 3 and saturating well on nasal cannula. Review of Systems Constitutional: Patient denies any fever or chills . No generalized weakness or weight loss. Abdomen: Patient denied nausea vomiting and diarrhea and abdominal pain. Cardiovascular: Patient denies any chest pain . He does have baseline short of breath no palpitations. Respiratory: patient denied any cough is from production. + shortness of breath Neurologic: Patient denied any numbness or tingling headache. Musculoskeletal: Patient denies any complaints of joint swelling or deformity. Skin: No rash or skin lesions. Psychiatric: Negative Endocrine: No heat or cold intolerance. No recent weight gain. Genitourinary: No dysuria or hematuria. All other 14 point ROS negative except the above Past Medical History Past Medical History: Asthma, Cancer, Chest Pain / Angina, Heart Failure, Dialysis, Eye Disorder, Pneumonia, Renal Disease Additional Past Medical History / Comment(s): Renal failure with hemodialysis on //Sun, kidney transplant that failed, nephrolithiasis, renal hematoma, chronic anemia, nonhealing L patellar fracture, skin cancer chest and legs with removals, gout yrs ago, night vision problems. Heart Murmur. Heart Cath and HF diagnosis at [place] 1 month ago. Sepsis. Kidney Stones. History of Any Multi-Drug Resistant Organisms: None Reported Past Surgical History: Heart Catheterization, Orthopedic Surgery Additional Past Surgical History / Comment(s): KIDNEY TRANSPLANT. fistula/ shunt. basal cell carcinoma removed from chest and legs. cyst removed from left ear. tendon removed from BL wrist and placed in BL thumb-metal coils still present. lasik eye surgery, colonoscopy with benign polypectomy, bilateral cataract removal. L breast Biopsy. Past Anesthesia/Blood Transfusion Reactions: No Reported Reaction Additional Past Anesthesia/Blood Transfusion Reaction / Comment(s): Pt has received blood in past without reaction. Past Psychological History: Depression Additional Psychological History / Comment(s): Pt states he is staying at [facility] for rehab and was to be discharged today, now at discharge he states he will have to go back to [facility] to complete his discharge. Smoking Status: Never smoker - Past Family History Father Family Medical History: No Reported History Mother Family Medical History: No Reported History Additional Family Medical History / Comment(s): Reviewed, noncontributory to presentation Medications and Allergies Home Medications Medication Instructions Recorded Confirmed Type Montelukast Sodium [Singulair] 10 mg PO DAILY@0800 12/04/13 11/22/16 History Tranylcypromine Sulfate [Parnate] 100 mg PO DAILY@0800 12/04/13 11/22/16 History Allopurinol [Zyloprim] 100 mg PO DAILY@0800 01/26/14 11/22/16 History Acetaminophen Tab [Tylenol] 650 mg PO Q6H PRN 03/27/16 11/22/16 History Calcium Acetate [PhosLo] 667 mg PO AC-TID 03/27/16 11/22/16 History Cholecalciferol [Vitamin D3] 1,000 unit PO DAILY@1700 03/27/16 11/22/16 History Cinacalcet [Sensipar] 30 mg PO DAILY@0800 03/27/16 11/22/16 History Lactulose 20 gm PO DAILY PRN 03/27/16 11/22/16 History Magnesium Hydroxide [Milk of 2,400 mg PO DAILY PRN 03/27/16 11/22/16 History Magnesia] Polyethylene Glycol 3350 [Miralax] 17 gm PO DAILY PRN 03/27/16 11/22/16 History Sennosides [Senna] 8.6 mg PO DAILY@0800 03/27/16 11/22/16 History Albuterol Nebulized [Ventolin 2.5 mg INHALATION RT-QID PRN 11/01/16 11/22/16 History Nebulized] Famotidine 20 mg PO DAILY@0800 11/01/16 11/22/16 History Bisacodyl [Dulcolax] 10 mg RECTAL DAILY PRN 11/14/16 11/22/16 History Na Phos,M-B/Na Phos,Di-Ba [Fleet 133 ml RECTAL ONCE PRN 11/14/16 11/22/16 History Adult] Theophylline 24 Hour [Juan Manuel-24] 300 mg PO BID@0800,1700 11/14/16 11/22/16 History chlordiazePOXIDE HCL 10 mg PO TID PRN 11/14/16 11/22/16 History Darbepoetin Michael [Aranesp] 40 mcg SQ TH 11/22/16 11/22/16 History Nephro 8oz Supplement 1 can PO BID@0800,1700 11/22/16 11/22/16 History Sodium Bicarbonate Tab 650 mg PO BID@0800,1700 11/22/16 11/22/16 History Tamsulosin [Flomax] 0.4 mg PO DAILY@0800 11/22/16 11/22/16 History cefTRIAXone [Rocephin] 1,000 mg IM ONCE 11/22/16 11/22/16 History traMADol HCL [Ultram] 50 - 100 mg PO Q6H PRN 11/22/16 11/22/16 History Allergies Allergy/AdvReac Type Severity Reaction Status Date / Time diphenhydramine HCl Allergy Rash/Hives Verified 11/22/16 11:12 [From Benadryl] meperidine HCl [From Demerol] Allergy Unknown Verified 11/22/16 11:12 vancomycin Allergy Itching Verified 11/22/16 11:12 Physical Exam Vitals: Vital Signs Temp Pulse Resp BP Pulse Ox 11/22/16 17:00 106 H 20 83/62 97 11/22/16 16:50 106 H 27 H 78/52 99 11/22/16 16:40 105 H 23 78/52 98 11/22/16 16:30 106 H 27 H 85/54 99 11/22/16 16:20 109 H 24 78/54 92 L 11/22/16 16:10 109 H 20 78/54 11/22/16 16:08 103 H 11/22/16 16:00 107 H 20 85/57 99 11/22/16 15:56 104 H 11/22/16 15:50 103 H 23 76/49 100 11/22/16 15:40 102 H 18 76/49 98 11/22/16 15:30 99 22 90/67 99 11/22/16 15:20 105 H 21 90/67 99 11/22/16 15:10 102 H 23 79/46 100 11/22/16 15:00 105 H 34 H 74/49 11/22/16 14:50 102 H 20 78/46 98 11/22/16 14:40 98 19 78/46 99 11/22/16 14:30 100 19 80/49 100 11/22/16 14:20 100 22 80/49 100 11/22/16 14:10 100 21 72/49 100 11/22/16 14:00 106 H 20 73/45 100 11/22/16 13:50 103 H 20 74/46 93 L 11/22/16 13:47 104 H 21 11/22/16 13:32 98.0 F 11/22/16 13:28 98.7 F 11/22/16 13:16 108 H 18 84/51 98 11/22/16 12:50 111 H 18 92/55 98 11/22/16 12:27 99.0 F 111 H 17 81/55 99 11/22/16 12:05 111 H 11/22/16 11:32 115 H 11/22/16 11:15 117 H 26 H 11/22/16 10:41 26 H 11/22/16 10:37 100.8 F H 117 H 26 H 100/58 100 Intake and Output 11/22/16 11/22/16 11/22/16 06:59 14:59 22:59 Intake Total 200 Output Total 70 Balance 130 Intake: Intake, IV Titration 200 Amount Sodium Chloride 0.9% 1, 200 000 ml @ 150 mls/hr IV . Q6H40M [facility] Rx#:[id number] Output: Urine 70 Other: Weight 73.028 kg Patient Weight 11/23/16 06:59 Weight 73.028 kg PHYSICAL EXAMINATION: Patient is lying in the bed comfortably, no acute distress, awake alert and oriented.. HEENT: Normocephalic. Neck is supple. Pupils reactive. Nostrils clear. Oral cavity is moist. Ears reveal no drainage. Neck reveals no JVD, carotid bruits, or thyromegaly. CHEST EXAMINATION: Trachea is central. Symmetrical expansion. Decreased air entry basally and bronchial sounds. No wheezing CARDIAC: Normal S1, S2 with no gallops. No murmurs ABDOMEN: Soft. Bowel sounds normal. No organomegaly. No abdominal bruits. Extremities: 1+ edema. No clubbing or cyanosis Neurologically awake, alert, oriented x3 with well-coordinated movements. No focal deficits noted Skin: No rash or skin lesions. Psychiatric: Operative. Nonsuicidal Musculoskeletal: No joint swelling or deformity. Normal range of motion. Results CBC & Chem 7: 11/22/16 11:00 11/22/16 11:00 Labs: Abnormal Lab Results - Last 24 Hours (Table) 11/22/16 11/22/16 11/22/16 Range/Units 11:00 11:00 11:00 RBC 2.54 L (4.30-5.90) m/uL Hgb 7.9 L (13.0-17.5) gm/dL Hct 25.6 L (39.0-53.0) % MCV 101.0 H (80.0-100.0) fL MCHC 30.8 L (31.0-37.0) g/dL RDW 21.3 H (11.5-15.5) % Lymphocytes # 0.9 L (1.0-4.8) k/uL Monocytes # 1.1 H (0-1.0) k/uL Chloride 96 L (98-107) mmol/L Carbon Dioxide 32 H (22-30) mmol/L BUN 40 H (9-20) mg/dL Creatinine 4.49 H (0.66-1.25) mg/dL Troponin I 0.065 H* (0.000-0.034) ng/mL Total Protein 5.4 L (6.3-8.2) g/dL Albumin 2.8 L (3.5-5.0) g/dL Urine pH (5.0-8.0) Urine Protein (Negative) Urine WBC (0-5) /hpf 07/19/17 Range/Units 15:27 RBC (4.30-5.90) m/uL Hgb (13.0-17.5) gm/dL Hct (39.0-53.0) % MCV (80.0-100.0) fL MCHC (31.0-37.0) g/dL RDW (11.5-15.5) % Lymphocytes # (1.0-4.8) k/uL Monocytes # (0-1.0) k/uL Chloride (98-107) mmol/L Carbon Dioxide (22-30) mmol/L BUN (9-20) mg/dL Creatinine (0.66-1.25) mg/dL Troponin I (0.000-0.034) ng/mL Total Protein (6.3-8.2) g/dL Albumin (3.5-5.0) g/dL Urine pH 8.5 H (5.0-8.0) Urine Protein 3+ H (Negative) Urine WBC 6 H (0-5) /hpf Thrombosis Risk Factor Assmnt - DVT/VTE Prophylaxis DVT/VTE Prophylaxis: Pharmacologic Prophylaxis ordered, Mechanical Prophylaxis ordered - Choose All That Apply Each Factor Represents 1 point: Acute OR, Sepsis (< 1month), Serious lung disease incl. pneumonia (< 1month), Swollen legs (current) Each Risk Factor Represents 2 Points: Age 61-74 years Thrombosis Risk Factor Assessment Total Risk Factor Score: 6 Thrombosis Risk Factor Assessment Level: High Risk Assessment and Plan Plan: #1 systemic inflammatory response syndrome with possible bibasilar with gram- negative pneumonia #2 chronic hypotension. Patient is on Midodrin #3 ESRD on hemodialysis TTS #4 acute on chronic CHF with systolic dysfunction with ejection fraction 20% #5 Non ischemic cardiomyopathy #6 elevated troponin possible non-ST elevated OR #7 hypoalbuminemia with moderate protein calorie malnutrition #8 chronic bilateral pleural effusion #9 anemia of chronic disease #10 DVT prophylaxis. PLAN: Patient will be continued on antibiotics in the form of Zosyn and levofloxacin and gentle hydration for hypotension. Nephrology has been consulted for hemodialysis. We will continue Midodrin. Patient was started on methylprednisolone. Continue with the breathing treatments and follow closely. Cardiology and pulmonary is following this patient. Further recommendations based on the clinical course. Time with Patient: Greater than 30
[2016-11-22] MEDS: methylPREDNISolone SOD SUCCI 125 MG/2 ML VIAL IV SCH (18:45)
--- NOTE | 2016-11-22 19:53 | US ---
EXAMINATION TYPE: US chest DATE OF EXAM: 11/22/2016 COMPARISON: Chest x-ray in PACS CLINICAL HISTORY: pneumonia. EXAM MEASUREMENTS: Right Pleural Effusion fluid pocket: 13.9 cm Right skin to fluid thickness: 2.2 cm Left Pleural Effusion fluid pocket: 11.0 cm Left skin to fluid thickness: 2.1 cm Right side marked for possible thoracentesis outside the dept. Left side marked for possible thoracentesis outside the dept. Pulmonologists are able to review the images in the patient?s EMR. IMPRESSIONS: There is demonstration of moderate sized bilateral pleural effusions.
[2016-11-22] MEDS: ATORVASTATIN 40 MG TAB PO SCH (21:15)
[2016-11-23] MEDS: PIPERACILLIN-TAZOBACTAM 3.375 GM in DEXTROSE/WATER 1 50ML.BAG IVPB SCH ×3 (00:10→18:39)
[2016-11-23] MEDS: methylPREDNISolone SOD SUCCI 125 MG/2 ML VIAL IV SCH ×4 (00:10→18:29)
[2016-11-23] MEDS: IPRATROPIUM-ALBUTEROL 3 ML NEB INHALATION SCH ×8 (03:12→19:49)
[2016-11-23 04:54] LABS: Calcium 8.5 mg/dL (8.4-10.2); Total Bilirubin 0.9 mg/dL (0.2-1.3); Total Protein 5.7 g/dL (6.3-8.2)
[2016-11-23 04:58] LABS: Potassium 4.9 mmol/L (3.5-5.1)
[2016-11-23 04:59] LABS: Anisocytosis Moderate; Basophils % (A) 0 %; CH 29.5; CHCM 27.8; Eosinophils % (A) 0 %; HCT 26.4 % (39.0-53.0); HDW 4.04; HGB 7.6 gm/dL (13.0-17.5); Hypochromasia Marked; Luc # (Auto) 0.04; Luc % (Auto) 1; Lymphocytes # (A) 0.1 k/uL (1.0-4.8); Lymphocytes % (A) 2 %; MCH 30.7 pg (25.0-35.0); MCHC 28.8 g/dL (31.0-37.0); Macrocytosis Marked; Magnesium 2.1 mg/dL (1.6-2.3); Mean Platelet Volume 7.8; Monocytes # (A) 0.2 k/uL (0-1.0); Monocytes % (A) 4 %; Neutrophils # (A) 5.6 k/uL (1.3-7.7); Neutrophils % (A) 93 %; Phosphorous 4.3 mg/dL (2.5-4.5); Poikilocytosis Moderate; RBC 2.48 m/uL (4.30-5.90); WBC (Perox) 6.04
[2016-11-23 05:01] LABS: MCV 106.7 fL (80.0-100.0)
--- NOTE | 2016-11-23 07:14 | XR ---
EXAMINATION TYPE: XR chest 1V DATE OF EXAM: 11/23/2016 HISTORY: Shortness of breath. COMPARISON: 11/22/2016 TECHNIQUE: Single view of the chest is submitted. FINDINGS: Persistent bilateral pleural effusions with basilar atelectasis or infiltrates. Pulmonary venous vickie estion noted. Calcified hilar and mediastinal lymph nodes. Cardiomediastinal silhouette is unchanged. Degenerative changes are seen of the dorsal spine. IMPRESSION: 1. Findings felt to reflect congestive failure. Overall no significant change. Underlying infiltrate s of other etiology not excluded.
[2016-11-23] MEDS: SODIUM CHLORIDE 0.9% 1,000 ML IV SCH ×3 (08:55→18:28)
[2016-11-23] MEDS: MIDODRINE 5 MG TAB PO SCH ×3 (08:55→18:29)
[2016-11-23] MEDS: CALCIUM ACETATE 667 MG CAP PO SCH ×3 (08:56→18:30)
[2016-11-23] MEDS: ASPIRIN 81 MG CHEW PO SCH (08:56)
[2016-11-23] MEDS: THEOPHYLLINE 24 HOUR 300 MG CAP.ER.24H PO SCH ×2 (08:56→18:30)
[2016-11-23] MEDS: SODIUM BICARBONATE TAB 650 MG TAB PO SCH ×2 (08:56→18:29)
[2016-11-23] MEDS: CINACALCET 30 MG TAB PO SCH (08:56)
[2016-11-23] MEDS: FAMOTIDINE 20 MG TAB PO SCH (08:56)
[2016-11-23] MEDS ORDERED: ENOXAPARIN 40 MG/0.4 ML SYRINGE SQ SCH (09:00)
--- NOTE | 2016-11-23 09:52 | P.NPCON ---
History of Present Illness - Reason for Consult end stage renal disease - History of Present Illness Reason for consultation: End-stage renal disease History of present illness: Patient is a 65-year-old male seen in renal consultation for end-stage renal disease. He is maintained on hemodialysis on a Sunday schedule. Patient presented to the hospital with dyspnea. He is not a very reliable historian. He resides at an extended care facility. Patient was recently admitted earlier this month and at that time underwent a cardiac catheterization and also suffered a cardiopulmonary arrest. His coronaries were clean however he was noted to have an ejection fraction of about 15%. He is currently sitting up in chair. He just completed his breakfast. Denies vomiting or diarrhea. He was having some intermittent chest pain episodes which is now resolved. His dyspnea is improved. His chest x-ray does reveal bilateral pleural effusions and there is possible plan for thoracentesis. He is currently being treated for presumptive pneumonia. He is maintained on broad -spectrum antibiotics. He also did receive fluid boluses with maintenance fluid of 150 mL an hour overnight. Hemodynamically he is currently stable. Vital signs are stable. General: The patient appeared well nourished and normally developed. HEENT: Head exam is unremarkable. Neck is without jugular venous distension. LUNGS: Scattered rhonchi. Breath sounds decreased. HEART: Rate and Rhythm are regular. First and second heart sounds normal. No murmurs, rubs or gallops. ABDOMEN: Abdominal exam reveals normal bowel sounds. Non-tender and non- distended. No evidence of peritonitis. EXTREMITITES: 1+ edema. Past Medical History Past Medical History: Asthma, Cancer, Chest Pain / Angina, Heart Failure, Dialysis, Eye Disorder, Pneumonia, Renal Disease Additional Past Medical History / Comment(s): Renal failure with hemodialysis on //Sun, kidney transplant that failed, nephrolithiasis, renal hematoma, chronic anemia, nonhealing L patellar fracture, skin cancer chest and legs with removals, gout yrs ago, night vision problems. Heart Murmur. Heart Cath and HF diagnosis at [place] 1 month ago. Sepsis. Kidney Stones. History of Any Multi-Drug Resistant Organisms: None Reported Past Surgical History: Heart Catheterization, Orthopedic Surgery Additional Past Surgical History / Comment(s): KIDNEY TRANSPLANT. fistula/ shunt. basal cell carcinoma removed from chest and legs. cyst removed from left ear. tendon removed from BL wrist and placed in BL thumb-metal coils still present. lasik eye surgery, colonoscopy with benign polypectomy, bilateral cataract removal. L breast Biopsy. Past Anesthesia/Blood Transfusion Reactions: No Reported Reaction Additional Past Anesthesia/Blood Transfusion Reaction / Comment(s): Pt has received blood in past without reaction. Past Psychological History: Depression Additional Psychological History / Comment(s): Pt states he is staying at [facility] for rehab and was to be discharged today, now at discharge he states he will have to go back to [facility] to complete his discharge. Smoking Status: Never smoker - Past Family History Father Family Medical History: No Reported History Mother Family Medical History: No Reported History Additional Family Medical History / Comment(s): Reviewed, noncontributory to presentation Medications and Allergies Home Medications Medication Instructions Recorded Confirmed Type Montelukast Sodium [Singulair] 10 mg PO DAILY@0800 12/04/13 11/22/16 History Tranylcypromine Sulfate [Parnate] 100 mg PO DAILY@0812/04/13 11/22/16 History Allopurinol [Zyloprim] 100 mg PO DAILY@0800 01/26/14 11/22/16 History Acetaminophen Tab [Tylenol] 650 mg PO Q6H PRN 03/27/16 11/22/16 History Calcium Acetate [PhosLo] 667 mg PO AC-TID 03/27/16 11/22/16 History Cholecalciferol [Vitamin D3] 1,000 unit PO DAILY@1700 03/27/16 11/22/16 History Cinacalcet [Sensipar] 30 mg PO DAILY@0800 03/27/16 11/22/16 History Lactulose 20 gm PO DAILY PRN 03/27/16 11/22/16 History Magnesium Hydroxide [Milk of 2,400 mg PO DAILY PRN 03/27/16 11/22/16 History Magnesia] Polyethylene Glycol 3350 [Miralax] 17 gm PO DAILY PRN 03/27/16 11/22/16 History Sennosides [Senna] 8.6 mg PO DAILY@0800 03/27/16 11/22/16 History Albuterol Nebulized [Ventolin 2.5 mg INHALATION RT-QID PRN 11/01/16 11/22/16 History Nebulized] Famotidine 20 mg PO DAILY@0800 11/01/16 11/22/16 History Bisacodyl [Dulcolax] 10 mg RECTAL DAILY PRN 11/14/16 11/22/16 History Na Phos,M-B/Na Phos,Di-Ba [Fleet 133 ml RECTAL ONCE PRN 11/14/16 11/22/16 History Adult] Theophylline 24 Hour [Juan Manuel-24] 300 mg PO BID@0800,1700 11/14/16 11/22/16 History chlordiazePOXIDE HCL 10 mg PO TID PRN 11/14/16 11/22/16 History Darbepoetin Michael [Aranesp] 40 mcg SQ TH 11/22/16 11/22/16 History Nephro 8oz Supplement 1 can PO BID@0800,1700 11/22/16 11/22/16 History Sodium Bicarbonate Tab 650 mg PO BID@0800,1700 11/22/16 11/22/16 History Tamsulosin [Flomax] 0.4 mg PO DAILY@0800 11/22/16 11/22/16 History cefTRIAXone [Rocephin] 1,000 mg IM ONCE 11/22/16 11/22/16 History traMADol HCL [Ultram] 50 - 100 mg PO Q6H PRN 11/22/16 11/22/16 History Allergies Allergy/AdvReac Type Severity Reaction Status Date / Time diphenhydramine HCl Allergy Rash/Hives Verified 11/22/16 11:12 [From Benadryl] meperidine HCl [From Demerol] Allergy Unknown Verified 11/22/16 11:12 vancomycin Allergy Itching Verified 11/22/16 11:12 Physical Exam Vitals: Vital Signs Temp Pulse Resp BP BP Pulse Ox 11/23/16 09:28 112 H 11/23/16 09:23 110 H 99 11/23/16 07:00 104 H 22 98/64 98 11/23/16 06:07 109 H 11/23/16 06:00 101 H 24 98/70 11/23/16 05:00 96 22 97/60 94 L 11/23/16 04:00 97.8 F 99 22 103/66 96 11/23/16 03:00 105 H 22 95/62 95 11/23/16 02:00 101 H 29 H 100/67 99 11/23/16 01:00 100 25 H 104/64 99 11/23/16 00:00 98.1 F 108 H 22 104/64 96 11/22/16 23:18 110 H 40 H 94 L 11/22/16 23:00 108 H 22 98 11/22/16 22:00 108 H 24 99 11/22/16 21:00 112 H 22 99 11/22/16 20:09 110 H 11/22/16 20:00 97.8 F 110 H 25 H 99/67 100 11/22/16 19:58 109 H 11/22/16 19:00 110 H 29 H 99/67 100 11/22/16 18:30 110 H 25 H 90/58 11/22/16 18:20 111 H 18 93/62 94 L 11/22/16 18:10 110 H 26 H 93/62 11/22/16 18:00 111 H 20 110/70 97 11/22/16 17:50 113 H 20 97/67 99 11/22/16 17:40 108 H 20 97/67 99 11/22/16 17:30 110 H 20 91/59 99 11/22/16 17:20 106 H 20 81/54 98 11/22/16 17:10 109 H 20 81/54 100 11/22/16 17:00 106 H 20 83/62 97 11/22/16 16:50 106 H 27 H 78/52 99 11/22/16 16:40 105 H 23 78/52 98 11/22/16 16:30 106 H 27 H 85/54 99 11/22/16 16:20 109 H 24 78/54 92 L 11/22/16 16:10 109 H 20 78/54 11/22/16 16:08 103 H 11/22/16 16:00 107 H 20 85/57 99 11/22/16 15:56 104 H 11/22/16 15:50 103 H 23 76/49 100 11/22/16 15:40 102 H 18 76/49 98 11/22/16 15:30 99 22 90/67 99 11/22/16 15:20 105 H 21 90/67 99 11/22/16 15:10 102 H 23 79/46 100 11/22/16 15:00 105 H 34 H 74/49 11/22/16 14:50 102 H 20 78/46 98 11/22/16 14:40 98 19 78/46 99 11/22/16 14:30 100 19 80/49 100 11/22/16 14:20 100 22 80/49 100 11/22/16 14:10 100 21 72/49 100 11/22/16 14:00 106 H 20 73/45 100 11/22/16 13:50 103 H 20 74/46 93 L 11/22/16 13:47 104 H 21 11/22/16 13:32 98.0 F 11/22/16 13:28 98.7 F 11/22/16 13:16 108 H 18 84/51 98 11/22/16 12:50 111 H 18 92/55 98 11/22/16 12:27 99.0 F 111 H 17 81/55 99 11/22/16 12:05 111 H 11/22/16 11:32 115 H 11/22/16 11:15 117 H 26 H 11/22/16 10:41 26 H 11/22/16 10:37 100.8 F H 117 H 26 H 100/58 100 Intake and Output 11/22/16 11/23/16 11/23/16 22:59 06:59 14:59 Intake Total 310 Output Total 110 15 0 Balance 200 -15 0 Intake: Intake, IV Titration 300 Amount Sodium Chloride 0.9% 1, 300 000 ml @ 150 mls/hr IV . Q6H40M [facility] Rx#:[id number] Oral 10 Output: Urine 110 15 0 Other: Voiding Method Indwelling Catheter # Bowel Movements 1 Weight 74.8 kg Results - Lab Results Most recent lab results Calcium 8.5 mg/dL (8.4-10.2) 11/23/16 04:22 Phosphorus 4.3 mg/dL (2.5-4.5) 11/23/16 04:22 Magnesium 2.1 mg/dL (1.6-2.3) 11/23/16 04:22 11/23/16 04:22 11/23/16 04:22 Assessment and Plan Plan: Assessment: #1. End-stage renal disease maintained on hemodialysis on a Sunday schedule. #2. Dyspnea. Possibly from pneumonia. Also evidence of fluid overload. #3. Chronic kidney disease mineral bone disease. #4. Anemia of chronic kidney disease. Plan: Hemodialysis today with goal 1-2 L ultrafiltration. Maintain Aranesp. Pulmonology following. Possible thoracentesis today. Hep-Lock IV fluids. His oral intake is good. Follow-up cultures. Maintain antibiotics. Thank you for the consultation. I will continue to follow the patient with you during his hospital stay.
--- NOTE | 2016-11-23 10:49 | P.PN ---
Subjective 11/22/16- This is a 65-year-old male to the ER for evaluation of shortness of breath, cough and congestion, positive fever. Patient poor historian secondary to clinical condition. Patient will complain of shortness of breath the patient has same symptoms as he has had prior. History is obtained from EMS and patient's chart. Patient is not really aware of the situation and worsening that brought him into the emergency department. He is a resident of extended care facility he has been found to be more short of breath and running low- grade temperature he missed hemodialysis yesterday as well. He denies any night sweats or fevers chills does have intermittent cough denies any problem with passing urine off not that patient has a nonoliguric renal failure, he has been hospitalized recently with the heart failure which is acute on chronic systolic heart failure requiring intra-aortic balloon pump and prolonged hospital stay. 11/23/16- upon examination the patient's resting up in bed on 2 L of supplemental oxygen and saturating 99% currently. He does have shortness of breath with exertion. He also has a productive cough with yellow sputum. According to the nursing staff the patient is alert and oriented 3 however does have intermittent confusion. Patient did undergo a ultrasound of the chest yesterday which did show a right pleural effusion fluid pocket of 13.9 cm and the left pleural effusion fluid pocket of 11 cm. Patient was marked on both sides for a possible thoracentesis. Chest x-ray today has been reviewed and does show bilateral effusions as well as bilateral pneumonia as well as CHF. Patient does have a history of an echo with an EF of 15%. His labs also reviewed today and the patient did have a critical creatinine of 5 and his BUN was 51. Patient will be undergoing hemodialysis today. Objective - Vital Signs Vital signs: Vital Signs Temp 97.8 F 11/23/16 04:00 Pulse 112 H 11/23/16 09:28 Resp 22 11/23/16 07:00 BP 98/64 11/23/16 07:00 Pulse Ox 99 11/23/16 09:23 Intake & Output 11/22/16 11/23/16 11/23/16 18:59 06:59 18:59 Intake Total 300 10 Output Total 85 40 0 Balance 215 -30 0 Weight 73.028 kg 74.8 kg 74.8 kg Intake: Intake, IV Titration 300 Amount Sodium Chloride 0.9% 1, 300 000 ml @ 150 mls/hr IV . Q6H40M [facility] Rx#:[id number] Oral 10 Output: Urine 85 40 0 Other: Voiding Method Indwelling Catheter # Bowel Movements 1 - Exam GENERAL EXAM: Alert, active, comfortable in no apparent distress. HEAD: Normocephalic. EYES: Normal reaction of pupils, equal size. NOSE: Clear with pink turbinates. THROAT: No erythema or exudates. NECK: No masses, no JVD. CHEST: No chest wall deformity. LUNGS: Breath sounds noted to be coarse throughout the patient also was noted to have scattered rhonchi. Bases diminished. Bilateral dullness and egophony present CVS: S1 and S2 normal with no audible mumurs, regular rhythm. ABDOMEN: No hepatosplenomegaly, normal bowel sounds, no guarding or rigidity. EXTREMITIES: S1 edema noted, pedal pulses palpable. SKIN: No rashes CENTRAL NERVOUS SYSTEM: No focal deficits, tone is normal in all 4 extremities. - Labs CBC & Chem 7: 11/23/16 04:22 11/23/16 04:22 Labs: Abnormal Lab Results - Last 24 Hours (Table) 11/22/16 11/22/16 11/22/16 Range/Units 11:00 11:00 11:00 RBC 2.54 L (4.30-5.90) m/uL Hgb 7.9 L (13.0-17.5) gm/dL Hct 25.6 L (39.0-53.0) % MCV 101.0 H (80.0-100.0) fL MCHC 30.8 L (31.0-37.0) g/dL RDW 21.3 H (11.5-15.5) % Lymphocytes # 0.9 L (1.0-4.8) k/uL Monocytes # 1.1 H (0-1.0) k/uL Chloride 96 L (98-107) mmol/L Carbon Dioxide 32 H (22-30) mmol/L BUN 40 H (9-20) mg/dL Creatinine 4.49 H (0.66-1.25) mg/dL Glucose (74-99) mg/dL Alkaline Phosphatase (38-126) U/L Troponin I 0.065 H* (0.000-0.034) ng/mL Total Protein 5.4 L (6.3-8.2) g/dL Albumin 2.8 L (3.5-5.0) g/dL Urine pH (5.0-8.0) Urine Protein (Negative) Urine WBC (0-5) /hpf 11/22/16 11/23/16 11/23/16 Range/Units 15:27 04:22 04:22 RBC 2.48 L (4.30-5.90) m/uL Hgb 7.6 L (13.0-17.5) gm/dL Hct 26.4 L (39.0-53.0) % MCV 106.7 H D (80.0-100.0) fL MCHC 28.8 L (31.0-37.0) g/dL RDW 21.0 H (11.5-15.5) % Lymphocytes # 0.1 L (1.0-4.8) k/uL Monocytes # (0-1.0) k/uL Chloride (98-107) mmol/L Carbon Dioxide (22-30) mmol/L BUN 51 H (9-20) mg/dL Creatinine 5.00 H* (0.66-1.25) mg/dL Glucose 204 H (74-99) mg/dL Alkaline Phosphatase 143 H (38-126) U/L Troponin I (0.000-0.034) ng/mL Total Protein 5.7 L (6.3-8.2) g/dL Albumin 2.9 L (3.5-5.0) g/dL Urine pH 8.5 H (5.0-8.0) Urine Protein 3+ H (Negative) Urine WBC 6 H (0-5) /hpf Microbiology - Last 24 Hours (Table) 11/22/16 15:27 Urine Culture - Preliminary Urine,Catheterized Assessment and Plan Plan: Assessment Systemic inflammatory response syndrome Hypotension Chronic renal failure, end-stage currently on hemodialysis Tuesdays and Saturdays. Chronic persistent asthma with acute exacerbation Community acquired pneumonia suspect mixed bacterial gram-negative Acute pulmonary edema Bilateral pleural effusions Acute SD with mildly elevated troponins cannot be excluded Anemia of chronic disease Cardiomyopathy with chronic systolic heart failure with a baseline ejection fraction of 15% with acute decompensation Plan Patient will undergo a right-sided thoracentesis today. We will do the left- sided thoracentesis tomorrow. Nephrology on consult and the patient will have hemodialysis today as well. Medications have been reviewed and will be continued as ordered. Continue with IV antibiotics. Solu-Medrol 60 mg IV every 6 hours. Continue with pulmonary hygiene, coughing and deep breathing exercises, and supportive care. Supplemental oxygen to maintain oxygen saturations of 92% or better. Continue nebulizer treatments, we will add budesonide as well. Initiate and encourage incentive spirometer. GI and DVT prophylaxis. Repeat labs and chest x-ray in the morning. We will continue to monitor labs/results and adjust treatment as necessary. Further recommendations pending. I performed an examination of the patient and discussed their management with the nurse practitioner. I have reviewed the nurse practitioner's note and agree with the documented findings and plan of care.
[2016-11-23] MEDS: DARBEPOETIN ALFA 40 MCG/0.4 ML SYRINGE SQ SCH (11:11)
[2016-11-23] MEDS ORDERED: LEVOFLOXACIN 750MG-D5W PMX 750 MG in DEXTROSE/WATER 1 150ML.BAG IVPB SCH (12:00)
--- NOTE | 2016-11-23 14:33 | CONS ---
Marcelo Hooper is a 65-year-old gentleman who has been admitted to the hospital through the emergency room with what seems to be hypotension, dizziness, and shortness of breath and also having been febrile. Patient has endstage renal disease, on dialysis. He had an episode of hypotension and therefore I was asked to see him. After receiving some IV fluids, his pressure is normal. He is resting comfortably, denies chest pain. His shortness of breath has improved. His initial troponin is abnormal but patient has endstage renal disease and probably does not reflect any myocardial injury. About a month ago, he had a cardiac cath when he presented with chest pain and had a mild troponin elevation and cardiac cath revealed no significant CAD, significantly decreased LV function, was placed on a balloon pump as well. However at this time, patient does not have any acute ischemic syndrome, is resting comfortably without symptoms and dialysis is being considered. PAST MEDICAL HISTORY: 1. End-stage renal disease on 3 days of hemodialysis. 2. History of chronic anemia. 3. Nonischemic cardiomyopathy with recent episode of heart failure. 4. He is status post renal transplantation, basal cell carcinoma. 5. Previous cataract surgery. Medications at home include Flomax, Singulair, magnesium supplements, atorvastatin 40 mg daily, aspirin 81 mg daily, theophylline, antibiotics as an outpatient, midodrine 5 mg t.i.d. ALLERGIES: MIPERIDINE, VANCOMYCIN, BENADRYL. On examination, blood pressure is 108/70, pulse rate is 110 per minute. HEENT: Unremarkable, fundus was not examined by me. Neck is supple, there is JVD of 2 cm, no carotid bruit. Heart exam reveals S1, S2 with a short systolic murmur at the base. Lungs reveal a diminished air entry. Abdomen is distended, nontender, lower extremities reveal diminished pulses, 1+ edema. Central nervous system grossly within normal limits. EKG revealed a sinus mechanism, left foot axis, nonspecific ST-T changes. Laboratory data reveals that the initial troponin is abnormal but this may not reflect myocardial injury. BNP is elevated. IMPRESSION: 1. Transient hypotension, probably secondary to autonomic dysfunction in a patient with endstage renal disease on hemodialysis. 2. Nonischemic cardiomyopathy. 3. Known left ventricular dysfunction. 4. History of recent hospitalization. RECOMMENDATION: I agree with the current management and cautious IV and fluid administration, Nephrology evaluation, possible dialysis. No aggressive intervention is necessary from a cardiac standpoint. I am recommending an echocardiogram to be performed to reassess his LV systolic function. He is also having a septic workup in place. His lactic acid was elevated and this is being addressed a critical care physician. Thank you very much or the consult. LAURENT
--- NOTE | 2016-11-23 15:37 | CDI ---
In responding to this query, please exercise your independent professional judgment. The [facility] Coding Staff and Clinical Documentation Specialists appreciate your assistance in clarifying documentation, maintaining compliance with coding guidelines, accurately documenting patients condition and capturing severity of illness. The fact that a question is asked does not imply that any particular answer is desired or expected. Communication forms are a method of clarifying documentation and are not made part of the Legal Health Record. Thank you in advance for your clarification. Last Revision, August 2016 Iamafshan Lopez [address] [facility] [place] [address] Documentation Clarification Form Date: 11/23/2016 3:15:00 PM From: Lillian Raymundo RN, CDS Admit Date: 11/22/2016 1:07:00 PM Patient Name: Marcelo Hooper Visit Number: [id number] Dr. Bryanna Wade, 65 year old patient admitted for SIRS and Gram negative Pneumonia. He has a history of ESRD with failure of renal transplant receiving hemodialysis History/Risk Factors: Heart Failure, ESRD/hemodialysis Clinical Indicators: VS:100.8 117 26 100/58 100%, SIRS Criteria 3/4: HR 117, Temp 100.8, BP 81/55, "ESRD, chronic hypotension, Acute on chronic CHF with systolic dysfunction EF 20%" and "Patient does have chronic hypotension with SBP around 80 mm Hg" per H&P, Cardiology consult states: "Transient hypotension , probably secondary to autonomic dysfunction in a patient with endstage renal disease on hemodialysis. Treatment: IV Levaquin, IV Zosyn, ID consult, NS bolus x3 in ED, NS@150, ICU admission In your professional opinion, please clarify if these findings signify one of the following conditions, whether the condition is POA, and cause, if known: Sepsis SIRS, without underlying infectious process Sepsis, ruled out Severe Sepsis Unable to determine Other, please specify Present on Admission: Yes No * Identify the (suspected) organism SIRS Criteria: 2 or more of the following may indicate SIRS Temperature < 96.8F(36C) or > 101.0F (38C) Heart Rate > 90 bpm Respiratory Rate > 20 breaths/min or PaCO2 < 32 mmHg White Blood Cell Count > 12,000 or < 4,000 cells/mm3 or > 10% bands Lactate >2.0 mmol/L (>4.0 is equivalent to septic shock) Please document in your progress notes and discharge summary in order to capture severity of illness and risk of mortality. Include clinical findings that support your diagnosis. FYI: Press F11 to launch patient chart. LAURENT
[2016-11-23] MEDS: CHOLECALCIFEROL 1,000 UNIT TAB PO SCH (18:29)
[2016-11-23] MEDS: PARNATE PO SCH (18:37)
[2016-11-23] MEDS: BUDESONIDE 0.5 MG/2 ML NEBU INHALATION SCH ×2 (19:44→19:49)
--- NOTE | 2016-11-23 21:04 | CONS ---
DATE OF SERVICE: 11/23/2016 REASON FOR CONSULTATION: Pneumonia. HISTORY OF PRESENT ILLNESS: The patient is a 65-year-old male who was recently admitted to this facility for a cardiac catheterization. He had cardiac arrest on the table and required resuscitation and had a component of aspiration pneumonia. The patient did have sputum cultures that were all negative. Recommended a short course of oral Augmentin and was discharged. The patient is now brought back to the [facility] ER on 11/22/2016 with the chief complaints of increasing shortness of breath, cough and congestion and fever. Apparently his symptoms have been going on for the last few days. There is no history of any constipation, choking on food or any vomiting. Subsequently the patient was evaluated by the ER physician. The patient did have a chest x-ray showing findings consistent with mild heart failure, bilateral effusion and cardiomegaly. Patient has been admitted to the hospital ICU, where he was started on levofloxacin and piperacillin tazobactam. ID was consulted for further recommendations regarding antibiotic therapy. The patient is afebrile this morning. He is complaining of some central chest pain and he did have a cough but was unable to bring any sputum up. Overall breathing has improved. No nausea, vomiting or abdominal pain or any diarrhea. REVIEW OF SYSTEMS: CONSTITUTIONAL: Positive for weakness and a fever, but no fever recorded here. EYES: No complaint. ENT: No complaint. RESPIRATORY: As per HPI. CARDIOVASCULAR: As per HPI. GENITOURINARY: No complaint. GASTROINTESTINAL: No complaint. MUSCULOSKELETAL: No complaint. INTEGUMENTARY: No complaint. PSYCHOLOGIC: No complaint. ENDOCRINE: No complaint. NEUROLOGIC: No complaint. Past medical history is significant for: 1. End-stage renal disease, on hemodialysis. 2. Asthma. 3. Pneumonia. PAST SURGICAL HISTORY: 1. Dialysis catheter placement. 2. Heart catheterization. 3. Kidney transplant. 4. Left arm fistula. 5. Colonoscopy with benign cyst. 6. Bilateral cataract removal. SOCIAL HISTORY: No history of smoking, drinking or drug use. FAMILY HISTORY: No pertinent findings were noted. ALLERGIES: 1. DIPHENHYDRAMINE. 2. VANCOMYCIN. Medications currently include: 1. Piperacillin tazobactam. 2. Solu-Medrol. 3. Levofloxacin. 4. Pepcid. 5. Lovenox. 6. Sensipar. 7. Vitamin D3. 8. PhosLo. 9. Pulmicort. 10. Dulcolax. 11. Aspirin. 12. DuoNeb. 13. Tylenol. On examination, blood pressure is 106/60 with a pulse of 114, temperature 98, T- max of 100.8. He is 100% on 2 L nasal cannula. General description is an elderly male up in the chair in no distress. No tachypnea or accessory muscle of respiration use. HEENT examination shows pallor. No scleral icterus. Oral mucous membrane is dry. NECK: Trachea is central. No thyromegaly. LUNGS: Unlabored breathing with decreased breath sounds at the bases. No wheeze or crackle. HEART: S1, S2. Regular rate and rhythm. ABDOMEN: Soft. No tenderness. No guarding. No rigidity. EXTREMITIES: Two plus edema of the feet. SKIN EXAMINATION: Multiple bruises. Neurologically patient is awake, alert, oriented x3. Mood and affect normal. LABS: Hemoglobin is 7.5 with white count of 6.0 with a BUN of 51, creatinine 5.0. Urine has been negative. Blood culture obtained is currently pending. DIAGNOSTIC IMPRESSION AND PLAN: Patient admitted to hospital with difficulty in breathing. He did have some chest pain and sputum production also with a low- grade fever of 100.8. X-ray findings mostly suggestive of feature of underlying pneumonia not entirely excluded in a patient who was recently treated at this facility for aspiration pneumonia and sputum was negative for any resistant pathogen on that admission. PLAN: 1. Obtain sputum for Gram stain and culture and sensitivity. 2. The patient will continue Zosyn and Levaquin while waiting for the culture to finalize. 3. We will follow up on his clinical condition and culture to further adjust his medication if needed. Thank you for this consultation. Will follow this patient along with you. LAURENT
[2016-11-23] MEDS: ATORVASTATIN 40 MG TAB PO SCH (21:14)
[2016-11-24] MEDS: IPRATROPIUM-ALBUTEROL 3 ML NEB INHALATION SCH ×6 (01:23→19:12)
[2016-11-24] MEDS: methylPREDNISolone SOD SUCCI 125 MG/2 ML VIAL IV SCH ×4 (02:40→17:47)
[2016-11-24 05:44] LABS: Anisocytosis Moderate; CH 30.2; CHCM 28.7; HCT 26.6 % (39.0-53.0); HDW 3.91; HGB 7.6 gm/dL (13.0-17.5); Hypochromasia Marked; MCH 30.3 pg (25.0-35.0); MCHC 28.7 g/dL (31.0-37.0); MCV 105.9 fL (80.0-100.0); Macrocytosis Marked; Mean Platelet Volume 9.2; Poikilocytosis Slight; RBC 2.51 m/uL (4.30-5.90); RDW 21.3 % (11.5-15.5); WBC 11.9 k/uL (3.8-10.6); WBC (Perox) 12.04
[2016-11-24 05:56] LABS: Calcium 8.9 mg/dL (8.4-10.2); Potassium 4.7 mmol/L (3.5-5.1); Total Bilirubin 0.9 mg/dL (0.2-1.3)
[2016-11-24 06:05] LABS: Add Differential Manual Differential
[2016-11-24 06:06] LABS: Manual Review Performed; Nucleated Red Blood Cells 0 /100 WBC (0-0); Total Cells Counted 100
[2016-11-24 06:07] LABS: Polychromasia Present
[2016-11-24] MEDS: BUDESONIDE 0.5 MG/2 ML NEBU INHALATION SCH ×2 (07:13→19:12)
--- NOTE | 2016-11-24 07:24 | XR ---
EXAMINATION TYPE: XR chest 1V portable DATE OF EXAM: 11/24/2016 COMPARISON: 11/23/2016 INDICATION: Shortness of breath TECHNIQUE: Single frontal view of the chest is obtained. FINDINGS: The heart size is normal. The pulmonary vasculature is normal. Small bilateral pleural effusions are present. IMPRESSION: 1. Small bilateral pleural effusions, stable
--- NOTE | 2016-11-24 07:51 | P.PN ---
Subjective Patient is seen in follow-up for end-stage renal disease. He is maintained on hemodialysis on a Sunday schedule. Patient presented with dyspnea with concerns for pneumonia. He is currently maintained on broad- spectrum antibiotics. Cultures have been negative so far. He did undergo hemodialysis yesterday. He is known to have chronic hypotension. He does have history of underlying systolic CHF with ejection fraction of 15%. Patient states he did not sleep well last night. Otherwise denies any chest pain or shortness of breath. Vital signs are stable. General: The patient appeared well nourished and normally developed. HEENT: Head exam is unremarkable. Neck is without jugular venous distension. LUNGS: Scattered rhonchi. Breath sounds decreased. HEART: Rate and Rhythm are regular. First and second heart sounds normal. No murmurs, rubs or gallops. ABDOMEN: Abdominal exam reveals normal bowel sounds. Non-tender and non- distended. No evidence of peritonitis. EXTREMITITES: 1+ edema. Objective - Vital Signs Vital signs: Vital Signs Temp 97 F L 11/24/16 05:00 Pulse 110 H 11/24/16 07:29 Resp 30 H 11/24/16 07:00 BP 93/62 11/24/16 07:00 Pulse Ox 99 11/24/16 07:13 Intake & Output 11/23/16 11/24/16 11/24/16 18:59 06:59 18:59 Intake Total 660 370 Output Total 2020 25 0 Balance -1360 345 0 Weight 74.8 kg Intake: Intake, IV Titration 300 Amount Levofloxacin 500Mg-D5w 100 Pmx 500 mg In Dextrose/ Water 1 100ml.bag @ 100 mls/hr IVPB Q48H [facility] Rx#: [id number] Levofloxacin 750Mg-D5w 100 Pmx 750 mg In Dextrose/ Water 1 150ml.bag @ 100 mls/hr IVPB Q24H [facility] Rx#: [id number] Piperacillin-Tazobactam 3 100 .375 gm In Dextrose/Water 1 50ml.bag @ 12.5 mls/hr IVPB Q8HR [facility] Rx#: [id number] Oral 360 370 Output: Urine 20 25 0 Other 2000 Other: Voiding Method Urinal Urinal # Voids 1 # Bowel Movements 1 1 - Labs CBC & Chem 7: 11/24/16 05:15 11/24/16 05:15 Labs: Abnormal Lab Results - Last 24 Hours (Table) 11/24/16 11/24/16 Range/Units 05:15 05:15 WBC 11.9 H (3.8-10.6) k/uL RBC 2.51 L (4.30-5.90) m/uL Hgb 7.6 L (13.0-17.5) gm/dL Hct 26.6 L (39.0-53.0) % MCV 105.9 H (80.0-100.0) fL MCHC 28.7 L (31.0-37.0) g/dL RDW 21.3 H (11.5-15.5) % Neutrophils # (Manual) 11.3 H (1.3-7.7) k/uL Lymphocytes # (Manual) 0.2 L (1.0-4.8) k/uL BUN 48 H (9-20) mg/dL Creatinine 4.30 H (0.66-1.25) mg/dL Glucose 119 H (74-99) mg/dL Alkaline Phosphatase 131 H (38-126) U/L Total Protein 6.0 L (6.3-8.2) g/dL Albumin 3.2 L (3.5-5.0) g/dL Microbiology - Last 24 Hours (Table) 11/22/16 15:27 Urine Culture - Final Urine,Catheterized 11/22/16 16:33 Blood Culture - Preliminary Blood No Growth after 24 hours 11/22/16 11:00 Blood Culture - Preliminary Blood No Growth after 24 hours Assessment and Plan Plan: Assessment: #1. End-stage renal disease maintained on hemodialysis on a Sunday schedule. #2. Dyspnea. Possibly from pneumonia. Also evidence of fluid overload. #3. Chronic kidney disease mineral bone disease. #4. Anemia of chronic kidney disease. Plan: Hemodialysis tomorrow with goal 2-3 L ultrafiltration as blood pressure tolerates. Maintain Aranesp Follow-up cultures. Maintain antibiotics. Patient did receive fluids on admission which have been discontinued. His oral intake is good.
[2016-11-24] MEDS: PIPERACILLIN-TAZOBACTAM 3.375 GM in DEXTROSE/WATER 1 50ML.BAG IVPB SCH ×2 (08:17→17:46)
[2016-11-24] MEDS: FAMOTIDINE 20 MG TAB PO SCH (08:27)
[2016-11-24] MEDS: CALCIUM ACETATE 667 MG CAP PO SCH ×3 (08:27→16:43)
[2016-11-24] MEDS: CINACALCET 30 MG TAB PO SCH (08:27)
[2016-11-24] MEDS: MIDODRINE 5 MG TAB PO SCH ×3 (08:27→16:43)
[2016-11-24] MEDS: SODIUM BICARBONATE TAB 650 MG TAB PO SCH ×2 (08:28→16:43)
[2016-11-24] MEDS: PARNATE PO SCH (08:28)
[2016-11-24] MEDS: THEOPHYLLINE 24 HOUR 300 MG CAP.ER.24H PO SCH ×2 (08:28→16:43)
[2016-11-24] MEDS: ENOXAPARIN 30 MG/0.3 ML SYRINGE SQ SCH (08:28)
[2016-11-24] MEDS: ASPIRIN 81 MG CHEW PO SCH (08:28)
[2016-11-24] MEDS ORDERED: ALPRAZolam 0.5 MG TAB PO PRN (10:35)
--- NOTE | 2016-11-24 10:48 | ECHOF ---
Referral Reason:CHF MEASUREMENTS -------- HEIGHT: 182.9 cm WEIGHT: 74.4 kg BP: IVSd: 0.8 cm (0.6 - 1.1) LVIDd: 7.3 cm (3.9 - 5.3) LVPWd: 0.8 cm (0.6 - 1.1) IVSs: 0.7 cm LVIDs: 6.9 cm LVPWs: 0.9 cm Ao Diam: 3.0 cm (2.0 - 3.7) AV Cusp: 2.2 cm (1.5 - 2.6) LA Diam: 3.6 cm (2.7 - 3.8) MV EXCURSION: 13.883 mm (> 18.000) MV EF SLOPE: 110 mm/s (70 - 150) EPSS: 4.1 cm MV E Juvencio: 0.90 m/s MV DecT: 88 ms MV A Juvencio: 0.86 m/s MV E/A Ratio: 1.04 AR PHT: 317 ms RAP: 15.00 mmHg RVSP: 55.34 mmHg FINDINGS -------- Sinus rhythm. Resting tachycardia (HR>100bpm). This was a technically good study. The left ventricle is severely dilated. Left ventricular wall thickness is normal. There is severe global hypokinesis of LV . Overall left ventricular systolic function is severely impaired with, an EF < 20%. The right ventricle is normal in size and function. The left atrium is normal in size. The right atrium is normal in size. Aortic valve is trileaflet and is mildly thickened. Trace amount of aortic regurgitation. The mitral valve leaflets are mildly thickened. Mild mitral annular calcification present. Moderate mitral regurgitation is present. Moderate to severe tricuspid regurgitation present. There is moderate pulmonary hypertension. The right ventricular systolic pressure, as measured by Doppler, is 55.34mmHg. There is no pulmonic regurgitation present. The aortic root size is normal. There is no pericardial effusion. Large Pleural Effusion. CONCLUSIONS -------- 1. Resting tachycardia (HR>100bpm). 2. The mitral valve leaflets are mildly thickened. 3. Mild mitral annular calcification present. 4. Moderate mitral regurgitation is present. 5. Moderate to severe tricuspid regurgitation present. 6. There is moderate pulmonary hypertension. 7. The right ventricular systolic pressure, as measured by Doppler, is 55.34mmHg. 8. There is no pulmonic regurgitation present. 9. The aortic root size is normal. 10. There is no pericardial effusion. 11. Large Pleural Effusion. 12. This was a technically good study. 13. The left ventricle is severely dilated. 14. Left ventricular wall thickness is normal. 15. There is severe global hypokinesis of LV . 16. Overall left ventricular systolic function is severely impaired with, an EF < 20%. 17. The left atrium is normal in size. 18. Aortic valve is trileaflet and is mildly thickened. 19. Trace amount of aortic regurgitation. DIRECTOR OF EVENT MARKETING: Keshia Gonzáles RDCS
--- NOTE | 2016-11-24 12:13 | P.PN ---
Subjective 11/22/16- This is a 65-year-old male to the ER for evaluation of shortness of breath, cough and congestion, positive fever. Patient poor historian secondary to clinical condition. Patient will complain of shortness of breath the patient has same symptoms as he has had prior. History is obtained from EMS and patient's chart. Patient is not really aware of the situation and worsening that brought him into the emergency department. He is a resident of extended care facility he has been found to be more short of breath and running low- grade temperature he missed hemodialysis yesterday as well. He denies any night sweats or fevers chills does have intermittent cough denies any problem with passing urine off not that patient has a nonoliguric renal failure, he has been hospitalized recently with the heart failure which is acute on chronic systolic heart failure requiring intra-aortic balloon pump and prolonged hospital stay. 11/23/16- upon examination the patient's resting up in bed on 2 L of supplemental oxygen and saturating 99% currently. He does have shortness of breath with exertion. He also has a productive cough with yellow sputum. According to the nursing staff the patient is alert and oriented 3 however does have intermittent confusion. Patient did undergo a ultrasound of the chest yesterday which did show a right pleural effusion fluid pocket of 13.9 cm and the left pleural effusion fluid pocket of 11 cm. Patient was marked on both sides for a possible thoracentesis. Chest x-ray today has been reviewed and does show bilateral effusions as well as bilateral pneumonia as well as CHF. Patient does have a history of an echo with an EF of 15%. His labs also reviewed today and the patient did have a critical creatinine of 5 and his BUN was 51. Patient will be undergoing hemodialysis today. 11/24/16-patient will undergo thoracentesis of the right side today. The procedure could not be completed yesterday due to the patient receiving dialysis during the procedural time. Patient had 2L removed with dialysis yesterday. Currently the patient is resting up in bed on room air oxygen saturations high 90s. He states he does continue to have some shortness of breath with exertion. Patient is anxious today. Nephrology is also on the case and the patient will undergo hemodialysis again tomorrow. And states his appetite has been good, no nausea no vomiting no diarrhea or constipation. Objective - Vital Signs Vital signs: Vital Signs Temp 97.3 F L 07/21/17 08:00 Pulse 112 H 11/24/16 12:04 Resp 28 H 11/24/16 10:00 BP 103/65 11/24/16 10:00 Pulse Ox 100 11/24/16 10:00 Intake & Output 11/23/16 11/24/16 11/24/16 18:59 06:59 18:59 Intake Total 660 370 35.0 Output Total 2020 25 0 Balance -1360 345 35.0 Weight 74.8 kg Intake: IV 35.0 Piperacillin-Tazobactam 3 25.0 .375 gm In Dextrose/Water 1 50ml.bag @ 12.5 mls/hr IVPB Q12H [facility] Rx#: [id number] Sodium Chloride 0.9% 1, 10 000 ml @ 150 mls/hr IV . Q6H40M [facility] Rx#:[id number] Intake, IV Titration 300 Amount Levofloxacin 500Mg-D5w 100 Pmx 500 mg In Dextrose/ Water 1 100ml.bag @ 100 mls/hr IVPB Q48H [facility] Rx#: [id number] Levofloxacin 750Mg-D5w 100 Pmx 750 mg In Dextrose/ Water 1 150ml.bag @ 100 mls/hr IVPB Q24H [facility] Rx#: [id number] Piperacillin-Tazobactam 3 100 .375 gm In Dextrose/Water 1 50ml.bag @ 12.5 mls/hr IVPB Q8HR [facility] Rx#: [id number] Oral 360 370 Output: Urine 20 25 0 Other 2000 Other: Voiding Method Urinal Urinal Urinal # Voids 1 1 # Bowel Movements 1 1 1 - Exam GENERAL EXAM: Alert, , comfortable in no apparent distress. HEAD: Normocephalic. EYES: Normal reaction of pupils, equal size. NOSE: Clear with pink turbinates. THROAT: No erythema or exudates. NECK: No masses, no JVD. CHEST: No chest wall deformity. LUNGS: Breath sounds noted to be coarse throughout the patient also was noted to have scattered rhonchi. Bases diminished. Bilateral dullness and egophony present CVS: S1 and S2 normal with no audible mumurs, regular rhythm. ABDOMEN: No hepatosplenomegaly, normal bowel sounds, no guarding or rigidity. EXTREMITIES: S1 edema noted, pedal pulses palpable. SKIN: No rashes CENTRAL NERVOUS SYSTEM: No focal deficits, tone is normal in all 4 extremities. - Labs CBC & Chem 7: 11/24/16 05:15 11/24/16 05:15 Labs: Abnormal Lab Results - Last 24 Hours (Table) 11/24/16 11/24/16 Range/Units 05:15 05:15 WBC 11.9 H (3.8-10.6) k/uL RBC 2.51 L (4.30-5.90) m/uL Hgb 7.6 L (13.0-17.5) gm/dL Hct 26.6 L (39.0-53.0) % MCV 105.9 H (80.0-100.0) fL MCHC 28.7 L (31.0-37.0) g/dL RDW 21.3 H (11.5-15.5) % Neutrophils # (Manual) 11.3 H (1.3-7.7) k/uL Lymphocytes # (Manual) 0.2 L (1.0-4.8) k/uL BUN 48 H (9-20) mg/dL Creatinine 4.30 H (0.66-1.25) mg/dL Glucose 119 H (74-99) mg/dL Alkaline Phosphatase 131 H (38-126) U/L Total Protein 6.0 L (6.3-8.2) g/dL Albumin 3.2 L (3.5-5.0) g/dL Microbiology - Last 24 Hours (Table) 11/24/16 05:40 Gram Stain - Preliminary Sputum Sputum Culture - Preliminary 11/22/16 15:27 Urine Culture - Final Urine,Catheterized 11/22/16 16:33 Blood Culture - Preliminary Blood No Growth after 24 hours 11/22/16 11:00 Blood Culture - Preliminary Blood No Growth after 24 hours Assessment and Plan Plan: Assessment Systemic inflammatory response syndrome Hypotension Chronic renal failure, end-stage currently on hemodialysis Tuesdays and Saturdays. Chronic persistent asthma with acute exacerbation Community acquired pneumonia suspect mixed bacterial gram-negative Acute pulmonary edema Bilateral pleural effusions Acute CO with mildly elevated troponins cannot be excluded Anemia of chronic disease Cardiomyopathy with chronic systolic heart failure with a baseline ejection fraction of 15% with acute decompensation Plan Patient will undergo a right-sided thoracentesis today. We will add Xanax to the patient's current medications for anxiety. We will do the left-sided thoracentesis tomorrow. Nephrology on consult and the patient will have hemodialysis tomorrow as well. Medications have been reviewed and will be continued as ordered. Continue with IV antibiotics. Solu-Medrol 60 mg IV every 6 hours. Continue with pulmonary hygiene, coughing and deep breathing exercises, and supportive care. Supplemental oxygen to maintain oxygen saturations of 92% or better. Continue nebulizer treatments, we will add budesonide as well. Initiate and encourage incentive spirometer. GI and DVT prophylaxis. Repeat labs and chest x-ray in the morning. We will continue to monitor labs/results and adjust treatment as necessary. Further recommendations pending. I performed an examination of the patient and discussed their management with the nurse practitioner. I have reviewed the nurse practitioner's note and agree with the documented findings and plan of care.
--- NOTE | 2016-11-24 12:58 | PN ---
Marcelo is a 65-year-old gentleman with history of coronary artery disease, ischemic cardiomyopathy who presented to the hospital with hypotension, dizziness and shortness of breath. The patient has severe LV systolic dysfunction based on the recent echo; also has end-stage renal disease and is on hemodialysis. He has bilateral leg edema. He has pleural effusion and is to undergo thoracentesis. On exam, heart rate is around 110 beats per minute. Blood pressure is 103/65. Respiratory rate is 28. Chest exam reveals diminished air entry at the bases. Heart exam reveals first and second heart sounds. No gallop. Has a systolic murmur at the apex. Abdomen is soft. Examination of the extremities reveals bilateral pitting edema. It is moderate. Labs show a hemoglobin of 7.6. Potassium is 4.7. BUN is 48. Creatinine is 4.3. ASSESSMENT: 1. Acute exacerbation of chronic systolic failure. 2. End-stage renal disease on hemodialysis . 3. Pleural effusion. PLAN: Will continue with the current medications including aspirin, Lipitor and patient will undergo thoracentesis. [facility]OSPITALStephenie
--- NOTE | 2016-11-24 14:34 | XR ---
EXAMINATION TYPE: XR chest 1V portable DATE OF EXAM: 11/24/2016 COMPARISON: 11/24/2016 earlier in the day INDICATION: Postthoracentesis TECHNIQUE: Single frontal view of the chest is obtained. FINDINGS: The heart size is normal. The pulmonary vasculature is normal. There is a subtle rounded density within the mid right lung. Correlate for mild infiltrate. Small rig ht and moderate left pleural effusion is present. The right pleural effusion is diminished from prior compatible the patient's history of thoracentesis. No pneumothorax is evident. IMPRESSION: 1. No pneumothorax postthoracentesis. Right pleural effusion is diminished from prior. 2. Some infiltrate may be developing within the right midlung.
[2016-11-24] MEDS: CHOLECALCIFEROL 1,000 UNIT TAB PO SCH (16:43)
--- NOTE | 2016-11-24 17:06 | PN ---
DATE OF SERVICE: 11/24/2016 REASON FOR FOLLOWUP: Possible pneumonia. INTERVAL HISTORY: The patient is afebrile. He is still complaining of shortness of breath, though maintaining his saturations well on 2 L nasal cannula. Patient is complaining of some similar chest pain. He did have a cough but is not bringing up a significant amount of sputum. No nausea, vomiting. No abdominal pain or any diarrhea. On examination, blood pressure is 103/59 with a pulse of 112, temperature 97.4. He is 100% on 2 L nasal cannula. General description is an elderly male lying in bed in no distress. RESPIRATORY SYSTEM: Unlabored breathing with decreased breath sounds at the bases. No wheeze. HEART: S1, S2. Regular rate and rhythm. ABDOMEN: Soft. No tenderness. LABS: Hemoglobin is 7.3 with a white count of 11.9 with a BUN of 48, creatinine of 4.30. DIAGNOSTIC IMPRESSION AND PLAN: Patient admitted to hospital with difficulty in breathing which is slightly multifactorial. The patient did have a low-grade fever of 100.8; underlying pneumonia not entirely excluded; in a patient who was recently admitted to hospital, with a concern about possible Gram-negative. At this time we will keep the patient on Zosyn while trying to obtain a sputum culture so we can narrow down his antibiotics. Family present at the bedside Their questions were answered. LAURENT
[2016-11-24 18:26] LABS: LDH, Body Fluid Source Pleural Fluid; T. Protein, Body Fluid Source Pleural Fluid; Total Protein, Body Fluid 2100 mg/dL
[2016-11-24] MEDS ORDERED: IPRATROPIUM-ALBUTEROL 3 ML NEB INHALATION PRN (20:06)
[2016-11-24] MEDS: ATORVASTATIN 40 MG TAB PO SCH (20:57)
[2016-11-24] MEDS: LEVOFLOXACIN 500MG-D5W PMX 500 MG in DEXTROSE/WATER 1 100ML.BAG IVPB SCH (20:57)
[2016-11-24] MEDS: ACETAMINOPHEN TAB 325 MG TAB PO PRN (21:17)
--- NOTE | 2016-11-24 22:53 | P.PN ---
Subjective Mr. Hooper is a 65-year-old male with a known history of ESRD on hemodialysis TTS , failed kidney transplant, nonobstructive coronary artery disease, nonischemic cardiomyopathy ejection fraction 20% and chronic bilateral pleural effusion was brought to the hospital from extended care facility with complaints of short of breath. Patient denied any, soft fever or chills. Patient does have gait dysfunction at baseline and uses a walker. Patient was recently discharged from the hospital on 11/15/2016. Patient does have chronic hypotension with SBP around 80 mm Hg. Patient is on metered groin. Bumex was discontinued during last admission. Currently patient denied any complains of chest pain. Patient does make some urine. Chest x-ray in the ER showed findings most consistent with mild heart failure and bilateral effusions. There is bibasilar airspace disease either representing atelectasis/ pneumonia. Patient was hypotensive and was started on antibiotics zosyn and levofloxacin and transferred to the ICU . On 11/23/16 - pt was c/o productive cough with yellow sputum for the 2-3 days and as the CXR showed effusion , pt had an US of the chest showing right pleural effusion fluid pocket of 13.9 cm and the left pleural effusion fluid pocket of 11 cm. HE also has h/o CHF with EF 10-15 % only. Objective - Vital Signs Vital signs: Vital Signs Vital Signs Temp 97.8 F 11/23/16 04:00 Pulse 112 H 11/23/16 09:28 Resp 22 11/23/16 07:00 BP 98/64 11/23/16 07:00 Pulse Ox 99 11/23/16 09:23 Intake & Output 11/22/16 11/23/16 11/23/16 18:59 06:59 18:59 Intake Total 300 10 Output Total 85 40 0 Balance 215 -30 0 Weight 73.028 kg 74.8 kg 74.8 kg Intake: Intake, IV Titration 300 Amount Sodium Chloride 0.9% 1, 300 000 ml @ 150 mls/hr IV . Q6H40M [facility] Rx#:[id number] Oral 10 Output: Urine 85 40 0 Other: Voiding Method Indwelling Catheter # Bowel Movements 1 - Exam Patient is lying in the bed comfortably, no acute distress, awake alert and oriented.. HEENT: Normocephalic. Neck is supple. Pupils reactive. Nostrils clear. Oral cavity is moist. Ears reveal no drainage. Neck reveals no JVD, carotid bruits, or thyromegaly. CHEST EXAMINATION: Coarse BS bilaterally. Decreased at the lower lung bases and has egophony. CARDIAC: Normal S1, S2 with no gallops. No murmurs ABDOMEN: Soft. Bowel sounds normal. No organomegaly. No abdominal bruits. Extremities: 1+ edema. No clubbing or cyanosis Neurologically awake, alert, oriented x3 with well-coordinated movements. No focal deficits noted Skin: No rash or skin lesions. Psychiatric: Operative. Nonsuicidal Musculoskeletal: No joint swelling or deformity. Normal range of motion. - Labs CBC & Chem 7: 11/24/16 05:15 11/24/16 05:15 Labs: Abnormal Lab Results - Last 24 Hours (Table) 11/24/16 11/24/16 Range/Units 05:15 05:15 WBC 11.9 H (3.8-10.6) k/uL RBC 2.51 L (4.30-5.90) m/uL Hgb 7.6 L (13.0-17.5) gm/dL Hct 26.6 L (39.0-53.0) % MCV 105.9 H (80.0-100.0) fL MCHC 28.7 L (31.0-37.0) g/dL RDW 21.3 H (11.5-15.5) % Neutrophils # (Manual) 11.3 H (1.3-7.7) k/uL Lymphocytes # (Manual) 0.2 L (1.0-4.8) k/uL BUN 48 H (9-20) mg/dL Creatinine 4.30 H (0.66-1.25) mg/dL Glucose 119 H (74-99) mg/dL Alkaline Phosphatase 131 H (38-126) U/L Total Protein 6.0 L (6.3-8.2) g/dL Albumin 3.2 L (3.5-5.0) g/dL Microbiology - Last 24 Hours (Table) 11/22/16 16:33 Blood Culture - Preliminary Blood No Growth after 48 hours 11/24/16 13:50 Body Fluid Culture - Preliminary Pleural Fluid 11/24/16 13:50 Fungal Culture - Preliminary Pleural Fluid 11/24/16 13:50 Acid Fast Bacilli Culture - Preliminary Pleural Fluid 11/22/16 11:00 Blood Culture - Preliminary Blood No Growth after 48 hours 11/24/16 05:40 Gram Stain - Preliminary Sputum Sputum Culture - Preliminary 11/22/16 15:27 Urine Culture - Final Urine,Catheterized Assessment and Plan Plan: #1 Systemic inflammatory response syndrome with possible bibasilar with gram- negative pneumonia #2 chronic hypotension. Patient is on Midodrin #3 ESRD on hemodialysis TTS #4 acute on chronic CHF with systolic dysfunction with ejection fraction 20% #5 Non ischemic cardiomyopathy #6 elevated troponin possible non-ST elevated TX #7 hypoalbuminemia with moderate protein calorie malnutrition #8 chronic bilateral pleural effusion #9 anemia of chronic disease #10 DVT prophylaxis. PLAN: Patient will be continued on antibiotics in the form of Zosyn and levofloxacin and gentle hydration for in view of his CHF with EF 10-15%. Nephrology taking care of hemodialysis. We will continue Midodrin. C/w methylprednisolone, breathing treatments and follow closely. Cardiology and pulmonary is following this patient. Further recommendations based on the clinical course.
--- NOTE | 2016-11-25 01:11 | P.PCN ---
Date of Procedure: 11/24/16 Preoperative Diagnosis: pleural effusion, acute on chronic systolic heart failure, sob, respiratory failure, acute hypoxic Postoperative Diagnosis: as above Procedure(s) Performed: right thoracentesis Implants: Anesthesia: local Surgeon: Lewis Ali Condition: stable Disposition: ICU Indications for Procedure: as above Operative Findings: 1.1 L of clear yellow pleural fluid removed Description of Procedure: pt. prepared and drapped, procedure explained to patient and family, including risk, complication and alternative, informed consent obtained, u/s utilized to confirm max. depth of pleural fluid, 1% la given at 8th ics, cathetor in needle placed, 1.1 lit of clear yellow pleural fluid aspirated pt. tolerated procedure well no complication noted
[2016-11-25] MEDS: methylPREDNISolone SOD SUCCI 125 MG/2 ML VIAL IV SCH ×4 (01:29→17:42)
--- NOTE | 2016-11-25 02:02 | P.PN ---
Subjective Principal diagnosis: SIRS Mr. Hooper is a 65-year-old male with a known history of ESRD on hemodialysis TTS , failed kidney transplant, nonobstructive coronary artery disease, nonischemic cardiomyopathy ejection fraction 20% and chronic bilateral pleural effusion was brought to the hospital from extended care facility with complaints of short of breath. Patient denied any, soft fever or chills. Patient does have gait dysfunction at baseline and uses a walker. Patient was recently discharged from the hospital on 11/15/2016. Patient does have chronic hypotension with SBP around 80 mm Hg. Patient is on metered groin. Bumex was discontinued during last admission. Currently patient denied any complains of chest pain. Patient does make some urine. Chest x-ray in the ER showed findings most consistent with mild heart failure and bilateral effusions. There is bibasilar airspace disease either representing atelectasis/ pneumonia. Patient was hypotensive and was started on antibiotics zosyn and levofloxacin and transferred to the ICU . On 11/23/16 - pt was c/o productive cough with yellow sputum for the 2-3 days and as the CXR showed effusion , pt had an US of the chest showing right pleural effusion fluid pocket of 13.9 cm and the left pleural effusion fluid pocket of 11 cm. HE also has h/o CHF with EF 10-15 % only. On 11/24/16 Pt.s SOB is improved. no CP. no Fever/chills. HD tomorrow.,. no over night issues. bring transferred to Tele unit Pt. had thoracentesis done with 1200 cc fluid removal Objective - Vital Signs Vital signs: Vital Signs Temp 97.1 F L 11/24/16 20:00 Pulse 108 H 11/24/16 20:00 Resp 18 11/24/16 20:00 BP 102/68 11/24/16 20:00 Pulse Ox 98 11/24/16 20:00 Intake & Output 11/24/16 11/24/16 11/25/16 06:59 18:59 06:59 Intake Total 370 122.5 642.5 Output Total 25 1100 Balance 345 -977.5 642.5 Intake: IV 122.5 62.5 Piperacillin-Tazobactam 3 62.5 62.5 .375 gm In Dextrose/Water 1 50ml.bag @ 12.5 mls/hr IVPB Q12H [facility] Rx#: [id number] Sodium Chloride 0.9% 1, 60 000 ml @ 150 mls/hr IV . Q6H40M [facility] Rx#:[id number] Intake, IV Titration 100 Amount Levofloxacin 500Mg-D5w 100 Pmx 500 mg In Dextrose/ Water 1 100ml.bag @ 100 mls/hr IVPB Q48H [facility] Rx#: [id number] Oral 370 480 Output: Urine 25 0 Other 1100 Other: Voiding Method Urinal Urinal Urinal # Voids 1 1 50 # Bowel Movements 1 2 - Exam Patient is lying in the bed comfortably, no acute distress, awake alert and oriented.. HEENT: Normocephalic. Neck is supple. Pupils reactive. Nostrils clear. Oral cavity is moist. Ears reveal no drainage. Neck reveals no JVD, carotid bruits, or thyromegaly. CHEST EXAMINATION: Coarse BS bilaterally. Decreased at the lower lung bases and has egophony. CARDIAC: Normal S1, S2 with no gallops. No murmurs ABDOMEN: Soft. Bowel sounds normal. No organomegaly. No abdominal bruits. Extremities: 1+ edema. No clubbing or cyanosis Neurologically awake, alert, oriented x3 with well-coordinated movements. No focal deficits noted Skin: No rash or skin lesions. Psychiatric: Operative. Nonsuicidal Musculoskeletal: No joint swelling or deformity. Normal range of motion. - Labs CBC & Chem 7: 11/24/16 05:15 11/24/16 05:15 Labs: Abnormal Lab Results - Last 24 Hours (Table) 11/24/16 11/24/16 Range/Units 05:15 05:15 WBC 11.9 H (3.8-10.6) k/uL RBC 2.51 L (4.30-5.90) m/uL Hgb 7.6 L (13.0-17.5) gm/dL Hct 26.6 L (39.0-53.0) % MCV 105.9 H (80.0-100.0) fL MCHC 28.7 L (31.0-37.0) g/dL RDW 21.3 H (11.5-15.5) % Neutrophils # (Manual) 11.3 H (1.3-7.7) k/uL Lymphocytes # (Manual) 0.2 L (1.0-4.8) k/uL BUN 48 H (9-20) mg/dL Creatinine 4.30 H (0.66-1.25) mg/dL Glucose 119 H (74-99) mg/dL Alkaline Phosphatase 131 H (38-126) U/L Total Protein 6.0 L (6.3-8.2) g/dL Albumin 3.2 L (3.5-5.0) g/dL Microbiology - Last 24 Hours (Table) 11/22/16 16:33 Blood Culture - Preliminary Blood No Growth after 48 hours 11/24/16 13:50 Body Fluid Culture - Preliminary Pleural Fluid 11/24/16 13:50 Fungal Culture - Preliminary Pleural Fluid 11/24/16 13:50 Acid Fast Bacilli Culture - Preliminary Pleural Fluid 11/22/16 11:00 Blood Culture - Preliminary Blood No Growth after 48 hours 11/24/16 05:40 Gram Stain - Preliminary Sputum Sputum Culture - Preliminary 11/22/16 15:27 Urine Culture - Final Urine,Catheterized Assessment and Plan Plan: #1 Systemic inflammatory response syndrome with possible bibasilar with gram- negative pneumonia #2 chronic hypotension. Patient is on Midodrin #3 ESRD on hemodialysis TTS #4 acute on chronic CHF with systolic dysfunction with ejection fraction 20% #5 Non ischemic cardiomyopathy #6 elevated troponin possible non-ST elevated SD #7 hypoalbuminemia with moderate protein calorie malnutrition #8 chronic bilateral pleural effusion. s/p thoracentesis on 11/24 #9 anemia of chronic disease #10 DVT prophylaxis. PLAN: Patient will be continued on antibiotics in the form of Zosyn and levofloxacin and gentle hydration for in view of his CHF with EF 10-15%. Nephrology taking care of hemodialysis. We will continue Midodrin. C/w methylprednisolone, breathing treatments and follow closely. Cardiology and pulmonary is following this patient. Further recommendations based on the clinical course.
[2016-11-25] MEDS: PIPERACILLIN-TAZOBACTAM 3.375 GM in DEXTROSE/WATER 1 50ML.BAG IVPB SCH ×2 (05:25→20:33)
[2016-11-25 05:45] LABS: Glucose,Whole Blood 118 mg/dL (75-99)
[2016-11-25] MEDS: INSULIN LISPRO (humaLOG) 300 UNIT/3 ML VIAL SQ SCH ×4 (06:26→20:49)
[2016-11-25] MEDS: CALCIUM ACETATE 667 MG CAP PO SCH ×3 (06:33→17:42)
[2016-11-25] MEDS: MIDODRINE 5 MG TAB PO SCH ×3 (06:33→17:42)
[2016-11-25 07:08] LABS: Anisocytosis Moderate; Basophils % (A) 0 %; CH 30.1; CHCM 29.3; Eosinophils % (A) 0 %; HDW 3.71; HGB 7.4 gm/dL (13.0-17.5); Hypochromasia Marked; Luc # (Auto) 0.07; Luc % (Auto) 1; Lymphocytes # (A) 0.2 k/uL (1.0-4.8); Lymphocytes % (A) 2 %; MCH 30.5 pg (25.0-35.0); MCHC 29.5 g/dL (31.0-37.0); MCV 103.3 fL (80.0-100.0); Macrocytosis Marked; Mean Platelet Volume 9.2; Monocytes # (A) 0.3 k/uL (0-1.0); Monocytes % (A) 3 %; Neutrophils # (A) 8.5 k/uL (1.3-7.7); Neutrophils % (A) 94 %; Poikilocytosis Slight; RBC 2.41 m/uL (4.30-5.90); RDW 21.4 % (11.5-15.5); WBC 9.1 k/uL (3.8-10.6); WBC (Perox) 9.16
[2016-11-25 07:15] LABS: Magnesium 2.1 mg/dL (1.6-2.3); Potassium 4.9 mmol/L (3.5-5.1); Total Bilirubin 0.9 mg/dL (0.2-1.3); Total Protein 5.8 g/dL (6.3-8.2)
[2016-11-25] MEDS: BUDESONIDE 0.5 MG/2 ML NEBU INHALATION SCH ×2 (08:05→19:22)
[2016-11-25] MEDS: IPRATROPIUM-ALBUTEROL 3 ML NEB INHALATION SCH ×4 (08:05→19:22)
--- NOTE | 2016-11-25 08:13 | XR ---
EXAMINATION TYPE: XR chest 1V portable DATE OF EXAM: 11/25/2016 HISTORY: Shortness of breath. COMPARISON: 11/24/2016 TECHNIQUE: Single view of the chest is submitted. FINDINGS: Demonstrated are scattered senescent parenchymal change. Patchy infiltrates throughout both lung goldman with the bilateral left greater than right pleural eff usions unchanged. evidence of remote granulomatous disease. The heart is stable. Hilar and mediastinal structures are within normal limits. Degenerative changes are seen of the dorsal spine. IMPRESSION: 1. Patchy infiltrates throughout both lung goldman with the bilateral left greater than right pleural effusions unchanged.
[2016-11-25] MEDS: PARNATE PO SCH (08:47)
[2016-11-25] MEDS: FAMOTIDINE 20 MG TAB PO SCH (08:49)
[2016-11-25] MEDS: ASPIRIN 81 MG CHEW PO SCH (08:49)
[2016-11-25] MEDS: THEOPHYLLINE 24 HOUR 300 MG CAP.ER.24H PO SCH ×2 (08:49→17:42)
[2016-11-25] MEDS: ENOXAPARIN 30 MG/0.3 ML SYRINGE SQ SCH (08:49)
[2016-11-25] MEDS: CINACALCET 30 MG TAB PO SCH (08:51)
--- NOTE | 2016-11-25 09:06 | PN ---
Patient is seen for follow up for endstage renal disease. Overall patient has deteriorated quite a bit over the last month or so. He is, however, better than on admission on this hospitalization. Currently patient is weak. He is awake, alert and oriented x3. He is complaining of mild shortness of breath. Patient is scheduled for hemodialysis today. On examination, blood pressure is 107/67, heart rate 112 per minute. He is afebrile. Examination of the heart: S1, S2. Examination of lungs: Decreased breath sounds at the bases with minimal basal crackles heard. Abdomen is soft, nontender, distended with ascites. Examination of lower extremities showed edema 2+ bilaterally. Chronic skin changes are noted. Labs show hemoglobin 7.4 g/dL. Sodium 138, potassium 4.9. ASSESSMENT: 1. Endstage renal disease on hemodialysis on Sunday, , Sunday schedule. 2. Anemia with no active bleeding noted at this time. will transfuse packed RBC. 3. Chronic hypotension maintained on Midodrine as outpatient. 4. Chronic kidney disease bone mineral disorder maintained on PhosLo and Sensipar. 5. Status post cardiac arrest. 6. Severe cardiomyopathy with ejection fraction of 10 to 15%. PLAN: Discontinue sodium bicarb. Repeat hemodialysis today and transfuse 1 unit packed RBCs. MTDD
--- NOTE | 2016-11-25 11:03 | P.PN ---
Subjective 11/22/16- This is a 65-year-old male to the ER for evaluation of shortness of breath, cough and congestion, positive fever. Patient poor historian secondary to clinical condition. Patient will complain of shortness of breath the patient has same symptoms as he has had prior. History is obtained from EMS and patient's chart. Patient is not really aware of the situation and worsening that brought him into the emergency department. He is a resident of extended care facility he has been found to be more short of breath and running low- grade temperature he missed hemodialysis yesterday as well. He denies any night sweats or fevers chills does have intermittent cough denies any problem with passing urine off not that patient has a nonoliguric renal failure, he has been hospitalized recently with the heart failure which is acute on chronic systolic heart failure requiring intra-aortic balloon pump and prolonged hospital stay. 11/23/16- upon examination the patient's resting up in bed on 2 L of supplemental oxygen and saturating 99% currently. He does have shortness of breath with exertion. He also has a productive cough with yellow sputum. According to the nursing staff the patient is alert and oriented 3 however does have intermittent confusion. Patient did undergo a ultrasound of the chest yesterday which did show a right pleural effusion fluid pocket of 13.9 cm and the left pleural effusion fluid pocket of 11 cm. Patient was marked on both sides for a possible thoracentesis. Chest x-ray today has been reviewed and does show bilateral effusions as well as bilateral pneumonia as well as CHF. Patient does have a history of an echo with an EF of 15%. His labs also reviewed today and the patient did have a critical creatinine of 5 and his BUN was 51. Patient will be undergoing hemodialysis today. 11/24/16-patient will undergo thoracentesis of the right side today. The procedure could not be completed yesterday due to the patient receiving dialysis during the procedural time. Patient had 2L removed with dialysis yesterday. Currently the patient is resting up in bed on room air oxygen saturations high 90s. He states he does continue to have some shortness of breath with exertion. Patient is anxious today. Nephrology is also on the case and the patient will undergo hemodialysis again tomorrow. And states his appetite has been good, no nausea no vomiting no diarrhea or constipation. 11/25/16 patient seen and evaluated examined during the rounds he is a status post a right thoracentesis is 1.1 L of fluid has been removed shortness of breath is slightly better and patient is due for left thoracentesis which I have explained to the patient he appears somewhat tired and fatigued will hold on doing it today his quality of sleep has improved denies any pain but does have shortness of breath him a findings of peripheral ultrasound has been reviewed with the patient some intermittent dry cough is present which is not much change from baseline rule fluid examination results are reviewed Objective - Vital Signs Vital signs: Vital Signs Temp 97.7 F 11/25/16 08:00 Pulse 112 H 11/25/16 08:15 Resp 20 11/25/16 08:00 BP 115/68 11/25/16 08:00 Pulse Ox 100 11/25/16 08:00 Intake & Output 11/24/16 11/25/16 11/25/16 18:59 06:59 18:59 Intake Total 122.5 1152.5 180 Output Total 1100 Balance -977.5 1152.5 180 Weight 78.7 kg 78.7 kg Intake: IV 122.5 112.5 Piperacillin-Tazobactam 3 62.5 112.5 .375 gm In Dextrose/Water 1 50ml.bag @ 12.5 mls/hr IVPB Q12H [facility] Rx#: [id number] Sodium Chloride 0.9% 1, 60 000 ml @ 150 mls/hr IV . Q6H40M [facility] Rx#:[id number] Intake, IV Titration 200 Amount Levofloxacin 500Mg-D5w 200 Pmx 500 mg In Dextrose/ Water 1 100ml.bag @ 100 mls/hr IVPB Q48H [facility] Rx#: [id number] Oral 840 180 Output: Urine 0 Other 1100 Other: Voiding Method Urinal Urinal Urinal # Voids 1 50 # Bowel Movements 2 - Exam GENERAL EXAM: Alert, , comfortable in no apparent distress. HEAD: Normocephalic. EYES: Normal reaction of pupils, equal size. NOSE: Clear with pink turbinates. THROAT: No erythema or exudates. NECK: No masses, no JVD. CHEST: No chest wall deformity. LUNGS: Breath sounds noted to be coarse throughout the patient also was noted to have scattered rhonchi. Bases diminished. Bilateral dullness and egophony present, increased air movement noted on the right side left side however remains unchanged CVS: S1 and S2 normal with no audible mumurs, regular rhythm. ABDOMEN: No hepatosplenomegaly, normal bowel sounds, no guarding or rigidity. EXTREMITIES: S1 edema noted, pedal pulses palpable. SKIN: No rashes CENTRAL NERVOUS SYSTEM: No focal deficits, tone is normal in all 4 extremities. - Labs CBC & Chem 7: 11/25/16 06:21 11/25/16 06:21 Labs: Abnormal Lab Results - Last 24 Hours (Table) 11/25/16 11/25/16 11/25/16 Range/Units 05:44 06:21 06:21 RBC 2.41 L (4.30-5.90) m/uL Hgb 7.4 L (13.0-17.5) gm/dL Hct 25.0 L (39.0-53.0) % MCV 103.3 H (80.0-100.0) fL MCHC 29.5 L (31.0-37.0) g/dL RDW 21.4 H (11.5-15.5) % Neutrophils # 8.5 H (1.3-7.7) k/uL Lymphocytes # 0.2 L (1.0-4.8) k/uL BUN 68 H (9-20) mg/dL Creatinine 5.20 H* (0.66-1.25) mg/dL POC Glucose (mg/dL) 118 H (75-99) mg/dL Total Protein 5.8 L (6.3-8.2) g/dL Albumin 3.1 L (3.5-5.0) g/dL Microbiology - Last 24 Hours (Table) 11/24/16 13:50 Gram Stain - Preliminary Pleural Fluid Body Fluid Culture - Preliminary 11/22/16 16:33 Blood Culture - Preliminary Blood No Growth after 48 hours 11/24/16 13:50 Fungal Culture - Preliminary Pleural Fluid 11/24/16 13:50 Acid Fast Bacilli Culture - Preliminary Pleural Fluid 11/22/16 11:00 Blood Culture - Preliminary Blood No Growth after 48 hours 11/24/16 05:40 Gram Stain - Preliminary Sputum Sputum Culture - Preliminary Assessment and Plan Plan: Assessment Systemic inflammatory response syndrome, likely related to pneumonia, suspect bilateral basal Hypotension, related to acute on chronic systolic heart failure, as well as sepsis Chronic renal failure, end-stage currently on hemodialysis Tuesdays and Saturdays. Chronic persistent asthma with acute exacerbation Community acquired pneumonia suspect mixed bacterial gram-negative Acute pulmonary edema Bilateral pleural effusions Acute SC with mildly elevated troponins cannot be excluded Anemia of chronic disease Cardiomyopathy with chronic systolic heart failure with a baseline ejection fraction of 15% with acute decompensation Plan Patient will undergo a left thoracentesis tomorrow. . We will do the left- sided thoracentesis tomorrow, patient is due for dialysis today. Nephrology on consult and the patient will have hemodialysis tomorrow as well. Medications have been reviewed and will be continued as ordered. Continue with IV antibiotics. Solu-Medrol 60 mg IV every 6 hours. Continue with pulmonary hygiene, coughing and deep breathing exercises, and supportive care. Supplemental oxygen to maintain oxygen saturations of 92% or better. Continue nebulizer treatments, we will add budesonide as well. Initiate and encourage incentive spirometer. GI and DVT prophylaxis. Repeat labs and chest x-ray in the morning. We will continue to monitor labs/results and adjust treatment as necessary. Further recommendations pending. Time with Patient: Greater than 30
[2016-11-25 12:48] LABS: Glucose,Whole Blood 114 mg/dL (75-99)
[2016-11-25] MEDS: SODIUM BICARBONATE TAB 650 MG TAB PO SCH (12:53)
--- NOTE | 2016-11-25 13:45 | P.PN ---
Subjective Mr. Hooper is a 65-year-old male with a known history of ESRD on hemodialysis TTS , failed kidney transplant, nonobstructive coronary artery disease, nonischemic cardiomyopathy ejection fraction 20% and chronic bilateral pleural effusion was brought to the hospital from extended care facility with complaints of short of breath. Patient denied any, soft fever or chills. Patient does have gait dysfunction at baseline and uses a walker. Patient was recently discharged from the hospital on 11/15/2016. Patient does have chronic hypotension with SBP around 80 mm Hg. Patient is on metered groin. Bumex was discontinued during last admission. Currently patient denied any complains of chest pain. Patient does make some urine. Chest x-ray in the ER showed findings most consistent with mild heart failure and bilateral effusions. There is bibasilar airspace disease either representing atelectasis/ pneumonia. Patient was hypotensive and was started on antibiotics zosyn and levofloxacin and transferred to the ICU . On 11/23/16 - pt was c/o productive cough with yellow sputum for the 2-3 days and as the CXR showed effusion , pt had an US of the chest showing right pleural effusion fluid pocket of 13.9 cm and the left pleural effusion fluid pocket of 11 cm. HE also has h/o CHF with EF 10-15 % only. On 11/24/16 Pt.s SOB is improved. no CP. no Fever/chills. HD tomorrow.,. no over night issues. bring transferred to Tele unit Pt. had thoracentesis done with 1200 cc fluid removal On 11/25/2016 Patient states that he has a cough minimal productive in nature No fevers chills are reported Patient does complain of chest pressure with deep breathing Has underwent a thoracentesis status post 1.1 L of fluid removal Objective - Vital Signs Vital signs: Vital Signs Temp 97.6 F 11/25/16 12:00 Pulse 111 H 11/25/16 12:00 Resp 20 11/25/16 12:00 BP 101/67 11/25/16 12:00 Pulse Ox 98 11/25/16 12:00 Intake & Output 11/24/16 11/25/16 11/25/16 18:59 06:59 18:59 Intake Total 122.5 1152.5 180 Output Total 1100 Balance -977.5 1152.5 180 Weight 78.7 kg 78.7 kg Intake: IV 122.5 112.5 Piperacillin-Tazobactam 3 62.5 112.5 .375 gm In Dextrose/Water 1 50ml.bag @ 12.5 mls/hr IVPB Q12H [facility] Rx#: [id number] Sodium Chloride 0.9% 1, 60 000 ml @ 150 mls/hr IV . Q6H40M [facility] Rx#:[id number] Intake, IV Titration 200 Amount Levofloxacin 500Mg-D5w 200 Pmx 500 mg In Dextrose/ Water 1 100ml.bag @ 100 mls/hr IVPB Q48H [facility] Rx#: [id number] Oral 840 180 Output: Urine 0 Other 1100 Other: Voiding Method Urinal Urinal Urinal # Voids 1 50 # Bowel Movements 2 2 - Labs CBC & Chem 7: 11/25/16 06:21 11/25/16 06:21 Labs: Abnormal Lab Results - Last 24 Hours (Table) 11/25/16 11/25/16 11/25/16 Range/Units 05:44 06:21 06:21 RBC 2.41 L (4.30-5.90) m/uL Hgb 7.4 L (13.0-17.5) gm/dL Hct 25.0 L (39.0-53.0) % MCV 103.3 H (80.0-100.0) fL MCHC 29.5 L (31.0-37.0) g/dL RDW 21.4 H (11.5-15.5) % Neutrophils # 8.5 H (1.3-7.7) k/uL Lymphocytes # 0.2 L (1.0-4.8) k/uL BUN 68 H (9-20) mg/dL Creatinine 5.20 H* (0.66-1.25) mg/dL POC Glucose (mg/dL) 118 H (75-99) mg/dL Total Protein 5.8 L (6.3-8.2) g/dL Albumin 3.1 L (3.5-5.0) g/dL 11/25/16 Range/Units 12:27 RBC (4.30-5.90) m/uL Hgb (13.0-17.5) gm/dL Hct (39.0-53.0) % MCV (80.0-100.0) fL MCHC (31.0-37.0) g/dL RDW (11.5-15.5) % Neutrophils # (1.3-7.7) k/uL Lymphocytes # (1.0-4.8) k/uL BUN (9-20) mg/dL Creatinine (0.66-1.25) mg/dL POC Glucose (mg/dL) 114 H (75-99) mg/dL Total Protein (6.3-8.2) g/dL Albumin (3.5-5.0) g/dL Microbiology - Last 24 Hours (Table) 11/22/16 11:00 Blood Culture - Preliminary Blood No Growth after 72 hours 11/24/16 13:50 Gram Stain - Preliminary Pleural Fluid Body Fluid Culture - Preliminary 11/22/16 16:33 Blood Culture - Preliminary Blood No Growth after 48 hours 11/24/16 13:50 Fungal Culture - Preliminary Pleural Fluid 11/24/16 13:50 Acid Fast Bacilli Culture - Preliminary Pleural Fluid Assessment and Plan Plan: HEENT: Normocephalic. Neck is supple. Pupils reactive. Nostrils clear. Oral cavity is moist. Ears reveal no drainage. Neck reveals no JVD, carotid bruits, or thyromegaly. CHEST EXAMINATION: Coarse BS bilaterally. Decreased at the lower lung bases and has egophony. CARDIAC: Normal S1, S2 with no gallops. No murmurs ABDOMEN: Soft. Bowel sounds normal. No organomegaly. No abdominal bruits. Extremities: 2+ edema. No clubbing or cyanosis Neurologically awake, alert, oriented x3 with well-coordinated movements. No focal deficits noted Skin: No rash or skin lesions. Psychiatric: Operative. Nonsuicidal Musculoskeletal: No joint swelling or deformity. Normal range of motion. #1 Systemic inflammatory response syndrome with possible bibasilar with gram- negative pneumonia #2 chronic hypotension. Patient is on Midodrine #3 ESRD on hemodialysis TTS #4 acute on chronic CHF with systolic dysfunction with ejection fraction 20% #5 Non ischemic cardiomyopathy #6 elevated troponin possible non-ST elevated MA #7 hypoalbuminemia with moderate protein calorie malnutrition #8 chronic bilateral pleural effusion. s/p thoracentesis on 11/24 #9 anemia of chronic disease #10 DVT prophylaxis. PLAN: Patient is to undergo hemodialysis today. Continue ongoing care with the antibiotics Repeat chest x-ray will be done tomorrow O2 as needed DVT prophylaxis
[2016-11-25 17:13] LABS: Glucose,Whole Blood 108 mg/dL (75-99)
[2016-11-25] MEDS: CHOLECALCIFEROL 1,000 UNIT TAB PO SCH (17:42)
[2016-11-25] MEDS: ATORVASTATIN 40 MG TAB PO SCH (20:37)
[2016-11-25 20:50] LABS: Glucose,Whole Blood 119 mg/dL (75-99)
[2016-11-26] MEDS: methylPREDNISolone SOD SUCCI 125 MG/2 ML VIAL IV SCH ×2 (00:26→06:03)
[2016-11-26] MEDS: PIPERACILLIN-TAZOBACTAM 3.375 GM in DEXTROSE/WATER 1 50ML.BAG IVPB SCH ×2 (05:58→17:15)
[2016-11-26] MEDS: MIDODRINE 5 MG TAB PO SCH ×3 (06:03→17:15)
[2016-11-26] MEDS: CALCIUM ACETATE 667 MG CAP PO SCH ×3 (06:03→17:15)
[2016-11-26 06:14] LABS: Glucose,Whole Blood 117 mg/dL (75-99)
[2016-11-26] MEDS: INSULIN LISPRO (humaLOG) 300 UNIT/3 ML VIAL SQ SCH ×4 (06:25→22:27)
[2016-11-26 06:58] LABS: Anisocytosis Moderate; Basophils % (A) 0 %; CH 30.4; CHCM 30.2; Eosinophils % (A) 0 %; HCT 29.1 % (39.0-53.0); HDW 4.23; HGB 8.8 gm/dL (13.0-17.5); Hypochromasia Marked; Luc % (Auto) 1; Lymphocytes # (A) 0.3 k/uL (1.0-4.8); Lymphocytes % (A) 4 %; MCH 30.6 pg (25.0-35.0); MCHC 30.2 g/dL (31.0-37.0); MCV 101.3 fL (80.0-100.0); Macrocytosis Moderate; Mean Platelet Volume 9.8; Monocytes # (A) 0.4 k/uL (0-1.0); Monocytes % (A) 6 %; Neutrophils # (A) 6.6 k/uL (1.3-7.7); Neutrophils % (A) 89 %; Poikilocytosis Moderate; RBC 2.87 m/uL (4.30-5.90); RDW 22.1 % (11.5-15.5); WBC 7.5 k/uL (3.8-10.6); WBC (Perox) 7.34
[2016-11-26 07:13] LABS: Magnesium 2.1 mg/dL (1.6-2.3); Potassium 5.1 mmol/L (3.5-5.1); Total Protein 5.9 g/dL (6.3-8.2)
[2016-11-26] MEDS: BUDESONIDE 0.5 MG/2 ML NEBU INHALATION SCH ×2 (08:05→20:08)
[2016-11-26] MEDS: IPRATROPIUM-ALBUTEROL 3 ML NEB INHALATION SCH ×4 (08:05→20:08)
--- NOTE | 2016-11-26 08:15 | XR ---
EXAMINATION TYPE: XR chest 1V portable DATE OF EXAM: 11/26/2016 HISTORY: Shortness of breath. COMPARISON: 11/25/2016 TECHNIQUE: Single view of the chest is submitted. FINDINGS: Demonstrated are scattered senescent parenchymal change. Scattered airspace infiltrates with bilateral pleural effusions. Superimposed pulmonary venous conges tion and interstitial edema. The heart is stable. Hilar and mediastinal structures are within normal limits. Degenerative changes are seen of the dorsal spine. IMPRESSION: 1. Able chest.
[2016-11-26] MEDS: PARNATE PO SCH (08:40)
[2016-11-26] MEDS: ENOXAPARIN 30 MG/0.3 ML SYRINGE SQ SCH (08:41)
[2016-11-26] MEDS: THEOPHYLLINE 24 HOUR 300 MG CAP.ER.24H PO SCH ×2 (08:42→16:24)
[2016-11-26] MEDS: FAMOTIDINE 20 MG TAB PO SCH (08:43)
[2016-11-26] MEDS: ASPIRIN 81 MG CHEW PO SCH (08:43)
[2016-11-26] MEDS: CINACALCET 30 MG TAB PO SCH (08:43)
--- NOTE | 2016-11-26 10:36 | PN ---
DATE OF SERVICE: 11/25/2016 Follow up visit for pneumonia. INTERVAL HISTORY: The patient is afebrile. Has been breathing more comfortably. The patient noted to be slightly confused but no agitation has been noticed. No nausea or vomiting or any diarrhea. PHYSICAL EXAMINATION: Blood pressure 107/71 with a pulse rate of 111, temperature 97. He is 100% on room air. GENERAL DESCRIPTION: Elderly male up in the bed in no distress. RESPIRATORY: Unlabored breathing. Some decreased breath sounds at the bases. HEART: S1/S2, regular rate and rhythm. LABS: Hemoglobin 7.1, white count 9.1. BUN 60, creatinine 5.20. Patient status post thoracentesis yesterday, the cultures are still pending. DIAGNOSTIC IMPRESSION: Patient admitted to the hospital with difficulty breathing ( ) features. The patient did have a low grade fever. With the diagnosis of pleural effusion status post of 1 liter of fluid. So far the cultures are negative. With concern for pneumonia, the patient is currently covered with Zosyn. Will continue it while awaiting for the cultures to finalize. Continue supportive care. LAURENT
--- NOTE | 2016-11-26 10:43 | P.PN ---
Subjective 11/22/16- This is a 65-year-old male to the ER for evaluation of shortness of breath, cough and congestion, positive fever. Patient poor historian secondary to clinical condition. Patient will complain of shortness of breath the patient has same symptoms as he has had prior. History is obtained from EMS and patient's chart. Patient is not really aware of the situation and worsening that brought him into the emergency department. He is a resident of extended care facility he has been found to be more short of breath and running low- grade temperature he missed hemodialysis yesterday as well. He denies any night sweats or fevers chills does have intermittent cough denies any problem with passing urine off not that patient has a nonoliguric renal failure, he has been hospitalized recently with the heart failure which is acute on chronic systolic heart failure requiring intra-aortic balloon pump and prolonged hospital stay. 11/23/16- upon examination the patient's resting up in bed on 2 L of supplemental oxygen and saturating 99% currently. He does have shortness of breath with exertion. He also has a productive cough with yellow sputum. According to the nursing staff the patient is alert and oriented 3 however does have intermittent confusion. Patient did undergo a ultrasound of the chest yesterday which did show a right pleural effusion fluid pocket of 13.9 cm and the left pleural effusion fluid pocket of 11 cm. Patient was marked on both sides for a possible thoracentesis. Chest x-ray today has been reviewed and does show bilateral effusions as well as bilateral pneumonia as well as CHF. Patient does have a history of an echo with an EF of 15%. His labs also reviewed today and the patient did have a critical creatinine of 5 and his BUN was 51. Patient will be undergoing hemodialysis today. 11/24/16-patient will undergo thoracentesis of the right side today. The procedure could not be completed yesterday due to the patient receiving dialysis during the procedural time. Patient had 2L removed with dialysis yesterday. Currently the patient is resting up in bed on room air oxygen saturations high 90s. He states he does continue to have some shortness of breath with exertion. Patient is anxious today. Nephrology is also on the case and the patient will undergo hemodialysis again tomorrow. And states his appetite has been good, no nausea no vomiting no diarrhea or constipation. 11/25/16 patient seen and evaluated examined during the rounds he is a status post a right thoracentesis is 1.1 L of fluid has been removed shortness of breath is slightly better and patient is due for left thoracentesis which I have explained to the patient he appears somewhat tired and fatigued will hold on doing it today his quality of sleep has improved denies any pain but does have shortness of breath him a findings of peripheral ultrasound has been reviewed with the patient some intermittent dry cough is present which is not much change from baseline rule fluid examination results are reviewed 11/26/16, patient seen and evaluated examined he is awake and alert slightly more stronger as able to get out of the bed with assistance to the bedside preston Carroll get short of breath on minimal activity and exertion remains on oxygen I have discussed with him about the left-sided thoracentesis which is being planned for later on today or fully that will improve the quality of's breathing and improve cardiorespiratory status. Procedure complications side effects and alternatives have been explained to the patient at length Objective - Vital Signs Vital signs: Vital Signs Temp 97.3 F L 11/26/16 08:00 Pulse 112 H 11/26/16 08:17 Resp 20 11/26/16 08:00 BP 106/81 11/26/16 08:00 Pulse Ox 100 11/26/16 04:00 Intake & Output 11/25/16 11/26/16 11/26/16 18:59 06:59 18:59 Intake Total 640 490 Output Total 50 Balance 640 440 Weight 78.7 kg 78.8 kg 78.8 kg Intake: IV 50 50 Piperacillin-Tazobactam 3 50 50 .375 gm In Dextrose/Water 1 50ml.bag @ 12.5 mls/hr IVPB Q12H [facility] Rx#: [id number] Oral 280 440 Blood Product 310 Rc Irr As1 Unit 310 [id number] Output: Urine 50 Other: Voiding Method Urinal Urinal Urinal # Voids 1 # Bowel Movements 2 1 - Exam GENERAL EXAM: Alert, , comfortable in no apparent distress. HEAD: Normocephalic. EYES: Normal reaction of pupils, equal size. NOSE: Clear with pink turbinates. THROAT: No erythema or exudates. NECK: No masses, no JVD. CHEST: No chest wall deformity. LUNGS: Breath sounds noted to be coarse throughout the patient also was noted to have scattered rhonchi. Bases diminished. Bilateral dullness and egophony present, increased air movement noted on the right side left side however remains unchanged CVS: S1 and S2 normal with no audible mumurs, regular rhythm. ABDOMEN: No hepatosplenomegaly, normal bowel sounds, no guarding or rigidity. EXTREMITIES: S1 edema noted, pedal pulses palpable. SKIN: No rashes CENTRAL NERVOUS SYSTEM: No focal deficits, tone is normal in all 4 extremities. - Labs CBC & Chem 7: 11/26/16 06:34 11/26/16 06:34 Labs: Abnormal Lab Results - Last 24 Hours (Table) 11/25/16 11/25/16 11/25/16 Range/Units 08:47 12:27 16:53 RBC (4.30-5.90) m/uL Hgb (13.0-17.5) gm/dL Hct (39.0-53.0) % MCV (80.0-100.0) fL MCHC (31.0-37.0) g/dL RDW (11.5-15.5) % Lymphocytes # (1.0-4.8) k/uL Carbon Dioxide (22-30) mmol/L BUN (9-20) mg/dL Creatinine (0.66-1.25) mg/dL Glucose (74-99) mg/dL POC Glucose (mg/dL) 114 H 108 H (75-99) mg/dL Alkaline Phosphatase (38-126) U/L Total Protein (6.3-8.2) g/dL Albumin (3.5-5.0) g/dL Crossmatch See Detail 11/25/16 11/26/16 11/26/16 Range/Units 20:48 06:13 06:34 RBC 2.87 L (4.30-5.90) m/uL Hgb 8.8 L (13.0-17.5) gm/dL Hct 29.1 L (39.0-53.0) % MCV 101.3 H (80.0-100.0) fL MCHC 30.2 L (31.0-37.0) g/dL RDW 22.1 H (11.5-15.5) % Lymphocytes # 0.3 L (1.0-4.8) k/uL Carbon Dioxide (22-30) mmol/L BUN (9-20) mg/dL Creatinine (0.66-1.25) mg/dL Glucose (74-99) mg/dL POC Glucose (mg/dL) 119 H 117 H (75-99) mg/dL Alkaline Phosphatase (38-126) U/L Total Protein (6.3-8.2) g/dL Albumin (3.5-5.0) g/dL Crossmatch 11/26/16 Range/Units 06:34 RBC (4.30-5.90) m/uL Hgb (13.0-17.5) gm/dL Hct (39.0-53.0) % MCV (80.0-100.0) fL MCHC (31.0-37.0) g/dL RDW (11.5-15.5) % Lymphocytes # (1.0-4.8) k/uL Carbon Dioxide 20 L (22-30) mmol/L BUN 55 H (9-20) mg/dL Creatinine 4.29 H (0.66-1.25) mg/dL Glucose 106 H (74-99) mg/dL POC Glucose (mg/dL) (75-99) mg/dL Alkaline Phosphatase 139 H (38-126) U/L Total Protein 5.9 L (6.3-8.2) g/dL Albumin 3.2 L (3.5-5.0) g/dL Crossmatch Microbiology - Last 24 Hours (Table) 11/24/16 13:50 Acid Fast Bacilli Smear - Final Pleural Fluid Acid Fast Bacilli Culture - Preliminary 11/22/16 16:33 Blood Culture - Preliminary Blood No Growth after 72 hours 11/22/16 11:00 Blood Culture - Preliminary Blood No Growth after 72 hours 11/24/16 13:50 Gram Stain - Preliminary Pleural Fluid Body Fluid Culture - Preliminary Assessment and Plan Plan: Assessment bilateral basal pneumonia pneumonia and Systemic inflammatory response syndrome , likely related to that Bilateral pleural effusion status post thoracentesis on the right side now being planned for left thoracentesis Chronic renal failure, end-stage currently on hemodialysis Tuesdays and Saturdays. Chronic persistent asthma with acute exacerbation Community acquired pneumonia suspect mixed bacterial gram-negative Acute pulmonary edema Bilateral pleural effusions Acute LA with mildly elevated troponins cannot be excluded Anemia of chronic disease Cardiomyopathy with chronic systolic heart failure with a baseline ejection fraction of 15% with acute decompensation Hypotension, related to acute on chronic systolic heart failure, as well as sepsis Plan Patient will undergo a left thoracentesis today. . We will do the left-sided thoracentesis today, patient is due for dialysis tomorrow. Nephrology on consult and the patient will have hemodialysis tomorrow as well. Medications have been reviewed and will be continued as ordered. Continue with IV antibiotics. Solu-Medrol 60 mg IV every 6 hours, is being lowered down to 40 mg IV every 12. Continue with pulmonary hygiene, coughing and deep breathing exercises, and supportive care. Supplemental oxygen to maintain oxygen saturations of 92% or better. Continue nebulizer treatments, we will add budesonide as well. Initiate and encourage incentive spirometer. GI and DVT prophylaxis. Repeat labs and chest x-ray in the morning. We will continue to monitor labs/results and adjust treatment as necessary. Further recommendations pending. Time with Patient: Greater than 30
[2016-11-26] MEDS: ACETAMINOPHEN TAB 325 MG TAB PO PRN (11:32)
[2016-11-26 12:14] LABS: Glucose,Whole Blood 141 mg/dL (75-99)
--- NOTE | 2016-11-26 12:25 | PN ---
The patient is seen for follow up for end stage renal disease. he is sitting up in his bed. He is having his breakfast although very slowly. The patient remains quite weak. He denies any significant nausea and vomiting. Shortness of breath has improved over the last few days. The patient remains with significant edema in his lower extremities. He was dialyzed yesterday and we will dialyze him again tomorrow. On examination, blood pressure is 106/81. Heart rate 112 per minute. He is afebrile. Examination of the heart, S1, S2. Examination of the lungs, decreased breath sounds at the bases. Abdomen is soft , nontender. Extremities of the lower extremities shows edema. 2+ bilaterally with chronic skin changes noted. Labs show sodium 138, potassium 5.1, hemoglobin 8.8 gram per DL. ASSESSMENT: 1. End stage renal disease on hemodialysis, normally on Sunday, and Sunday schedule. However, I will arrange for a treatment tomorrow mainly for fluid overload and ultrafiltration. 2. Anemia of chronic disease, maintained on Aranesp. 3. Chronic kidney disease, bone mineral disorder, maintained on Sensipar and PhosLo as phosphate binder. 4. Status post cardiac arrest. 5. Chronic hypotension, maintained on Midodrine. 6. Pneumonia, currently on Zosyn and improved. 7. Severe cardiomyopathy with an EF of 10 to 15%. PLAN: Repeat hemodialysis in the a.m. with goal UF of about 2 to 2.5 L as tolerated. MTDD
--- NOTE | 2016-11-26 15:04 | P.PN ---
Subjective Mr. Hooper is a 65-year-old male with a known history of ESRD on hemodialysis TTS , failed kidney transplant, nonobstructive coronary artery disease, nonischemic cardiomyopathy ejection fraction 20% and chronic bilateral pleural effusion was brought to the hospital from extended care facility with complaints of short of breath. Patient denied any, soft fever or chills. Patient does have gait dysfunction at baseline and uses a walker. Patient was recently discharged from the hospital on 11/15/2016. Patient does have chronic hypotension with SBP around 80 mm Hg. Patient is on metered groin. Bumex was discontinued during last admission. Currently patient denied any complains of chest pain. Patient does make some urine. Chest x-ray in the ER showed findings most consistent with mild heart failure and bilateral effusions. There is bibasilar airspace disease either representing atelectasis/ pneumonia. Patient was hypotensive and was started on antibiotics zosyn and levofloxacin and transferred to the ICU . On 11/23/16 - pt was c/o productive cough with yellow sputum for the 2-3 days and as the CXR showed effusion , pt had an US of the chest showing right pleural effusion fluid pocket of 13.9 cm and the left pleural effusion fluid pocket of 11 cm. HE also has h/o CHF with EF 10-15 % only. On 11/24/16 Pt.s SOB is improved. no CP. no Fever/chills. HD tomorrow.,. no over night issues. bring transferred to Tele unit Pt. had thoracentesis done with 1200 cc fluid removal On 11/25/2016 Patient states that he has a cough minimal productive in nature No fevers chills are reported Patient does complain of chest pressure with deep breathing Has underwent a thoracentesis status post 1.1 L of fluid removal 11/23/2016 Chest x-ray this morning revealed a recurrence of the fluid Patient appears to be waxing and waning in regards to his mentation however of known this patient for long period of time patient is extremely manipulative her graft patient once his medication which is not currently available Objective - Vital Signs Vital signs: Vital Signs Temp 96.7 F L 11/26/16 12:00 Pulse 108 H 11/26/16 12:05 Resp 19 11/26/16 12:00 BP 99/69 11/26/16 12:00 Pulse Ox 100 11/26/16 04:00 Intake & Output 11/25/16 11/26/16 11/26/16 18:59 06:59 18:59 Intake Total 640 490 50 Output Total 50 Balance 640 440 50 Weight 78.7 kg 78.8 kg 78.8 kg Intake: IV 50 50 50 Piperacillin-Tazobactam 3 50 50 50 .375 gm In Dextrose/Water 1 50ml.bag @ 12.5 mls/hr IVPB Q12H [facility] Rx#: [id number] Oral 280 440 Blood Product 310 Rc Irr As1 Unit 310 [id number] Output: Urine 50 Other: Voiding Method Urinal Urinal Urinal # Voids 1 # Bowel Movements 2 1 - Exam In appearance alert to self Neck is supple no JVD Diminished breath sounds on the left base No rhonchi or wheezing or crackles Heart S1-S2 heard regular rate and rhythm no murmurs appreciable Abdomen soft nontender organomegaly Left lower extremity a large ecchymosis along the left side and the a tender point on the left hip 1+ edema in the lower extremities Neuro moves all 4 extremities no focal deficits Left upper extremity palpable thrill noted - Labs CBC & Chem 7: 11/26/16 06:34 11/26/16 06:34 Labs: Abnormal Lab Results - Last 24 Hours (Table) 11/25/16 11/25/16 11/25/16 Range/Units 08:47 16:53 20:48 RBC (4.30-5.90) m/uL Hgb (13.0-17.5) gm/dL Hct (39.0-53.0) % MCV (80.0-100.0) fL MCHC (31.0-37.0) g/dL RDW (11.5-15.5) % Lymphocytes # (1.0-4.8) k/uL Carbon Dioxide (22-30) mmol/L BUN (9-20) mg/dL Creatinine (0.66-1.25) mg/dL Glucose (74-99) mg/dL POC Glucose (mg/dL) 108 H 119 H (75-99) mg/dL Alkaline Phosphatase (38-126) U/L Total Protein (6.3-8.2) g/dL Albumin (3.5-5.0) g/dL Crossmatch See Detail 11/26/16 11/26/1617 Range/Units 06:13 06:34 06:34 RBC 2.87 L (4.30-5.90) m/uL Hgb 8.8 L (13.0-17.5) gm/dL Hct 29.1 L (39.0-53.0) % MCV 101.3 H (80.0-100.0) fL MCHC 30.2 L (31.0-37.0) g/dL RDW 22.1 H (11.5-15.5) % Lymphocytes # 0.3 L (1.0-4.8) k/uL Carbon Dioxide 20 L (22-30) mmol/L BUN 55 H (9-20) mg/dL Creatinine 4.29 H (0.66-1.25) mg/dL Glucose 106 H (74-99) mg/dL POC Glucose (mg/dL) 117 H (75-99) mg/dL Alkaline Phosphatase 139 H (38-126) U/L Total Protein 5.9 L (6.3-8.2) g/dL Albumin 3.2 L (3.5-5.0) g/dL Crossmatch 11/26/16 Range/Units 12:11 RBC (4.30-5.90) m/uL Hgb (13.0-17.5) gm/dL Hct (39.0-53.0) % MCV (80.0-100.0) fL MCHC (31.0-37.0) g/dL RDW (11.5-15.5) % Lymphocytes # (1.0-4.8) k/uL Carbon Dioxide (22-30) mmol/L BUN (9-20) mg/dL Creatinine (0.66-1.25) mg/dL Glucose (74-99) mg/dL POC Glucose (mg/dL) 141 H (75-99) mg/dL Alkaline Phosphatase (38-126) U/L Total Protein (6.3-8.2) g/dL Albumin (3.5-5.0) g/dL Crossmatch Microbiology - Last 24 Hours (Table) 11/22/16 11:00 Blood Culture - Preliminary Blood No Growth after 96 hours 11/24/16 13:50 Gram Stain - Preliminary Pleural Fluid Body Fluid Culture - Preliminary 11/24/16 13:50 Acid Fast Bacilli Smear - Final Pleural Fluid Acid Fast Bacilli Culture - Preliminary 11/22/16 16:33 Blood Culture - Preliminary Blood No Growth after 72 hours Assessment and Plan Plan: #1 Systemic inflammatory response syndrome with possible bibasilar with gram- negative pneumonia #2 chronic hypotension. Patient is on Midodrine #3 ESRD on hemodialysis TTS #4 acute on chronic CHF with systolic dysfunction with ejection fraction 20% #5 Non ischemic cardiomyopathy #6 elevated troponin possible non-ST elevated HI #7 hypoalbuminemia with moderate protein calorie malnutrition #8 chronic bilateral pleural effusion. s/p thoracentesis on 11/24 #9 anemia of chronic disease #10 DVT prophylaxis. PLAN: Thoracentesis we'll defer to the associate professor of engineering Antibiotics Hemodialysis for scheduled Discharge planning in the next 24-48 hours O2 as needed DVT prophylaxis
[2016-11-26] MEDS: CHOLECALCIFEROL 1,000 UNIT TAB PO SCH (16:25)
[2016-11-26 17:06] LABS: Glucose,Whole Blood 104 mg/dL (75-99)
[2016-11-26 20:40] LABS: Glucose,Whole Blood 76 mg/dL (75-99)
[2016-11-26] MEDS ORDERED: ONDANSETRON 4 MG/2 ML VIAL IVP PRN (21:10)
[2016-11-26 22:22] LABS: Anisocytosis Moderate; CH 30.2; CHCM 29.4; HCT 29.3 % (39.0-53.0); HDW 4.12; HGB 8.9 gm/dL (13.0-17.5); Hypochromasia Marked; MCH 31.3 pg (25.0-35.0); MCHC 30.2 g/dL (31.0-37.0); MCV 103.4 fL (80.0-100.0); Macrocytosis Marked; Mean Platelet Volume 10.1; Poikilocytosis Moderate; RBC 2.84 m/uL (4.30-5.90); RDW 22.6 % (11.5-15.5); WBC (Perox) 8.56
[2016-11-26 22:47] LABS: Add Differential Manual Differential
[2016-11-26 22:51] LABS: Manual Review Performed; Nucleated Red Blood Cells 2 /100 WBC (0-0); Ovalocytes Present; Polychromasia Present; Total Cells Counted 200; WBC 8.7 k/uL (3.8-10.6)
[2016-11-26] MEDS: ATORVASTATIN 40 MG TAB PO SCH (23:01)
[2016-11-26] MEDS: LEVOFLOXACIN 500MG-D5W PMX 500 MG in DEXTROSE/WATER 1 100ML.BAG IVPB SCH (23:15)
[2016-11-26] MEDS: methylPREDNISolone SOD SUCCI 40 MG/ML 1 ML VIAL IV SCH (23:16)
[2016-11-27] MEDS ORDERED: HALOPERIDOL 2 MG TAB PO PRN (00:44)
[2016-11-27 06:26] LABS: Glucose,Whole Blood 52 mg/dL (75-99)
[2016-11-27] MEDS: INSULIN LISPRO (humaLOG) 300 UNIT/3 ML VIAL SQ SCH ×4 (06:49→21:48)
[2016-11-27 06:53] LABS: Glucose,Whole Blood 52 mg/dL (75-99)
[2016-11-27 07:03] LABS: Anisocytosis Moderate; Basophils % (A) 0 %; CH 29.9; CHCM 28.5; Eosinophils % (A) 0 %; HCT 30.8 % (39.0-53.0); HDW 3.96; HGB 8.9 gm/dL (13.0-17.5); Hypochromasia Marked; Luc # (Auto) 0.13; Luc % (Auto) 1; Lymphocytes # (A) 0.2 k/uL (1.0-4.8); Lymphocytes % (A) 2 %; MCH 30.5 pg (25.0-35.0); MCHC 28.8 g/dL (31.0-37.0); MCV 105.8 fL (80.0-100.0); Macrocytosis Marked; Monocytes # (A) 0.6 k/uL (0-1.0); Monocytes % (A) 6 %; Neutrophils # (A) 9.8 k/uL (1.3-7.7); Neutrophils % (A) 91 %; Poikilocytosis Slight; RBC 2.91 m/uL (4.30-5.90); RDW 22.5 % (11.5-15.5); WBC 10.8 k/uL (3.8-10.6)
[2016-11-27 07:25] LABS: Calcium 9.3 mg/dL (8.4-10.2); Magnesium 2.3 mg/dL (1.6-2.3); Potassium 5.9 mmol/L (3.5-5.1); Total Bilirubin 1.9 mg/dL (0.2-1.3); Total Protein 5.9 g/dL (6.3-8.2)
[2016-11-27] MEDS: PIPERACILLIN-TAZOBACTAM 3.375 GM in DEXTROSE/WATER 1 50ML.BAG IVPB SCH ×2 (07:47→18:56)
[2016-11-27] MEDS: MIDODRINE 5 MG TAB PO SCH ×3 (07:48→18:13)
[2016-11-27] MEDS: CALCIUM ACETATE 667 MG CAP PO SCH ×3 (07:48→16:58)
[2016-11-27 07:53] LABS: Glucose,Whole Blood 111 mg/dL (75-99)
[2016-11-27] MEDS: IPRATROPIUM-ALBUTEROL 3 ML NEB INHALATION SCH ×4 (08:02→19:32)
[2016-11-27] MEDS: BUDESONIDE 0.5 MG/2 ML NEBU INHALATION SCH ×2 (08:02→19:32)
[2016-11-27] MEDS: ASPIRIN 81 MG CHEW PO SCH (08:24)
[2016-11-27] MEDS: CINACALCET 30 MG TAB PO SCH (08:24)
[2016-11-27] MEDS: FAMOTIDINE 20 MG TAB PO SCH (08:25)
[2016-11-27] MEDS: ENOXAPARIN 30 MG/0.3 ML SYRINGE SQ SCH (08:25)
[2016-11-27] MEDS: THEOPHYLLINE 24 HOUR 300 MG CAP.ER.24H PO SCH ×2 (08:25→16:39)
[2016-11-27] MEDS: PARNATE PO SCH ×2 (08:25→16:54)
[2016-11-27] MEDS: methylPREDNISolone SOD SUCCI 40 MG/ML 1 ML VIAL IV SCH ×2 (08:25→22:17)
[2016-11-27] MEDS ORDERED: RX INFO: IV CONTRAST WAS GIVEN 1 EACH MISC MISCELLANE PRN (08:46)
--- NOTE | 2016-11-27 08:54 | P.PN ---
Subjective Patient is seen in follow-up for end-stage renal disease. He is maintained on hemodialysis on a Sunday schedule. Patient presented with dyspnea with concerns for pneumonia. He is currently maintained on broad- spectrum antibiotics. Cultures have been negative so far. He is known to have chronic hypotension. He does have history of underlying systolic CHF with ejection fraction of 15%. Patient is currently laying in bed. He is confused. According to the nurse this is new. Vital signs are stable. General: The patient appeared well nourished and normally developed. HEENT: Head exam is unremarkable. Neck is without jugular venous distension. LUNGS: Scattered rhonchi. Breath sounds decreased. HEART: Rate and Rhythm are regular. First and second heart sounds normal. No murmurs, rubs or gallops. ABDOMEN: Abdominal exam reveals normal bowel sounds. Non-tender and non- distended. No evidence of peritonitis. EXTREMITITES: 1+ edema. Objective - Vital Signs Vital signs: Vital Signs Temp 96.8 F L 11/27/16 04:00 Pulse 118 H 11/27/16 08:00 Resp 18 11/27/16 08:00 BP 96/66 11/27/16 08:00 Pulse Ox 93 L 11/27/16 08:00 Intake & Output 11/26/16 11/27/16 11/27/16 18:59 06:59 18:59 Intake Total 50 150 100 Balance 50 150 100 Weight 78.8 kg 78.8 kg Intake: IV 50 50 Piperacillin-Tazobactam 3 50 50 .375 gm In Dextrose/Water 1 50ml.bag @ 12.5 mls/hr IVPB Q12H [facility] Rx#: [id number] Intake, IV Titration 100 100 Amount Levofloxacin 500Mg-D5w 100 100 Pmx 500 mg In Dextrose/ Water 1 100ml.bag @ 100 mls/hr IVPB Q48H [facility] Rx#: [id number] Other: Voiding Method Urinal Incontinent Incontinent # Voids 0 0 0 - Labs CBC & Chem 7: 11/27/16 06:13 11/27/16 06:13 Labs: Abnormal Lab Results - Last 24 Hours (Table) 11/26/16 11/26/16 11/26/16 Range/Units 12:11 17:03 21:43 WBC (3.8-10.6) k/uL RBC 2.84 L (4.30-5.90) m/uL Hgb 8.9 L (13.0-17.5) gm/dL Hct 29.3 L (39.0-53.0) % MCV 103.4 H (80.0-100.0) fL MCHC 30.2 L (31.0-37.0) g/dL RDW 22.6 H (11.5-15.5) % Neutrophils # (1.3-7.7) k/uL Neutrophils # (Manual) 7.9 H (1.3-7.7) k/uL Lymphocytes # (1.0-4.8) k/uL Lymphocytes # (Manual) 0.2 L (1.0-4.8) k/uL Nucleated RBCs 2 H (0-0) /100 WBC Potassium (3.5-5.1) mmol/L Carbon Dioxide (22-30) mmol/L BUN (9-20) mg/dL Creatinine (0.66-1.25) mg/dL Glucose (74-99) mg/dL POC Glucose (mg/dL) 141 H 104 H (75-99) mg/dL Total Bilirubin (0.2-1.3) mg/dL AST (17-59) U/L Alkaline Phosphatase (38-126) U/L Total Protein (6.3-8.2) g/dL Albumin (3.5-5.0) g/dL 11/27/16 11/27/16 11/27/16 Range/Units 06:13 06:13 06:25 WBC 10.8 H (3.8-10.6) k/uL RBC 2.91 L (4.30-5.90) m/uL Hgb 8.9 L (13.0-17.5) gm/dL Hct 30.8 L (39.0-53.0) % MCV 105.8 H (80.0-100.0) fL MCHC 28.8 L (31.0-37.0) g/dL RDW 22.5 H (11.5-15.5) % Neutrophils # 9.8 H (1.3-7.7) k/uL Neutrophils # (Manual) (1.3-7.7) k/uL Lymphocytes # 0.2 L (1.0-4.8) k/uL Lymphocytes # (Manual) (1.0-4.8) k/uL Nucleated RBCs (0-0) /100 WBC Potassium 5.9 H (3.5-5.1) mmol/L Carbon Dioxide 15 L (22-30) mmol/L BUN 77 H (9-20) mg/dL Creatinine 5.60 H* (0.66-1.25) mg/dL Glucose 41 L* (74-99) mg/dL POC Glucose (mg/dL) 52 L (75-99) mg/dL Total Bilirubin 1.9 H (0.2-1.3) mg/dL AST 80 H (17-59) U/L Alkaline Phosphatase 139 H (38-126) U/L Total Protein 5.9 L (6.3-8.2) g/dL Albumin 3.2 L (3.5-5.0) g/dL 11/27/16 11/27/16 Range/Units 06:52 07:50 WBC (3.8-10.6) k/uL RBC (4.30-5.90) m/uL Hgb (13.0-17.5) gm/dL Hct (39.0-53.0) % MCV (80.0-100.0) fL MCHC (31.0-37.0) g/dL RDW (11.5-15.5) % Neutrophils # (1.3-7.7) k/uL Neutrophils # (Manual) (1.3-7.7) k/uL Lymphocytes # (1.0-4.8) k/uL Lymphocytes # (Manual) (1.0-4.8) k/uL Nucleated RBCs (0-0) /100 WBC Potassium (3.5-5.1) mmol/L Carbon Dioxide (22-30) mmol/L BUN (9-20) mg/dL Creatinine (0.66-1.25) mg/dL Glucose (74-99) mg/dL POC Glucose (mg/dL) 52 L 111 H (75-99) mg/dL Total Bilirubin (0.2-1.3) mg/dL AST (17-59) U/L Alkaline Phosphatase (38-126) U/L Total Protein (6.3-8.2) g/dL Albumin (3.5-5.0) g/dL Microbiology - Last 24 Hours (Table) 11/22/16 16:33 Blood Culture - Preliminary Blood No Growth after 96 hours 11/22/16 11:00 Blood Culture - Preliminary Blood No Growth after 96 hours 11/24/16 13:50 Gram Stain - Preliminary Pleural Fluid Body Fluid Culture - Preliminary Assessment and Plan Plan: Assessment: #1. End-stage renal disease maintained on hemodialysis on a Sunday schedule. #2. Dyspnea. Possibly from pneumonia. Also evidence of fluid overload. #3. Chronic kidney disease mineral bone disease. #4. Anemia of chronic kidney disease. #5. Hyperkalemia secondary to chronic kidney disease and metabolic acidosis. #6. Altered mental status. Plan: Hemodialysis today with goal 2-3 L ultrafiltration as blood pressure tolerates. Another treatment tomorrow per his outpatient schedule. Maintain Aranesp Follow-up cultures. Maintain antibiotics. Maintain Sensipar. Continue PhosLo with meals. Add oral sodium bicarbonate supplementation. Patient's been receiving Haldol as well as Librium. Consider neurology consult.
[2016-11-27 11:52] LABS: Glucose,Whole Blood 76 mg/dL (75-99)
--- NOTE | 2016-11-27 12:58 | PN ---
DATE OF SERVICE: 11/26/2016 Reason for followup is pneumonia. INTERVAL HISTORY: The patient is afebrile. He seems to be pleasantly confused. Denies any significant chest pain or shortness of breath with occasional cough. No abdominal pain, no nausea, vomiting or any diarrhea. On examination, blood pressure 104/69 with a pulse of 114, temperature 96.5, he is 97% on room air. General description is an elderly male lying in bed, in no distress. RESPIRATORY SYSTEM: Unlabored breathing with decreased breath sounds at the bases, no wheeze. HEART: S1, S2, regular rate and rhythm. ABDOMEN: Soft, no tenderness. LABS: Hemoglobin is 8.8, white count is 7.5, BUN of 55, creatinine is 4.29. Pleural fluid cultures and sputum cultures currently pending. DIAGNOSTIC IMPRESSION AND PLAN: Patient admitted to the hospital with difficulty breathing which is multifactorial and did have a low-grade fever with possible pneumonia and pleural effusion, status post thoracentesis, waiting for the cultures to finalize. Continue the patient on Zosyn. Continue supportive care. MTDD
[2016-11-27 13:01] LABS: Glucose,Whole Blood 89 mg/dL (75-99)
--- NOTE | 2016-11-27 13:03 | P.PN ---
Subjective 11/22/16- This is a 65-year-old male to the ER for evaluation of shortness of breath, cough and congestion, positive fever. Patient poor historian secondary to clinical condition. Patient will complain of shortness of breath the patient has same symptoms as he has had prior. History is obtained from EMS and patient's chart. Patient is not really aware of the situation and worsening that brought him into the emergency department. He is a resident of extended care facility he has been found to be more short of breath and running low- grade temperature he missed hemodialysis yesterday as well. He denies any night sweats or fevers chills does have intermittent cough denies any problem with passing urine off not that patient has a nonoliguric renal failure, he has been hospitalized recently with the heart failure which is acute on chronic systolic heart failure requiring intra-aortic balloon pump and prolonged hospital stay. 11/23/16- upon examination the patient's resting up in bed on 2 L of supplemental oxygen and saturating 99% currently. He does have shortness of breath with exertion. He also has a productive cough with yellow sputum. According to the nursing staff the patient is alert and oriented 3 however does have intermittent confusion. Patient did undergo a ultrasound of the chest yesterday which did show a right pleural effusion fluid pocket of 13.9 cm and the left pleural effusion fluid pocket of 11 cm. Patient was marked on both sides for a possible thoracentesis. Chest x-ray today has been reviewed and does show bilateral effusions as well as bilateral pneumonia as well as CHF. Patient does have a history of an echo with an EF of 15%. His labs also reviewed today and the patient did have a critical creatinine of 5 and his BUN was 51. Patient will be undergoing hemodialysis today. 11/24/16-patient will undergo thoracentesis of the right side today. The procedure could not be completed yesterday due to the patient receiving dialysis during the procedural time. Patient had 2L removed with dialysis yesterday. Currently the patient is resting up in bed on room air oxygen saturations high 90s. He states he does continue to have some shortness of breath with exertion. Patient is anxious today. Nephrology is also on the case and the patient will undergo hemodialysis again tomorrow. And states his appetite has been good, no nausea no vomiting no diarrhea or constipation. 11/25/16 patient seen and evaluated examined during the rounds he is a status post a right thoracentesis is 1.1 L of fluid has been removed shortness of breath is slightly better and patient is due for left thoracentesis which I have explained to the patient he appears somewhat tired and fatigued will hold on doing it today his quality of sleep has improved denies any pain but does have shortness of breath him a findings of peripheral ultrasound has been reviewed with the patient some intermittent dry cough is present which is not much change from baseline rule fluid examination results are reviewed 11/26/16, patient seen and evaluated examined he is awake and alert slightly more stronger as able to get out of the bed with assistance to the bedside preston Carroll get short of breath on minimal activity and exertion remains on oxygen I have discussed with him about the left-sided thoracentesis which is being planned for later on today or fully that will improve the quality of's breathing and improve cardiorespiratory status. Procedure complications side effects and alternatives have been explained to the patient at length 11/27/16- patient is seen and evaluated and examined. He is alert and awake. Continues to get short of breath on minimal exertion and remains on supplemental oxygen. Patient was going to have a left-sided thoracentesis today , however the procedure will be performed tomorrow due to the patient undergoing dialysis at this time. Currently the patient is on room air and his supplemental oxygen and is on standby. labs have been reviewed, cultures negative so far. Objective - Vital Signs Vital signs: Vital Signs Temp 96.8 F L 11/27/16 04:00 Pulse 118 H 11/27/16 08:00 Resp 18 11/27/16 08:00 BP 96/66 11/27/16 08:00 Pulse Ox 93 L 11/27/16 08:00 Intake & Output 11/26/16 11/27/16 11/27/16 18:59 06:59 18:59 Intake Total 50 150 100 Balance 50 150 100 Weight 78.8 kg 78.8 kg Intake: IV 50 50 Piperacillin-Tazobactam 3 50 50 .375 gm In Dextrose/Water 1 50ml.bag @ 12.5 mls/hr IVPB Q12H [facility] Rx#: [id number] Intake, IV Titration 100 100 Amount Levofloxacin 500Mg-D5w 100 100 Pmx 500 mg In Dextrose/ Water 1 100ml.bag @ 100 mls/hr IVPB Q48H [facility] Rx#: [id number] Other: Voiding Method Urinal Incontinent Incontinent # Voids 0 0 0 - Exam GENERAL EXAM: Alert, , comfortable in no apparent distress. HEAD: Normocephalic. EYES: Normal reaction of pupils, equal size. NOSE: Clear with pink turbinates. THROAT: No erythema or exudates. NECK: No masses, no JVD. CHEST: No chest wall deformity. LUNGS: Breath sounds noted to be coarse throughout the patient also was noted to have scattered rhonchi. Bases diminished. Left side dullness and egophony present CVS: S1 and S2 normal with no audible mumurs, regular rhythm. ABDOMEN: No hepatosplenomegaly, normal bowel sounds, no guarding or rigidity. EXTREMITIES: S1 edema noted, pedal pulses palpable. SKIN: No rashes CENTRAL NERVOUS SYSTEM: No focal deficits, tone is normal in all 4 extremities. - Labs CBC & Chem 7: 11/27/16 06:13 11/27/16 06:13 Labs: Abnormal Lab Results - Last 24 Hours (Table) 11/26/16 11/26/16 11/27/16 Range/Units 17:03 21:43 06:13 WBC 10.8 H (3.8-10.6) k/uL RBC 2.84 L 2.91 L (4.30-5.90) m/uL Hgb 8.9 L 8.9 L (13.0-17.5) gm/dL Hct 29.3 L 30.8 L (39.0-53.0) % MCV 103.4 H 105.8 H (80.0-100.0) fL MCHC 30.2 L 28.8 L (31.0-37.0) g/dL RDW 22.6 H 22.5 H (11.5-15.5) % Neutrophils # 9.8 H (1.3-7.7) k/uL Neutrophils # (Manual) 7.9 H (1.3-7.7) k/uL Lymphocytes # 0.2 L (1.0-4.8) k/uL Lymphocytes # (Manual) 0.2 L (1.0-4.8) k/uL Nucleated RBCs 2 H (0-0) /100 WBC Potassium (3.5-5.1) mmol/L Carbon Dioxide (22-30) mmol/L BUN (9-20) mg/dL Creatinine (0.66-1.25) mg/dL Glucose (74-99) mg/dL POC Glucose (mg/dL) 104 H (75-99) mg/dL Total Bilirubin (0.2-1.3) mg/dL AST (17-59) U/L Alkaline Phosphatase (38-126) U/L Total Protein (6.3-8.2) g/dL Albumin (3.5-5.0) g/dL 11/27/16 11/27/16 11/27/16 Range/Units 06:13 06:25 06:52 WBC (3.8-10.6) k/uL RBC (4.30-5.90) m/uL Hgb (13.0-17.5) gm/dL Hct (39.0-53.0) % MCV (80.0-100.0) fL MCHC (31.0-37.0) g/dL RDW (11.5-15.5) % Neutrophils # (1.3-7.7) k/uL Neutrophils # (Manual) (1.3-7.7) k/uL Lymphocytes # (1.0-4.8) k/uL Lymphocytes # (Manual) (1.0-4.8) k/uL Nucleated RBCs (0-0) /100 WBC Potassium 5.9 H (3.5-5.1) mmol/L Carbon Dioxide 15 L (22-30) mmol/L BUN 77 H (9-20) mg/dL Creatinine 5.60 H* (0.66-1.25) mg/dL Glucose 41 L* (74-99) mg/dL POC Glucose (mg/dL) 52 L 52 L (75-99) mg/dL Total Bilirubin 1.9 H (0.2-1.3) mg/dL AST 80 H (17-59) U/L Alkaline Phosphatase 139 H (38-126) U/L Total Protein 5.9 L (6.3-8.2) g/dL Albumin 3.2 L (3.5-5.0) g/dL 11/27/16 Range/Units 07:50 WBC (3.8-10.6) k/uL RBC (4.30-5.90) m/uL Hgb (13.0-17.5) gm/dL Hct (39.0-53.0) % MCV (80.0-100.0) fL MCHC (31.0-37.0) g/dL RDW (11.5-15.5) % Neutrophils # (1.3-7.7) k/uL Neutrophils # (Manual) (1.3-7.7) k/uL Lymphocytes # (1.0-4.8) k/uL Lymphocytes # (Manual) (1.0-4.8) k/uL Nucleated RBCs (0-0) /100 WBC Potassium (3.5-5.1) mmol/L Carbon Dioxide (22-30) mmol/L BUN (9-20) mg/dL Creatinine (0.66-1.25) mg/dL Glucose (74-99) mg/dL POC Glucose (mg/dL) 111 H (75-99) mg/dL Total Bilirubin (0.2-1.3) mg/dL AST (17-59) U/L Alkaline Phosphatase (38-126) U/L Total Protein (6.3-8.2) g/dL Albumin (3.5-5.0) g/dL Microbiology - Last 24 Hours (Table) 11/22/16 16:33 Blood Culture - Preliminary Blood No Growth after 96 hours 11/22/16 11:00 Blood Culture - Preliminary Blood No Growth after 96 hours 11/24/16 13:50 Gram Stain - Preliminary Pleural Fluid Body Fluid Culture - Preliminary Assessment and Plan Plan: Assessment Systemic inflammatory response syndrome Hypotension, related to acute on chronic systolic heart failure as well as sepsis Chronic renal failure, end-stage currently on hemodialysis Tuesdays and Saturdays. Chronic persistent asthma with acute exacerbation Community acquired pneumonia suspect mixed bacterial gram-negative Acute pulmonary edema Bilateral pleural effusions, status post right sided thoracentesis, left side planned for tomorrow. Acute NM with mildly elevated troponins cannot be excluded Anemia of chronic disease Cardiomyopathy with chronic systolic heart failure with a baseline ejection fraction of 15% with acute decompensation Plan Patient will undergo a left-sided thoracentesis tomorrow. Nephrology on consult and the patient will have hemodialysis today as well. Medications have been reviewed and will be continued as ordered. Continue with IV antibiotics. Solu-Medrol 60 mg IV every 6 hours. Continue with pulmonary hygiene, coughing and deep breathing exercises, and supportive care. Supplemental oxygen to maintain oxygen saturations of 92% or better. Continue nebulizer treatments, we will add budesonide as well. Initiate and encourage incentive spirometer. GI and DVT prophylaxis. Repeat labs and chest x-ray in the morning. We will continue to monitor labs/results and adjust treatment as necessary. Further recommendations pending. I performed an examination of the patient and discussed their management with the nurse practitioner. I have reviewed the nurse practitioner's note and agree with the documented findings and plan of care.
[2016-11-27] MEDS: SODIUM BICARBONATE TAB 650 MG TAB PO SCH (16:39)
[2016-11-27] MEDS: CHOLECALCIFEROL 1,000 UNIT TAB PO SCH (16:39)
[2016-11-27 16:41] LABS: Glucose,Whole Blood 77 mg/dL (75-99)
--- NOTE | 2016-11-27 17:08 | P.PN ---
Subjective Mr. Hooper is a 65-year-old male with a known history of ESRD on hemodialysis TTS , failed kidney transplant, nonobstructive coronary artery disease, nonischemic cardiomyopathy ejection fraction 20% and chronic bilateral pleural effusion was brought to the hospital from extended care facility with complaints of short of breath. Patient denied any, soft fever or chills. Patient does have gait dysfunction at baseline and uses a walker. Patient was recently discharged from the hospital on 11/15/2016. Patient does have chronic hypotension with SBP around 80 mm Hg. Patient is on metered groin. Bumex was discontinued during last admission. Currently patient denied any complains of chest pain. Patient does make some urine. Chest x-ray in the ER showed findings most consistent with mild heart failure and bilateral effusions. There is bibasilar airspace disease either representing atelectasis/ pneumonia. Patient was hypotensive and was started on antibiotics zosyn and levofloxacin and transferred to the ICU . On 11/23/16 - pt was c/o productive cough with yellow sputum for the 2-3 days and as the CXR showed effusion , pt had an US of the chest showing right pleural effusion fluid pocket of 13.9 cm and the left pleural effusion fluid pocket of 11 cm. HE also has h/o CHF with EF 10-15 % only. On 11/24/16 Pt.s SOB is improved. no CP. no Fever/chills. HD tomorrow.,. no over night issues. bring transferred to Tele unit Pt. had thoracentesis done with 1200 cc fluid removal On 11/25/2016 Patient states that he has a cough minimal productive in nature No fevers chills are reported Patient does complain of chest pressure with deep breathing Has underwent a thoracentesis status post 1.1 L of fluid removal 11/23/2016 Chest x-ray this morning revealed a recurrence of the fluid Patient appears to be waxing and waning in regards to his mentation however of known this patient for long period of time patient is extremely manipulative her graft patient once his medication which is not currently available 11/27/16 pt is more confused today O2 sats wnl Overnight pt has not slept Undergoing HD during my eval was not able to answer questions appropriately Objective - Vital Signs Vital signs: Vital Signs Temp 96.8 F L 11/27/16 04:00 Pulse 111 H 11/27/16 12:00 Resp 20 11/27/16 12:00 BP 96/56 11/27/16 12:00 Pulse Ox 93 L 11/27/16 08:00 Intake & Output 11/26/16 11/27/16 11/27/16 18:59 06:59 18:59 Intake Total 50 150 100 Balance 50 150 100 Weight 78.8 kg 78.8 kg Intake: IV 50 50 Piperacillin-Tazobactam 3 50 50 .375 gm In Dextrose/Water 1 50ml.bag @ 12.5 mls/hr IVPB Q12H [facility] Rx#: [id number] Intake, IV Titration 100 100 Amount Levofloxacin 500Mg-D5w 100 100 Pmx 500 mg In Dextrose/ Water 1 100ml.bag @ 100 mls/hr IVPB Q48H [facility] Rx#: [id number] Other: Voiding Method Urinal Incontinent Incontinent # Voids 0 0 0 - Exam In appearance alert to self Neck is supple no JVD Diminished breath sounds on the left base No rhonchi or wheezing or crackles Heart S1-S2 heard regular rate and rhythm no murmurs appreciable Abdomen soft nontender organomegaly Left lower extremity a large ecchymosis along the left side and the a tender point on the left hip 1+ edema in the lower extremities Neuro moves all 4 extremities no focal deficits Left upper extremity palpable thrill noted - Labs CBC & Chem 7: 11/27/16 06:13 11/27/16 06:13 Labs: Abnormal Lab Results - Last 24 Hours (Table) 11/26/16 11/26/16 11/27/16 Range/Units 17:03 21:43 06:13 WBC 10.8 H (3.8-10.6) k/uL RBC 2.84 L 2.91 L (4.30-5.90) m/uL Hgb 8.9 L 8.9 L (13.0-17.5) gm/dL Hct 29.3 L 30.8 L (39.0-53.0) % MCV 103.4 H 105.8 H (80.0-100.0) fL MCHC 30.2 L 28.8 L (31.0-37.0) g/dL RDW 22.6 H 22.5 H (11.5-15.5) % Neutrophils # 9.8 H (1.3-7.7) k/uL Neutrophils # (Manual) 7.9 H (1.3-7.7) k/uL Lymphocytes # 0.2 L (1.0-4.8) k/uL Lymphocytes # (Manual) 0.2 L (1.0-4.8) k/uL Nucleated RBCs 2 H (0-0) /100 WBC Potassium (3.5-5.1) mmol/L Carbon Dioxide (22-30) mmol/L BUN (9-20) mg/dL Creatinine (0.66-1.25) mg/dL Glucose (74-99) mg/dL POC Glucose (mg/dL) 104 H (75-99) mg/dL Total Bilirubin (0.2-1.3) mg/dL AST (17-59) U/L Alkaline Phosphatase (38-126) U/L Total Protein (6.3-8.2) g/dL Albumin (3.5-5.0) g/dL 11/27/16 11/27/16 11/27/16 Range/Units 06:13 06:25 06:52 WBC (3.8-10.6) k/uL RBC (4.30-5.90) m/uL Hgb (13.0-17.5) gm/dL Hct (39.0-53.0) % MCV (80.0-100.0) fL MCHC (31.0-37.0) g/dL RDW (11.5-15.5) % Neutrophils # (1.3-7.7) k/uL Neutrophils # (Manual) (1.3-7.7) k/uL Lymphocytes # (1.0-4.8) k/uL Lymphocytes # (Manual) (1.0-4.8) k/uL Nucleated RBCs (0-0) /100 WBC Potassium 5.9 H (3.5-5.1) mmol/L Carbon Dioxide 15 L (22-30) mmol/L BUN 77 H (9-20) mg/dL Creatinine 5.60 H* (0.66-1.25) mg/dL Glucose 41 L* (74-99) mg/dL POC Glucose (mg/dL) 52 L 52 L (75-99) mg/dL Total Bilirubin 1.9 H (0.2-1.3) mg/dL AST 80 H (17-59) U/L Alkaline Phosphatase 139 H (38-126) U/L Total Protein 5.9 L (6.3-8.2) g/dL Albumin 3.2 L (3.5-5.0) g/dL 11/27/16 Range/Units 07:50 WBC (3.8-10.6) k/uL RBC (4.30-5.90) m/uL Hgb (13.0-17.5) gm/dL Hct (39.0-53.0) % MCV (80.0-100.0) fL MCHC (31.0-37.0) g/dL RDW (11.5-15.5) % Neutrophils # (1.3-7.7) k/uL Neutrophils # (Manual) (1.3-7.7) k/uL Lymphocytes # (1.0-4.8) k/uL Lymphocytes # (Manual) (1.0-4.8) k/uL Nucleated RBCs (0-0) /100 WBC Potassium (3.5-5.1) mmol/L Carbon Dioxide (22-30) mmol/L BUN (9-20) mg/dL Creatinine (0.66-1.25) mg/dL Glucose (74-99) mg/dL POC Glucose (mg/dL) 111 H (75-99) mg/dL Total Bilirubin (0.2-1.3) mg/dL AST (17-59) U/L Alkaline Phosphatase (38-126) U/L Total Protein (6.3-8.2) g/dL Albumin (3.5-5.0) g/dL Microbiology - Last 24 Hours (Table) 11/24/16 13:50 Gram Stain - Preliminary Pleural Fluid Body Fluid Culture - Preliminary 11/22/16 11:00 Blood Culture - Preliminary Blood No Growth after 120 hours 11/22/16 16:33 Blood Culture - Preliminary Blood No Growth after 96 hours Assessment and Plan Plan: #1 Systemic inflammatory response syndrome with possible bibasilar with gram- negative pneumonia #2 chronic hypotension. Patient is on Midodrine #3 ESRD on hemodialysis TTS #4 acute on chronic CHF with systolic dysfunction with ejection fraction 20% #5 Non ischemic cardiomyopathy #6 elevated troponin possible non-ST elevated WI #7 hypoalbuminemia with moderate protein calorie malnutrition #8 chronic bilateral pleural effusion. s/p thoracentesis on 11/24 #9 anemia of chronic disease #10 DVT prophylaxis. #11. acute metabolic encephalopathy PLAN: Thoracentesis we'll defer to the tax accountant Antibiotics empirically dc haloperidol seroquel at bedtime repeat cxr Hemodialysis scheduled O2 as needed DVT prophylaxis No need for ct scan no focal deficits noted more delirious
[2016-11-27] MEDS ORDERED: QUEtiapine 50 MG TAB PO SCH (21:00)
[2016-11-27 21:21] LABS: Glucose,Whole Blood 82 mg/dL (75-99)
[2016-11-28 02:10] LABS: Glucose,Whole Blood 88 mg/dL (75-99)
[2016-11-28] MEDS: ATORVASTATIN 40 MG TAB PO SCH ×2 (05:05→20:29)
[2016-11-28] MEDS: PARNATE PO SCH ×6 (05:05→23:18)
[2016-11-28] MEDS: SODIUM BICARBONATE TAB 650 MG TAB PO SCH ×3 (05:05→20:28)
[2016-11-28 05:58] LABS: Glucose,Whole Blood 97 mg/dL (75-99)
[2016-11-28] MEDS: CALCIUM ACETATE 667 MG CAP PO SCH ×3 (06:29→18:56)
[2016-11-28] MEDS: PIPERACILLIN-TAZOBACTAM 3.375 GM in DEXTROSE/WATER 1 50ML.BAG IVPB SCH ×2 (06:29→18:57)
[2016-11-28] MEDS: MIDODRINE 5 MG TAB PO SCH ×3 (06:29→18:57)
[2016-11-28] MEDS: INSULIN LISPRO (humaLOG) 300 UNIT/3 ML VIAL SQ SCH ×4 (06:29→20:40)
[2016-11-28 06:46] LABS: Anisocytosis Moderate; CH 30.3; CHCM 30.2; HCT 30.8 % (39.0-53.0); HGB 9.5 gm/dL (13.0-17.5); Hypochromasia Marked; MCH 31.4 pg (25.0-35.0); MCV 101.4 fL (80.0-100.0); Macrocytosis Marked; Mean Platelet Volume 9.1; Poikilocytosis Moderate; RBC 3.04 m/uL (4.30-5.90); RDW 22.7 % (11.5-15.5); WBC (Perox) 10.68
[2016-11-28 07:06] LABS: Add Differential Manual Differential
[2016-11-28 07:13] LABS: Magnesium 2.3 mg/dL (1.6-2.3); Nucleated Red Blood Cells 2 /100 WBC (0-0); Total Bilirubin 1.6 mg/dL (0.2-1.3); Total Cells Counted 200; Total Protein 5.6 g/dL (6.3-8.2)
[2016-11-28 07:14] LABS: Manual Review Performed; Polychromasia Present; WBC 10.5 k/uL (3.8-10.6)
[2016-11-28 07:19] LABS: Potassium 6.1 mmol/L (3.5-5.1)
--- NOTE | 2016-11-28 07:51 | XR ---
EXAMINATION TYPE: XR chest 1V portable DATE OF EXAM: 11/28/2016 Comparison: 11/26/2016 Clinical History: 65-year-old male shortness of breath and difficulty breathing. Findings: The heart remains enlarged. Diffuse interstitial prominence with slightly more confluent opacity in t he right upper lobe. Small right pleural effusion and moderate left pleural effusion persists with ad jacent opacities. Calcified lymph nodes in the right hilum suggest prior granulomatous disease. Biapi damian pleural parenchymal scarring noted. Impression: 1. Correlate for CHF and interstitial pulmonary edema. Slightly more confluent consolidation in the r ight upper lobe. 2. Continued moderate left and small right effusions with adjacent atelectasis and/or consolidation.
--- NOTE | 2016-11-28 08:22 | PN ---
DATE OF SERVICE: 11/27/16 REASON FOR FOLLOW UP: Pneumonia. INTERVAL HISTORY: The patient is afebrile. He is slightly ( ) confused this morning at the time of evaluation, trying to rip off his clothes. No nausea or vomiting, or diarrhea has been reported by the nursing staff. He is unable to provide any reliable history. On examination, blood pressure 103/65, pulse 115, temperature 98, he is 99% on room air. General description revealed an elderly male, lying in the bed, in no distress. Respiratory: Unlabored breathing. Clear to auscultation anteriorly. Heart: S1, S2 regular rate and rhythm. Abdomen soft, no tenderness. Labs: Hemoglobin 8.1, white count 10.8. ( ) cultures are negative. DIAGNOSTIC IMPRESSION AND PLAN: Patient admitted to the hospital with difficulty breathing which is likely multifactorial. The patient has likely a component of pneumonia. The patient is currently covered with ( ) will also be continued. Continue supportive care. MTDD
--- NOTE | 2016-11-28 08:28 | CDI ---
In responding to this query, please exercise your independent professional judgment. The [facility] Coding Staff and Clinical Documentation Specialists appreciate your assistance in clarifying documentation, maintaining compliance with coding guidelines, accurately documenting patients condition and capturing severity of illness. The fact that a question is asked does not imply that any particular answer is desired or expected. Communication forms are a method of clarifying documentation and are not made part of the Legal Health Record. Thank you in advance for your clarification. Last Revision, August [address] [facility] [place] [address] Documentation Clarification Form Date: 11/23/2016 3:15:00 PM From: Lillian Raymundo RN, CDS Admit Date: 11/22/2016 1:07:00 PM Patient Name: Marcelo Hooper Visit Number: [id number] Dr. Herber Zuluaga, 65 year old patient admitted for SIRS and Gram negative Pneumonia. He has a history of ESRD with failure of renal transplant receiving hemodialysis History/Risk Factors: Heart Failure, ESRD/hemodialysis Clinical Indicators: VS:100.8 117 26 100/58 100%, SIRS Criteria 3/4: HR 117, Temp 100.8, BP 81/55, "ESRD, chronic hypotension, Acute on chronic CHF with systolic dysfunction EF 20%" and "Patient does have chronic hypotension with SBP around 80 mm Hg" per H&P, Cardiology consult states: "Transient hypotension , probably secondary to autonomic dysfunction in a patient with end stage renal disease on hemodialysis". "Hypotension, related to acute on chronic systolic heart failure, as well as sepsis" per Pulmonary progress notes 11/25-11/26-11/27 Treatment: IV Levaquin, IV Zosyn, ID consult, NS bolus x3 in ED, NS@150, ICU admission In your professional opinion, please clarify if these findings signify one of the following conditions, whether the condition is POA, and cause, if known: Sepsis SIRS, without underlying infectious process Sepsis, ruled out Severe Sepsis Unable to determine Other, please specify Present on Admission: Yes No * Identify the (suspected) organism * Link or clarify if there is associated (due to/with): - Organ failure - Shock SIRS Criteria: 2 or more of the following may indicate SIRS Temperature < 96.8F(36C) or > 101.0F (38C) Heart Rate > 90 bpm Respiratory Rate > 20 breaths/min or PaCO2 < 32 mmHg White Blood Cell Count > 12,000 or < 4,000 cells/mm3 or > 10% bands Lactate >2.0 mmol/L (>4.0 is equivalent to septic shock) Please document in your progress notes and discharge summary in order to capture severity of illness and risk of mortality. Include clinical findings that support your diagnosis. FYI: Press F11 to launch patient chart. Place X here if this finding has no clinical significance, is not applicable or if you are not able to provide any additional documentation. MTDD
[2016-11-28] MEDS: BUDESONIDE 0.5 MG/2 ML NEBU INHALATION SCH ×2 (08:33→20:35)
[2016-11-28] MEDS: IPRATROPIUM-ALBUTEROL 3 ML NEB INHALATION SCH ×4 (08:33→20:35)
--- NOTE | 2016-11-28 09:34 | P.PN ---
Subjective Patient is seen in follow-up for end-stage renal disease. He is maintained on hemodialysis on a Sunday schedule. Patient presented with dyspnea with concerns for pneumonia. He is currently maintained on broad- spectrum antibiotics. Cultures have been negative so far. He is known to have chronic hypotension. He does have history of underlying systolic CHF with ejection fraction of 15%. Patient is currently laying in bed. He is still confused but appears better compared to yesterday. Vital signs are stable. General: The patient appeared well nourished and normally developed. HEENT: Head exam is unremarkable. Neck is without jugular venous distension. LUNGS: Scattered rhonchi. Breath sounds decreased. HEART: Rate and Rhythm are regular. First and second heart sounds normal. No murmurs, rubs or gallops. ABDOMEN: Abdominal exam reveals normal bowel sounds. Non-tender and non- distended. No evidence of peritonitis. EXTREMITITES: 1+ edema. Objective - Vital Signs Vital signs: Vital Signs Temp 96.9 F L 11/28/16 03:58 Pulse 112 H 11/28/16 08:50 Resp 18 11/28/16 08:00 BP 101/60 11/28/16 08:00 Pulse Ox 100 11/28/16 08:00 Intake & Output 11/27/16 11/28/16 11/28/16 18:59 06:59 18:59 Intake Total 100 150 Balance 100 150 Weight 78.8 kg 71 kg 71 kg Intake: IV 50 Piperacillin-Tazobactam 3 50 .375 gm In Dextrose/Water 1 50ml.bag @ 12.5 mls/hr IVPB Q12H [facility] Rx#: [id number] Intake, IV Titration 100 100 Amount Levofloxacin 500Mg-D5w 100 100 Pmx 500 mg In Dextrose/ Water 1 100ml.bag @ 100 mls/hr IVPB Q48H [facility] Rx#: [id number] Other: Voiding Method Incontinent Incontinent Incontinent # Voids 0 0 0 # Bowel Movements 1 1 - Labs CBC & Chem 7: 11/28/16 06:22 11/28/16 06:22 Labs: Abnormal Lab Results - Last 24 Hours (Table) 11/28/16 11/28/16 Range/Units 06:22 06:22 RBC 3.04 L (4.30-5.90) m/uL Hgb 9.5 L (13.0-17.5) gm/dL Hct 30.8 L (39.0-53.0) % MCV 101.4 H (80.0-100.0) fL RDW 22.7 H (11.5-15.5) % Neutrophils # (Manual) 9.7 H (1.3-7.7) k/uL Lymphocytes # (Manual) 0.4 L (1.0-4.8) k/uL Nucleated RBCs 2 H (0-0) /100 WBC Potassium 6.1 H (3.5-5.1) mmol/L Carbon Dioxide 18 L (22-30) mmol/L BUN 61 H (9-20) mg/dL Creatinine 4.39 H (0.66-1.25) mg/dL Total Bilirubin 1.6 H (0.2-1.3) mg/dL AST 122 H (17-59) U/L Alkaline Phosphatase 136 H (38-126) U/L Total Protein 5.6 L (6.3-8.2) g/dL Albumin 3.1 L (3.5-5.0) g/dL Microbiology - Last 24 Hours (Table) 11/22/16 16:33 Blood Culture - Preliminary Blood No Growth after 120 hours 11/24/16 13:50 Gram Stain - Preliminary Pleural Fluid Body Fluid Culture - Preliminary 11/22/16 11:00 Blood Culture - Preliminary Blood No Growth after 120 hours Assessment and Plan Plan: Assessment: #1. End-stage renal disease maintained on hemodialysis on a Sunday schedule. #2. Dyspnea. Possibly from pneumonia. Also evidence of fluid overload - status post thoracentesis on November 25 with 1.1 L removed. #3. Chronic kidney disease mineral bone disease. #4. Anemia of chronic kidney disease. #5. Hyperkalemia secondary to chronic kidney disease and metabolic acidosis. #6. Altered mental status. Haldol was discontinued. Improved today. Plan: Hemodialysis today with goal 2-3 L ultrafiltration as blood pressure tolerates. Maintain Aranesp Follow-up cultures. Maintain antibiotics. Maintain Sensipar. Continue PhosLo with meals. Maintain oral sodium bicarbonate supplementation.
--- NOTE | 2016-11-28 11:07 | XR ---
EXAMINATION TYPE: XR chest 1V DATE OF EXAM: 11/28/2016 COMPARISON: 11/28/2016 HISTORY: 65-year-old male status post left-sided thoracentesis. TECHNIQUE: Single frontal view of the chest is obtained. FINDINGS: The cardiac/pericardiac silhouette remains mild to moderately enlarged. Diffuse interstitial prominen ce. Leftward patient rotation ultrasound normal cardiac and mediastinal contours. Small pleural effus ions are present, decreased on the left. No appreciable pneumothorax allowing for patient rotation. P leural parenchymal scarring at the right apex. IMPRESSION: 1. Residual small effusions on both sides status post left-sided thoracentesis. No appreciable pneumo thorax allowing for patient rotation on the exam. 2. Cardiomegaly and interstitial prominence, similar to prior. Correlate for possible mild CHF.
[2016-11-28 12:31] LABS: Glucose,Whole Blood 95 mg/dL (75-99)
[2016-11-28] MEDS: THEOPHYLLINE 24 HOUR 300 MG CAP.ER.24H PO SCH ×2 (15:06→18:56)
[2016-11-28] MEDS: ENOXAPARIN 30 MG/0.3 ML SYRINGE SQ SCH (15:18)
[2016-11-28] MEDS: CINACALCET 30 MG TAB PO SCH (15:18)
[2016-11-28] MEDS: ASPIRIN 81 MG CHEW PO SCH (15:18)
[2016-11-28] MEDS: FAMOTIDINE 20 MG TAB PO SCH (15:18)
[2016-11-28] MEDS: methylPREDNISolone SOD SUCCI 40 MG/ML 1 ML VIAL IV SCH ×2 (15:19→20:29)
[2016-11-28 16:07] LABS: RBC, Body Fluid 15080 /uL
--- NOTE | 2016-11-28 16:38 | P.PN ---
Subjective 11/22/16- This is a 65-year-old male to the ER for evaluation of shortness of breath, cough and congestion, positive fever. Patient poor historian secondary to clinical condition. Patient will complain of shortness of breath the patient has same symptoms as he has had prior. History is obtained from EMS and patient's chart. Patient is not really aware of the situation and worsening that brought him into the emergency department. He is a resident of extended care facility he has been found to be more short of breath and running low- grade temperature he missed hemodialysis yesterday as well. He denies any night sweats or fevers chills does have intermittent cough denies any problem with passing urine off not that patient has a nonoliguric renal failure, he has been hospitalized recently with the heart failure which is acute on chronic systolic heart failure requiring intra-aortic balloon pump and prolonged hospital stay. 11/23/16- upon examination the patient's resting up in bed on 2 L of supplemental oxygen and saturating 99% currently. He does have shortness of breath with exertion. He also has a productive cough with yellow sputum. According to the nursing staff the patient is alert and oriented 3 however does have intermittent confusion. Patient did undergo a ultrasound of the chest yesterday which did show a right pleural effusion fluid pocket of 13.9 cm and the left pleural effusion fluid pocket of 11 cm. Patient was marked on both sides for a possible thoracentesis. Chest x-ray today has been reviewed and does show bilateral effusions as well as bilateral pneumonia as well as CHF. Patient does have a history of an echo with an EF of 15%. His labs also reviewed today and the patient did have a critical creatinine of 5 and his BUN was 51. Patient will be undergoing hemodialysis today. 11/24/16-patient will undergo thoracentesis of the right side today. The procedure could not be completed yesterday due to the patient receiving dialysis during the procedural time. Patient had 2L removed with dialysis yesterday. Currently the patient is resting up in bed on room air oxygen saturations high 90s. He states he does continue to have some shortness of breath with exertion. Patient is anxious today. Nephrology is also on the case and the patient will undergo hemodialysis again tomorrow. And states his appetite has been good, no nausea no vomiting no diarrhea or constipation. 11/25/16 patient seen and evaluated examined during the rounds he is a status post a right thoracentesis is 1.1 L of fluid has been removed shortness of breath is slightly better and patient is due for left thoracentesis which I have explained to the patient he appears somewhat tired and fatigued will hold on doing it today his quality of sleep has improved denies any pain but does have shortness of breath him a findings of peripheral ultrasound has been reviewed with the patient some intermittent dry cough is present which is not much change from baseline rule fluid examination results are reviewed 11/26/16, patient seen and evaluated examined he is awake and alert slightly more stronger as able to get out of the bed with assistance to the bedside preston Carroll get short of breath on minimal activity and exertion remains on oxygen I have discussed with him about the left-sided thoracentesis which is being planned for later on today or fully that will improve the quality of's breathing and improve cardiorespiratory status. Procedure complications side effects and alternatives have been explained to the patient at length Patient seen and examined during the rounds he remains short of breath he is going to get another dialysis later on today he is awake and alert have discussed with him left-sided thoracentesis which revealed to be performed shortly procedure complication alternating there have been explained to the patient had well at length Objective - Vital Signs Vital signs: Vital Signs Temp 96.9 F L 11/28/16 03:58 Pulse 96 11/28/16 16:08 Resp 18 11/28/16 12:00 BP 98/47 11/28/16 12:00 Pulse Ox 100 11/28/16 08:00 Intake & Output 11/27/16 11/28/16 11/28/16 18:59 06:59 18:59 Intake Total 100 150 Balance 100 150 Weight 78.8 kg 71 kg 71 kg Intake: IV 50 Piperacillin-Tazobactam 3 50 .375 gm In Dextrose/Water 1 50ml.bag @ 12.5 mls/hr IVPB Q12H [facility] Rx#: [id number] Intake, IV Titration 100 100 Amount Levofloxacin 500Mg-D5w 100 100 Pmx 500 mg In Dextrose/ Water 1 100ml.bag @ 100 mls/hr IVPB Q48H [facility] Rx#: [id number] Other: Voiding Method Incontinent Incontinent Incontinent # Voids 0 0 0 # Bowel Movements 1 1 - Exam GENERAL EXAM: Alert, , comfortable in no apparent distress. HEAD: Normocephalic. EYES: Normal reaction of pupils, equal size. NOSE: Clear with pink turbinates. THROAT: No erythema or exudates. NECK: No masses, no JVD. CHEST: No chest wall deformity. LUNGS: Breath sounds noted to be coarse throughout the patient also was noted to have scattered rhonchi. Bases diminished. Bilateral dullness and egophony present, increased air movement noted on the right side left side however remains unchanged CVS: S1 and S2 normal with no audible mumurs, regular rhythm. ABDOMEN: No hepatosplenomegaly, normal bowel sounds, no guarding or rigidity. EXTREMITIES: S1 edema noted, pedal pulses palpable. SKIN: No rashes CENTRAL NERVOUS SYSTEM: No focal deficits, tone is normal in all 4 extremities. - Labs CBC & Chem 7: 11/28/16 06:22 11/28/16 06:22 Labs: Abnormal Lab Results - Last 24 Hours (Table) 11/28/16 11/28/16 Range/Units 06:22 06:22 RBC 3.04 L (4.30-5.90) m/uL Hgb 9.5 L (13.0-17.5) gm/dL Hct 30.8 L (39.0-53.0) % MCV 101.4 H (80.0-100.0) fL RDW 22.7 H (11.5-15.5) % Neutrophils # (Manual) 9.7 H (1.3-7.7) k/uL Lymphocytes # (Manual) 0.4 L (1.0-4.8) k/uL Nucleated RBCs 2 H (0-0) /100 WBC Potassium 6.1 H (3.5-5.1) mmol/L Carbon Dioxide 18 L (22-30) mmol/L BUN 61 H (9-20) mg/dL Creatinine 4.39 H (0.66-1.25) mg/dL Total Bilirubin 1.6 H (0.2-1.3) mg/dL AST 122 H (17-59) U/L Alkaline Phosphatase 136 H (38-126) U/L Total Protein 5.6 L (6.3-8.2) g/dL Albumin 3.1 L (3.5-5.0) g/dL Microbiology - Last 24 Hours (Table) 11/22/16 11:00 Blood Culture - Final Blood No Growth after 144 hours 11/24/16 13:50 Gram Stain - Final Pleural Fluid Body Fluid Culture - Final 11/22/16 16:33 Blood Culture - Preliminary Blood No Growth after 120 hours Assessment and Plan Plan: Assessment bilateral basal pneumonia pneumonia and Systemic inflammatory response syndrome , likely related to that Bilateral pleural effusion status post thoracentesis on the right side now being planned for left thoracentesis Chronic renal failure, end-stage currently on hemodialysis Tuesdays and Saturdays. Chronic persistent asthma with acute exacerbation Community acquired pneumonia suspect mixed bacterial gram-negative Acute pulmonary edema Bilateral pleural effusions Acute TX with mildly elevated troponins cannot be excluded Anemia of chronic disease Cardiomyopathy with chronic systolic heart failure with a baseline ejection fraction of 15% with acute decompensation Hypotension, related to acute on chronic systolic heart failure, as well as sepsis Plan Patient will undergo a left thoracentesis today. . We will do the left-sided thoracentesis today, patient is due for dialysis tomorrow. Nephrology on consult and the patient will have hemodialysis tomorrow as well. Medications have been reviewed and will be continued as ordered. Continue with IV antibiotics. Solu-Medrol 60 mg IV every 6 hours, is being lowered down to 40 mg IV every 12. Continue with pulmonary hygiene, coughing and deep breathing exercises, and supportive care. Supplemental oxygen to maintain oxygen saturations of 92% or better. Continue nebulizer treatments, we will add budesonide as well. Initiate and encourage incentive spirometer. GI and DVT prophylaxis. Repeat labs and chest x-ray in the morning. We will continue to monitor labs/results and adjust treatment as necessary. Further recommendations pending. Time with Patient: Less than 30 (Excluding procedure thoracentesis)
--- NOTE | 2016-11-28 16:41 | P.PCN ---
Date of Procedure: 11/28/16 Preoperative Diagnosis: Large left pleural effusion, cardiomyopathy with acute on chronic systolic heart failure, shortness of breath and pneumonia Postoperative Diagnosis: As above Procedure(s) Performed: Left thoracentesis Implants: Anesthesia: local Estimated Blood Loss (ml): 0 Disposition: floor Indications for Procedure: As above Operative Findings: See below Description of Procedure: Patient prepared and draped in the usual fashion ultrasound was utilized to monitor and estimate the maximum depth of the fluid patient was given 1% lidocaine at eighth intercostal space above the rib the pleural space was entered through the gauge 24 needle dark blood-tinged pleural fluid was aspirated, followed by placement of a stab incision for less than 1/8 of a centimeter placement of catheter in needle followed by removal of the needle with catheter left in position and 1.7 L of partly dark pleural fluid aspirated patient tolerated procedure well no complication noted fluid is being sent for Gram stain and culture cytology cell count if and chemistry
[2016-11-28 17:04] LABS: Glucose, BF Source Pleural Fluid; LDH, Body Fluid Source Pleural Fluid; T. Protein, Body Fluid Source Pleural Fluid; Total Protein, Body Fluid 1326 mg/dL
--- NOTE | 2016-11-28 17:10 | P.PN ---
Subjective Mr. Hooper is a 65-year-old male with a known history of ESRD on hemodialysis TTS , failed kidney transplant, nonobstructive coronary artery disease, nonischemic cardiomyopathy ejection fraction 20% and chronic bilateral pleural effusion was brought to the hospital from extended care facility with complaints of short of breath. Patient denied any, soft fever or chills. Patient does have gait dysfunction at baseline and uses a walker. Patient was recently discharged from the hospital on 11/15/2016. Patient does have chronic hypotension with SBP around 80 mm Hg. Patient is on metered groin. Bumex was discontinued during last admission. Currently patient denied any complains of chest pain. Patient does make some urine. Chest x-ray in the ER showed findings most consistent with mild heart failure and bilateral effusions. There is bibasilar airspace disease either representing atelectasis/ pneumonia. Patient was hypotensive and was started on antibiotics zosyn and levofloxacin and transferred to the ICU . On 11/23/16 - pt was c/o productive cough with yellow sputum for the 2-3 days and as the CXR showed effusion , pt had an US of the chest showing right pleural effusion fluid pocket of 13.9 cm and the left pleural effusion fluid pocket of 11 cm. HE also has h/o CHF with EF 10-15 % only. On 11/24/16 Pt.s SOB is improved. no CP. no Fever/chills. HD tomorrow.,. no over night issues. bring transferred to Tele unit Pt. had thoracentesis done with 1200 cc fluid removal On 11/25/2016 Patient states that he has a cough minimal productive in nature No fevers chills are reported Patient does complain of chest pressure with deep breathing Has underwent a thoracentesis status post 1.1 L of fluid removal 11/23/2016 Chest x-ray this morning revealed a recurrence of the fluid Patient appears to be waxing and waning in regards to his mentation however of known this patient for long period of time patient is extremely manipulative her graft patient once his medication which is not currently available 11/27/16 pt is more confused today O2 sats wnl Overnight pt has not slept Undergoing HD during my eval was not able to answer questions appropriately 11/28/16 more awake answering questions appropriately states to have pain in his chest NO other overnight events reported Objective - Vital Signs Vital signs: Vital Signs Temp 96.9 F L 11/28/16 03:58 Pulse 96 11/28/16 16:08 Resp 18 11/28/16 12:00 BP 98/47 11/28/16 12:00 Pulse Ox 100 11/28/16 08:00 Intake & Output 11/27/16 11/28/16 11/28/16 18:59 06:59 18:59 Intake Total 100 150 Balance 100 150 Weight 78.8 kg 71 kg 71 kg Intake: IV 50 Piperacillin-Tazobactam 3 50 .375 gm In Dextrose/Water 1 50ml.bag @ 12.5 mls/hr IVPB Q12H [facility] Rx#: [id number] Intake, IV Titration 100 100 Amount Levofloxacin 500Mg-D5w 100 100 Pmx 500 mg In Dextrose/ Water 1 100ml.bag @ 100 mls/hr IVPB Q48H [facility] Rx#: [id number] Other: Voiding Method Incontinent Incontinent Incontinent # Voids 0 0 0 # Bowel Movements 1 1 - Exam In appearance alert and oriented times 3 Neck is supple no JVD Diminished breath sounds on the left base No rhonchi or wheezing or crackles Heart S1-S2 heard regular rate and rhythm no murmurs appreciable Abdomen soft nontender organomegaly Left lower extremity a large ecchymosis along the left side and the a tender point on the left hip 1+ edema in the lower extremities Neuro moves all 4 extremities no focal deficits Left upper extremity palpable thrill noted - Labs CBC & Chem 7: 11/28/16 06:22 11/28/16 06:22 Labs: Abnormal Lab Results - Last 24 Hours (Table) 11/28/16 11/28/16 Range/Units 06:22 06:22 RBC 3.04 L (4.30-5.90) m/uL Hgb 9.5 L (13.0-17.5) gm/dL Hct 30.8 L (39.0-53.0) % MCV 101.4 H (80.0-100.0) fL RDW 22.7 H (11.5-15.5) % Neutrophils # (Manual) 9.7 H (1.3-7.7) k/uL Lymphocytes # (Manual) 0.4 L (1.0-4.8) k/uL Nucleated RBCs 2 H (0-0) /100 WBC Potassium 6.1 H (3.5-5.1) mmol/L Carbon Dioxide 18 L (22-30) mmol/L BUN 61 H (9-20) mg/dL Creatinine 4.39 H (0.66-1.25) mg/dL Total Bilirubin 1.6 H (0.2-1.3) mg/dL AST 122 H (17-59) U/L Alkaline Phosphatase 136 H (38-126) U/L Total Protein 5.6 L (6.3-8.2) g/dL Albumin 3.1 L (3.5-5.0) g/dL Microbiology - Last 24 Hours (Table) 11/22/16 11:00 Blood Culture - Final Blood No Growth after 144 hours 11/24/16 13:50 Gram Stain - Final Pleural Fluid Body Fluid Culture - Final 11/22/16 16:33 Blood Culture - Preliminary Blood No Growth after 120 hours Assessment and Plan Plan: #1 Systemic inflammatory response syndrome with possible bibasilar with gram- negative pneumonia #2 chronic hypotension. Patient is on Midodrine #3 ESRD on hemodialysis TTS #4 acute on chronic CHF with systolic dysfunction with ejection fraction 20% #5 Non ischemic cardiomyopathy #6 elevated troponin possible non-ST elevated NC #7 hypoalbuminemia with moderate protein calorie malnutrition #8 chronic bilateral pleural effusion. s/p thoracentesis on 11/24 #9 anemia of chronic disease #10 DVT prophylaxis. #11. acute metabolic encephalopathy PLAN: s/p 1.7 l thoracentesis from the left side repeat cxr amy dc planning Antibiotics empirically Hemodialysis scheduled O2 as needed DVT prophylaxis
[2016-11-28] MEDS: CHOLECALCIFEROL 1,000 UNIT TAB PO SCH (18:56)
[2016-11-28] MEDS ORDERED: QUEtiapine 50 MG TAB PO SCH (19:40)
[2016-11-28] MEDS: QUEtiapine 50 MG TAB PO SCH (20:29)
[2016-11-28 20:45] LABS: Glucose,Whole Blood 103 mg/dL (75-99)
[2016-11-29] MEDS ORDERED: SODIUM CHLORIDE 0.9% 250 ML IV ONE ×2 (00:36→04:36)
[2016-11-29] MEDS: PIPERACILLIN-TAZOBACTAM 3.375 GM in DEXTROSE/WATER 1 50ML.BAG IVPB SCH ×2 (05:35→17:17)
[2016-11-29] MEDS: PARNATE PO SCH ×5 (06:25→23:34)
[2016-11-29] MEDS: MIDODRINE 5 MG TAB PO SCH ×3 (06:26→17:17)
[2016-11-29] MEDS: CALCIUM ACETATE 667 MG CAP PO SCH ×3 (06:26→17:18)
[2016-11-29 06:33] LABS: Glucose,Whole Blood 112 mg/dL (75-99)
[2016-11-29] MEDS: INSULIN LISPRO (humaLOG) 300 UNIT/3 ML VIAL SQ SCH ×4 (06:34→21:42)
[2016-11-29 07:39] LABS: Total Protein 4.5 g/dL (6.3-8.2)
[2016-11-29 07:52] LABS: Anisocytosis Moderate; CH 30.3; CHCM 29.4; HCT 26.2 % (39.0-53.0); Hypochromasia Marked; MCH 30.3 pg (25.0-35.0); MCHC 29.3 g/dL (31.0-37.0); MCV 103.5 fL (80.0-100.0); Macrocytosis Marked; Mean Platelet Volume 10.1; Poikilocytosis Slight; RBC 2.54 m/uL (4.30-5.90); RDW 22.8 % (11.5-15.5); WBC (Perox) 5.91
[2016-11-29 07:53] LABS: HGB 7.7 gm/dL (13.0-17.5)
--- NOTE | 2016-11-29 08:01 | PN ---
DATE OF SERVICE: 11/28/2016 Reason for followup is pneumonia. INTERVAL HISTORY: The patient is afebrile. The patient remains to be pleasantly confused. No nausea, vomiting has been noticed or any diarrhea. Unable to give reliable history today. On examination, blood pressure is 98/47 with a pulse of 100, temperature 98. He is 96% on room air. General description is an elderly male, lying in bed in no distress. RESPIRATORY SYSTEM: Unlabored breathing with decreased breath sounds at the base , no wheeze. HEART: S1, S2, regular rate and rhythm. ABDOMEN: Soft, no tenderness. LABS: Hemoglobin is 9.5, white count 10.5 with a BUN of 61, creatinine 4.39. So far the fluid cultures remain to be negative. DIAGNOSTIC IMPRESSION AND PLAN: Patient admitted to the hospital with difficulty in breathing which is multifactorial with a possible component of pneumonia, with recent admission to hospital because of a possible gram- negative. So far, cultures have been negative for a resistant pathogen. He is currently on tazobactam which will continue. Will switch him to oral by the time of discharge. Continue supportive care. LAURENT
[2016-11-29 08:31] LABS: Body Fluid Comment Few Mesothelial
[2016-11-29] MEDS: FAMOTIDINE 20 MG TAB PO SCH (08:32)
[2016-11-29] MEDS: CINACALCET 30 MG TAB PO SCH (08:32)
[2016-11-29] MEDS: SODIUM BICARBONATE TAB 650 MG TAB PO SCH ×2 (08:32→21:42)
[2016-11-29] MEDS: ASPIRIN 81 MG CHEW PO SCH (08:32)
[2016-11-29] MEDS: THEOPHYLLINE 24 HOUR 300 MG CAP.ER.24H PO SCH ×2 (08:32→17:18)
[2016-11-29] MEDS: ENOXAPARIN 30 MG/0.3 ML SYRINGE SQ SCH (08:33)
[2016-11-29] MEDS: methylPREDNISolone SOD SUCCI 40 MG/ML 1 ML VIAL IV SCH ×2 (08:33→21:42)
[2016-11-29] MEDS: BUDESONIDE 0.5 MG/2 ML NEBU INHALATION SCH ×2 (08:39→20:07)
[2016-11-29] MEDS: IPRATROPIUM-ALBUTEROL 3 ML NEB INHALATION SCH ×4 (08:39→20:07)
--- NOTE | 2016-11-29 08:41 | XR ---
EXAMINATION TYPE: XR chest 1V portable DATE OF EXAM: 11/29/2016 COMPARISON: 11/28/2016 HISTORY: Shortness of breath FINDINGS: Noted is pulmonary venous congestion with scattered infiltrates. There is also cardiomegaly and small effusions. IMPRESSION: Findings compatible with congestive failure. Infiltrates of other etiology are not excluded. Clinical correlation and progress studies are recommended.
[2016-11-29 09:47] LABS: Add Differential Manual Differential
--- NOTE | 2016-11-29 09:52 | P.PN ---
Subjective Patient is seen in follow-up for end-stage renal disease. He is maintained on hemodialysis on a Sunday schedule. Patient presented with dyspnea with concerns for pneumonia. He is currently maintained on broad- spectrum antibiotics. Cultures have been negative so far. He is known to have chronic hypotension. He does have history of underlying systolic CHF with ejection fraction of 15%. Patient is currently laying in bed. He is still confused but appears better compared to yesterday. His blood pressures were in the systolic 70s to 80s and he did receive a 500 mL bolus overnight. Vital signs are stable. General: The patient appeared well nourished and normally developed. HEENT: Head exam is unremarkable. Neck is without jugular venous distension. LUNGS: Scattered rhonchi. Breath sounds decreased. HEART: Rate and Rhythm are regular. First and second heart sounds normal. No murmurs, rubs or gallops. ABDOMEN: Abdominal exam reveals normal bowel sounds. Non-tender and non- distended. No evidence of peritonitis. EXTREMITITES: 1+ edema. Objective - Vital Signs Vital signs: Vital Signs Temp 96.8 F L 11/29/16 04:09 Pulse 88 11/29/16 08:54 Resp 18 11/29/16 04:09 BP 84/51 11/29/16 06:06 Pulse Ox 97 11/29/16 04:09 Intake & Output 11/28/16 11/29/16 11/29/16 18:59 06:59 18:59 Output Total 0 Balance 0 Weight 71 kg 69.5 kg Output: Urine 0 Other: Voiding Method Incontinent Incontinent # Voids 0 1 # Bowel Movements 1 - Labs CBC & Chem 7: 11/29/16 06:52 11/29/16 06:52 Labs: Abnormal Lab Results - Last 24 Hours (Table) 11/28/16 11/29/16 11/29/16 Range/Units 20:38 06:32 06:52 RBC 2.54 L (4.30-5.90) m/uL Hgb 7.7 L D (13.0-17.5) gm/dL Hct 26.2 L (39.0-53.0) % MCV 103.5 H (80.0-100.0) fL MCHC 29.3 L (31.0-37.0) g/dL RDW 22.8 H (11.5-15.5) % Plt Count 140 L (150-450) k/uL BUN (9-20) mg/dL Creatinine (0.66-1.25) mg/dL Glucose (74-99) mg/dL POC Glucose (mg/dL) 103 H 112 H (75-99) mg/dL Calcium (8.4-10.2) mg/dL AST (17-59) U/L ALT (21-72) U/L Alkaline Phosphatase (38-126) U/L Total Protein (6.3-8.2) g/dL Albumin (3.5-5.0) g/dL 11/29/16 Range/Units 06:52 RBC (4.30-5.90) m/uL Hgb (13.0-17.5) gm/dL Hct (39.0-53.0) % MCV (80.0-100.0) fL MCHC (31.0-37.0) g/dL RDW (11.5-15.5) % Plt Count (150-450) k/uL BUN 48 H (9-20) mg/dL Creatinine 3.57 H (0.66-1.25) mg/dL Glucose 100 H (74-99) mg/dL POC Glucose (mg/dL) (75-99) mg/dL Calcium 8.0 L (8.4-10.2) mg/dL AST 113 H (17-59) U/L ALT 83 H (21-72) U/L Alkaline Phosphatase 129 H (38-126) U/L Total Protein 4.5 L (6.3-8.2) g/dL Albumin 2.3 L (3.5-5.0) g/dL Microbiology - Last 24 Hours (Table) 11/28/16 10:00 Gram Stain - Preliminary Pleural Fluid Body Fluid Culture - Preliminary 11/22/16 16:33 Blood Culture - Final Blood No Growth after 144 hours 11/28/16 10:00 Fungal Culture - Preliminary Pleural Fluid 11/28/16 10:00 Acid Fast Bacilli Culture - Preliminary Pleural Fluid 11/22/16 11:00 Blood Culture - Final Blood No Growth after 144 hours 11/24/16 13:50 Gram Stain - Final Pleural Fluid Body Fluid Culture - Final Assessment and Plan Plan: Assessment: #1. End-stage renal disease maintained on hemodialysis on a Sunday schedule. #2. Dyspnea. Possibly from pneumonia. Also evidence of fluid overload - status post thoracentesis on November 25 with 1.1 L removed. Underwent left-sided thoracentesis on November 28 with 1.7 L drained. #3. Chronic kidney disease mineral bone disease. #4. Anemia of chronic kidney disease. #5. Hyperkalemia secondary to chronic kidney disease and metabolic acidosis. Improved postdialysis. #6. Altered mental status. Haldol was discontinued. Improved. Plan: Hemodialysis tomorrow with goal 2-3 L ultrafiltration as blood pressure tolerates. Maintain Aranesp Follow-up cultures. Maintain antibiotics. Maintain Sensipar. Continue PhosLo with meals. Maintain oral sodium bicarbonate supplementation. Increase midodrine to 10 mg 3 times daily. Start IV Lasix.
[2016-11-29 09:53] LABS: Nucleated Red Blood Cells 2 /100 WBC (0-0); Total Cells Counted 200; WBC 5.4 k/uL (3.8-10.6)
[2016-11-29 09:54] LABS: Manual Review Performed; Polychromasia Present
[2016-11-29] MEDS: FUROSEMIDE 10 MG/ML 10 ML VIAL IV SCH ×2 (10:40→23:33)
[2016-11-29 11:52] LABS: Glucose,Whole Blood 164 mg/dL (75-99)
--- NOTE | 2016-11-29 11:58 | P.PN ---
Subjective 11/22/16- This is a 65-year-old male to the ER for evaluation of shortness of breath, cough and congestion, positive fever. Patient poor historian secondary to clinical condition. Patient will complain of shortness of breath the patient has same symptoms as he has had prior. History is obtained from EMS and patient's chart. Patient is not really aware of the situation and worsening that brought him into the emergency department. He is a resident of extended care facility he has been found to be more short of breath and running low- grade temperature he missed hemodialysis yesterday as well. He denies any night sweats or fevers chills does have intermittent cough denies any problem with passing urine off not that patient has a nonoliguric renal failure, he has been hospitalized recently with the heart failure which is acute on chronic systolic heart failure requiring intra-aortic balloon pump and prolonged hospital stay. 11/23/16- upon examination the patient's resting up in bed on 2 L of supplemental oxygen and saturating 99% currently. He does have shortness of breath with exertion. He also has a productive cough with yellow sputum. According to the nursing staff the patient is alert and oriented 3 however does have intermittent confusion. Patient did undergo a ultrasound of the chest yesterday which did show a right pleural effusion fluid pocket of 13.9 cm and the left pleural effusion fluid pocket of 11 cm. Patient was marked on both sides for a possible thoracentesis. Chest x-ray today has been reviewed and does show bilateral effusions as well as bilateral pneumonia as well as CHF. Patient does have a history of an echo with an EF of 15%. His labs also reviewed today and the patient did have a critical creatinine of 5 and his BUN was 51. Patient will be undergoing hemodialysis today. 11/24/16-patient will undergo thoracentesis of the right side today. The procedure could not be completed yesterday due to the patient receiving dialysis during the procedural time. Patient had 2L removed with dialysis yesterday. Currently the patient is resting up in bed on room air oxygen saturations high 90s. He states he does continue to have some shortness of breath with exertion. Patient is anxious today. Nephrology is also on the case and the patient will undergo hemodialysis again tomorrow. And states his appetite has been good, no nausea no vomiting no diarrhea or constipation. 11/25/16 patient seen and evaluated examined during the rounds he is a status post a right thoracentesis is 1.1 L of fluid has been removed shortness of breath is slightly better and patient is due for left thoracentesis which I have explained to the patient he appears somewhat tired and fatigued will hold on doing it today his quality of sleep has improved denies any pain but does have shortness of breath him a findings of peripheral ultrasound has been reviewed with the patient some intermittent dry cough is present which is not much change from baseline rule fluid examination results are reviewed 11/26/16, patient seen and evaluated examined he is awake and alert slightly more stronger as able to get out of the bed with assistance to the bedside preston Carroll get short of breath on minimal activity and exertion remains on oxygen I have discussed with him about the left-sided thoracentesis which is being planned for later on today or fully that will improve the quality of's breathing and improve cardiorespiratory status. Procedure complications side effects and alternatives have been explained to the patient at length 11/27/16- patient is seen and evaluated and examined. He is alert and awake. Continues to get short of breath on minimal exertion and remains on supplemental oxygen. Patient was going to have a left-sided thoracentesis today , however the procedure will be performed tomorrow due to the patient undergoing dialysis at this time. Currently the patient is on room air and his supplemental oxygen and is on standby. labs have been reviewed, cultures negative so far. 11/28/16 Patient seen and examined during the rounds he remains short of breath he is going to get another dialysis later on today he is awake and alert have discussed with him left-sided thoracentesis which revealed to be performed shortly procedure complication alternating there have been explained to the patient had well at length 11/29/16 upon examination today the patient is resting up in bed on supplemental oxygen. Patient did undergo a thoracentesis yesterday without complications please see procedure note. Patient states that his breathing has significantly improved since having bilateral thoracentesis. Still continues to have some intermittent confusion. Cultures negative so far. Continues on hemodialysis. Objective - Vital Signs Vital signs: Vital Signs Temp 96.8 F L 11/29/16 04:09 Pulse 88 11/29/16 11:43 Resp 18 11/29/16 04:09 BP 84/51 11/29/16 06:06 Pulse Ox 97 11/29/16 04:09 Intake & Output 11/28/16 11/29/16 11/29/16 18:59 06:59 18:59 Output Total 0 Balance 0 Weight 71 kg 69.5 kg Output: Urine 0 Other: Voiding Method Incontinent Incontinent # Voids 0 1 # Bowel Movements 1 - Exam GENERAL EXAM: Alert, , comfortable in no apparent distress. HEAD: Normocephalic. EYES: Normal reaction of pupils, equal size. NOSE: Clear with pink turbinates. THROAT: No erythema or exudates. NECK: No masses, no JVD. CHEST: No chest wall deformity. LUNGS: Breath sounds noted to be coarse throughout. Bases diminished. CVS: S1 and S2 normal with no audible mumurs, regular rhythm. ABDOMEN: No hepatosplenomegaly, normal bowel sounds, no guarding or rigidity. EXTREMITIES: +1 edema noted, pedal pulses palpable. SKIN: No rashes CENTRAL NERVOUS SYSTEM: No focal deficits, tone is normal in all 4 extremities. - Labs CBC & Chem 7: 11/29/16 06:52 11/29/16 06:52 Labs: Abnormal Lab Results - Last 24 Hours (Table) 11/28/16 11/29/16 11/29/16 Range/Units 20:38 06:32 06:52 RBC 2.54 L (4.30-5.90) m/uL Hgb 7.7 L D (13.0-17.5) gm/dL Hct 26.2 L (39.0-53.0) % MCV 103.5 H (80.0-100.0) fL MCHC 29.3 L (31.0-37.0) g/dL RDW 22.8 H (11.5-15.5) % Plt Count 140 L (150-450) k/uL Lymphocytes # (Manual) 0.0 L (1.0-4.8) k/uL Nucleated RBCs 2 H (0-0) /100 WBC BUN (9-20) mg/dL Creatinine (0.66-1.25) mg/dL Glucose (74-99) mg/dL POC Glucose (mg/dL) 103 H 112 H (75-99) mg/dL Calcium (8.4-10.2) mg/dL AST (17-59) U/L ALT (21-72) U/L Alkaline Phosphatase (38-126) U/L Total Protein (6.3-8.2) g/dL Albumin (3.5-5.0) g/dL 11/29/16 11/29/16 Range/Units 06:52 11:48 RBC (4.30-5.90) m/uL Hgb (13.0-17.5) gm/dL Hct (39.0-53.0) % MCV (80.0-100.0) fL MCHC (31.0-37.0) g/dL RDW (11.5-15.5) % Plt Count (150-450) k/uL Lymphocytes # (Manual) (1.0-4.8) k/uL Nucleated RBCs (0-0) /100 WBC BUN 48 H (9-20) mg/dL Creatinine 3.57 H (0.66-1.25) mg/dL Glucose 100 H (74-99) mg/dL POC Glucose (mg/dL) 164 H (75-99) mg/dL Calcium 8.0 L (8.4-10.2) mg/dL AST 113 H (17-59) U/L ALT 83 H (21-72) U/L Alkaline Phosphatase 129 H (38-126) U/L Total Protein 4.5 L (6.3-8.2) g/dL Albumin 2.3 L (3.5-5.0) g/dL Microbiology - Last 24 Hours (Table) 11/28/16 10:00 Gram Stain - Preliminary Pleural Fluid Body Fluid Culture - Preliminary 11/22/16 16:33 Blood Culture - Final Blood No Growth after 144 hours 11/28/16 10:00 Fungal Culture - Preliminary Pleural Fluid 11/28/16 10:00 Acid Fast Bacilli Culture - Preliminary Pleural Fluid 11/22/16 11:00 Blood Culture - Final Blood No Growth after 144 hours 11/24/16 13:50 Gram Stain - Final Pleural Fluid Body Fluid Culture - Final Assessment and Plan Plan: Assessment Systemic inflammatory response syndrome Hypotension, related to acute on chronic systolic heart failure as well as sepsis Chronic renal failure, end-stage currently on hemodialysis Tuesdays and Saturdays. Chronic persistent asthma with acute exacerbation Community acquired pneumonia suspect mixed bacterial gram-negative Acute pulmonary edema Bilateral pleural effusions, status post right sided thoracentesis, left side planned for tomorrow. Acute CA with mildly elevated troponins cannot be excluded Anemia of chronic disease Cardiomyopathy with chronic systolic heart failure with a baseline ejection fraction of 15% with acute decompensation Plan Medications have been reviewed and will be continued as ordered. The patient's midodrine has been increased per nephrology. Continue with IV antibiotics. Solu-Medrol 40 mg IV every 12 hours. Continue with pulmonary hygiene, coughing and deep breathing exercises, and supportive care. Supplemental oxygen to maintain oxygen saturations of 92% or better. Continue nebulizer treatments, we will add budesonide as well. Initiate and encourage incentive spirometer. GI and DVT prophylaxis. Repeat labs and chest x-ray in the morning. We will continue to monitor labs/results and adjust treatment as necessary. Further recommendations pending. I performed an examination of the patient and discussed their management with the nurse practitioner. I have reviewed the nurse practitioner's note and agree with the documented findings and plan of care.
--- NOTE | 2016-11-29 16:24 | P.PN ---
Subjective Mr. Hooper is a 65-year-old male with a known history of ESRD on hemodialysis TTS , failed kidney transplant, nonobstructive coronary artery disease, nonischemic cardiomyopathy ejection fraction 20% and chronic bilateral pleural effusion was brought to the hospital from extended care facility with complaints of short of breath. Patient denied any, soft fever or chills. Patient does have gait dysfunction at baseline and uses a walker. Patient was recently discharged from the hospital on 11/15/2016. Patient does have chronic hypotension with SBP around 80 mm Hg. Patient is on metered groin. Bumex was discontinued during last admission. Currently patient denied any complains of chest pain. Patient does make some urine. Chest x-ray in the ER showed findings most consistent with mild heart failure and bilateral effusions. There is bibasilar airspace disease either representing atelectasis/ pneumonia. Patient was hypotensive and was started on antibiotics zosyn and levofloxacin and transferred to the ICU . On 11/23/16 - pt was c/o productive cough with yellow sputum for the 2-3 days and as the CXR showed effusion , pt had an US of the chest showing right pleural effusion fluid pocket of 13.9 cm and the left pleural effusion fluid pocket of 11 cm. HE also has h/o CHF with EF 10-15 % only. On 11/24/16 Pt.s SOB is improved. no CP. no Fever/chills. HD tomorrow.,. no over night issues. bring transferred to Tele unit Pt. had thoracentesis done with 1200 cc fluid removal On 11/25/2016 Patient states that he has a cough minimal productive in nature No fevers chills are reported Patient does complain of chest pressure with deep breathing Has underwent a thoracentesis status post 1.1 L of fluid removal 11/23/2016 Chest x-ray this morning revealed a recurrence of the fluid Patient appears to be waxing and waning in regards to his mentation however of known this patient for long period of time patient is extremely manipulative her graft patient once his medication which is not currently available 11/27/16 pt is more confused today O2 sats wnl Overnight pt has not slept Undergoing HD during my eval was not able to answer questions appropriately 11/28/16 more awake answering questions appropriately states to have pain in his chest NO other overnight events reported 7/26/17 awake low bp noted overnight no fevers, chills, pain reported Objective - Vital Signs Vital signs: Vital Signs Temp 97 F L 11/29/16 08:00 Pulse 85 11/29/16 16:00 Resp 16 11/29/16 16:00 BP 80/52 11/29/16 08:00 Pulse Ox 96 11/29/16 08:00 Intake & Output 11/28/16 11/29/16 11/29/16 18:59 06:59 18:59 Intake Total 240 Output Total 0 Balance 0 240 Weight 71 kg 69.5 kg Intake: Oral 240 Output: Urine 0 Other: Voiding Method Incontinent Incontinent # Voids 0 1 0 # Bowel Movements 1 - Exam In appearance alert and oriented times 3 Neck is supple no JVD Diminished breath sounds on the left base No rhonchi or wheezing or crackles Heart S1-S2 heard regular rate and rhythm no murmurs appreciable Abdomen soft nontender organomegaly Left lower extremity a large ecchymosis along the left side and the a tender point on the left hip 1+ edema in the lower extremities and upper ext. Neuro moves all 4 extremities no focal deficits Left upper extremity palpable thrill noted - Labs CBC & Chem 7: 11/29/16 06:52 11/29/16 06:52 Labs: Abnormal Lab Results - Last 24 Hours (Table) 11/28/16 11/29/16 11/29/16 Range/Units 20:38 06:32 06:52 RBC 2.54 L (4.30-5.90) m/uL Hgb 7.7 L D (13.0-17.5) gm/dL Hct 26.2 L (39.0-53.0) % MCV 103.5 H (80.0-100.0) fL MCHC 29.3 L (31.0-37.0) g/dL RDW 22.8 H (11.5-15.5) % Plt Count 140 L (150-450) k/uL Lymphocytes # (Manual) 0.0 L (1.0-4.8) k/uL Nucleated RBCs 2 H (0-0) /100 WBC BUN (9-20) mg/dL Creatinine (0.66-1.25) mg/dL Glucose (74-99) mg/dL POC Glucose (mg/dL) 103 H 112 H (75-99) mg/dL Calcium (8.4-10.2) mg/dL AST (17-59) U/L ALT (21-72) U/L Alkaline Phosphatase (38-126) U/L Total Protein (6.3-8.2) g/dL Albumin (3.5-5.0) g/dL 11/29/16 11/29/16 Range/Units 06:52 11:48 RBC (4.30-5.90) m/uL Hgb (13.0-17.5) gm/dL Hct (39.0-53.0) % MCV (80.0-100.0) fL MCHC (31.0-37.0) g/dL RDW (11.5-15.5) % Plt Count (150-450) k/uL Lymphocytes # (Manual) (1.0-4.8) k/uL Nucleated RBCs (0-0) /100 WBC BUN 48 H (9-20) mg/dL Creatinine 3.57 H (0.66-1.25) mg/dL Glucose 100 H (74-99) mg/dL POC Glucose (mg/dL) 164 H (75-99) mg/dL Calcium 8.0 L (8.4-10.2) mg/dL AST 113 H (17-59) U/L ALT 83 H (21-72) U/L Alkaline Phosphatase 129 H (38-126) U/L Total Protein 4.5 L (6.3-8.2) g/dL Albumin 2.3 L (3.5-5.0) g/dL Microbiology - Last 24 Hours (Table) 11/28/16 10:00 Gram Stain - Preliminary Pleural Fluid Body Fluid Culture - Preliminary 11/22/16 16:33 Blood Culture - Final Blood No Growth after 144 hours 11/28/16 10:00 Fungal Culture - Preliminary Pleural Fluid 11/28/16 10:00 Acid Fast Bacilli Culture - Preliminary Pleural Fluid 11/22/16 11:00 Blood Culture - Final Blood No Growth after 144 hours 11/24/16 13:50 Gram Stain - Final Pleural Fluid Body Fluid Culture - Final Assessment and Plan Plan: #1 Systemic inflammatory response syndrome with possible bibasilar with gram- negative pneumonia #2 chronic hypotension. Patient is on Midodrine #3 ESRD on hemodialysis TTS #4 acute on chronic CHF with systolic dysfunction with ejection fraction 20% #5 Non ischemic cardiomyopathy #6 elevated troponin possible non-ST elevated [place] #7 hypoalbuminemia with moderate protein calorie malnutrition #8 chronic bilateral pleural effusion. s/p thoracentesis on 11/24 #9 anemia of chronic disease #10 DVT prophylaxis. #11. acute metabolic encephalopathy PLAN: dc planning after HD amy Antibiotics empirically midodrine is increased iv diuretics Hemodialysis scheduled O2 as needed DVT prophylaxis
[2016-11-29 17:05] LABS: Glucose,Whole Blood 158 mg/dL (75-99)
[2016-11-29] MEDS: CHOLECALCIFEROL 1,000 UNIT TAB PO SCH (17:18)
[2016-11-29 20:53] LABS: Glucose,Whole Blood 157 mg/dL (75-99)
[2016-11-29] MEDS: QUEtiapine 50 MG TAB PO SCH (21:41)
[2016-11-29] MEDS: ATORVASTATIN 40 MG TAB PO SCH (21:41)
[2016-11-30 01:08] VITALS: RESP 18
[2016-11-30 06:22] LABS: Glucose,Whole Blood 156 mg/dL (75-99)
[2016-11-30] MEDS: PIPERACILLIN-TAZOBACTAM 3.375 GM in DEXTROSE/WATER 1 50ML.BAG IVPB SCH (06:44)
[2016-11-30] MEDS: MIDODRINE 5 MG TAB PO SCH ×3 (06:45→16:49)
[2016-11-30] MEDS: PARNATE PO SCH ×3 (06:45→16:48)
[2016-11-30] MEDS: CALCIUM ACETATE 667 MG CAP PO SCH ×3 (06:45→16:49)
[2016-11-30] MEDS: INSULIN LISPRO (humaLOG) 300 UNIT/3 ML VIAL SQ SCH ×3 (06:47→16:50)
[2016-11-30] MEDS: IPRATROPIUM-ALBUTEROL 3 ML NEB INHALATION SCH ×3 (07:59→15:48)
[2016-11-30] MEDS: BUDESONIDE 0.5 MG/2 ML NEBU INHALATION SCH (07:59)
[2016-11-30] MEDS: ACETAMINOPHEN TAB 325 MG TAB PO PRN (08:27)
[2016-11-30] MEDS: CINACALCET 30 MG TAB PO SCH (08:28)
[2016-11-30] MEDS: ENOXAPARIN 30 MG/0.3 ML SYRINGE SQ SCH (08:29)
[2016-11-30] MEDS: THEOPHYLLINE 24 HOUR 300 MG CAP.ER.24H PO SCH ×2 (08:29→16:48)
[2016-11-30] MEDS: ASPIRIN 81 MG CHEW PO SCH (08:29)
[2016-11-30] MEDS: FAMOTIDINE 20 MG TAB PO SCH (08:29)
[2016-11-30] MEDS: FUROSEMIDE 10 MG/ML 10 ML VIAL IV SCH (08:30)
[2016-11-30] MEDS: methylPREDNISolone SOD SUCCI 40 MG/ML 1 ML VIAL IV SCH (08:30)
[2016-11-30] MEDS: SODIUM BICARBONATE TAB 650 MG TAB PO SCH (08:31)
--- NOTE | 2016-11-30 09:08 | P.PN ---
Subjective Patient is seen in follow-up for end-stage renal disease. He is maintained on hemodialysis on a Sunday schedule. Patient presented with dyspnea with concerns for pneumonia. He is currently maintained on broad- spectrum antibiotics. Cultures have been negative so far. He is known to have chronic hypotension. He does have history of underlying systolic CHF with ejection fraction of 15%. Patient is currently laying in bed. His mentation has improved. Hemodynamically stable although blood pressures tend to run on the lower end due to his underlying cardiac status. Vital signs are stable. General: The patient appeared well nourished and normally developed. HEENT: Head exam is unremarkable. Neck is without jugular venous distension. LUNGS: Scattered rhonchi. Breath sounds decreased. HEART: Rate and Rhythm are regular. First and second heart sounds normal. No murmurs, rubs or gallops. ABDOMEN: Abdominal exam reveals normal bowel sounds. Non-tender and non- distended. No evidence of peritonitis. EXTREMITITES: Trace edema. Objective - Vital Signs Vital signs: Vital Signs Temp 96.9 F L 11/30/16 03:34 Pulse 96 11/30/16 08:12 Resp 18 11/30/16 03:34 BP 93/54 11/30/16 03:34 Pulse Ox 98 11/30/16 03:34 Intake & Output 11/29/16 11/30/16 11/30/16 18:59 06:59 18:59 Intake Total 240 Balance 240 Weight 73.5 kg Intake: Oral 240 Other: Voiding Method Incontinent # Voids 0 1 - Labs CBC & Chem 7: 11/29/16 06:52 11/29/16 06:52 Labs: Abnormal Lab Results - Last 24 Hours (Table) 11/29/16 11/29/16 11/29/16 Range/Units 06:52 11:48 16:59 RBC 2.54 L (4.30-5.90) m/uL Hgb 7.7 L D (13.0-17.5) gm/dL Hct 26.2 L (39.0-53.0) % MCV 103.5 H (80.0-100.0) fL MCHC 29.3 L (31.0-37.0) g/dL RDW 22.8 H (11.5-15.5) % Plt Count 140 L (150-450) k/uL Lymphocytes # (Manual) 0.0 L (1.0-4.8) k/uL Nucleated RBCs 2 H (0-0) /100 WBC POC Glucose (mg/dL) 164 H 158 H (75-99) mg/dL 11/29/16 11/30/16 Range/Units 20:49 06:20 RBC (4.30-5.90) m/uL Hgb (13.0-17.5) gm/dL Hct (39.0-53.0) % MCV (80.0-100.0) fL MCHC (31.0-37.0) g/dL RDW (11.5-15.5) % Plt Count (150-450) k/uL Lymphocytes # (Manual) (1.0-4.8) k/uL Nucleated RBCs (0-0) /100 WBC POC Glucose (mg/dL) 157 H 156 H (75-99) mg/dL Microbiology - Last 24 Hours (Table) 11/28/16 10:00 Acid Fast Bacilli Smear - Final Pleural Fluid Acid Fast Bacilli Culture - Preliminary 11/28/16 10:00 Gram Stain - Preliminary Pleural Fluid Body Fluid Culture - Preliminary Assessment and Plan Plan: Assessment: #1. End-stage renal disease maintained on hemodialysis on a Sunday schedule. #2. Dyspnea. Possibly from pneumonia. Also evidence of fluid overload - status post thoracentesis on November 25 with 1.1 L removed. Underwent left-sided thoracentesis on November 28 with 1.7 L drained. #3. Chronic kidney disease mineral bone disease. #4. Anemia of chronic kidney disease. #5. Hyperkalemia secondary to chronic kidney disease and metabolic acidosis. Improved postdialysis. #6. Altered mental status. Haldol was discontinued. Improved. Plan: Hemodialysis today with goal 2-3 L ultrafiltration as blood pressure tolerates. Maintain Aranesp Follow-up cultures. Maintain antibiotics. Maintain Sensipar. Continue PhosLo with meals. Maintain oral sodium bicarbonate supplementation. Continue midodrine 10 mg 3 times daily. I will change the Lasix to oral. Potential discharge today.
--- NOTE | 2016-11-30 10:25 | PN ---
DATE OF SERVICE: 11/29/2016 Reason for followup is pneumonia. INTERVAL HISTORY: The patient is afebrile. He seemed to be more awake and alert. Breathing was ( ). Denies significant chest pain. Occasional cough. No abdominal pain. No nausea, vomiting or any diarrhea. On examination, blood pressure is 104/59 with a pulse of 89, temperature 97.6. He is 95% on room air. General description is an elderly male, up in the bed in no distress. RESPIRATORY SYSTEM: Unlabored breathing with decreased breath sounds at the bases. HEART: S1 and S2, regular rate and rhythm. ABDOMEN: Soft, no tenderness. LABS: Hemoglobin is 7.7, white count 5.4. BUN 48, creatinine 3.57. The pleural fluid culture remains to be negative. Sputum is so far negative. Blood culture is negative. DIAGNOSTIC IMPRESSION AND PLAN: Patient admitted to the hospital with difficulty in breathing, did have a low grade fever, ( ) question of pneumonia. Also the pleural effusion status post thoracentesis with all the cultures negative for any resistant pathogen. Antibiotic will be adjusted to Augmentin and will discontinue the Zosyn. Continue supportive care. LAURENT
[2016-11-30 10:58] VITALS: BMI 21.9
--- NOTE | 2016-11-30 11:07 | P.PN ---
Subjective 11/22/16- This is a 65-year-old male to the ER for evaluation of shortness of breath, cough and congestion, positive fever. Patient poor historian secondary to clinical condition. Patient will complain of shortness of breath the patient has same symptoms as he has had prior. History is obtained from EMS and patient's chart. Patient is not really aware of the situation and worsening that brought him into the emergency department. He is a resident of extended care facility he has been found to be more short of breath and running low- grade temperature he missed hemodialysis yesterday as well. He denies any night sweats or fevers chills does have intermittent cough denies any problem with passing urine off not that patient has a nonoliguric renal failure, he has been hospitalized recently with the heart failure which is acute on chronic systolic heart failure requiring intra-aortic balloon pump and prolonged hospital stay. 11/23/16- upon examination the patient's resting up in bed on 2 L of supplemental oxygen and saturating 99% currently. He does have shortness of breath with exertion. He also has a productive cough with yellow sputum. According to the nursing staff the patient is alert and oriented 3 however does have intermittent confusion. Patient did undergo a ultrasound of the chest yesterday which did show a right pleural effusion fluid pocket of 13.9 cm and the left pleural effusion fluid pocket of 11 cm. Patient was marked on both sides for a possible thoracentesis. Chest x-ray today has been reviewed and does show bilateral effusions as well as bilateral pneumonia as well as CHF. Patient does have a history of an echo with an EF of 15%. His labs also reviewed today and the patient did have a critical creatinine of 5 and his BUN was 51. Patient will be undergoing hemodialysis today. 11/24/16-patient will undergo thoracentesis of the right side today. The procedure could not be completed yesterday due to the patient receiving dialysis during the procedural time. Patient had 2L removed with dialysis yesterday. Currently the patient is resting up in bed on room air oxygen saturations high 90s. He states he does continue to have some shortness of breath with exertion. Patient is anxious today. Nephrology is also on the case and the patient will undergo hemodialysis again tomorrow. And states his appetite has been good, no nausea no vomiting no diarrhea or constipation. 11/25/16 patient seen and evaluated examined during the rounds he is a status post a right thoracentesis is 1.1 L of fluid has been removed shortness of breath is slightly better and patient is due for left thoracentesis which I have explained to the patient he appears somewhat tired and fatigued will hold on doing it today his quality of sleep has improved denies any pain but does have shortness of breath him a findings of peripheral ultrasound has been reviewed with the patient some intermittent dry cough is present which is not much change from baseline rule fluid examination results are reviewed 11/26/16, patient seen and evaluated examined he is awake and alert slightly more stronger as able to get out of the bed with assistance to the bedside preston Carroll get short of breath on minimal activity and exertion remains on oxygen I have discussed with him about the left-sided thoracentesis which is being planned for later on today or fully that will improve the quality of's breathing and improve cardiorespiratory status. Procedure complications side effects and alternatives have been explained to the patient at length 11/27/16- patient is seen and evaluated and examined. He is alert and awake. Continues to get short of breath on minimal exertion and remains on supplemental oxygen. Patient was going to have a left-sided thoracentesis today , however the procedure will be performed tomorrow due to the patient undergoing dialysis at this time. Currently the patient is on room air and his supplemental oxygen and is on standby. labs have been reviewed, cultures negative so far. 11/28/16 Patient seen and examined during the rounds he remains short of breath he is going to get another dialysis later on today he is awake and alert have discussed with him left-sided thoracentesis which revealed to be performed shortly procedure complication alternating there have been explained to the patient had well at length 11/29/16 upon examination today the patient is resting up in bed on supplemental oxygen. Patient did undergo a thoracentesis yesterday without complications please see procedure note. Patient states that his breathing has significantly improved since having bilateral thoracentesis. Still continues to have some intermittent confusion. Cultures negative so far. Continues on hemodialysis. 11/30/16 upon examination today the patient has resting up in bed on supplemental oxygen. Patient has had increased air movement since thoracentesis were performed. Patient continues to have intermittent confusion on occasion however his mentation has improved. Currently the patient is undergoing hemodialysis at this time. Patient is being set up for possible discharge today to [facility] facility. Objective - Vital Signs Vital signs: Vital Signs Temp 96.9 F L 11/30/16 03:34 Pulse 96 11/30/16 08:12 Resp 18 11/30/16 03:34 BP 93/54 11/30/16 03:34 Pulse Ox 98 11/30/16 03:34 Intake & Output 11/29/16 11/30/16 11/30/16 18:59 06:59 18:59 Intake Total 240 Balance 240 Weight 73.5 kg 73.5 kg Intake: Oral 240 Other: Voiding Method Incontinent # Voids 0 1 - Exam GENERAL EXAM: Alert, , comfortable in no apparent distress. HEAD: Normocephalic. EYES: Normal reaction of pupils, equal size. NOSE: Clear with pink turbinates. THROAT: No erythema or exudates. NECK: No masses, no JVD. CHEST: No chest wall deformity. LUNGS: Breath sounds noted to be coarse throughout. Bases diminished. CVS: S1 and S2 normal with no audible mumurs, regular rhythm. ABDOMEN: No hepatosplenomegaly, normal bowel sounds, no guarding or rigidity. EXTREMITIES: +1 edema noted, pedal pulses palpable. SKIN: No rashes CENTRAL NERVOUS SYSTEM: No focal deficits, tone is normal in all 4 extremities. - Labs CBC & Chem 7: 11/29/16 06:52 11/29/16 06:52 Labs: Abnormal Lab Results - Last 24 Hours (Table) 11/29/16 11/29/16 11/29/16 Range/Units 11:48 16:59 20:49 POC Glucose (mg/dL) 164 H 158 H 157 H (75-99) mg/dL 11/30/16 Range/Units 06:20 POC Glucose (mg/dL) 156 H (75-99) mg/dL Microbiology - Last 24 Hours (Table) 11/28/16 10:00 Acid Fast Bacilli Smear - Final Pleural Fluid Acid Fast Bacilli Culture - Preliminary 11/28/16 10:00 Gram Stain - Preliminary Pleural Fluid Body Fluid Culture - Preliminary Assessment and Plan Plan: Assessment Systemic inflammatory response syndrome Hypotension, related to acute on chronic systolic heart failure as well as sepsis Chronic renal failure, end-stage currently on hemodialysis Tuesdays and Saturdays. Chronic persistent asthma with acute exacerbation Community acquired pneumonia suspect mixed bacterial gram-negative Acute pulmonary edema Bilateral pleural effusions, status post right sided thoracentesis, left side planned for tomorrow. Acute SC with mildly elevated troponins cannot be excluded Anemia of chronic disease Cardiomyopathy with chronic systolic heart failure with a baseline ejection fraction of 15% with acute decompensation Plan Patient could be discharged from a pulmonary standpoint in the near future. Medications have been reviewed and will be continued as ordered. The patient's midodrine has been increased per nephrology. Continue with antibiotics. The patient's steroids have been decreased and switched to oral. Continue with pulmonary hygiene, coughing and deep breathing exercises, and supportive care. Supplemental oxygen to maintain oxygen saturations of 92% or better. Continue nebulizer treatments, we will add budesonide as well. Initiate and encourage incentive spirometer. GI and DVT prophylaxis. Repeat labs and chest x-ray in the morning. We will continue to monitor labs/results and adjust treatment as necessary. Further recommendations pending. I performed an examination of the patient and discussed their management with the nurse practitioner. I have reviewed the nurse practitioner's note and agree with the documented findings and plan of care.
[2016-11-30 11:25] LABS: Glucose,Whole Blood 185 mg/dL (75-99)
[2016-11-30 14:32] LABS: Glucose,Whole Blood 164 mg/dL (75-99)
[2016-11-30] MEDS: DARBEPOETIN ALFA 40 MCG/0.4 ML SYRINGE SQ SCH (14:49)
--- NOTE | 2016-11-30 14:58 | US ---
EXAMINATION TYPE: US venous doppler duplex UE LT DATE OF EXAM: 11/30/2016 COMPARISON: None CLINICAL HISTORY: rule out dvt . Left arm edema SIDE PERFORMED: Left Patient has a fistula in left upper arm. Left Arm: Negative for DVT Grayscale, color doppler, spectral doppler imaging performed of the deep veins of the left upper extr emity. There is normal flow, compressibility and vascular waveforms. Mild diffuse subcutaneous edema is seen. IMPRESSION: No ultrasound evidence for acute DVT in the left upper extremity
--- NOTE | 2016-11-30 15:13 | P.DS ---
Providers Date of admission: 11/22/16 13:07 Attending physician: Yen Garcia Consults: 11/22/16 13:11 Consult Physician Routine Consulting Provider: Jeovanny Boggs Consult Reason/Comments: chfq Do you want consulting provider notified?: Yes 11/22/16 13:58 Consult Physician Routine Consulting Provider: Meka Monk Consult Reason/Comments: renalFail Do you want consulting provider notified?: Yes 11/22/16 14:00 Consult Physician Routine Consulting Provider: Ranjit Beckman Consult Reason/Comments: known Do you want consulting provider notified?: Yes 11/22/16 14:06 Consult Physician Routine Consulting Provider: Kirill Pearec Consult Reason/Comments: nephrology/dialysis Do you want consulting provider notified?: Already Contacted 11/22/16 15:35 Consult Physician Routine Consulting Provider: Lewis Lomax Consult Reason/Comments: icu management Do you want consulting provider notified?: Already Contacted Primary care physician: [facility] Course: Mr. Hooper is a 65-year-old male with a known history of ESRD on hemodialysis TTS , failed kidney transplant, nonobstructive coronary artery disease, nonischemic cardiomyopathy ejection fraction 20% and chronic bilateral pleural effusion was brought to the hospital from extended care facility with complaints of short of breath. Patient denied any, soft fever or chills. Patient does have gait dysfunction at baseline and uses a walker. Patient was recently discharged from the hospital on 11/15/2016. Patient does have chronic hypotension with SBP around 80 mm Hg. Bumex was discontinued during last admission. Currently patient denied any complains of chest pain. Patient does make some urine. Chest x-ray in the ER showed findings most consistent with mild heart failure and bilateral effusions. There is bibasilar airspace disease either representing atelectasis/ pneumonia. Patient was hypotensive and was started on antibiotics zosyn and levofloxacin and transferred to the ICU . On 11/23/16 - pt was c/o productive cough with yellow sputum for the 2-3 days and as the CXR showed effusion , pt had an US of the chest showing right pleural effusion fluid pocket of 13.9 cm and the left pleural effusion fluid pocket of 11 cm. HE also has h/o CHF with EF 10-15 % only. On 11/24/16 Pt.s SOB is improved. no CP. no Fever/chills. HD tomorrow.,. no over night issues. bring transferred to Tele unit Pt. had thoracentesis done with 1200 cc fluid removal On 11/25/2016 Patient states that he has a cough minimal productive in nature No fevers chills are reported Patient does complain of chest pressure with deep breathing Has underwent a thoracentesis status post 1.1 L of fluid removal 11/23/2016 Chest x-ray this morning revealed a recurrence of the fluid Patient appears to be waxing and waning in regards to his mentation however of known this patient for long period of time patient is extremely manipulative her graft patient once his medication which is not currently available 11/27/16 pt is more confused today O2 sats wnl Overnight pt has not slept Undergoing HD during my eval was not able to answer questions appropriately 11/28/16 more awake answering questions appropriately states to have pain in his chest NO other overnight events reported 11/29/16 awake low bp noted overnight no fevers, chills, pain reported In appearance alert and oriented times 3 Neck is supple no JVD Diminished breath sounds on the left base No rhonchi or wheezing or crackles Heart S1-S2 heard regular rate and rhythm no murmurs appreciable Abdomen soft nontender organomegaly Left lower extremity a large ecchymosis along the left side and the a tender point on the left hip 1+ edema in the lower extremities and upper ext. Neuro moves all 4 extremities no focal deficits Left upper extremity palpable thrill noted with some swelling noted on the left upper extremity distal to the AV fistula Assessment and Plan Plan: #1 Systemic inflammatory response syndrome with possible bibasilar with gram- negative pneumonia #2 chronic hypotension. Patient is on Midodrine #3 ESRD on hemodialysis TTS #4 acute on chronic CHF with systolic dysfunction with ejection fraction 20% #5 Non ischemic cardiomyopathy #6 elevated troponin possible non-ST elevated RI #7 hypoalbuminemia with moderate protein calorie malnutrition #8 chronic bilateral pleural effusion. s/p thoracentesis on 11/24 #9 anemia of chronic disease #10 DVT prophylaxis. #11. acute metabolic encephalopathy #12 bilateral pneumonia with parapneumonic effusion noted on the pleural fluid #13 recent cardiac arrest Patient is to continue a course of Augmentin Patient will be discharged to undergo ultrafiltration to remove excess fluid this was discussed with the sales office administrator patient was investigated with a left upper extremity Doppler study to rule out a DVT in the upper extremity which was negative It appears to be just dependent edema Patient Condition at Discharge: Serious Plan - Discharge Summary New Discharge Prescriptions: New Amoxic-Pot Clav 500-125 mg [Augmentin 500-125 mg] 1 each PO BID #14 tab Midodrine [ProAmatine] 10 mg PO AC-TID tab predniSONE 20 mg PO DAILY #20 tab QUEtiapine [SEROquel] 50 mg PO HS@1999 #20 tab Continue Tranylcypromine Sulfate [Parnate] 100 mg PO DAILY@0800 Montelukast Sodium [Singulair] 10 mg PO DAILY@0800 Allopurinol [Zyloprim] 100 mg PO DAILY@0800 Calcium Acetate [PhosLo] 667 mg PO AC-TID Cinacalcet [Sensipar] 30 mg PO DAILY@0800 Magnesium Hydroxide [Milk of Magnesia] 2,400 mg PO DAILY PRN PRN Reason: Constipation Acetaminophen Tab [Tylenol] 650 mg PO Q6H PRN PRN Reason: Fever And/ Or Pain Lactulose 20 gm PO DAILY PRN PRN Reason: Constipation Sennosides [Senna] 8.6 mg PO DAILY@0800 Polyethylene Glycol 3350 [Miralax] 17 gm PO DAILY PRN PRN Reason: Constipation Cholecalciferol [Vitamin D3] 1,000 unit PO DAILY@1700 Albuterol Nebulized [Ventolin Nebulized] 2.5 mg INHALATION RT-QID PRN PRN Reason: Shortness Of Breath Famotidine 20 mg PO DAILY@0800 Aspirin 81 mg PO DAILY Atorvastatin [Lipitor] 40 mg PO HS tab Theophylline 24 Hour [Juan Manuel-24] 300 mg PO BID@0800,1700 Na Phos,M-B/Na Phos,Di-Ba [Fleet Adult] 133 ml RECTAL ONCE PRN PRN Reason: Constipation Bisacodyl [Dulcolax] 10 mg RECTAL DAILY PRN PRN Reason: Constipation cefTRIAXone [Rocephin] 1,000 mg IM ONCE Tamsulosin [Flomax] 0.4 mg PO DAILY@0800 Sodium Bicarbonate Tab 650 mg PO BID@0800,1700 Nephro 8oz Supplement 1 can PO BID@0800,1700 Darbepoetin Michael [Aranesp] 40 mcg SQ TH chlordiazePOXIDE HCL 10 mg PO TID PRN #10 PRN Reason: Anxiety Discontinued Midodrine [ProAmatine] 5 mg PO AC-TID tab traMADol HCL [Ultram] 50 - 100 mg PO Q6H PRN PRN Reason: Pain Discharge Medication List Montelukast Sodium [Singulair] 10 mg PO DAILY@0800 12/04/13 [History] Tranylcypromine Sulfate [Parnate] 100 mg PO DAILY@0812/04/13 [History] Allopurinol [Zyloprim] 100 mg PO DAILY@0801/26/14 [History] Acetaminophen Tab [Tylenol] 650 mg PO Q6H PRN 03/27/16 [History] Calcium Acetate [PhosLo] 667 mg PO AC-TID 03/27/16 [History] Cholecalciferol [Vitamin D3] 1,000 unit PO DAILY@1700 03/27/16 [History] Cinacalcet [Sensipar] 30 mg PO DAILY@0803/27/16 [History] Lactulose 20 gm PO DAILY PRN 03/27/16 [History] Magnesium Hydroxide [Milk of Magnesia] 2,400 mg PO DAILY PRN 03/27/16 [History] Polyethylene Glycol 3350 [Miralax] 17 gm PO DAILY PRN 03/27/16 [History] Sennosides [Senna] 8.6 mg PO DAILY@0803/27/16 [History] Albuterol Nebulized [Ventolin Nebulized] 2.5 mg INHALATION RT-QID PRN 11/01/16 [ History] Famotidine 20 mg PO DAILY@0811/01/16 [History] Aspirin 81 mg PO DAILY 11/14/16 [Rx] Atorvastatin [Lipitor] 40 mg PO HS tab 11/14/16 [Rx] Bisacodyl [Dulcolax] 10 mg RECTAL DAILY PRN 11/14/16 [History] Na Phos,M-B/Na Phos,Di-Ba [Fleet Adult] 133 ml RECTAL ONCE PRN 11/14/16 [History ] Theophylline 24 Hour [Juan Manuel-24] 300 mg PO BID@0800,1700 11/14/16 [History] Darbepoetin Michael [Aranesp] 40 mcg SQ TH 11/22/16 [History] Nephro 8oz Supplement 1 can PO BID@0800,1700 11/22/16 [History] Sodium Bicarbonate Tab 650 mg PO BID@0800,1700 11/22/16 [History] Tamsulosin [Flomax] 0.4 mg PO DAILY@0800 11/22/16 [History] cefTRIAXone [Rocephin] 1,000 mg IM ONCE 11/22/16 [History] Amoxic-Pot Clav 500-125 mg [Augmentin 500-125 mg] 1 each PO BID #14 tab [Rx] Midodrine [ProAmatine] 10 mg PO AC-TID tab 11/30/16 [Rx] QUEtiapine [SEROquel] 50 mg PO HS@2000 #20 tab 11/30/16 [Rx] chlordiazePOXIDE HCL 10 mg PO TID PRN #10 11/30/16 [Rx] predniSONE 20 mg PO DAILY #20 tab 11/30/16 [Rx] Follow up Appointment(s)/Referral(s): Devin Lopez DO [Primary Care Provider] - 1-2 days Lewis Lomax MD [STAFF PHYSICIAN] - 1 Week Discharge Disposition: TRANSFER TO SNF/ECF
--- NOTE | 2016-11-30 15:25 | PN ---
DATE OF SERVICE: 11/30/2016 Reason for followup is pneumonia. INTERVAL HISTORY: The patient is afebrile. He is more awake, alert and is breathing comfortably, getting dialysis. The patient denies any significant chest pain. Very minimal cough, no abdominal pain. No nausea, vomiting or any diarrhea. On examination, blood pressure is 93/54 with a pulse of 98, temperature 96.9. He is 98% on room air. General description is an elderly male, lying in bed in no distress. RESPIRATORY SYSTEM: Unlabored breathing with decreased breath sounds at the base, no wheeze. HEART: S1, S2, regular rate and rhythm. ABDOMEN: Soft, no tenderness. LABS: Hemoglobin is 7.7, white count 5.4. So far sputum culture as well as the blood and fluid cultures remain to be negative. DIAGNOSTIC IMPRESSION AND PLAN: Patient admitted to the hospital with difficulty breathing which is likely multifactorial in a patient with possible component of pneumonia. Patient's cultures remain to be negative for significant pathogen. Antibiotics in the form of Augmentin for about a week. Continue supportive care. LAURENT
[2016-11-30] MEDS ORDERED: FUROSEMIDE 80 MG TAB PO SCH (16:00)
[2016-11-30 16:33] LABS: Glucose,Whole Blood 169 mg/dL (75-99)
[2016-11-30] MEDS: CHOLECALCIFEROL 1,000 UNIT TAB PO SCH (16:48)
[2016-11-30 17:38] VITALS: BP 84/54; PULSE 98; TEMP 98
[2016-11-30] MEDS ORDERED: predniSONE 20 MG TAB PO SCH (21:00)
[2016-11-30] MEDS ORDERED: AMOXIC-POT CLAV 500-125 MG 1 EACH TAB PO SCH (21:00)
== END 2016-11-30 18:46 | DRG 177 ==
LOC: EC 10:32 → 6ICU 13:07 → 6SEL 11-24 19:59
PROVIDERS: ADMIT Hospitalist; ATTEND Hospitalist
PROC: 5A1D60Z (ICD-10-PCS; 2016-11-23)
PROC: 0W993ZZ Drainage of Right Pleural Cavity, Percutaneous Approach (ICD-10-PCS; 2016-11-24)
PROC: 30233N1 Transfusion of Nonautologous Red Blood Cells into Peripheral Vein, Percutaneous Approach (ICD-10-PCS; 2016-11-25)
PROC: 0W9B3ZZ Drainage of Left Pleural Cavity, Percutaneous Approach (ICD-10-PCS; principal; 2016-11-28)
DX: J15.6 Pneumonia due to other Gram-negative bacteria (principal); N18.6 End stage renal disease; I21.4 Non-ST elevation (NSTEMI) myocardial infarction; J96.01 Acute respiratory failure with hypoxia; G93.41 Metabolic encephalopathy; I50.23 Acute on chronic systolic (congestive) heart failure; J90 Pleural effusion, not elsewhere classified; T86.12 Kidney transplant failure; R18.8 Other ascites; E44.0 Moderate protein-calorie malnutrition; E87.2 Acidosis; I42.9 Cardiomyopathy, unspecified; J45.901 Unspecified asthma with (acute) exacerbation; R65.10 Systemic inflammatory response syndrome (SIRS) of non-infectious origin without acute organ dysfunction; I95.89 Other hypotension; D63.1 Anemia in chronic kidney disease; E88.09 Other disorders of plasma-protein metabolism, not elsewhere classified; I25.10 Atherosclerotic heart disease of native coronary artery without angina pectoris; R53.1 Weakness; E87.5 Hyperkalemia; R00.0 Tachycardia, unspecified; M25.552 Pain in left hip; S80.12XA Contusion of left lower leg, initial encounter; R01.1 Cardiac murmur, unspecified; R26.9 Unspecified abnormalities of gait and mobility; R32 Unspecified urinary incontinence; F32.9 Major depressive disorder, single episode, unspecified; Z99.2 Dependence on renal dialysis; Z87.442 Personal history of urinary calculi; Z85.828 Personal history of other malignant neoplasm of skin; Z79.899 Other long term (current) drug therapy; Z88.1 Allergy status to other antibiotic agents; Z88.5 Allergy status to narcotic agent; Z88.8 Allergy status to other drugs, medicaments and biological substances; Z87.01 Personal history of pneumonia (recurrent); Z86.19 Personal history of other infectious and parasitic diseases; Z86.010 Personal history of colon polyps; Z68.22 Body mass index [BMI] 22.0-22.9, adult; Z71.3 Dietary counseling and surveillance; Z98.42 Cataract extraction status, left eye; Z98.41 Cataract extraction status, right eye; Z86.74 Personal history of sudden cardiac arrest; Z87.39 Personal history of other diseases of the musculoskeletal system and connective tissue; Z86.69 Personal history of other diseases of the nervous system and sense organs; Z87.81 Personal history of (healed) traumatic fracture; Z79.82 Long term (current) use of aspirin; Z79.2 Long term (current) use of antibiotics; Z79.891 Long term (current) use of opiate analgesic; Z91.15 Patient's noncompliance with renal dialysis
CPT/HCPCS: 36415; 71010; 71020; 76604; 80053; 81001; 82140; 82550; 82553; 82945; 83605; 83615; 83735; 83880; 84100; 84157; 84484; 85025; 85610; 85730; 86850; 86900; 86901; 86920; 87040; 87070; 87086; 87102; 87116; 87205; 87206; 88108; 88305; 88341; 88342; 89050; 90935; 93005; 93306; 94640; 94644; 94760; 96360; 96365; 99291